=== PATIENT | female | born 1935 | race Caucasian/White ===

== ENCOUNTER 2023-11-21 13:17 | Outpatient (CLI) | payer MEDICARE, OTHER, SELFPAY ==
--- NOTE | ~2023-11-21 | DEXA_ITS ---
Bone Density Report Name: JANAY ARANA Age: 88 Sex: Female Ethnicity: White Date of : 1935 Indication: postmenopausal; screening for osteoporosis; height loss; hysterectomy; Referring Provider: REX, ARCHANA Study: Bone densitometry was performed. Exam Date: November 21, 2023 Accession number: [id number] Bone Density: Region BMD T-score Z-score Classification AP Spine(L1, L2, L3) 1.135 1.1 3.9 Normal Femoral Neck (Left) 0.637 -1.9 0.6 Osteopenia Total Hip (Left) 0.844 -0.8 1.5 Normal Femoral Neck (Right) 0.770 -0.7 1.8 Normal Total Hip (Right) 0.834 -0.9 1.5 Normal Total Hip Mean 0.839 -0.9 1.5 Normal World Health Organization criteria for BMD impression classify patients as: Normal (T-score at or above -1.0), Osteopenia (T-score between -1.0 and -2.5), or Osteoporosis (T-score at or below -2.5). 10-year Fracture Risk(1): Major Osteoporotic Fracture 13% Hip Fracture 3.8% Reported Risk Factors: [place] (), Neck BMD=0.637, BMI=34.1 (1) FRAX(R) Version 3.08. Fracture probability calculated for an untreated patient. Fracture probability may be lower if the patient has received treatment. Clinical Information Provided by Patient: Has used the following medications: MIHIR Has the following medical conditions: Hysterectomy Patient maximum height was 65 Menopause Age: 43 No regular weight bearing exercise Drinks caffeinated beverages Onset of menses at age 14 Number of children 2 Impression: The patient has low bone mass, based on the Left Femoral Neck T-score. The patient has an estimated ten-year risk of hip fracture of 3.8% and an estimated ten-year risk of major fracture of 13%, based on the WHO FRAX algorithm. Discussion: BONE DENSITY IS LOW AT ONE OR MORE SKELETAL SITES. THE PATIENT'S BMD AND CLINICAL RISK FACTORS CONTRIBUTE TO THIS PATIENT'S INCREASED RISK OF FRACTURE. This patient's lowest T-score is low at one or more skeletal sites. It meets the World Health Organization's (WHO) criteria for ?low bone mass? (T-score between -1.0 and -2.5). The patient's 10-year risk of hip fracture as calculated by FRAX exceeds the threshold where pharmacological therapy is recommended by the National Osteoporosis Foundation (NOF). However, all treatment decisions require clinical judgment and consideration of individual patient factors, including patient preferences, comorbidities, previous drug use, risk factors not captured in the FRAX model (e.g., frailty, falls, vitamin D deficiency, increased bone turnover, interval significant decline in bone density) and possible under or overestimation of fracture risk by FRAX. The patient should follow a healthful lifestyle (good nutrition with adequate calcium and vitamin D, and appropriate weight-bearing exercise).
== END 2023-11-21 13:18 | disposition home or self-care (01) ==
LOC: ANHIMG 13:20
PROVIDERS: PCP Internal Medicine; Visit Provider Internal Medicine
DX: Z13.820 Encounter for screening for osteoporosis (principal); Z78.0 Asymptomatic menopausal state; M85.852 Other specified disorders of bone density and structure, left thigh
CPT/HCPCS: 77080

== ENCOUNTER 2024-09-29 09:26 | Inpatient (IN) | payer MEDICARE, OTHER, SELFPAY ==
[2024-09-29] VITALS (23 sets, daily range): BP systolic 171–229; BP diastolic 80–120; PULSE 56–80; RESP 12–25; TEMP 36.4–36.9; O2SAT 97–100; BMI 25.5; BMI 28.2
--- NOTE | ~2024-09-29 | XR_ITS ---
Portable chest x-ray Comparison: 10/03/2024 Clinical History: Line placement Findings: Left-sided central venous line are in satisfactory position. Possible minimal pleural effu sherita. Probable mild central congestive change. Cardiomediastinal silhouette is stable. Bones and sof t tissues are unremarkable. Impression: Support line, as above. No pneumothorax. Possible minimal central congestive change and minimal left pleural effusion. Reviewed, dictated and finalized at location . ING AID TECHNICIAN Impression: Support line, as above. No pneumothorax. Possible minimal central congestive change and minimal left pleural effusion.
--- NOTE | ~2024-09-29 | XR_ITS ---
EXAMINATION: XR chest 1V portable Exam Date/Time: 09/30/2024 18:43 FARE ENFORCEMENT OFFICER HISTORY: STEVE Comparison: None. RESULT: Lines, tubes, and devices: None. Lungs and pleura: Clear. Cardiomediastinal silhouette: Stable. Other: No acute osseous or upper abdominal finding. IMPRESSION: No acute cardiopulmonary process. Reviewed, dictated and finalized at location K. ENFORCEMENT OFFICER
--- NOTE | ~2024-09-29 | CT_ITS ---
History: Respiratory failure, anemia PROCEDURE: CT head without contrast. COMPARISON: 04/08/2014 TECHNIQUE: Axial imaging of the head performed from the skull base to the vertex without IV contrast. Sagittal a nd coronal reformations obtained. DLP: mGy-cm FINDINGS: The ventricles are enlarged. The dilatation of the ventricles is proportional to the degree of sulcal prominence, not uncommon in the senescent brain. Decreased attenuation is identified within the periventricular white matter, likely secondary to micr ovascular ischemic disease, in a patient of this age. There is no mass, mass effect or midline shift. There is no abnormal extra-axial fluid collection or intracranial hemorrhage. Mucoperiosteal thickening within the right frontal sinus. Remaining paranasal sinuses are unremarkable. The mastoid air cells are well aerated. No acute displaced fractures within the overlying cranium. Impression: No acute intracranial hemorrhage or suspicious mass effect. Reviewed, dictated and finalized at location A. ONNEL SUPERVISOR Impression: No acute intracranial hemorrhage or suspicious mass effect.
--- NOTE | ~2024-09-29 | US_ITS ---
EXAMINATION: US renal BI, US retroperitoneal duplex ltd DATE: 09/29/2024 14:57 INDICATION: Acute kidney injury TECHNIQUE: 1. Multiple grayscale and color Doppler images of the kidneys were obtained. 2. Multiple grayscale and pulsed Doppler images of the aorta and renal arteries were obtained. COMPARISON: None. FINDINGS: Kidneys: The right kidney measures 10.9 x 5.9 x 5.6 cm. The left kidney measures 11.5 x 5.0 x 5.3 cm. The kidn eys demonstrate bilateral diffuse renal cortical echogenicity consistent with medical renal disease. There are large bilateral anechoic renal cysts measuring up to 5.0 cm on the right hand 9.0 cm on the left. There is no hydronephrosis in either kidney. No stones identified. The arterial resistive ind ices in the right kidney range from 0.74-0.77 and in the left kidney range from 0.65-0.76. The bladde r is normal. Mild splenomegaly measuring 13.4 cm craniocaudal length. Renal arteries/vascular: The aorta peak systolic velocity is 86 cm/s. Infrarenal abdominal aortic aneurysm measuring up to 3.6 cm in maximal AP diameter. The right renal artery peak systolic velocity is 45 cm/s in the proximal segment, 40 cm/s in the mid segment, and 33 cm/s in the distal segment. The left renal artery peak sy stolic velocity is 77 cm/s in the proximal segment, 49 cm/s in the mid segment, and 19 cm/s in the di stal segment. IMPRESSION: 1. Bilateral increased renal cortical atelectasis be consistent with medical renal disease. No hydron ephrosis. 2. No Doppler evidence of renal artery stenosis. 3. Fusiform abdominal aortic aneurysm measuring up to 3.6 cm maximal diameter. Reviewed, dictated and finalized at location B. ENT COMPANION IMPRESSION: 1. Bilateral increased renal cortical atelectasis be consistent with medical re nal disease. No hydronephrosis. 2. No Doppler evidence of renal artery stenosis. 3. Fusiform abdominal aortic aneurysm measuring up to 3.6 cm maximal diameter.
--- NOTE | ~2024-09-29 | XR_ITS ---
XR chest ET placement Ordering provider: Rocio Champion MD History: 89 years Female with . After intubation to confirm ET placement . Comparison: October 05, 2024 FINDINGS: MEDIASTINUM: The cardiac silhouette is slightly enlarged. Left permacath with the tip overlying the r ight atrium. Endotracheal tube above the abraham by about 2 cm. LUNGS: No effusions or pneumothorax. Opacification in the left lung base laterally. OTHER: No free air under the diaphragm. IMPRESSION: Left basilar atelectasis versus pneumonia. Reviewed, dictated and finalized at location A. K PARTS INSPECTOR
--- NOTE | ~2024-09-29 | XR_ITS ---
Portable chest x-ray Comparison: 10/06/2024 Clinical History: Respiratory failure Findings: Endotracheal tube, NG tube, and bilateral central venous lines are in place. Small to mode rate left pleural effusion present with probable left lower lobe atelectasis. Right lung essentially clear. Cardiomediastinal silhouette is stable. Bones and soft tissues are unremarkable. Impression: [id number] left pleural effusion with probable left lower lobe atelectasis. Correlate clinical ly for pneumonia. Support tubes, as above. Reviewed, dictated and finalized at location . ION MARKETER Impression: [id number] left pleural effusion with probable left lower lobe atelectas is. Correlate clinically for pneumonia. Support tubes, as above.
--- NOTE | ~2024-09-29 | XR_ITS ---
EXAMINATION: XR fl guide central line place DATE: 10/05/2024 13:01 INDICATION: Central line placement. TECHNIQUE: 3 intraoperative spot fluoroscopic views of the chest were obtained. I wasn't present. Flu oroscopy exposure time was 1 minute 34 seconds. COMPARISON: Chest single view 10/05/2024 FINDINGS: There is a left internal jugular central venous catheter with tip overlying the proximal ri ght atrium. IMPRESSION: 1. Central line tip overlying the proximal right atrium. Reviewed, dictated and finalized at location [] ICE ADMINISTRATOR
--- NOTE | ~2024-09-29 | XR_ITS ---
XR abdomen gastric tube insert Ordering provider: Rocio Champion MD History: . og placement . Comparison: None. FINDINGS/impression: Nasogastric tube with the tip in the body of the stomach. Reviewed, dictated and finalized at location A. S AGENT FINANCIAL REPORT SERVICE
--- NOTE | ~2024-09-29 | XR_ITS ---
EXAMINATION: XR chest port-a-cath/central DATE: 10/03/2024 12:12 INDICATION: Dialysis catheter placement TECHNIQUE: frontal view of the chest was obtained. COMPARISON: Chest radiograph dated 09/30/2024 FINDINGS: Large-bore likely tunneled dual-lumen right internal jugular central venous catheter with distal tip at the superior cavoatrial junction. No airspace opacities, pulmonary edema, pleural effusion or pneu mothorax. Heart size is normal. Calcified mediastinal lymph nodes consistent with old granulomatous d isease. IMPRESSION: 1. No acute cardiopulmonary disease. 2. Right internal jugular central venous catheter tip at the superior cavoatrial junction. Reviewed, dictated and finalized at location B. PATIAL IMAGE ANALYST IMPRESSION: 1. No acute cardiopulmonary disease. 2. Right internal jugular central venous catheter tip at the superior cavoatria l junction.
--- NOTE | ~2024-09-29 | XR_ITS ---
EXAMINATION: XR chest port-a-cath/central DATE: 10/06/2024 12:33 INDICATION: Central line placement. TECHNIQUE: A single frontal view of the chest was obtained. COMPARISON: Chest single view at 11:33 AM FINDINGS: The patient is rotated to her left. There are airspace opacities in left lower lung zone. N o pleural effusion or pneumothorax. The heart size is normal. Calcified left hilar lymph nodes are co nsistent with old granulomatous disease. The endotracheal tube tip is 3.6 cm above the abraham. The na sogastric tube tip is beyond the inferior margin of the radiograph, but at least to the stomach. A le ft internal jugular central venous catheter is seen with tip in the proximal right atrium. A right in ternal jugular central venous catheter is seen with tip at the superior cavoatrial junction. IMPRESSION: 1. New central line tip at the superior cavoatrial junction. 2. Stable airspace opacities in left lower lung zone, consistent with atelectasis versus pneumonia. Reviewed, dictated and finalized at location A. CLERK IMPRESSION: 1. New central line tip at the superior cavoatrial junction. 2. Stable airspace opacities in left lower lung zone, consistent with atelectas is versus pneumonia.
--- NOTE | ~2024-09-29 | CT_ITS ---
CLINICAL INDICATION: Respiratory failure and anemia COMPARISON: None. TECHNIQUE: Multiple contiguous axial images of the chest, abdomen and pelvis were performed without t he administration of intravenous contrast The dose-length product (DLP) was 1252.89 mGy-cm. Automated exposure control and iterative reconstruction technique were employed. FINDINGS/OBSERVATIONS: LUNG:Large bilateral pleural effusions with adjacent compressive atelectasis MEDIASTINUM: Limited evaluation without intravenous contrast. Endotracheal tube and orogastric tube identified. Endotracheal tube ends at the level of the aortic knob. Orogastric tube extends into the stomach. Left internal jugular tunneled central venous catheter identified with its tip at the cavoatrial junc tion. Right internal jugular central venous catheter also noted, with its tip extending to the same level. HEART: The heart is enlarged, without pericardial effusion. SOFT TISSUES OF THE CHEST: Unremarkable. BONES OF THE CHEST: Acute fractures of the anterior left fourth fifth and sixth ribs. Prior fracture deformity with callus formation within the posterior left ninth rib. No right-sided rib fractures are present. Liver: The liver demonstrates homogeneous attenuation and is enlarged measuring 20 cm in longitudinal dimens ion. Gallbladder and biliary system: The gallbladder contains multiple calcified stones and trace surrounding inflammatory change. Pancreas: Limited evaluation of the pancreas secondary to the lack of intravenous contrast. Spleen: The spleen demonstrates homogeneous attenuation and is enlarged measuring 12 cm in longitudinal dimen sherita. Kidneys: The bilateral kidneys are atrophic with innumerable cysts of varying degrees of attenuation. No hydro nephrosis is identified. Adrenal glands: Unremarkable. Gastrointestinal tract: Colonic diverticulosis without surrounding inflammatory change. Vasculature: The abdominal aorta is tortuous and densely calcified. 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 The inferior vena cava is narrowed and is slit like, suggesting hypovolemia Lymph nodes: Limited evaluation without intravenous contrast. Pelvic structures: The bladder is decompressed with a Cazares catheter. The uterus is surgically absent. Body wall and musculoskeletal: Fat-containing right inguinal hernia. Significant degenerative disease lumbosacral spine, without acute compression fracture. IMPRESSION: Large bilateral pleural effusions with adjacent compressive atelectasis. The gallbladder is distended with multiple calcified stones with surrounding inflammatory change. Interval development of multiple left-sided rib fractures, as detailed above. Findings suggesting hypovolemia. Reviewed, dictated and finalized at location A. RGLASS MACHINE OPERATOR IMPRESSION: Large bilateral pleural effusions with adjacent compressive atelectasis. The gallbladder is distended with multiple calcified stones with surrounding in flammatory change. Interval development of multiple left-sided rib fractures, as detailed above. Findings suggesting hypovolemia.
--- NOTE | ~2024-09-29 | XR_ITS ---
Portable chest x-ray Comparison: 10/07/2024 Clinical History: Respiratory failure Findings: Endotracheal tube, NG tube, and bilateral central venous lines are in place. Small to mode rate left pleural effusion present. Probable mild central congestive change. Cardiomediastinal silho uette is stable. Bones and soft tissues are unremarkable. Impression: [id number] left pleural effusion with probable left basilar atelectasis. Mild central congestive changes. Support tubes, as above. Reviewed, dictated and finalized at location . TH CONTROL TESTER Impression: [id number] left pleural effusion with probable left basilar atelectasis. Mild central congestive changes. Support tubes, as above.
--- NOTE | ~2024-09-29 | XR_ITS ---
EXAMINATION: XR fl guide central line place DATE: 10/03/2024 11:48 INDICATION: Dialysis catheter placement. TECHNIQUE: A single intraoperative fluoroscopic view of the chest was obtained. I was not present. Fl uoroscopy exposure time was 74 seconds. COMPARISON: Chest single view 09/30/2024 FINDINGS: A right internal jugular central venous catheter is seen with tip at the superior cavoatria l junction. There is an endotracheal tube in expected position. IMPRESSION: 1. Central line tip at the superior cavoatrial junction. Reviewed, dictated and finalized at location A. SER TENDER
--- NOTE | 2024-09-29 09:37 | ED_ITS ---
HPI - Nausea/Vomiting/Diarrhea General Chief complaint: Nausea/Vomiting/Diarrhea <Jing Carlisle PA-C - Last Filed: 09/29/24 11:35> Stated complaint: nausea vomiting <Jing Carlisle PA-C - Last Filed: 09/29/24 11:35> Time Seen by Provider: 09/29/24 09:29 <Jing Carlisle PA-C - Last Filed: 09/29/24 11:35> History of Present Illness HPI Narrative: 89-year-old female with history of hypertension presents to emergency department for N/V/D for 1 day. Patient states symptoms started yesterday but became worse last night. She notes she was hospitalized last week at [facility] for the same symptoms. She was discharged with Zofran which she has been taking with some improvement. She is unsure what her diagnosis was. She denies fever, abdominal pain, dysuria or hematuria. She has found a be hypertensive upon arrival and states she has not taken her blood pressure medications today. Denies chest pain or shortness of breath, vision changes. <Jing Carlisle PA-C - Last Filed: 09/29/24 11:35> Related Data Home medications: Home Medications ?Medication ?Instructions ?Recorded ?Confirmed ?Last Taken ?Type amlodipine 5 mg tablet 5 mg PO DAILY Blood pressure 09/29/24 09/29/24 09/28/24 History calcitriol 0.25 mcg capsule 0.25 mcg PO DAILY 09/29/24 09/29/24 09/28/24 History cefuroxime axetil 250 mg tablet 250 mg PO Q12H 09/29/24 09/29/24 Unknown History metoprolol succinate 100 mg 100 mg PO DAILY 09/29/24 09/29/24 09/28/24 History tablet,extended release 24 hr mirtazapine 7.5 mg tablet 7.5 mg PO HS 09/29/24 09/29/24 Unknown History ondansetron HCl 4 mg tablet 4 mg PO PRN 09/29/24 09/29/24 Unknown History sertraline 100 mg tablet 100 mg PO DAILY 09/29/24 09/29/24 09/28/24 History <Jing Carlisle PA-C - Last Filed: 09/29/24 11:35> Allergies/Adverse reactions: Allergies Allergy/AdvReac Type Severity Reaction Status Date / Time Toxfnqz-JLQ-ZwV Reductase Allergy Unknown CRAMPING Verified 09/29/24 11:08 Inhibitor (Zirzqqy-Ygg-Qmi LEG Reductase Inhibitor) NSID AdvReac Mild unknown Uncoded 09/29/24 11:08 <Jing Carlisle PA-C - Last Filed: 09/29/24 11:35> Review of Systems 2 Review of Systems: All systems reviewed & are unremarkable except as noted in HPI and below <Jing Carlisel PA-C - Last Filed: 09/29/24 11:35> PMFSH Past Medical History Medical History: Medical History (Updated 09/29/24 @ 16:05 by Jessica Alonso PA-C) Depression Hypertension <Jing Carlisle PA-C - Last Filed: 09/29/24 11:35> Surgical History Surgical History: Surgical History (Updated 09/29/24 @ 16:04 by Jessica Alonso PA-C) History of tonsillectomy History of cataract extraction <Jing Carlisle PA-C - Last Filed: 09/29/24 11:35> Social History Social History: Social History (Updated 09/29/24 @ 16:04 by Jessica Alonso PA-C) Social History: Surrogate medical decision maker: Marisol Negrete, sibling. Code status: Full code. Smoking status: Never smoker Alcohol intake: never Substance use: never Do You Feel Safe in your Home?: Yes Lack of Transportation: No Lack of Food: Never True Current Housing: I Have Housing Concerned About Future Housing: No Difficulty Paying Gas/Electric Bills: No Difficulty Paying for Meds: No Currently Unemployed: No Education: Associate Degree Difficulty w/ Childcare or Family Care: No Spiritual care concerns: No <Jing Carlisle PA-C - Last Filed: 09/29/24 11:35> Exam 2 Narrative: GENERAL: Well-appearing, well-nourished, and in no acute distress. HEAD: Normocephalic, atraumatic. EYES: PERRLA and EOMI. ENT: Nares clear, no rhinorrhea or epistaxis. Mucous membranes dry NECK: Supple. CHEST: Clear to auscultation. No respiratory distress. HEART: Regular rate and rhythm. No murmur heard. Normal peripheral pulses. ABDOMEN: Soft, nontender, nondistended, normal active bowel sounds. No rebound, guarding or rigidity. No CVA tenderness EXTREMITIES: Normal range of motion. No edema. SKIN: Warm, dry, no rash. NEURO: No focal deficits. Alert and oriented x3 <Jing Carlisle PA-C - Last Filed: 09/29/24 11:35> Course ELECTRONIC DESIGN ENGINEER/PA Physician Supervision For this patient encounter, I reviewed the ELECTRONIC DESIGN ENGINEER or PA documentation, treatment plan, and medical decision making; and I had [id number] time with this patient. <Dale Matson MD - Last Filed: 09/29/24 18:19> Vital Signs Vital signs: Vital Signs Temperature 97.5 F L 09/29/24 09:26 Pulse Rate 80 09/29/24 09:26 Respiratory Rate 16 09/29/24 09:26 Blood Pressure 217/95 H 09/29/24 09:26 Pulse Oximetry 97 09/29/24 09:26 Temperature 98.5 F 09/29/24 15:34 Pulse Rate 59 L 09/29/24 16:00 Respiratory Rate 16 09/29/24 15:34 Blood Pressure 171/120 H 09/29/24 15:34 Pulse Oximetry 99 09/29/24 15:37 Oxygen Delivery Room Air 09/29/24 15:37 <Jing Carlisle PA-C - Last Filed: 09/29/24 11:35> Vital Signs Temperature 97.5 F L 09/29/24 09:26 Pulse Rate 80 09/29/24 09:26 Respiratory Rate 16 09/29/24 09:26 Blood Pressure 217/95 H 09/29/24 09:26 Pulse Oximetry 97 09/29/24 09:26 Temperature 98.5 F 09/29/24 15:34 Pulse Rate 59 L 09/29/24 16:00 Respiratory Rate 16 09/29/24 15:34 Blood Pressure 171/120 H 09/29/24 15:34 Pulse Oximetry 99 09/29/24 15:37 Oxygen Delivery Room Air 09/29/24 15:37 <Dale Matson MD - Last Filed: 09/29/24 18:19> MDM - Nausea/Vomiting/Diarrhea MDM Narrative Medical decision making narrative: 89-year-old female with history of hypertension presents to emergency department for N/V/D for the past day. Triage vitals with hypertension. Patient is afebrile nontoxic appearing. Admits to not taking her blood pressure medications today, will provided does. Denies signs or symptoms of hypertensive emergency. Abdomen is soft and nontender. Will obtain lab work and provide IV fluids and antiemetics and re-evaluate. CBC without leukocytosis. Hemoglobin is 10, no prior for comparison. Chemistries with potassium of 5.5, bicarb 18, gap of 21, BUN of 98 and creatinine of 11.33. UA with proteinuria, trace leuk esterase. EKG shows sinus rhythm with Q-waves in the anterior leads and inferior leads, no ST elevations or depressions, no peaked T waves. Lipase normal. Patient family updated on results. Patient received IV fluids and Zofran with reported improvement. At the time my re-evaluation, patient's sister is at bedside to assist with recent history. States at patient's recent admission to [facility] she was told she had kidney disease and was given follow-up for corduroy brusher operator. The next step is for the patient to obtain renal ultrasound. She has no history of dialysis. CKD is a new diagnosis. Family patient are unable to show recent lab work to evaluate for patient's most recent renal function. Will request records. Plan to admit for presumed STEVE on CKD. Discussed with corduroy brusher operator, Dr. Burris,who advises one time dose of lokelma, will consult on admission. Discussed with hospitalist, Dr. Pennington who agrees with plan. Prior to patient going upstairs, patient's sister at bedside was able to find lab results from a PCP visit in June 2024 which showed a creatinine of 1.47. <Jing Carlisle PA-C - Last Filed: 09/29/24 11:35> Lab Data Result diagrams: 09/29/24 09:49 09/29/24 13:58 <Jing Carlisle PA-C - Last Filed: 09/29/24 11:35> Labs: Lab Results 09/29/24 09/29/24 09/29/24 Range/Units 09:48 09:49 09:50 WBC 4.6 (4.5-10.0) K/mm3 RBC 3.19 L (4.2-5.4) M/mm3 Hgb 10.0 L (12.0-15.0) g/dL Hct 29.9 L (37.0-47.0) % MCV 93.7 (80-100) fl MCH 31.3 (26-34) pg MCHC 33.4 (32-36) g/dl RDW 12.4 (11.5-14.5) % Plt Count 127 L (150-375) k/mm3 MPV 10.5 H (7.4-10.4) fl Immature Gran % (Auto) 0.4 (0-0.5) % Neut % (Auto) 75.0 H (45.5-73.1) % Lymph % (Auto) 16.6 L (18.3-44.2) % [place] % (Auto) 5.0 (2.6-8.5) % Eos % (Auto) 2.8 (0-4.4) % Baso % (Auto) 0.2 (0.2-1.2) % Lymph # (Auto) 0.76 L (0.9-3.2) K/mm3 [place] # (Auto) 0.2 (0.1-0.6) K/mm3 Eos # (Auto) 0.1 (0-0.3) K/mm3 Baso # (Auto) 0.0 (0.0-0.1) K/mm3 Abs Immat Gran (auto) 0.02 (0.00-0.031) K/mm3 Absolute Neuts (auto) 3.4 (1.3-6.7) K/mm3 Absolute Nucleated RBC 0.000 (0.0-0.012) K/mm3 Nucleated RBC % 0.0 (0.0-0.2) % ESR 125 H (0-20) mm/hr Sodium 139 (137-145) mmol/L Potassium 5.5 H (3.4-5.0) mmol/L Chloride 100 (98-107) mmol/L Carbon Dioxide 18 L (22-30) mmol/L Anion Gap 21 H (4-12) mmol/L BUN 98 H (7-17) mg/dL Creatinine 11.33 H (0.7-1.0) mg/dL Estim Creat Clear Calc 3 ml/min Estimated GFR 3 L (59 - ) Glucose 94 (65-110) mg/dL Calcium 9.6 (8.4-10.2) mg/dL Phosphorus 11.1 H (2.5-4.5) mg/dL Magnesium 2.5 H (1.6-2.3) mg/dL Iron 121 (37-170) ug/dL TIBC 255 L (261-462) ug/dL % Saturation 47 (20-50) % Ferritin 224.00 (11.1-264) ng/mL Total Bilirubin 0.6 (0.2-1.3) mg/dL AST 16 (14-36) U/L ALT 9 (6-35) U/L Alkaline Phosphatase 66 (38-126) U/L C-Reactive Protein (<1.0) mg/dL Total Protein 7.0 (6.3-8.2) g/dL Albumin 4.2 (3.5-5.1) g/dL Lipase 128 (23-300) U/L Vitamin B12 348.0 (239-931) pg/mL Folate 6.5 (2.76->20) ng/mL TSH (Reflex) 6.960 H (0.465-4.68) uIU/mL Free T4 Pending Urine Color (Yellow) Urine Appearance (Clear) Urine pH (5.0-9.0) Ur Specific [place] (1.001-1.035) Urine Protein (Negative) mg/dL Urine Glucose (UA) (Negative) mg/dL Urine Ketones (Negative) mg/dL Ur Blood (Man) (Negative) Urine Nitrate (Negative) Urine Bilirubin (Negative) Urine Urobilinogen (<2.0) mg/dL Add Ur Microanalysis Leukocyte Esterase Rfl (Negative) NANDO/UL Urine RBC (0-2) /hpf Urine WBC (0-3) /hpf Ur Squamous Epith Cells (Few) /hpf Urine Bacteria /hpf Urine Casts Complement C3 140 (88-165) mg/dL Complement C4 54.6 H (14.0-44.0) mg/dL Hep Bs Antigen Negative (Negative) Hep Bs Antibody Negative Hep B Core IgM Ab Negative (Negative) Hepatitis C Ab Screen Negative (Negative) HIV 1&2 Ab/P24 Ag 4thGn Negative (Negative) Influenza A (RT-PCR) Negative (Negative) Influenza B (RT-PCR) Negative (Negative) RSV (RT-PCR) Negative (Negative) SARS-CoV-2 RNA (RT-PCR) Negative (Negative) 09/29/24 09/29/24 Range/Units 10:18 10:39 WBC (4.5-10.0) K/mm3 RBC (4.2-5.4) M/mm3 Hgb (12.0-15.0) g/dL Hct (37.0-47.0) % MCV (80-100) fl MCH (26-34) pg MCHC (32-36) g/dl RDW (11.5-14.5) % Plt Count (150-375) k/mm3 MPV (7.4-10.4) fl Immature Gran % (Auto) (0-0.5) % Neut % (Auto) (45.5-73.1) % Lymph % (Auto) (18.3-44.2) % [place] % (Auto) (2.6-8.5) % Eos % (Auto) (0-4.4) % Baso % (Auto) (0.2-1.2) % Lymph # (Auto) (0.9-3.2) K/mm3 [place] # (Auto) (0.1-0.6) K/mm3 Eos # (Auto) (0-0.3) K/mm3 Baso # (Auto) (0.0-0.1) K/mm3 Abs Immat Gran (auto) (0.00-0.031) K/mm3 Absolute Neuts (auto) (1.3-6.7) K/mm3 Absolute Nucleated RBC (0.0-0.012) K/mm3 Nucleated RBC % (0.0-0.2) % ESR (0-20) mm/hr Sodium (137-145) mmol/L Potassium (3.4-5.0) mmol/L Chloride (98-107) mmol/L Carbon Dioxide (22-30) mmol/L Anion Gap (4-12) mmol/L BUN (7-17) mg/dL Creatinine (0.7-1.0) mg/dL Estim Creat Clear Calc ml/min Estimated GFR (59 - ) Glucose (65-110) mg/dL Calcium (8.4-10.2) mg/dL Phosphorus (2.5-4.5) mg/dL Magnesium (1.6-2.3) mg/dL Iron (37-170) ug/dL TIBC (261-462) ug/dL % Saturation (20-50) % Ferritin (11.1-264) ng/mL Total Bilirubin (0.2-1.3) mg/dL AST (14-36) U/L ALT (6-35) U/L Alkaline Phosphatase (38-126) U/L C-Reactive Protein 1.7 H (<1.0) mg/dL Total Protein (6.3-8.2) g/dL Albumin (3.5-5.1) g/dL Lipase (23-300) U/L Vitamin B12 (239-931) pg/mL Folate (2.76->20) ng/mL TSH (Reflex) (0.465-4.68) uIU/mL Free T4 Urine Color Yellow (Yellow) Urine Appearance Clear (Clear) Urine pH 6.0 (5.0-9.0) Ur Specific [place] 1.013 (1.001-1.035) Urine Protein 2+ H (Negative) mg/dL Urine Glucose (UA) Negative (Negative) mg/dL Urine Ketones Trace H (Negative) mg/dL Ur Blood (Man) Trace (Negative) Urine Nitrate Negative (Negative) Urine Bilirubin Negative (Negative) Urine Urobilinogen 0.2 (<2.0) mg/dL Add Ur Microanalysis Reviewed Leukocyte Esterase Rfl Trace H (Negative) NANDO/UL Urine RBC 0-2 (0-2) /hpf Urine WBC 0-5 (0-3) /hpf Ur Squamous Epith Cells None seen (Few) /hpf Urine Bacteria None seen /hpf Urine Casts 3-5 Complement C3 (88-165) mg/dL Complement C4 (14.0-44.0) mg/dL Hep Bs Antigen (Negative) Hep Bs Antibody Hep B Core IgM Ab (Negative) Hepatitis C Ab Screen (Negative) HIV 1&2 Ab/P24 Ag 4thGn (Negative) Influenza A (RT-PCR) (Negative) Influenza B (RT-PCR) (Negative) RSV (RT-PCR) (Negative) SARS-CoV-2 RNA (RT-PCR) (Negative) <Jing Carlisle PA-C - Last Filed: 09/29/24 11:35> Lab Results 09/29/24 09/29/24 09/29/24 Range/Units 09:48 09:49 09:50 WBC 4.6 (4.5-10.0) K/mm3 RBC 3.19 L (4.2-5.4) M/mm3 Hgb 10.0 L (12.0-15.0) g/dL Hct 29.9 L (37.0-47.0) % MCV 93.7 (80-100) fl MCH 31.3 (26-34) pg MCHC 33.4 (32-36) g/dl RDW 12.4 (11.5-14.5) % Plt Count 127 L (150-375) k/mm3 MPV 10.5 H (7.4-10.4) fl Immature Gran % (Auto) 0.4 (0-0.5) % Neut % (Auto) 75.0 H (45.5-73.1) % Lymph % (Auto) 16.6 L (18.3-44.2) % [place] % (Auto) 5.0 (2.6-8.5) % Eos % (Auto) 2.8 (0-4.4) % Baso % (Auto) 0.2 (0.2-1.2) % Lymph # (Auto) 0.76 L (0.9-3.2) K/mm3 [place] # (Auto) 0.2 (0.1-0.6) K/mm3 Eos # (Auto) 0.1 (0-0.3) K/mm3 Baso # (Auto) 0.0 (0.0-0.1) K/mm3 Abs Immat Gran (auto) 0.02 (0.00-0.031) K/mm3 Absolute Neuts (auto) 3.4 (1.3-6.7) K/mm3 Absolute Nucleated RBC 0.000 (0.0-0.012) K/mm3 Nucleated RBC % 0.0 (0.0-0.2) % ESR 125 H (0-20) mm/hr Sodium 139 (137-145) mmol/L Potassium 5.5 H (3.4-5.0) mmol/L Chloride 100 (98-107) mmol/L Carbon Dioxide 18 L (22-30) mmol/L Anion Gap 21 H (4-12) mmol/L BUN 98 H (7-17) mg/dL Creatinine 11.33 H (0.7-1.0) mg/dL Estim Creat Clear Calc 3 ml/min Estimated GFR 3 L (59 - ) Glucose 94 (65-110) mg/dL Calcium 9.6 (8.4-10.2) mg/dL Phosphorus 11.1 H (2.5-4.5) mg/dL Magnesium 2.5 H (1.6-2.3) mg/dL Iron 121 (37-170) ug/dL TIBC 255 L (261-462) ug/dL % Saturation 47 (20-50) % Ferritin 224.00 (11.1-264) ng/mL Total Bilirubin 0.6 (0.2-1.3) mg/dL AST 16 (14-36) U/L ALT 9 (6-35) U/L Alkaline Phosphatase 66 (38-126) U/L C-Reactive Protein (<1.0) mg/dL Total Protein 7.0 (6.3-8.2) g/dL Albumin 4.2 (3.5-5.1) g/dL Lipase 128 (23-300) U/L Vitamin B12 348.0 (239-931) pg/mL Folate 6.5 (2.76->20) ng/mL TSH (Reflex) 6.960 H (0.465-4.68) uIU/mL Free T4 Pending Urine Color (Yellow) Urine Appearance (Clear) Urine pH (5.0-9.0) Ur Specific [place] (1.001-1.035) Urine Protein (Negative) mg/dL Urine Glucose (UA) (Negative) mg/dL Urine Ketones (Negative) mg/dL Ur Blood (Man) (Negative) Urine Nitrate (Negative) Urine Bilirubin (Negative) Urine Urobilinogen (<2.0) mg/dL Add Ur Microanalysis Leukocyte Esterase Rfl (Negative) NANDO/UL Urine RBC (0-2) /hpf Urine WBC (0-3) /hpf Ur Squamous Epith Cells (Few) /hpf Urine Bacteria /hpf Urine Casts Complement C3 140 (88-165) mg/dL Complement C4 54.6 H (14.0-44.0) mg/dL Hep Bs Antigen Negative (Negative) Hep Bs Antibody Negative Hep B Core IgM Ab Negative (Negative) Hepatitis C Ab Screen Negative (Negative) HIV 1&2 Ab/P24 Ag 4thGn Negative (Negative) Influenza A (RT-PCR) Negative (Negative) Influenza B (RT-PCR) Negative (Negative) RSV (RT-PCR) Negative (Negative) SARS-CoV-2 RNA (RT-PCR) Negative (Negative) 09/29/24 09/29/24 Range/Units 10:18 10:39 WBC (4.5-10.0) K/mm3 RBC (4.2-5.4) M/mm3 Hgb (12.0-15.0) g/dL Hct (37.0-47.0) % MCV (80-100) fl MCH (26-34) pg MCHC (32-36) g/dl RDW (11.5-14.5) % Plt Count (150-375) k/mm3 MPV (7.4-10.4) fl Immature Gran % (Auto) (0-0.5) % Neut % (Auto) (45.5-73.1) % Lymph % (Auto) (18.3-44.2) % [place] % (Auto) (2.6-8.5) % Eos % (Auto) (0-4.4) % Baso % (Auto) (0.2-1.2) % Lymph # (Auto) (0.9-3.2) K/mm3 [place] # (Auto) (0.1-0.6) K/mm3 Eos # (Auto) (0-0.3) K/mm3 Baso # (Auto) (0.0-0.1) K/mm3 Abs Immat Gran (auto) (0.00-0.031) K/mm3 Absolute Neuts (auto) (1.3-6.7) K/mm3 Absolute Nucleated RBC (0.0-0.012) K/mm3 Nucleated RBC % (0.0-0.2) % ESR (0-20) mm/hr Sodium (137-145) mmol/L Potassium (3.4-5.0) mmol/L Chloride (98-107) mmol/L Carbon Dioxide (22-30) mmol/L Anion Gap (4-12) mmol/L BUN (7-17) mg/dL Creatinine (0.7-1.0) mg/dL Estim Creat Clear Calc ml/min Estimated GFR (59 - ) Glucose (65-110) mg/dL Calcium (8.4-10.2) mg/dL Phosphorus (2.5-4.5) mg/dL Magnesium (1.6-2.3) mg/dL Iron (37-170) ug/dL TIBC (261-462) ug/dL % Saturation (20-50) % Ferritin (11.1-264) ng/mL Total Bilirubin (0.2-1.3) mg/dL AST (14-36) U/L ALT (6-35) U/L Alkaline Phosphatase (38-126) U/L C-Reactive Protein 1.7 H (<1.0) mg/dL Total Protein (6.3-8.2) g/dL Albumin (3.5-5.1) g/dL Lipase (23-300) U/L Vitamin B12 (239-931) pg/mL Folate (2.76->20) ng/mL TSH (Reflex) (0.465-4.68) uIU/mL Free T4 Urine Color Yellow (Yellow) Urine Appearance Clear (Clear) Urine pH 6.0 (5.0-9.0) Ur Specific [place] 1.013 (1.001-1.035) Urine Protein 2+ H (Negative) mg/dL Urine Glucose (UA) Negative (Negative) mg/dL Urine Ketones Trace H (Negative) mg/dL Ur Blood (Man) Trace (Negative) Urine Nitrate Negative (Negative) Urine Bilirubin Negative (Negative) Urine Urobilinogen 0.2 (<2.0) mg/dL Add Ur Microanalysis Reviewed Leukocyte Esterase Rfl Trace H (Negative) NANDO/UL Urine RBC 0-2 (0-2) /hpf Urine WBC 0-5 (0-3) /hpf Ur Squamous Epith Cells None seen (Few) /hpf Urine Bacteria None seen /hpf Urine Casts 3-5 Complement C3 (88-165) mg/dL Complement C4 (14.0-44.0) mg/dL Hep Bs Antigen (Negative) Hep Bs Antibody Hep B Core IgM Ab (Negative) Hepatitis C Ab Screen (Negative) HIV 1&2 Ab/P24 Ag 4thGn (Negative) Influenza A (RT-PCR) (Negative) Influenza B (RT-PCR) (Negative) RSV (RT-PCR) (Negative) SARS-CoV-2 RNA (RT-PCR) (Negative) <Dale Matson MD - Last Filed: 09/29/24 18:19> Discharge Plan Discharge Clinical Impression: Acute kidney injury superimposed on chronic kidney disease, Azotemia <Jing Carlisle PA-C - Last Filed: 09/29/24 11:35> Patient Disposition: Still a Patient <Jing Carlisle PA-C - Last Filed: 09/29/24 11:35> Condition: Stable <Jing Carlisle PA-C - Last Filed: 09/29/24 11:35>
[2024-09-29 09:55] LABS: Basophils Percent Auto 0.2 % (0.2-1.2); Eosinophils Absolute Auto 0.1 K/mm3 (0-0.3); Eosinophils Percent Auto 2.8 % (0-4.4); Hematocrit 29.9 % (37.0-47.0); Immature Granulocyte Absolute 0.02 K/mm3 (0.00-0.031); Immature Granulocyte Percent A 0.4 % (0-0.5); Lymphocytes Absolute Auto 0.76 K/mm3 (0.9-3.2); Lymphocytes Percent Auto 16.6 % (18.3-44.2); Mean Corpuscular HGB Conc 33.4 g/dl (32-36); Mean Corpuscular Hemoglobin 31.3 pg (26-34); Mean Corpuscular Volume 93.7 fl (80-100); Mean Platelet Volume 10.5 fl (7.4-10.4); Monocytes Absolute Auto 0.2 K/mm3 (0.1-0.6); Neutrophils Absolute Auto 3.4 K/mm3 (1.3-6.7); Platelet Count Result 127 k/mm3 (150-375); Red Blood Count 3.19 M/mm3 (4.2-5.4); Red Cell Distribution Width 12.4 % (11.5-14.5); White Blood Count 4.6 K/mm3 (4.5-10.0)
[2024-09-29 10:06] LABS: Alanine Aminotransferase 9 U/L (6-35); Albumin Level 4.2 g/dL (3.5-5.1); Alkaline Phosphatase 66 U/L (38-126); Anion Gap 21 mmol/L (4-12); Aspartate Amino Transferase 16 U/L (14-36); Bilirubin,Total 0.6 mg/dL (0.2-1.3); Blood Urea Nitrogen 98 mg/dL (7-17); Calcium 9.6 mg/dL (8.4-10.2); Carbon Dioxide 18 mmol/L (22-30); Chloride 100 mmol/L (98-107); Estimated CRCL calculation 3 ml/min; Estimated Glomerular Filt Rate 3; Glucose 94 mg/dL (65-110); Lipase 128 U/L (23-300); Magnesium 2.5 mg/dL (1.6-2.3); Potassium 5.5 mmol/L (3.4-5.0); Sodium 139 mmol/L (137-145)
--- NOTE | 2024-09-29 10:18 | ECG_ITS ---
Test Date: 2024-09-29 11:06:27 Measurements Intervals [place] Rate: 63 P: 38 MD: 185 QRS: -4 QRSD: 92 T: 3 QT: 446 QTc: 458 Interpretive Statements SINUS RHYTHM ANTEROSEPTAL INFARCT, AGE INDETERMINATE INFERIOR INFARCT, AGE INDETERMINATE BASELINE ARTIFACT- I, II, AVR ABNORMAL ECG No previous ECG available for comparison Electronically Signed On 09-29-2024 11:31:37 TWIST TESTER by Will Garcia D.O.
[2024-09-29 10:31] LABS: Influenza A QL RT-PCR Negative (Negative); Influenza B QL RT-PCR Negative (Negative); RSV RNA, RT-PCR Negative (Negative); SARS-CoV-2 RNA PCR Negative (Negative)
[2024-09-29] MEDS: ONDANSETRON INJ 4 MG/2 ML VIAL IV PUSH (10:39)
[2024-09-29] MEDS: SODIUM CHLORIDE 0.9% IV 1,000 ML 999 ML IV CONT (10:39)
[2024-09-29 10:54] LABS: Add Urine Microscopic? YES; Appearance Urine Clear (Clear); Bacteria Urine None Seen /hpf; Bilirubin Urine Negative (Negative); Blood Urine Trace (Negative); Color Urine Yellow (Yellow); Glucose Urine UA Negative (Negative); Ketones Urine Trace mg/dL (Negative); Leukocyte Esterase Ur Trace LEU/UL (Negative); Need Manual Microscopic Reviewed; Nitrate Urine Negative (Negative); Protein Urine 2+ mg/dL (Negative); RBC Urine 0-2 /hpf (0-2); Specific Grav Ur 1.013 (1.001-1.035); Squamous Epithelial Cell Urine None Seen /hpf (Few); Urobilinogen Urine 0.2 mg/dL (<2.0); WBC Urine 0-5 /hpf (0-3)
--- OUTSIDE RECORDS SUMMARY | 2024-09-29 11:00 | XMS_ITS | CONTINUITY OF CARE DOCUMENT ---
Author Name cooper gamboa Address Unknown Organization [facility] Address [address] [place] [address] Phone [phone] Care Team Providers Care Lofter Name Role Phone Gamal Terrell MD Unavailable ARCHANA GOODMAN MD Unavailable [phone] ARCHANA GOODMAN MD Unavailable PROBLEMS Condition Status Date Provider Notes Cardiology examination active Gamal Terrell MD Atrial Fibrillation active Gamal Terrell MD Hyperlipidemia active Gamal Terrell MD Hypertension active Gamal Terrell MD ENCOUNTERS Date Type Provider Location Encounter Diag nosis - In-person encounter Office Visit Gamal Terrell MD [facility] Cardiology examinationAtrial FibrillationHyperlipidemiaHypertension VITAL SIGNS Date Observation Value Provider Body Mass Index (Ratio) 32.12 kg/m2 Lexy Terrell MD blood pressure, cuff size regular Ke sylvester Bowen blood pressure, diastolic 86 mm[Hg] Ke rochellei Andrés blood pressure, systolic 142 mm[Hg] Malachi Bowen oxygen saturation, oximetry 97 % Nataliia Bowen respiratory rate E&M 12 /min Nataliia cruz pulse rate 71 /min Nataliia Velasquez chaparro weight E&M 199 [lb_av] Nataliia Ron lder height E&M 66 [in_i] Nataliia Velasquez lder HISTORY OF MEDICATION USE Medication Status Instructions Dates Provider Indications Com ments metoprolol succinate 100 mg tablet extended release 24 hr active Nataliia Milindchaparro sertraline 50 mg tablet active Nataliia Milindchaparro mirtazapine 15 mg tablet active Nataliia Milindchaparro amlodipine 5 mg tablet active Nataliia Milindchaparro sertraline 100 mg tablet active Nataliia Milindchaparro SOCIAL HISTORY Date Observation Value Provider drug use no Gamal Terrell MD alcohol use no Gamal Terrell MD social history reviewed E&M reviewed - no changes required Gamal Terrell MD social history E&M S moking History: P atient has never smoked. Gamal Terrell MD smoking status Never smoker Gamal Terrell MD INSURANCE PROVIDERS Payer name Policy type / Coverage type [place] red green party ID [place] [employer] Medicare [id number] [facility] [id number] ADVANCE DIRECTIVES Name Date DISCUSSED - NO DECISION MADE TREATMENT PLAN Date Name Performer [id number],C, B P today: 142/86 Her updated medication list for this problem includes: Metoprolol Succinate 100 Mg Tablet Extended Release 24 Hr (Metoprolol succinate) Amlodipine 5 Mg Tablet (Amlodipine) Gamal Terrell MD [id number],C,none in 30 ye ars Gamal Terrell MD Cardiology: B P today: 142/86 Her updated medication list for this problem includes: Metoprolol Succinate 100 Mg Tablet Extended Release 24 Hr (Metoprolol succinate) Amlodipine 5 Mg Tablet (Amlodipine) Gamal Terrell MD Cardiology:none in 30 years Lexy Terrell MD HISTORY OF PROCEDURES Procedure Date Procedure Name Provider Procedure Notes S tatus EKG Gamal Terrell MD completed
--- OUTSIDE RECORDS SUMMARY | 2024-09-29 11:00 | XMS_ITS | Continuity of Care Document ---
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, [address] [place] [address] [address], [place], [place], [id number], [place] tel:[phone] [facility] No Information [id number] Edward. [address] [facility] , [address], [place], [address], [place]. tel:[phone] Family History Family Member Type Diagnosis Age At Onset No Information Payers Payer name Insurance type Covered libertarian ID Authoriza tion(s) Medicare [facility] [id number] For Life Mdcr Supp CI [id number] Social History Type Description Quantity Date Captured Comments Sex Female Smoking Status No Information Chief Complaint And Reason For Visit No Information Reason For Referral Reason For Referral No Information History Of Present Illness Encounter Date Complaint History Of Prese nt Illness No Information Functional Status Date Functional Assessmen t No Information Instructions Date Instruction Additional Infor mation No Information Assessments Type Assessment Date No Information Patient Care Teams Name Effective Dates (start - stop) Status Members No Information
--- OUTSIDE RECORDS SUMMARY | 2024-09-29 11:01 | XMS_ITS | Data Portability ---
Author Organization [place] - [facility] [employer], Main Office Address [address] [place] [address] Care Team Providers Care Advanced Manager Name Role Phone ELIZABETH SALAZAR Primary Care Provider [phone] Assessment Encounter Date Assessment Date Assessment LastModified by Organization Details LastModified Time 03/13/2024 03/13/2024 03/05/2024: UPEP: +ve M spike SPEP: gamma globulin PLT 140 TSH 5.830H, FT4 0.90 Gluc 104 Chol 269, TG 300, LDL 141 [email or web address] 03/13/2024 14:38:23 06/25/2024 06/25/2024 03/05/2024: UPEP: +ve M spike SPEP: gamma globulin PLT 140 TSH 5.830H, FT4 0.90 Gluc 104 Chol 269, TG 300, LDL 141 06/19/2204: BUN/Cr/GFR 25/1.47/34 Chol 267, TG 201, LDL 152 [email or web address] Not [facility] 06/25/2024 15:38:01 09/17/2024 09/17/2024 03/05/2024: UPEP: +ve M spike SPEP: gamma globulin PLT 140 TSH 5.830H, FT4 0.90 Gluc 104 Chol 269, TG 300, LDL 141 06/19/2204: BUN/Cr/GFR 25/1.47/34 Chol 267, TG 201, LDL 152 09/13/2024: [facility] BUN 54, Cr 4.37, GFR 10 WBC 4.0L, H/H 10.3/29.9, PLT 122 45 minutes spent with her and her son and DIL, labs reviewed and chart updated, her case discussed in detail with her family sam Not available 09/17/2024 13:14:23 Plan of Treatment Reminders Order Date Submit Date Provider Last Modified By Organization Details Last Modified Time Details Appointments Any 15 2024 01:15P Derick steele MD Not available Not available Not available Lab lipid panel, serum [address] [facility] (Lab), [address] [place], [address], 09/17/2024 14:15:33 CBC w/ auto diff [address] [facility] (Lab), [address] [place], [address], 09/17/2024 14:15:33 CMP, serum or plasma [address] [facility] (Lab), [address] [place], [address], 09/17/2024 14:15:33 TSH, serum or plasma [address] [facility] (Lab), [address] [place], [address], 09/17/2024 14:15:33 vitamin D, 25-hydrox y, total, serum [address] [facility] (Lab), [address] [place], [address], 09/17/2024 14:15:33 vitamin B12 + folate, serum or blood [address] [facility] (Lab), [address] [place], [address], 09/17/2024 14:15:33 vitamin D, 25-hydrox y, total, serum [email or web address] (Lab), [address] [place], [address], 06/26/2024 16:36:25 lipid panel, serum [address] (Lab), [address] [place], [address], 06/26/2024 16:36:24 CBC w/ auto diff [address] (Lab), [address] [place], [address], 06/26/2024 16:36:25 CMP, serum or plasma [address] (Lab), [address] [place], [address], 06/26/2024 16:36:25 TSH, serum or plasma [address] (Lab), [address] [place], [address], 06/26/2024 16:36:25 vitamin B12 + folate, serum or blood [address] (Lab), [address] [place], [address], 06/26/2024 16:36:25 lipid panel, serum 2023 024 [facility] (Lab), [address] [place], [address], 06/19/2024 11:33:06 CBC w/ auto diff 2023 024 [facility] (Lab), [address] [place], [address], 06/19/2024 10:43:35 CMP, serum or plasma 2023 024 [facility] (Lab), [address] [place], [address], 06/19/2024 11:33:10 TSH, serum or plasma 2023 024 [facility] (Lab), [address] [place], [address], 06/19/2024 11:57:27 vitamin D, 25-hydrox y, total, serum [address] (Lab), [address] [place], [address], 09/16/2024 08:18:14 vitamin B12 + folate, serum or blood [address] (Lab), [address] [place], [address], 09/16/2024 08:18:15 vitamin D, 25-hydrox y, total, serum [address] (Lab), [address] [place], [address], 03/19/2024 09:39:13 lipid panel, serum 2023 024 [facility] (Lab), [address] [place], [address], 02/25/2024 11:55:40 CBC w/ auto diff 2023 024 [facility] (Lab), [address] [place], [address], 02/25/2024 11:44:28 CMP, serum or plasma 2023 024 [facility] (Lab), [address] [place], [address], 02/25/2024 11:55:46 TSH, serum or plasma 2023 024 [facility] (Lab), [address] [place], [address], 02/25/2024 12:50:40 vitamin B12 + folate, serum or blood [address] (Lab), [address] [place], [address], 03/19/2024 09:39:14 vitamin D, 25-hydrox y, total, serum [address] (Lab), [address] [place], [address], 08/08/2023 09:07:18 lipid panel, serum 2022 023 [facility] (Lab), [address] [place], [address], 06/20/2023 13:09:48 CBC w/ auto diff 2022 023 [facility] (Lab), [address] [place], [address], 06/20/2023 12:18:55 CMP, serum or plasma 2022 023 [facility] (Lab), [address] [place], [address], 06/20/2023 13:09:50 TSH, serum or plasma 2022 023 [facility] (Lab), [address] [place], [address], 06/20/2023 13:55:42 vitamin B12 + folate, serum or blood [address] (Lab), [address] [place], [address], 08/08/2023 09:07:34 Referral nephrolog ist referral 2024 025 [email or web address] Haroon Mcclure MD, [address] [place], [address], 09/17/2024 17:45:30 cardiolog ist referral - Please call patient to schedule an appointme nt. Thank you. 2024 025 FELI Pool MD, [address], [address], 09/17/2024 18:25:21 home health referral - Please call patient to schedule an appointme nt. Thank you. 2024 025 [facility], [address] [place], [address], 09/17/2024 18:40:28 physical therapist referral - Please call patient to schedule an appointme nt. Thank you. Wants in home PT 2024 025 [facility], [address] [place], [address], 09/24/2024 13:10:30 nephrolog ist referral 2023 024 FELI Mcclure MD, [address] [place], [address], 06/30/2024 09:51:36 cardiolog ist referral - Please call patient to schedule. 2023 024 JESSICA Pool MD, 0 [facility], [address], [address], 09/28/2024 04:04:42 hematolog ist referral 2023 024 [email or web address] Vega, [address], [place], [address], 04/10/2024 15:13:40 cardiolog ist referral 2023 024 eagle Pool MD, [address], [address] [address], [place], [address], 09/16/2024 08:18:23 cardiolog ist referral 2023 024 eagle Pool MD, [address], [address], [place], [address], 04/09/2024 08:58:41 cardiolog ist referral 2022 023 [facility] [address] [address], [place], [address], 06/22/2023 12:20:57 Procedures None recorded. Surgeries None recorded. Imaging DEXA, axial skeleton [address] ([facility]), [address] [place], [address], 09/17/2024 17:06:56 DEXA, axial skeleton [address] ([facility]), [address] [place], [address], 06/26/2024 18:42:14 DEXA, axial skeleton [address] ([facility]), [address] [place], [address], 06/26/2024 18:42:10 DEXA, axial skeleton [address] ([facility]), [address] [place], [address], 03/13/2024 09:16:19 DEXA, axial skeleton 2022 023 [facility] ([facility]), [address] [place], [address], 02/04/2024 08:34:12 Medication Orders mirtazapi ne 7.5 mg tablet 2023 024 JESSICA [id number], [address] [facility], [place], [place], [id number], 09/13/2023 14:43:30 Patient TargetsNo targets recorded. Patient Instructions Encounter Date Encounter Id Patient Instructions Last Modified By Organization Details Last Modified Time 03/13/2024 [id number] dementia rating scale-2* [email or web address] Not available 03/13/2024 15:22:16 alcohol misuse* [email or web address] Not available 03/13/2024 15:22:25 depression screening* Not available 03/13/2024 15:22:32 Timed Up and Go test (TUG)* [email or web address] Not available 03/13/2024 15:22:49 multi-dimensiona l health assessment questionnaire* Not available 03/13/2024 15:22:06 Personalized [facility] Plan and Screening Recommendations Advance Directives - Do you have one? Yes Advance Directives - Do we have your advance directive on file in your health record? Yes Primary Prevention/Interven tion (prevents or decreases the chance of common diseases from occurring) Smoking Risk: Non Smoker Alcohol Misuse Screening: Negative Weight: Appropriate Overwei ght continue your current weight loss efforts try to lose 5% of your body weight try to lose 10% of your body weight Physical activity: Need more exercise/physical activity decrease sitting time to no more than 5hr/day Nutrition: Good Average Refer to attached handout Heart-Healthy Diet: After Your Visit Fall Risk (screened today): High Refer to attached handout Preventing Falls: After your Visit Vaccines Pneumococcal: Ordered Recommended today Recommended today, but you have declined No further needed Influenza: Your next one in the fall of this year Chronic Disease Risks Stroke: Low Risk Intermediate Risk Heart Attack: Low risk Intermediate Risk Clogging of the Arteries: Low risk Intermediate Risk Diabetes: Low Risk I have no recommendations Secondary Prevention/Interven tion (detects treatable diseases before they may cause symptoms, disability, or ) Breast Cancer Screening with mammogram: Your next mammogram: Ordered Recommended today Recommended today, but you have declined Cervical/Uterine/Ov mahendra Cancer Screening: Your next PAP/pelvic in: Referral to switchboard inspector Recomm ended today Recommended today, but you have declined Osteoporosis Screening: Your next DEXA in: Ordered Recomme nded today Recommended today, but you have declined Date Screening Last Performed: Colon Cancer Screening: Eye Disease Screening: Ordered Recommended today Dementia Risk: Low Intermediate I have no recommendations Depression Screening: Negative Active diagnosis, Continue current treatment plan [email or web address] Not available 03/13/2024 15:26:06 Reason for Referral Flight Radio Operator Referral for At rial fibrillation Referring Physician: Mark Munoz Medicine, Encounter Date: 06/14/2023 Flight Radio Operator Referral for At rial fibrillation Referring Physician: Mark Munoz Medicine, Encounter Date: 09/13/2023 Flight Radio Operator Referral for At rial fibrillation Referring Physician: Mark Munoz, Encounter Date: 03/13/2024 Referring Physician: Mark Munoz Medicine, Encounter Date: 03/13/2024 Flight Radio Operator Referral for At rial fibrillation Please call patient to schedule. Referring Physician: Mark Munoz, Encounter Date: 06/25/2024 Senior Accounts Payable Clerk Referral for Ch ronic kidney disease Referring Physician: Mark Munoz Medicine, Encounter Date: 06/25/2024 Flight Radio Operator Referral for At rial fibrillation Please call patient to schedule an appointment. Thank you. 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 Thank you. Referring Physician: Elizabeth Salazar, Internal Medicine, Encounter Date: 09/17/2024 Physical Therapist Referral for Unsteady when walking Please call patient to schedule an appointment. Thank you. Wants in home PT Referring Physician: Elizabeth Salazar Internal Medicine, Encounter Date: 09/17/2024 Results Created Date Observation Date Name Description Value Unit Range Abnormal Flag Note LastModifiedBy Organization Detail LastModifiedTime 06/20/2006/20/2023 CBC/C OMPLE TE BLD COUNT W/DIF F white blood cells 6.0 x10'3 /uL 4.2-10 .8 Not Available [facility] (Lab) [address] [place], [address], 06/20/2023 12:18:55 06/20/2006/20/2023 CBC/C OMPLE TE BLD COUNT W/DIF F red blood cells 4.25 x10'6 /uL 3.80-5 .20 Not Available [facility] (Lab) [address] [place], [address], 06/20/2023 12:18:55 06/20/20 23 06/20/2023 CBC/C OMPLE TE BLD COUNT W/DIF F hemoglobin 13.2 g/dL 12.0-1 5.6 Not Available [facility] (Lab) [address] [place], [address], 06/20/2023 12:18:55 06/20/20 23 06/20/2023 CBC/C OMPLE TE BLD COUNT W/DIF F hematocrit 39.8 % 35.7-4 5.7 Not Available [facility] (Lab) [address] [place], [address], 06/20/2023 12:18:55 06/20/20 23 06/20/2023 CBC/C OMPLE TE BLD COUNT W/DIF F mean red cell volume 93.6 fL 82.0-9 9.0 Not Available [facility] (Lab) [address] [place], [address], 06/20/2023 12:18:55 06/20/20 23 06/20/2023 CBC/C OMPLE TE BLD COUNT W/DIF F mean red cell hemoglobin 31.1 pg 27.0-3 3.0 Not Available [facility] (Lab) [address] [place], [address], 06/20/2023 12:18:55 06/20/2006/20/2023 CBC/C OMPLE TE BLD COUNT W/DIF F mean RBC HGB concentratio n 33.2 g/dL 31.0-3 6.0 Not Available [facility] (Lab) [address] [place], [address], 06/20/2023 12:18:55 06/20/2006/20/2023 CBC/C OMPLE TE BLD COUNT W/DIF F red cell distribution width 13.2 % 11.8-1 5.5 Not Available [facility] (Lab) [address] [place], [address], 06/20/2023 12:18:55 06/20/2006/20/2023 CBC/C OMPLE TE BLD COUNT W/DIF F platelets 174 x10'3 /uL 150-40 0 Not Available [facility] (Lab) [address] [place], [address], 06/20/2023 12:18:55 06/20/2006/20/2023 CBC/C OMPLE TE BLD COUNT W/DIF F mean platelet volume 9.9 fL 9.0-12 .4 Not Available [facility] (Lab) [address] [place], [address], 06/20/2023 12:18:55 06/20/20 23 06/20/2023 CBC/C OMPLE TE BLD COUNT W/DIF F neutrophils 65.7 % 39.0-7 2.0 Not Available [facility] (Lab) [address] [place], [address], 06/20/2023 12:18:55 06/20/20 23 06/20/2023 CBC/C OMPLE TE BLD COUNT W/DIF F lymphocytes 21.5 % 16.0-4 7.0 Not Available [facility] (Lab) [address] [place], [address], 06/20/2023 12:18:55 06/20/2006/20/2023 CBC/C OMPLE TE BLD COUNT W/DIF F monocytes 7.5 % 5.0-12 .0 Not Available [facility] (Lab) [address] [place], [address], 06/20/2023 12:18:55 06/20/2006/20/2023 CBC/C OMPLE TE BLD COUNT W/DIF F eosinophils 4.5 % 1.0-7. 0 Not Available [facility] (Lab) [address] [place], [address], 06/20/2023 12:18:55 06/20/2006/20/2023 CBC/C OMPLE TE BLD COUNT W/DIF F basophils 0.3 % 0.0-2. 0 Not Available [facility] (Lab) [address] [place], [address], 06/20/2023 12:18:55 06/20/2006/20/2023 CBC/C OMPLE TE BLD COUNT W/DIF F immature granulocytes 0.5 % 0.00-0 .50 Not Available [facility] (Lab) [address] [place], [address], 06/20/2023 12:18:55 06/20/2006/20/2023 CBC/C OMPLE TE BLD COUNT W/DIF F neutrophils, absolute count 3.94 x10'3 /uL 1.5-8. 0 Not Available [facility] (Lab) [address] [place], [address], 06/20/2023 12:18:55 06/20/20 23 06/20/2023 CBC/C OMPLE TE BLD COUNT W/DIF F lymphocytes, absolute count 1.29 x10'3 /uL 1.07-3 .43 Not Available [facility] (Lab) [address] [place], [address], 06/20/2023 12:18:55 06/20/2006/20/2023 CBC/C OMPLE TE BLD COUNT W/DIF F monocytes, absolute count 0.45 x10'3 /uL 0.29-0 .99 Not Available [facility] (Lab) [address] [place], [address], 06/20/2023 12:18:55 06/20/20 23 06/20/2023 CBC/C OMPLE TE BLD COUNT W/DIF F eosinophils, absolute count 0.27 x10'3 /uL 0.02-0 .53 Not Available [facility] (Lab) [address] [place], [address], 06/20/2023 12:18:55 06/20/2006/20/2023 CBC/C OMPLE TE BLD COUNT W/DIF F basophils, absolute count 0.02 x10'3 /uL 0.01-0 .08 Not Available [facility] (Lab) [address] [place], [address], 06/20/2023 12:18:55 06/20/20 23 06/20/2023 CBC/C OMPLE TE BLD COUNT W/DIF F immature granulocytes ,absolute 0.03 x10'3 /uL 0.00-0 .05 Not Available [facility] (Lab) [address] [place], [address], 06/20/2023 12:18:55 06/20/20 23 06/20/2023 CBC/C OMPLE TE BLD COUNT W/DIF F nucleated red blood cells 0.0 % -0 Not Available [facility] (Lab) [address] [place], [address], 06/20/2023 12:18:55 06/20/20 23 06/20/2023 CBC/C OMPLE TE BLD COUNT W/DIF F NRBC# 0.00 x10'3 /uL Not Available [facility] (Lab) [address] [place], [address], 06/20/2023 12:18:55 06/20/20 23 06/20/2023 LIPID PANEL cholesterol 249 mg/dL 140-19 9 high NIH BIJAN NSUS RECOM MENDA TION FOR NUZHAT STERO L: ADULT CHILD LOW RISK: <200 <170 BORDE RLINE : <200- 239 ----- HIGH RISK: >240 >200 Not Available [facility] (Lab) [address] [place], [address], 06/20/2023 13:09:48 06/20/20 23 06/20/2023 LIPID PANEL triglyceride s 180 mg/dL 0-150 high NIH BIJAN NSUS REPOR T RECOM MENDA TION FOR TRIGL YCERI BARBER: ADULT CHILD LOW RISK: <150 ----- BODER LINE: 150-1 99 ----- HIGH RISK: >200 ----- Not Available [facility] (Lab) [address] [place], [address], 06/20/2023 13:09:48 06/20/20 23 06/20/2023 LIPID PANEL HDL cholesterol 56 mg/dL 40- Not Available [facility] (Lab) [address] [place], [address], 06/20/2023 13:09:48 06/20/20 23 06/20/2023 LIPID PANEL LDL cholesterol, calculated 157 mg/dL 0-130 high NIH BIJAN NSUS REPOR T RECOM MENDA TIONS FOR LDL: ADULT CHILD LOW RISK <130 <110 (OPTI MAL LDL) <100 ----- BORDE RLINE : 130-1 59 ----- HIGH RISK: >160 >130 A TRIGL YCERI DE RESUL T >400 INVAL IDATE S THE CALCU LATIO N FOR LDL FRACT IONAT ION - THE LDL RESUL T WILL NOT BE REPOR ELIECER. Not Available [facility] (Lab) [address] [place], [address], 06/20/2023 13:09:48 06/20/2006/20/2023 COMPR EHENS ESHA METAB OLIC PANEL sodium 136 mmol/ L 137-14 5 low Not Available [facility] (Lab) [address] [place], [address], 06/20/2023 13:09:50 06/20/20 23 06/20/2023 COMPR EHENS ESHA METAB OLIC PANEL potassium 4.7 mmol/ L 3.5-5. 1 Not Available [facility] (Lab) [address] [place], [address], 06/20/2023 13:09:50 06/20/20 23 06/20/2023 COMPR EHENS ESHA METAB OLIC PANEL chloride 103 mmol/ L 98-107 Not Available [facility] (Lab) [address] [place], [address], 06/20/2023 13:09:50 06/20/20 23 06/20/2023 COMPR EHENS ESHA METAB OLIC PANEL carbon dioxide 27 mmol/ L 22-30 Not Available [facility] (Lab) [address] [place], [address], 06/20/2023 13:09:50 06/20/20 23 06/20/2023 COMPR EHENS ESHA METAB OLIC PANEL anion gap 10.7 mmol/ L 14-22 low Not Available [facility] (Lab) [address] [place], [address], 06/20/2023 13:09:50 06/20/20 23 06/20/2023 COMPR EHENS ESHA METAB OLIC PANEL glucose 104 mg/dL 70-99 high Not Available [facility] (Lab) [address] [place], [address], 06/20/2023 13:09:50 06/20/20 23 06/20/2023 COMPR EHENS ESHA METAB OLIC PANEL BUN 20 mg/dL 8-19 high Not Available [facility] (Lab) [address] [place], [address], 06/20/2023 13:09:50 06/20/20 23 06/20/2023 COMPR EHENS ESHA METAB OLIC PANEL creatinine 1.17 mg/dL 0.66-1 .25 Not Available [facility] (Lab) [address] [place], [address], 06/20/2023 13:09:50 06/20/20 23 06/20/2023 COMPR EHENS ESHA METAB OLIC PANEL GFR 44 Refer ence Range : [place] ge GFR Healt hy Adult : >60 mL/mi n/1.7 3 m2 Chron ic Kidne y Disea se: 15-60 mL/mi n/1.7 3 m2 Kidne y Failu re: <15/m L/min /1.73 m2 www.n iddk. nih.g ov The MDRD study equat ion has not been valid ated in child concepcion <18 years of age; pregn ant women ; the elder ly >85 years of age; or in some racia l or ethni c subgr oups, such as Hispa nics. Outsi de the valid ated jason eters , estim ated GFR is less accur ate, requi ring clini chuy judgm ent on a case- by-ca se basis . Clini chuy inter preta tion for other races and ages must be made by the clini andrew. The MDRD study equat ion has not been valid ated for the evalu ation of serum creat inine relat ed to nutri fransisca l statu s or medic ation usage . For perso ns <18 years of age, a pedia tric GFR calcu lator is avail able on the [facility] websi te: https ://scotty bear.o rg/pr ofess ional s/kdo qi/gf r_cal culat or Not Available [facility] (Lab) [address] [place], [address], 06/20/2023 13:09:50 06/20/20 23 06/20/2023 COMPR EHENS ESHA METAB OLIC PANEL alkaline phosphatase 93 U/L 38-126 Not Available [facility] (Lab) [address] [place], [address], 06/20/2023 13:09:50 06/20/20 23 06/20/2023 COMPR EHENS ESHA METAB OLIC PANEL alanine aminotransfe rase 21 U/L 0-35 Not Available [facility] (Lab) [address] [place], [address], 06/20/2023 13:09:50 06/20/20 23 06/20/2023 COMPR EHENS ESHA METAB OLIC PANEL aspartate aminotransfe rase 34 U/L 15-37 Not Available [facility] (Lab) [address] [place], [address], 06/20/2023 13:09:50 06/20/20 23 06/20/2023 COMPR EHENS ESHA METAB OLIC PANEL bilirubin, total 0.50 mg/dL 0.20-1 .30 Not Available [facility] (Lab) [address] [place], [address], 06/20/2023 13:09:50 06/20/20 23 06/20/2023 COMPR EHENS ESHA METAB OLIC PANEL calcium 9.7 mg/dL 8.4-10 .2 Not Available [facility] (Lab) [address] [place], [address], 06/20/2023 13:09:50 06/20/20 23 06/20/2023 COMPR EHENS ESHA METAB OLIC PANEL total protein 6.6 g/dL 6.3-8. 2 Not Available [facility] (Lab) [address] [place], [address], 06/20/2023 13:09:50 06/20/20 23 06/20/2023 COMPR EHENS ESHA METAB OLIC PANEL albumin 4.1 g/dL 3.0-4. 4 Not Available [facility] (Lab) [address] [place], [address], 06/20/2023 13:09:50 06/20/20 23 06/20/2023 COMPR EHENS ESHA METAB OLIC PANEL globulin 2.5 g/dL 2.6-4. 2 low Not Available [facility] (Lab) [address] [place], [address], 06/20/2023 13:09:50 06/20/2006/20/2023 COMPR EHENS ESHA METAB OLIC PANEL A/G ratio 1.6 ratio 1.0-2. 0 Not Available [facility] (Lab) [address] [place], [address], 06/20/2023 13:09:50 06/20/20 23 06/20/2023 VITAM IN D 25-HY DROXY vd25oh 40.1 NG/mL 30-100 Vitam in D Statu s: Defic ient: <20 ng/mL Insuf ficie nt: 20-29 ng/mL Suffi cient : 30-10 0 ng/mL Not Available [facility] (Lab) [address] [place], [address], 06/20/2023 13:29:37 06/20/2006/20/2023 TSH W/REF JULISSA FT4 TSH with reflex free T4 5.200 uIU/m L 0.465- 4.680 high Not Available [facility] (Lab) [address] [place], [address], 06/20/2023 13:55:42 06/20/20 23 06/20/2023 VITAM IN B12 (MAYRA KRISTINE ) vb12 497 pg/mL 239-93 1 Not Available [facility] (Lab) [address] [place], [address], 06/20/2023 14:22:13 06/20/20 23 06/20/2023 FOLAT E, SERUM /PLAS MA folate 18.3 NG/mL 2.76-2 0.0 Not Available [facility] (Lab) [address] [place], [address], 06/20/2023 14:22:15 06/20/20 23 06/20/2023 T4 FREE free T4 0.97 NG/dL 0.78-2 .19 Not Available [facility] (Lab) [address] [place], [address], 06/20/2023 14:58:52 02/25/20 24 02/25/2024 CBC/C OMPLE TE BLD COUNT W/DIF F white blood cells 5.3 x10'3 /uL 4.2-10 .8 Not Available [facility] (Lab) [address] [place], [address], 02/25/2024 11:44:28 02/25/20 24 02/25/2024 CBC/C OMPLE TE BLD COUNT W/DIF F red blood cells 4.01 x10'6 /uL 3.80-5 .20 Not Available [facility] (Lab) [address] [place], [address], 02/25/2024 11:44:28 02/25/20 24 02/25/2024 CBC/C OMPLE TE BLD COUNT W/DIF F hemoglobin 12.9 g/dL 12.0-1 5.6 Not Available [facility] (Lab) [address] [place], [address], 02/25/2024 11:44:28 02/25/20 24 02/25/2024 CBC/C OMPLE TE BLD COUNT W/DIF F hematocrit 38.5 % 35.7-4 5.7 Not Available [facility] (Lab) [address] [place], [address], 02/25/2024 11:44:28 02/25/20 24 02/25/2024 CBC/C OMPLE TE BLD COUNT W/DIF F mean red cell volume 96.0 fL 82.0-9 9.0 Not Available [facility] (Lab) [address] [place], [address], 02/25/2024 11:44:28 02/25/20 24 02/25/2024 CBC/C OMPLE TE BLD COUNT W/DIF F mean red cell hemoglobin 32.2 pg 27.0-3 3.0 Not Available [facility] (Lab) [address] [place], [address], 02/25/2024 11:44:28 02/25/20 24 02/25/2024 CBC/C OMPLE TE BLD COUNT W/DIF F mean RBC HGB concentratio n 33.5 g/dL 31.0-3 6.0 Not Available [facility] (Lab) [address] [place], [address], 02/25/2024 11:44:28 02/25/20 24 02/25/2024 CBC/C OMPLE TE BLD COUNT W/DIF F red cell distribution width 13.5 % 11.8-1 5.5 Not Available [facility] (Lab) [address] [place], [address], 02/25/2024 11:44:28 02/25/20 24 02/25/2024 CBC/C OMPLE TE BLD COUNT W/DIF F platelets 146 x10'3 /uL 150-40 0 low Not Available [facility] (Lab) [address] [place], [address], 02/25/2024 11:44:28 02/25/20 24 02/25/2024 CBC/C OMPLE TE BLD COUNT W/DIF F mean platelet volume 10.7 fL 9.0-12 .4 Not Available [facility] (Lab) [address] [place], [address], 02/25/2024 11:44:28 02/25/20 24 02/25/2024 CBC/C OMPLE TE BLD COUNT W/DIF F neutrophils 70.1 % 39.0-7 2.0 Not Available [facility] (Lab) [address] [place], [address], 02/25/2024 11:44:28 02/25/20 24 02/25/2024 CBC/C OMPLE TE BLD COUNT W/DIF F lymphocytes 20.4 % 16.0-4 7.0 Not Available [facility] (Lab) [address] [place], [address], 02/25/2024 11:44:28 02/25/20 24 02/25/2024 CBC/C OMPLE TE BLD COUNT W/DIF F monocytes 5.3 % 5.0-12 .0 Not Available [facility] (Lab) [address] [place], [address], 02/25/2024 11:44:28 02/25/20 24 02/25/2024 CBC/C OMPLE TE BLD COUNT W/DIF F eosinophils 3.2 % 1.0-7. 0 Not Available [facility] (Lab) [address] [place], [address], 02/25/2024 11:44:28 02/25/20 24 02/25/2024 CBC/C OMPLE TE BLD COUNT W/DIF F basophils 0.4 % 0.0-2. 0 Not Available [facility] (Lab) [address] [place], [address], 02/25/2024 11:44:28 02/25/20 24 02/25/2024 CBC/C OMPLE TE BLD COUNT W/DIF F immature granulocytes 0.6 % 0.00-0 .50 high Not Available [facility] (Lab) [address] [place], [address], 02/25/2024 11:44:28 02/25/20 24 02/25/2024 CBC/C OMPLE TE BLD COUNT W/DIF F neutrophils, absolute count 3.71 x10'3 /uL 1.5-8. 0 Not Available [facility] (Lab) [address] [place], [address], 02/25/2024 11:44:28 02/25/20 24 02/25/2024 CBC/C OMPLE TE BLD COUNT W/DIF F lymphocytes, absolute count 1.08 x10'3 /uL 1.07-3 .43 Not Available [facility] (Lab) [address] [place], [address], 02/25/2024 11:44:28 02/25/20 24 02/25/2024 CBC/C OMPLE TE BLD COUNT W/DIF F monocytes, absolute count 0.28 x10'3 /uL 0.29-0 .99 low Not Available [facility] (Lab) [address] [place], [address], 02/25/2024 11:44:28 02/25/20 24 02/25/2024 CBC/C OMPLE TE BLD COUNT W/DIF F eosinophils, absolute count 0.17 x10'3 /uL 0.02-0 .53 Not Available [facility] (Lab) [address] [place], [address], 02/25/2024 11:44:28 02/25/20 24 02/25/2024 CBC/C OMPLE TE BLD COUNT W/DIF F basophils, absolute count 0.02 x10'3 /uL 0.01-0 .08 Not Available [facility] (Lab) [address] [place], [address], 02/25/2024 11:44:28 02/25/20 24 02/25/2024 CBC/C OMPLE TE BLD COUNT W/DIF F immature granulocytes ,absolute 0.03 x10'3 /uL 0.00-0 .05 Not Available [facility] (Lab) [address] [place], [address], 02/25/2024 11:44:28 02/25/20 24 02/25/2024 CBC/C OMPLE TE BLD COUNT W/DIF F nucleated red blood cells 0.0 % -0 Not Available [facility] (Lab) [address] [place], [address], 02/25/2024 11:44:28 02/25/20 24 02/25/2024 CBC/C OMPLE TE BLD COUNT W/DIF F NRBC# 0.00 x10'3 /uL Not Available [facility] (Lab) [address] [place], [address], 02/25/2024 11:44:28 02/25/20 24 02/25/2024 LIPID PANEL cholesterol 269 mg/dL 140-19 9 high NIH BIJAN NSUS RECOM MENDA TION FOR NUZHAT STERO L: ADULT CHILD LOW RISK: <200 <170 BORDE RLINE : <200- 239 ----- HIGH RISK: >240 >200 Not Available [facility] (Lab) [address] [place], [address], 02/25/2024 11:55:40 02/25/20 24 02/25/2024 LIPID PANEL triglyceride s 300 mg/dL 0-150 high NIH BIJAN NSUS REPOR T RECOM MENDA TION FOR TRIGL YCERI BARBER: ADULT CHILD LOW RISK: <150 ----- BODER LINE: 150-1 99 ----- HIGH RISK: >200 ----- Not Available [facility] (Lab) [address] [place], [address], 02/25/2024 11:55:40 02/25/20 24 02/25/2024 LIPID PANEL HDL cholesterol 68 mg/dL 40- Not Available [facility] (Lab) [address] [place], [address], 02/25/2024 11:55:40 02/25/20 24 02/25/2024 LIPID PANEL LDL cholesterol, calculated 141 mg/dL 0-130 high NIH BIJAN NSUS REPOR T RECOM MENDA TIONS FOR LDL: ADULT CHILD LOW RISK <130 <110 (OPTI MAL LDL) <100 ----- KENNEDY RLINE : 130-1 59 ----- HIGH RISK: >160 >130 A TRIGL YCERI DE RESUL T >400 INVAL IDATE S THE CALCU LATIO N FOR LDL FRACT IONAT ION - THE LDL RESUL T WILL NOT BE REPOR ELIECER. Not Available [facility] (Lab) [address] [place], [address], 02/25/2024 11:55:40 02/25/20 24 02/25/2024 COMP MET PANEL /LIVE R sodium 139 mmol/ L 137-14 5 Not Available [facility] (Lab) [address] [place], [address], 02/25/2024 11:55:46 02/25/20 24 02/25/2024 COMP MET PANEL /LIVE R potassium 4.2 mmol/ L 3.5-5. 1 Not Available [facility] (Lab) [address] [place], [address], 02/25/2024 11:55:46 02/25/20 24 02/25/2024 COMP MET PANEL /LIVE R chloride 107 mmol/ L 98-107 Not Available [facility] (Lab) [address] [place], [address], 02/25/2024 11:55:46 02/25/20 24 02/25/2024 COMP MET PANEL /LIVE R carbon dioxide 27 mmol/ L 22-30 Not Available [facility] (Lab) [address] [place], [address], 02/25/2024 11:55:46 02/25/20 24 02/25/2024 COMP MET PANEL /LIVE R anion gap 9.2 mmol/ L 14-22 low Not Available [facility] (Lab) [address] [place], [address], 02/25/2024 11:55:46 02/25/20 24 02/25/2024 COMP MET PANEL /LIVE R glucose 104 mg/dL 70-99 high Not Available [facility] (Lab) [address] [place], [address], 02/25/2024 11:55:46 02/25/20 24 02/25/2024 COMP MET PANEL /LIVE R BUN 18 mg/dL 8-19 Not Available [facility] (Lab) [address] [place], [address], 02/25/2024 11:55:46 02/25/20 24 02/25/2024 COMP MET PANEL /LIVE R creatinine 1.18 mg/dL 0.66-1 .25 Not Available [facility] (Lab) [address] [place], [address], 02/25/2024 11:55:46 02/25/20 24 02/25/2024 COMP MET PANEL /LIVE R GFR 43 Refer ence Range : [place] ge GFR Healt hy Adult : >60 mL/mi n/1.7 3 m2 Chron ic Kidne y Disea se: 15-60 mL/mi n/1.7 3 m2 Kidne y Failu re: <15/m L/min /1.73 m2 www.n iddk. nih.g ov The MDRD study equat ion has not been valid ated in child concepcion <18 years of age; pregn ant women ; the elder ly >85 years of age; or in some racia l or ethni c subgr oups, such as Hiscamacho nics. Outsi de the valid ated jason eters , estim ated GFR is less accur ate, requi ring clini chuy judgm ent on a case- by-ca se basis . Clini chuy inter preta tion for other races and ages must be made by the clini andrew. The MDRD study equat ion has not been valid ated for the evalu ation of serum creat inine relat ed to nutri fransisca l statu s or medic ation usage . For perso ns <18 years of age, a pedia tric GFR calcu lator is avail able on the [facility] websi te: https ://scotty ahmadi.kunal bear.o rg/pr ofess ional s/kdo qi/gf r_cal culat or Not Available [facility] (Lab) [address] [place], [address], 02/25/2024 11:55:46 02/25/20 24 02/25/2024 COMP MET PANEL /LIVE R alkaline phosphatase 89 U/L 38-126 Not Available [facility] (Lab) [address] [place], [address], 02/25/2024 11:55:46 02/25/20 24 02/25/2024 COMP MET PANEL /LIVE R alanine aminotransfe rase 14 U/L 0-35 Not Available [facility] (Lab) [address] [place], [address], 02/25/2024 11:55:46 02/25/20 24 02/25/2024 COMP MET PANEL /LIVE R aspartate aminotransfe rase 30 U/L 15-37 Not Available [facility] (Lab) [address] [place], [address], 02/25/2024 11:55:46 02/25/20 24 02/25/2024 COMP MET PANEL /LIVE R bilirubin, total 0.50 mg/dL 0.20-1 .30 Not Available [facility] (Lab) [address] [place], [address], 02/25/2024 11:55:46 02/25/20 24 02/25/2024 COMP MET PANEL /LIVE R bilirubin, conjugated (direct) 0.00 mg/dL 0.00-0 .30 Not Available [facility] (Lab) [address] [place], [address], 02/25/2024 11:55:46 02/25/20 24 02/25/2024 COMP MET PANEL /LIVE R biliurubin,u ncong. (indirect) 0.40 mg/dL 0.00-1 .1 Not Available [facility] (Lab) [address] [place], [address], 02/25/2024 11:55:46 02/25/20 24 02/25/2024 COMP MET PANEL /LIVE R calcium 9.7 mg/dL 8.4-10 .2 Not Available [facility] (Lab) [address] [place], [address], 02/25/2024 11:55:46 02/25/20 24 02/25/2024 COMP MET PANEL /LIVE R total protein 6.8 g/dL 6.3-8. 2 Not Available [facility] (Lab) [address] [place], [address], 02/25/2024 11:55:46 02/25/20 24 02/25/2024 COMP MET PANEL /LIVE R albumin 4.6 g/dL 3.0-4. 4 high Not Available [facility] (Lab) [address] [place], [address], 02/25/2024 11:55:46 02/25/20 24 02/25/2024 COMP MET PANEL /LIVE R globulin 2.2 g/dL 2.6-4. 2 low Not Available [facility] (Lab) [address] [place], [address], 02/25/2024 11:55:46 02/25/20 24 02/25/2024 COMP MET PANEL /LIVE R A/G ratio 2.1 ratio 1.0-2. 0 high Not Available [facility] (Lab) [address] [place], [address], 02/25/2024 11:55:46 02/25/20 24 02/25/2024 VITAM IN D 25-HY DROXY vd25oh 30.8 NG/mL 30-100 Vitam in D Statu s: Defic ient: <20 ng/mL Insuf ficie nt: 20-29 ng/mL Suffi cient : 30-10 0 ng/mL Not Available [facility] (Lab) [address] [place], [address], 02/25/2024 12:21:25 02/25/20 24 02/25/2024 TSH W/REF JULISSA FT4 TSH with reflex free T4 5.830 uIU/m L 0.465- 4.680 high Not Available [facility] (Lab) [address] [place], [address], 02/25/2024 12:50:40 02/25/20 24 02/25/2024 VITAM IN B12 (MAYRA KRISTINE ) vb12 307 pg/mL 239-93 1 Not Available [facility] (Lab) [address] [place], [address], 02/25/2024 13:18:29 02/25/20 24 02/25/2024 FOLAT E, SERUM /PLAS MA folate 14.9 NG/mL 2.76-2 0.0 Not Available [facility] (Lab) [address] [place], [address], 02/25/2024 13:18:36 02/25/20 24 02/25/2024 T4 FREE free T4 0.90 NG/dL 0.78-2 .19 Not Available [facility] (Lab) [address] [place], [address], 02/25/2024 16:19:19 03/05/20 24 03/05/2024 CBC/C OMPLE TE BLD COUNT W/DIF F white blood cells 4.9 x10'3 /uL 4.2-10 .8 Not Available [facility] (Lab) [address] [place], [address], 03/05/2024 11:45:07 03/05/20 24 03/05/2024 CBC/C OMPLE TE BLD COUNT W/DIF F red blood cells 3.87 x10'6 /uL 3.80-5 .20 Not Available [facility] (Lab) [address] [place], [address], 03/05/2024 11:45:07 03/05/20 24 03/05/2024 CBC/C OMPLE TE BLD COUNT W/DIF F hemoglobin 12.4 g/dL 12.0-1 5.6 Not Available [facility] (Lab) [address] [place], [address], 03/05/2024 11:45:07 03/05/20 24 03/05/2024 CBC/C OMPLE TE BLD COUNT W/DIF F hematocrit 36.8 % 35.7-4 5.7 Not Available [facility] (Lab) [address] [place], [address], 03/05/2024 11:45:07 03/05/20 24 03/05/2024 CBC/C OMPLE TE BLD COUNT W/DIF F mean red cell volume 95.1 fL 82.0-9 9.0 Not Available [facility] (Lab) [address] [place], [address], 03/05/2024 11:45:07 03/05/20 24 03/05/2024 CBC/C OMPLE TE BLD COUNT W/DIF F mean red cell hemoglobin 32.0 pg 27.0-3 3.0 Not Available [facility] (Lab) [address] [place], [address], 03/05/2024 11:45:07 03/05/20 24 03/05/2024 CBC/C OMPLE TE BLD COUNT W/DIF F mean RBC HGB concentratio n 33.7 g/dL 31.0-3 6.0 Not Available [facility] (Lab) [address] [place], [address], 03/05/2024 11:45:07 03/05/20 24 03/05/2024 CBC/C OMPLE TE BLD COUNT W/DIF F red cell distribution width 13.4 % 11.8-1 5.5 Not Available [facility] (Lab) [address] [place], [address], 03/05/2024 11:45:07 03/05/20 24 03/05/2024 CBC/C OMPLE TE BLD COUNT W/DIF F platelets 140 x10'3 /uL 150-40 0 low Not Available [facility] (Lab) [address] [place], [address], 03/05/2024 11:45:07 03/05/20 24 03/05/2024 CBC/C OMPLE TE BLD COUNT W/DIF F mean platelet volume 10.3 fL 9.0-12 .4 Not Available [facility] (Lab) [address] [place], [address], 03/05/2024 11:45:07 03/05/20 24 03/05/2024 CBC/C OMPLE TE BLD COUNT W/DIF F neutrophils 64.5 % 39.0-7 2.0 Not Available [facility] (Lab) [address] [place], [address], 03/05/2024 11:45:07 03/05/20 24 03/05/2024 CBC/C OMPLE TE BLD COUNT W/DIF F lymphocytes 25.7 % 16.0-4 7.0 Not Available [facility] (Lab) [address] [place], [address], 03/05/2024 11:45:07 03/05/20 24 03/05/2024 CBC/C OMPLE TE BLD COUNT W/DIF F monocytes 5.7 % 5.0-12 .0 Not Available [facility] (Lab) [address] [place], [address], 03/05/2024 11:45:07 03/05/20 24 03/05/2024 CBC/C OMPLE TE BLD COUNT W/DIF F eosinophils 3.3 % 1.0-7. 0 Not Available [facility] (Lab) [address] [place], [address], 03/05/2024 11:45:07 03/05/20 24 03/05/2024 CBC/C OMPLE TE BLD COUNT W/DIF F basophils 0.4 % 0.0-2. 0 Not Available [facility] (Lab) [address] [place], [address], 03/05/2024 11:45:07 03/05/20 24 03/05/2024 CBC/C OMPLE TE BLD COUNT W/DIF F immature granulocytes 0.4 % 0.00-0 .50 Not Available [facility] (Lab) [address] [place], [address], 03/05/2024 11:45:07 03/05/20 24 03/05/2024 CBC/C OMPLE TE BLD COUNT W/DIF F neutrophils, absolute count 3.17 x10'3 /uL 1.5-8. 0 Not Available [facility] (Lab) [address] [place], [address], 03/05/2024 11:45:07 03/05/20 24 03/05/2024 CBC/C OMPLE TE BLD COUNT W/DIF F lymphocytes, absolute count 1.26 x10'3 /uL 1.07-3 .43 Not Available [facility] (Lab) [address] [place], [address], 03/05/2024 11:45:07 03/05/20 24 03/05/2024 CBC/C OMPLE TE BLD COUNT W/DIF F monocytes, absolute count 0.28 x10'3 /uL 0.29-0 .99 low Not Available [facility] (Lab) [address] [place], [address], 03/05/2024 11:45:07 03/05/20 24 03/05/2024 CBC/C OMPLE TE BLD COUNT W/DIF F eosinophils, absolute count 0.16 x10'3 /uL 0.02-0 .53 Not Available [facility] (Lab) [address] [place], [address], 03/05/2024 11:45:07 03/05/20 24 03/05/2024 CBC/C OMPLE TE BLD COUNT W/DIF F basophils, absolute count 0.02 x10'3 /uL 0.01-0 .08 Not Available [facility] (Lab) [address] [place], [address], 03/05/2024 11:45:07 03/05/20 24 03/05/2024 CBC/C OMPLE TE BLD COUNT W/DIF F immature granulocytes ,absolute 0.02 x10'3 /uL 0.00-0 .05 Not Available [facility] (Lab) [address] [place], [address], 03/05/2024 11:45:07 03/05/20 24 03/05/2024 CBC/C OMPLE TE BLD COUNT W/DIF F nucleated red blood cells 0.0 % -0 Not Available [facility] (Lab) [address] [place], [address], 03/05/2024 11:45:07 03/05/20 24 03/05/2024 CBC/C OMPLE TE BLD COUNT W/DIF F NRBC# 0.00 x10'3 /uL Not Available [facility] (Lab) [address] [place], [address], 03/05/2024 11:45:07 03/05/20 24 03/06/2024 PROTE IN ELECT RO.,S protein, total 6.1 g/dL 6.0-8. 5 Not Available [facility] (Lab) [address] [place], [address], 03/06/2024 12:12:53 03/05/20 24 03/06/2024 PROTE IN ELECT RO.,S albumin 3.7 g/dL 2.9-4. 4 Not Available [facility] (Lab) [address] [place], [address], 03/06/2024 12:12:53 03/05/20 24 03/06/2024 PROTE IN ELECT RO.,S bhnmj-6-zssr ulin 0.3 g/dL 0.0-0. 4 Not Available [facility] (Lab) [address] [place], [address], 03/06/2024 12:12:53 03/05/20 24 03/06/2024 PROTE IN ELECT RO.,S ufcpm-2-wree ulin 0.9 g/dL 0.4-1. 0 Not Available [facility] (Lab) [address] [place], [address], 03/06/2024 12:12:53 03/05/20 24 03/06/2024 PROTE IN ELECT RO.,S beta globulin 0.9 g/dL 0.7-1. 3 Not Available [facility] (Lab) [address] [place], [address], 03/06/2024 12:12:53 03/05/20 24 03/06/2024 PROTE IN ELECT RO.,S gamma globulin 0.3 g/dL 0.4-1. 8 low Not Available [facility] (Lab) [address] [place], [address], 03/06/2024 12:12:53 03/05/20 24 03/06/2024 PROTE IN ELECT RO.,S M-spike COMMEN T: g/dL not observ ed SPE shows an asymm etric al gamma . Not Available [facility] (Lab) [address] [place], [address], 03/06/2024 12:12:53 03/05/20 24 03/06/2024 PROTE IN ELECT RO.,S globulin, total 2.4 g/dL 2.2-3. 9 Not Available [facility] (Lab) [address] [place], [address], 03/06/2024 12:12:53 03/05/20 24 03/06/2024 PROTE IN ELECT RO.,S A/G ratio 1.5 0.7-1. 7 Not Available [facility] (Lab) [address] [place], [address], 03/06/2024 12:12:53 03/05/20 24 03/06/2024 PROTE IN ELECT RO.,S please note: COMMEN T . Prote in elect ropho resis scan will follo w via compu ter, mail, or couri er kristy rogel. Not Available [facility] (Lab) [address] [place], [address], 03/06/2024 12:12:53 03/05/20 24 03/06/2024 PROTE IN ELECT RO.,S pdf . Perfo rmed at: [facility] n [address] [facility], [place] [id number] [facility] Lab Direc tor: Corey lomax PhD, Phone : [phone] Not Available [facility] (Lab) [address] [place], [address], 03/06/2024 12:12:53 03/05/20 24 03/07/2024 PROT. ELSIE KRUGERRAND OM UR protein,tota l,urine 60.1 mg/dL not estab. Not Available [facility] (Lab) [address] [place], [address], 03/07/2024 11:13:22 03/05/20 24 03/07/2024 PROT. SOFÍA MOMIN OM UR albumin, U 17.9 % Not Available [facility] (Lab) [address] [place], [address], 03/07/2024 11:13:22 03/05/20 24 03/07/2024 PROT. ELSIE KRUGERRAND OM UR iilrj-6-iasa ulin, U 3.0 % Not Available [facility] (Lab) [address] [place], [address], 03/07/2024 11:13:22 03/05/20 24 03/07/2024 PROT. ELSIE KRUGERRAND OM UR yfwpp-5-llbf ulin, U 6.9 % Not Available [facility] (Lab) [address] [place], [address], 03/07/2024 11:13:22 03/05/20 24 03/07/2024 PROT. ELSIE KRUGERRAND OM UR beta globulin, U 12.3 % Not Available [facility] (Lab) [address] [place], [address], 03/07/2024 11:13:22 03/05/20 24 03/07/2024 PROT. [facility] ,[facility] UR gamma globulin, U 59.9 % Not Available [facility] (Lab) [address] [place], [address], 03/07/2024 11:13:22 03/05/20 24 03/07/2024 PROT. [facility] ,[facility] UR M-spike, % 54.3 % not observ ed high Not Available [facility] (Lab) [address] [place], [address], 03/07/2024 11:13:22 03/05/20 24 03/07/2024 PROT. [facility] ,[facility] UR please note: Maryjane Moya in [facility] scan will follo w via compu ter, mail, or couri er kristy rogel. Not Available [facility] (Lab) [address] [place], [address], 03/07/2024 11:13:22 03/05/20 24 03/07/2024 PROT. [facility] ,[facility] UR pdf . Perfo rmed at: [facility] [place] [address] Lab Direc tor: Corey lomax PhD, Phone : [phone] Not Available [facility] (Lab) [address] [place], [address], 03/07/2024 11:13:22 11/22/19 24 11/21/2023 imagi ng/di jeovany tic resul t No observ ation record ed. [place] [id number] [facility] [address], [place], [address], 11/22/2023 18:02:48 03/10/20 24 03/10/2024 US, head + neck, soft tissu e [facility] [address] [place] [address] Patien t Name: DO ARANA Access ion #: [id number] Sex: F : 1934 7 Dictat ed By: Toan Cummings Attend ing Physic edgardo: JOSE PECK Orderjoshua ng Physic edgardo: JOSE PECK Exam Date: 2023 12:00 PM Exam Name: US NECK HEAD SOFT TISSUE Admitt ing Diagno sis(es ): ULTRAS OUND SOFT TISSUE HEAD AND NECK CLINIC AL INDICA TION: pain TECHNI QUE: Multip le real time sonogr aphic images of the thyroi d were obtain ed. FINDIN GS: The right thyroi d gland measur es 4 x 2 x 2 cm. The left thyroi d gland measur es approx imatel y 4 x 1 x 1 cm. The isthmu s measur es 9,4 cm. ACR TIRADS 9 x 5 x 9 mm hypoec hoic nodule in the lobe. This repres ents a TI-RAD S 3 nodule . Follow -up in 1 year. IMPRES WENDI: 9 x 5 x 9 mm hypoec hoic nodule in the right mid lobe. This repres ents a TI-RAD S 3 nodule . Follow -up in 1 year. [place] an [employer] of Radiol ogy TI-RAD S [place]atego collins and Recomm endati ons (2017) : TR1: 0 points , Benign , No FNA TR2: 2 points , Not suspic ious, No FNA TR3: 3 points , Mildly suspic ious, FNA if > or = 2.5 cm, Follow if > or = 1.5 Page 1 [facility] [address] [address] Patien t Name: DO ARANA Access ion #: [id number] Sex: F : 1934 7 Dictat ed By: Toan Cummings Attend ing Physic edgardo: AINSLEY BUENROSTRO Orderjoshua ng Physic edgardo: JOES PECK Exam Date: 2023 12:00 PM Exam Name: US NECK HEAD SOFT TISSUE Admitt ing Diagno sis(es ): cm TR4: 4-6 points , Modera tely Suspic ious, FNA if > or = 1.5 cm, Follow if > or = 1.0 cm TR5: 7+ points , Highly Suspic ious, FNA if > or = 1.0 cm, Follow if > or = 0.5 cm Follow -up ultras ound guidel ny: TR5: yearly for 5 years, if no growth or change in TI-RAD S level TR4: at 1, 2, 3 and 5 years, if no growth or change in TI-RAD S level TR3: at 1, 3 and 5 years, if no growth or change in TI-RAD S level If increa sed but below thresh old for FNA, repeat in one year. Source : ACR Thyroi d Genovevain g, Report ing and Data System (TI-RA DS): White Paper of the ACR TI-RAD S Commit carlitos. Ruma et al., J Am Lakia Radiol 2017;1 4:587- 595. Electr onical ly Signed by: Toan Cummings at 2023 14:22: 54 PM Page 2 INTERFACE [facility] (Imaging) [address] [place], [address], 03/10/2024 15:25:05 03/10/20 24 03/10/2024 US, thyro id No observ ation record ed. [facility] [address] [place], [address], 03/10/2024 15:27:31 09/10/19 25 09/10/2024 imagi ng/di agnos tic resul t No observ ation record ed. [facility] [address] [place], [address], 09/10/2024 23:08:21 09/11/19 25 09/11/2024 imagi ng/di agnos tic resul t No observ ation record ed. [facility] [address] [place], [address], 09/11/2024 08:34:49 Result Notes None recorded. Problems Name Problem SNOMED Code Status Onset Date Resolution Date Notes Provider Name and Address Organization Details Recorded Time Essential hypertension 69564868 Active 2022 Elizabeth steele MD [address], [place], [address], [facility] [place] [facility] 3 13:59:34 Hyperlipidemia 75785429 Active 2022 Elizabeth steele MD [address], [place], [address], 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 [place] [employer] [facility] [employer] 3 14:00:01 Serum vitamin B12 below reference range 901036820 Active 2022 Elizabeth steele MD [address], [address], [place], [address], [employer] [place] [facility] [employer] [facility] [employer] 3 14:00:16 Vitamin D deficiency 29777631 Active 2022 Elizabeth steele MD [address], [address], [place], [address], [facility] [place] [employer] [facility] [employer] 3 14:00:25 Atrial fibrillation 28779692 Active 2022 Elizabeth steele MD [address], [place], [address], [facility] [place] [facility] [employer] 3 15:46:38 Hypothyroidism 44442872 Active 2022 Yany panda [facility] 3 15:22:40 Chronic kidney disease 605863017 Active 2022 Yany panda [facility] [place] [facility] 3 15:23:17 Hypercholester olemia 07276140 Active 2022 Yany Rocha null, [facility] [place] [facility] 3 09:13:09 Chronic kidney disease stage 3 514573132 Active 2023 Nicole Moreno [place] null, [place] [facility] [place] [facility] 4 17:12:04 Serum thyroid stimulating hormone level outside reference range 447990338 Active 2023 Nicole Moreno MA null, [facility] 4 17:12:37 Acquired thrombocytopen ia 75541469 Active 2023 Nicole Moreno MA null, [place] - [facility] 4 17:13:48 Hyperproteinem ia 04132879 Active 2023 Elizabeth steele MD [address], [place], [address], [facility] 4 19:02:39 Thyroid nodule 090554484 Active 2023 Elizabeth steele MD [address], [address], [place], [address], [facility] 4 15:15:49 Acute urinary tract infection 565138789 Active 2024 Elizabeth steele MD [address], [address], [place], [address], [facility] 5 12:11:45 Unsteady when walking 25272943 Active 2024 Elizabeth steele MD [address], [address], [place], [address], [facility] 5 12:51:54 Problem Notes None recorded. Procedures Surgical History Date Name Laterality Status Provider Name and Address Organization Details Recorded Time 03/13/20 Medicare Wellness CPT Code, subsequent completed Vince Godinez LPN [facility] 03/13/2024 08:54:32 Shoulder completed LEILANI Lizarraga [facility] 06/14/2023 15:05:43 Hysterectomy completed Penelope Goodman Phoebe [facility] [place] [facility] 06/14/2023 15:05:49 tonsilectomy/blanca noids completed Penelope Goodman Phoebe [facility] 06/14/2023 15:06:01 Back completed Penleope Rex Phoebe [facility] [employer] [facility] 06/14/2023 15:06:45 Imaging Results Imaging Date Name Status LastModified by Organiz ation Details LastModified Time 11/21/2023 imaging/diagn ostic result active [facility] [address], [place], [address], 11/22/2023 18:02:48 03/10/2024 US, head + neck, soft tissue active [facility] (Imaging) [address] [place], [address], 03/10/2024 15:25:05 03/10/2024 US, thyroid active [facility] [address] [place], [address], 03/10/2024 15:27:31 09/10/2024 imaging/diagn ostic result active [facility] [address] [place], [address], 09/10/2024 23:08:21 09/11/2024 imaging/diagn ostic result active [facility] [address] [place], [address], 09/11/2024 08:34:49 Procedure Notes None recorded. Medical Equipment None Reported. Allergies Allergen ID Allergen Name Allergen Category Reaction Reaction Severity Criticality Documentation Date Start Date Code Code System Note Provider Name and Address Organization Details Recorded Time 75579 Product containin g 3-hydroxy -3-methyl glutaryl- coenzyme A reductase inhibitor (product) medicatio n dizziness Not available low 03/13/2024 17014 009 SNOMED Vince Godinez LPN null, [facility] 08/08/202 4 14:25:55 Medications Name Sig Start Date Stop Date Status Note LastModified by Organization Details LastModified Time cefuroxim e axetil 250 mg tablet TAKE 2 TABLETS BY MOUTH TWICE DAILY 09/17 completed Not Available Not Available Not Available ondansetr on HCl 4 mg tablet TAKE 1 TABLET BY MOUTH EVERY 8 HOURS NEEDED FOR NAUSEA OR VOMITING 09/17 completed Not Available Not Available Not Available metoprolo l succinate ER 100 mg tablet,ex tended release 24 hr TAKE 1 TABLET BY MOUTH DAILY active Not Available Not Available No t Available sertralin e 100 mg tablet TAKE 1 TABLET BY MOUTH EVERY DAY active Not Available Not Available No t Available amlodipin e 5 mg tablet TAKE 1 TABLET BY MOUTH EVERY DAY active Not Available Not Available No t Available mirtazapi ne 15 mg tablet TAKE 1/2 TABLET BY MOUTH EVERY DAY 03/13 completed Not Available Not Available Not Available sertralin e 50 mg tablet TAKE 1 TABLET BY MOUTH EVERY DAY active Not Available Not Available No t Available calcitrio l 0.25 mcg capsule Take 1 capsule every day by oral route for 30 days. active Not Available Not Available No t Available amoxicill in 875 mg-potass ium clavulana te 125 mg tablet TAKE TABLET BY MOUTH EVERY 12 HOURS UNTIL ALL TAKEN. 06/14 completed Not Available Not Available Not Available ezetimibe 10 mg tablet Take 1 tablet(s ) every day by oral route. 02/26 completed dizzines s Not Available Not Available Not Available rosuvasta tin 5 mg tablet 06/14 completed Not Available Not Available Not Available mirtazapi ne 7.5 mg tablet TAKE 1 TABLET BY MOUTH EVERY DAY active Not Available Not Available No t Available Vitals Date Recorded Body weight Body mass index (BMI) Body height Body temperature Heart rate Systolic blood pressure Diastolic blood pressure Provider Name and Address Organization Details Last Updated DateTime 3 64786.0 7 g 35.6 kg/m2 160.02 cm 97.3 [degF] 78 /min 126 mm[Hg] 84 mm[Hg] LEILANI Lizarraga [place] [facility] [place] [facility] 3 15:11:30 Date Recorded Body height Body mass index (BMI) Body weight Body temperature Heart rate Systolic blood pressure Diastolic blood pressure Provider Name and Address Organization Details Last Updated DateTime 4 160.02 cm 35.8 kg/m2 28245.6 6 g 97.4 [degF] 78 /min 126 mm[Hg] 78 mm[Hg] LEILANI Lizarraga [facility] [employer] [facility] 4 14:24:56 Date Recorded Body height Body mass index (BMI) Body weight Body temperature Heart rate Respiratory rate Oxygen saturation Oxygen saturation in Arterial blood by Pulse oximetry Pain severity - 0-10 verbal numeric rating [Score] - Reported Systolic blood pressure Diastolic blood pressure Provider Name and Address Organization Details Last Updated DateTime 4 167.64 cm 31.6 kg/m2 55925.1 g 98 [degF] 68 /min 18 /min 95 % 95 % 0 128 mm[Hg] 72 mm[Hg] Vince Godinez LPN [facility] [employer] [facility] 4 14:24:37 Date Recorded Body height Body mass index (BMI) Body weight Body temperature Heart rate Systolic blood pressure Diastolic blood pressure Provider Name and Address Organization Details Last Updated DateTime 4 167.64 cm 30.7 kg/m2 20345.5 5 g 97.5 [degF] 72 /min 128 mm[Hg] 82 mm[Hg] LEILANI Lizarraga [employer] [facility] [employer] 4 15:10:25 Date Recorded Body height Body mass index (BMI) Body weight Body temperature Heart rate Systolic blood pressure Diastolic blood pressure Provider Name and Address Organization Details Last Updated DateTime 5 167.64 cm 29.2 kg/m2 10271.2 2 g 97.6 [degF] 78 /min 124 mm[Hg] 78 mm[Hg] LEILANI Lizarraga [facility] [employer] [facility] 5 11:57:10 Social History Question Answer Notes LastModified by Organization Details LastModified Time Tobacco Smoking Status Never Smoker LEILANI Lizarraga [facility] [employer] [facility] 06/14/2023 14:56:19 Do You Have An Advance Directive? Yes Information not available 06/14/2023 What Is Your Level Of Alcohol Consumption? Occasional Rare Information not available 06/14/2023 How Many Years Have You Consumed Alcohol? 40 [email or web address] Information not available 03/13/2024 Are You Blind Or Do You Have Difficulty Seeing? No Information not available 06/14/2023 Is Blood Transfusion Acceptable In An Emergency? Yes [email or web address] Information not available 03/13/2024 What Is Your Level Of Caffeine Consumption? None Information not available 06/14/2023 In The 14 Days Before Symptom Onset, Have You Had Close Contact With A Laboratory-confi rmed COVID-19 While That Case Was Ill? No Information not available 06/14/2023 In The 14 Days Before Symptom Onset, Have You Had Close Contact With A Person Who Is Under Investigation For COVID-19 While That Person Was Ill? No Information not available 06/14/2023 Are You Currently Employed? No Information not available 06/14/2023 Are You Deaf Or Do You Have Serious Difficulty Hearing? No Information not available 06/14/2023 What Type Of Diet Are You Following? REGULAR Information not available 06/14/2023 What Is The Highest Grade Or Level Of School You Have Completed Or The Highest Degree You Have Received? [id number] Information not available 06/14/2023 How Many Days Of Moderate To Strenuous Exercise, Like A Brisk Walk, Did You Do In The Last 7 Days? 0 [email or web address] Information not available 03/13/2024 Have There Been Any Changes To Your Family Or Social Situation? No [email or web address] Information not available 03/13/2024 What Is The Fluoride Status Of Your Home? Unknown Information not available 06/14/2023 Are There Any Guns Present In Your Home? Yes Information not available 06/14/2023 Do You Use Insect Repellent Routinely? No [email or web address] Information not available 03/13/2024 Where Do You Live? SingleLevelHouse Information not available 06/14/2023 Advance Directive- Providers Has Reviewed Directive And Consents To Follow Them (insert Provider Name With Any Objectives In Notes Field) Yes [email or web address] Information not available 03/13/2024 Presence Of Domestic Violence No [email or web address] Information not available 03/13/2024 Guns Present In The Home? Yes Information not available 03/13/2024 Are You Able To Care For Yourself? Yes [email or web address] Information not available 03/13/2024 Are You Blind Or Do Yo Have Difficulty Seeing? No [email or web address] Information not available 03/13/2024 Are You Deaf Or Do You Have Serious Difficulty Hearing? No [email or web address] Information not available 03/13/2024 General Stress Level? Moderate [email or web address] Information not available 03/13/2024 Live Alone Of With Others? Alone [email or web address] Information not available 03/13/2024 Do You Have A Medical Power Of Product Strategy Director? Yes Information not available 06/14/2023 What Was The Date Of Your Most Recent Tobacco Screening? 09/17/2024 Information not available 09/17/2024 How Many Children Do You Have? 2 One [email or web address] Information not available 03/13/2024 Have You Ever Been Counseled For Unhealthy Alcohol Use? No [email or web address] Information not available 03/13/2024 Do You Have Any Pets? No Information not available 06/14/2023 What Is Your Relationship Status? Information not available 06/14/2023 Do You Use Your Seat Belt Or Car Seat Routinely? Yes Information not available 06/14/2023 Are You Sexually Active? No [email or web address] Information not available 03/13/2024 Do You Have Smoke And Carbon Monoxide Detectors In Your Home? No [email or web address] Information not available 03/13/2024 Are You Passively Exposed To Smoke? No Information not available 06/14/2023 Are There Any Smokers In Your House? No Needs Replaced [email or web address] Information not available 03/13/2024 What Types Of Sporting Activities Do You Participate In? None [email or web address] Information not available 03/13/2024 Do You Feel Stressed (tense, Restless, Nervous, Or Anxious, Or Unable To Sleep At Night)? [id number] Information not available 06/14/2023 Do You Use Any Illicit Or Recreational Drugs? No Information not available 06/14/2023 Do You Use Sunscreen Routinely? No [email or web address] Information not available 03/13/2024 Has Tobacco Cessation Counseling Been Provided? No N/a Information not available 06/14/2023 Have You Recently Traveled Abroad? No Information not available 06/14/2023 Do You Have Any Dietary Restrictions? No [email or web address] Information not available 03/13/2024 Do You Or Have You Ever Used Any Other Forms Of Tobacco Or Nicotine? No Information not available 06/14/2023 How Many Days In The Past Year Have You Consumed 4 Or More Drinks? -1 [email or web address] Information not available 03/13/2024 Sex: Female Functional Status Question Answer Note LastModified by Organizat ion Details LastModified Time Do you have difficulty walking or climbing stairs? Yes Uses cane [email or web address] Information not available 03/13/2024 Do you have transportation difficulties? No Information not available 06/14/2023 Are you able to walk? YESASSIST uses cane Information not available 06/14/2023 Do you have difficulty doing errands alone? No Information not available 06/14/2023 Are you able to care for yourself? Yes Information n ot available 06/14/2023 Do you have difficulty dressing or bathing? No Information not available 06/14/2023 What is your exercise level? None Information not available 06/14/2023 Mental Status Question Answer Note LastModified by Organization D etails LastModified Time Do you have difficulty concentrating, remembering or making decisions? No Information no t available 06/14/2023 Family History Relationship Description Onset Age of this Age Resolved Age Notes LastModified by Organization Details LastModified Time Father Myocardial infarction Not available 06/14 14:52:54 Mother Myocardial infarction Not available 06/14 14:52:54 Son Myocardial infarction Not available 06/14 14:52:54 Sister Cholecystect wendy [email or web address] Not available 07/2025 11:35:48 Medical History Condition Response BLINDNESS N NERVE DISEASE N RHEUMATIC FEVER N BLADDER PROBLEMS N KIDNEY STONES N MRSA N OTHER # 1 N POLIO N LUNG DISEASE/DISORDER N HISTORY OF DRUG ABUSE N RADIATION / CHEMOTHERAPY N COPD N Other # 2 N BLOOD DISEASES N EAR OR HEARING PROBLEMS N MUMPS N SHINGLES N DEPRESSION (INCLUDING POST ) Y BOWEL PROBLEMS N FAILED BACK SYNDROME N STROKE/TIA N ULCERS N BENIGN PROSTATIC HYPERPLASIA N MEASLES N HYPOTENSION N MYOCARDIAL INFARCTION N OBESITY N GERD/NAUSEA N ANEURYSM N URINARY/BLADDER/KIDNEY PROBLEMS N CORONARY ARTERY DISEASE (CAD) N Do you have Advance directive? N ADDICTION CONCERNS N ENDOMETRIOSIS N Impotence N USE OF BLOOD THINNERS N SKIN PROBLEMS N GASTROINTESTINAL DISORDER N PERIPHERAL VASCULAR DISEASE N MUSCLE,JOINT OR BONE PROBLEMS N GASTROINTESTINAL BLEEDING N BLOOD CLOTS N ASTHMA N Abdominal Pain N CATARACTS N ARTERIAL INSUFFICIENCY N ERECTILE DYSFUNCTION N VARICOSITIES N GI PROBLEMS N Low Testosterone N INFERTILITY N AIDS/HIV N CHEMOTHERAPY / RADIATION N LIVER DISEASE N MALE HYPOGONADISM N HYPERTENSION Y Deficiency N TOURETTE'S N ANXIETY DISORDER Y BLOOD TRANSFUSION N ANEMIA/BLOOD DISORDER N CHRONIC EAR INFECTIONS N TUBERCULOSIS N GLAUCOMA N FOOT PROBLEM N DIVERTICULITIS N CHICKENPOX N SLEEP APNEA N BACK INJECTIONS N ALLERGIES/HAYFEVER N INFECTIOUS DISEASE N HEART ARRHYTHMIA N PROSTATE N ESRD N INSOMNIA Y HIGH CHOLESTEROL / HYPERLIPIDEMIA N HYPERTHYROIDISM N EYE PROBLEMS N PVD N EDEMA N CHRONIC PAIN SYNDROME N HYPOTHYROIDISM N CONSTIPATION N CAROTID BLOCKAGE N BACK / NECK PROBLEMS N ATHEROSCLEROSIS N BREAST PROBLEMS N DIALYSIS N POLYCYSTIC OVARIES N ECZEMA N OSTEOPOROSIS N ARTHRITIS N APPENDICITIS N DIABETES, TYPE N BAD TEETH N VON WILLIBRAND'S DISEASE N ENT N HEARTBURN / REFLUX N GI N AUTISM SPECTRUM DISORDER (ASD) N POST LAMINECTOMY SYNDROME N HEPATITIS / LIVER DISEASE N GOUT N SLEEP DISORDER N ALZHEIMER'S DISEASE N Brain Problems N HERPES N DEMENTIA N HEADACHES/MIGRAINES N SEIZURES/EPILEPSY N VASCULAR DISEASE N PACEMAKER N DIZZINESS N HEART DISEASE/HEART PROBLEMS N KIDNEY DISEASE N MULTIPLE SCLEROSIS N NEUROPSYCHOLOGICAL N CARDIAC ARRHYTHMIA N CANCER: SPECIFY N ATRIAL FIBRILLATION Y Gall Stones N PULMONARY EMBOLISM N AUTOIMMUNE DISEASE N Gynecological HistoryNo gynecological history recorded. Obstetrics History GPAL:G 0 P 0 0 0 0 Immunizations Vaccine Type Date Status Note Provider Nam e and Address Organization Details Recorded Time Pneumococcal conjugate PCV 13 7 completed LEILANI Lizarraga, [facility] [employer] [facility] 06/25/2024 15:07:24 pneumococcal polysaccharide PPV23 9 completed LEILANI Lizarraga, [employer] [facility] [employer] [facility] 06/25/2024 15:07:24 Influenza, high-dose, trivalent, PF 7 completed LEILANI Lizarraga, [facility] 06/25/2024 15:07:24 Influenza, high-dose, quadrivalent, PF 0 completed Penelope Goodman, RMA null, [facility] 06/25/2024 15:07:23 Influenza, high-dose, quadrivalent, PF 1 [facility] 15:07:24 Influenza, high-dose, quadrivalent, PF 2 completed Penelope Goodman RMA null, [facility] 06/25/2024 15:07:24 Influenza, high-dose, trivalent, PF 9 completed Penelope Goodman RMA null, [facility] 06/25/2024 15:07:24 COVID-19, mRNA, LNP-S, PF, 100 mcg/0.5mL dose or 50 mcg/0.25mL dose 1 completed Penelope Goodman RMA null, [facility] 06/25/2024 15:07:24 COVID-19, mRNA, LNP-S, PF, 30 mcg/0.3 mL dose 2 completed Penelope Goodman, RMA null, [facility] 06/25/2024 15:07:24 COVID-19, mRNA, LNP-S, PF, 100 mcg/0.5mL dose or 50 mcg/0.25mL dose 4 completed Penelope Goodman, RMA null, [facility] 06/25/2024 15:07:24 Influenza, adjuvanted, quadrivalent, PF 2 completed Penelope Goodman, RMA null, [facility] 06/25/2024 15:07:24 Influenza, adjuvanted, quadrivalent, PF 1 completed Penelope Goodman RMA null, [facility] 06/25/2024 15:07:24 COVID-19, mRNA, LNP-S, bivalent, PF, 30 mcg/0.3 mL dose 2 completed Penelope Goodman, RMA null, [place] [facility] 06/25/2024 15:07:24 COVID-19, mRNA, LNP-S, PF, 50 mcg/0.5 mL 4 completed Penelope Goodman, RMA null, [facility] 06/25/2024 15:07:24 Influenza, high-dose, trivalent, PF 4 completed Elizabeth Salazar MD [address] [facility], [address], [place], [address], [place] [facility] 06/25/2024 19:33:53 Past Encounters Encounter ID Performer Location Encounter Start Date Encounter Closed Date Diagnosis/Indication Diagnosis SNOMED-CT Code Diagnosis ICD10 Code Diagnosis Note [id number] Elizabeth hogan MD [facility] Internal Med [address] [facility], [address] [place] [address] 06/14/2023 13:52:33 06/14/2023 16:02:15 Screening - NAD 161421149 Z13.9 C-scope/Ma mmogram/PA P: Not doing at this time, do SBE, no other complaints DEXA: Get this Get yearly flu shotGet TdapGet shingrixGe t PCV #20Get COVID 19 vaccineCan do RSV vaccine RTC in 3 months, do labs, ER if worse, she did verbalize his understand ing of the above Essential hypertension 70578034 I10 On amlodipine 5mg dailyOn metoprolol ER 100mg dailyGet labs Hyperlipidemia 78066973 E78.5 Not on any medsGet labs 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 On sertraline 50mg and 100mg to total 150mg dailyOn mirtazapin e 15mg dailyNot suicidal or homicidalD oes wellNot seeing psychiatry at this time Serum michael min B12 below reference range 107903065 R79.89 Vitamin D deficiency 347 18987 E55.9 Screening for osteoporosis 035623175 Z13.820 Atrial fibrillation 4943 6004 I48.91 Get a referral to cardiology [id number] Elizabeth hogan MD [facility] Internal Med [facility] [address] [facility], [place] [address] 09/13/2023 14:14:22 09/13/2023 14:48:35 Screening - NAD 356700379 Z13.9 C-scope/Ma mmogram/PA P: Not doing at this time, do SBE, no other complaints DEXA: Get this Get yearly flu shotGet TdapGet shingrixGe t PCV #20Get COVID 19 vaccineCan do RSV vaccine RTC in 6 months, do labs, ER if worse, she did verbalize his understand ing of the above Essential hypertension 78230315 I10 On amlodipine 5mg dailyOn metoprolol ER 100mg dailyGet labs Hyperlipidemia 06732148 E78.5 On zetia 10mg dailyGet labs Moderate r ecurrent major depression 43482265 F33.1 On sertraline 50mg and 100mg to total 150mg dailyOn mirtazapin e 7.5mg dailyNot suicidal or homicidalD oes wellNot seeing psychiatry at this time Serum michael min B12 below reference range 792818927 R79.89 Vitamin D deficiency 347 68666 E55.9 Screening for osteoporosis 990862886 Z13.820 Atrial fibrillation 4943 6004 I48.91 Get a referral to cardiology [id number] Elizabeth hogan MD [facility] Internal Med [facility] [address] 1 03/13/2024 13:53:53 03/13/2024 14:59:53 Screening - NAD 840425350 Z13.9 C-scope/Ma mmogram/PA P: Not doing at this time, do SBE, no other complaints DEXA: Get this Get yearly flu shotGet TdapGet shingrixGe t PCV #20Get COVID 19 vaccineCan do RSV vaccine RTC in 6 months, do labs, ER if worse, she did verbalize his understand ing of the above Essential hypertension 52120689 I10 On amlodipine 5mg dailyOn metoprolol ER 100mg dailyGet labs Hyperlipidemia 20071479 E78.5 On zetia 10mg daily, self stoppedGet on statin declined 03/13/2024 Understand s the risks and so does her sister LauraGet labs Moderate r ecurrent major depression 02317941 F33.1 On sertraline 50mg and 100mg to total 150mg dailyOn mirtazapin e 7.5mg dailyNot suicidal or homicidalD oes wellNot seeing psychiatry at this time Serum michael min B12 below reference range 025989533 R79.89 Vitamin D deficiency 347 03622 E55.9 Screening for osteoporosis 870197321 Z13.820 Atrial fibrillation 4943 6004 I48.91 Get a referral to cardiology Hypothyroidism 09838734 E03.9 thyroid: 03/10/2024 : R mid nodule, next in one yearGet on unithyroid , but she has declined this 03/13/2024 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 Get a referral to hematology Adult [facility] th examination 360205288 Z00.00 Screening for disorder 897809439 Z13.9 [id number] Elizabeth hogan MD [facility] [address] [place] [address] 06/25/2024 14:56:02 06/25/2024 16:12:28 Screening - NAD 891547162 Z13.9 C-scope/Ma mmogram/PA P: Not doing at this time, do SBE, no other complaints DEXA: Get this Get yearly flu shotGet TdapGet shingrixGe t PCV #20Get COVID 19 vaccineCan do RSV vaccine RTC in 6 months, do labs, ER if worse, she did verbalize his understand ing of the above Essential hypertension 26035224 I10 On amlodipine 5mg dailyOn metoprolol ER 100mg dailyGet labs Hyperlipidemia 77327778 E78.5 On zetia 10mg daily, self stoppedGet on statin declined 03/13/2024 , 06/25/2024 Understand s the risks and so does her sister Marisol!Get labs Moderate r ecurrent major depression 88024526 F33.1 On sertraline 50mg and 100mg to total 150mg dailyOn mirtazapin e 7.5mg dailyNot suicidal or homicidalD oes wellNot seeing psychiatry at this time Serum michael min B12 below reference range 493030945 R79.89 Vitamin D deficiency 347 61771 E55.9 Screening for osteoporosis 031833118 Z13.820 Atrial fibrillation 4943 6004 I48.91 Get a referral to cardiology Hypothyroidism 37461852 E03.9 US thyroid: 03/10/2024 : R mid nodule, next in one yearGet on unithyroid , but she has declined this 03/13/2024 Hyperproteinemia 9550455 9 E88.09 Does not want any more referals as she has refused 06/25/2024 Thyroid nodule 190195179 E04.1 US thyroid 03/10/2024 : Next in one year Chronic ki dney disease 705145478 N18.9 Get a referral to Dr Mcclure Administra tion of influenza vaccine 05055752 Z23 [id number] Elizabeth hogan MD [facility] [address] [facility] [address] [place] [address] 09/17/2024 11:35:38 09/17/2024 12:50:56 Screening - NAD 802079267 Z13.9 C-scope/Ma mmogram/PA P: Not doing at this time, do SBE, no other complaints DEXA: Get this Get yearly flu shotGet TdapGet shingrixGe t PCV #20Get COVID 19 vaccineCan do RSV vaccine RTC in 3 months, do labs, ER if worse, she and her sister did verbalize his understand ing of the above Essential hypertension 90393920 I10 On amlodipine 5mg dailyOn metoprolol ER 100mg dailyGet labs Hyperlipidemia 23396224 E78.5 On zetia 10mg daily, self stoppedGet on statin declined 03/13/2024 , 06/25/2024 Understand s the risks and so does her sister Marisol!Get labs Moderate r ecurrent major depression 54804696 F33.1 On sertraline 50mg and 100mg to total 150mg daily, she has decided to wean to 100mg daily, did offer her to see psychiatry 09/17/2024 but she has declined this todayOn mirtazapin e 7.5mg dailyNot suicidal or homicidalD oes wellNot seeing psychiatry at this time Serum michael min B12 below reference range 132849694 R79.89 Vitamin D deficiency 347 80068 E55.9 Screening for osteoporosis 206440528 Z13.820 Atrial fibrillation 4943 6004 I48.91 Get a referral to cardiology Hypothyroidism [id number] E03.9 US thyroid: 03/10/2024 : R mid nodule, next in one yearGet on unithyroid , but she has declined this 03/13/2024 Hyperproteinemia 2440393 9 E88.09 Does not want any more referals as she has refused 06/25/2024 Thyroid nodule 373719836 E04.1 US thyroid 03/10/2024 : Next in one year Chronic ki dney disease 391067331 N18.9 Get a referral to Dr Mcclure Acute urin megan tract infection 738563974 N39.0 STEVE, [facility]/p [facility]TI [facility] , done with the antibiotic sFeels well now, needs to f/u with nephrology Unsteady when walking 22 972378 R26.89 Uses a cane, is home bound, will get HH and PT Health Concerns Section Related Observation LastModified by Organization Detai ls LastModified Time None Recorded Concern Status LastModified by Organization Details LastModified Time None Recorded Advance Directives Directive Y: Payers Encounter Date Sequence Insurance Name Policy Number Policy Mahoney Covered Member ID Mahoney Member ID Guarantor Name 06/14/2023 1 [place] Patria Arana [id number] Patria Arana 06/14/2023 2 WPS - FOR LIFE (MEDICARE SUPPLEMENT) Patria Arana [id number] Patria Arana 09/13/2023 1 [place] Pat[place] Arana [id number] Patria Nunezks 09/13/2023 2 WPS - FOR LIFE (MEDICARE SUPPLEMENT) Patria Nunezks [id number] Patria Arana 03/13/2024 1 [place] Patria Christie Nunezks [id number] Patria Arana 03/13/2024 2 WPS - FOR LIFE (MEDICARE SUPPLEMENT) Patria Arana [id number] Patria Arana 06/25/2024 1 [place] Patria Nunezks [id number] Patria Arana 06/25/2024 2 WPS - FOR LIFE (MEDICARE SUPPLEMENT) Patria Arana [id number] Patria Arana 09/17/2024 1 [place] Patria Arana [id number] Patria Mario 09/17/2024 2 WPS - FOR LIFE (MEDICARE SUPPLEMENT) Patria Arana [id number] Patria Arana Notes Date Note Type Note Provider Name and Address Organization Details Recorded Time 06/14/2023 text/html OV 06/14/2023:He re to establish care Past Hx:Chary farfan Reviewed social family and surgical history Here to discuss above and get labs, she is here with her sister Marisol Negrete, is doing well, used to see a MD in [place] Elizabeth Salazar MD [address] [facility], [place], [address], [employer] [place] [facility] [employer] [facility] 06/14/2023 16:09:21 09/13/2023 text/html OV 06/14/2023:He re to establish care Past Hx:Chary farfan Reviewed social family and surgical history Here to discuss above and get labs, she is here with her sister Marisol Negrete, is doing well, used to see a MD in [place] OV 09/13/2022: Here for her routine apt, she is doing well today, no new labs noted, she is here with her sister, would like to get her refill of mirtrazepine Elizabeth Salazar MD [address] [facility], [place], [address], [employer] [place] [employer] 09/13/2023 14:48:19 03/13/2024 text/html OV 06/14/2023:He re to establish care Past Hx:Chary farfan Reviewed social family and surgical history Here to discuss above and get labs, she is here with her sister Marisol Negrete, is doing well, used to see a MD in [place] OV 09/13/2022: Here for her routine apt, she is doing well today, no new labs noted, she is here with her sister, would like to get her refill of mirtrazepine OV 03/13/2024: Here for her f/u apt, she is here with Marisol her sister, does well now, has stopped her zetia as she wants to try 'natural pills' Elizabeth Salazar MD [address] [facility], [place], [address], [facility] [employer] [facility] [employer] 05/01/2024 19:05:22 06/25/2024 text/html OV 06/14/2023:He re to establish care Past Hx:Chary farfan Reviewed social family and surgical history Here to discuss above and get labs, she is here with her sister Marisol Negrete, is doing well, used to see a MD in [place] OV 09/13/2022: Here for her routine apt, she is doing well today, no new labs noted, she is here with her sister, would like to get her refill of mirtrazepine OV 03/13/2024: Here for her f/u apt, she is here with Marisol her sister, does well now, has stopped her zetia as she wants to try 'natural pills' OV 06/25/2024: Here for her f/u apt, she is doing well, she is here with her sister Elizabeth Salazar MD [address], [place], [address], [employer] [place] [facility] [employer] [facility] 06/25/2024 19:35:12 09/17/2024 text/html OV 06/14/2023:He re to establish care Past Hx:Chary farfan Reviewed social family and surgical history Here to discuss above and get labs, she is here with her sister Marisol Negrete, is doing well, used to see a MD in [place] OV 09/13/2022: Here for her routine apt, she is doing well today, no new labs noted, she is here with her sister, would like to get her refill of mirtrazepine OV 03/13/2024: Here for her f/u apt, she is here with Marisol her sister, does well now, has stopped her zetia as she wants to try 'natural pills' OV 06/25/2024: Here for her f/u apt, she is doing well, she is here with her sister OV 09/17/2024: Here for her post hospital d/cShe was [facility], for UTI and STEVE, states that she is doing much better, here with her son and her DIL Elizabeth Salazar MD [address] [facility] [facility] [address], [place], [address], [facility] 09/17/2024 13:14:35 OBGyn Episode No OBEpisode recorded.
--- OUTSIDE RECORDS SUMMARY | 2024-09-29 11:01 | XMS_ITS | Clinical Summary ---
Author Organization [facility] Address [address], [place] [address] Phone Care Team Providers Care Community Health Advisor Name Role Phone Elizabeth Salazar MD Primary Care Provider [phone] Allergies Active Allergy Reactions Criticality Noted Date Comments 5-Alpha Reductase Inhibitors Dizziness Low 025 Statins Dizziness Low 09/11/2024 Medications Medication Sig Dispensed Refills Start Date End Date Status amLODIPine (NORVASC) 5 MG tablet Take 5 mg by mouth 1 (one) time each day Active metoprolol succinate XL (TOPROL-XL) 100 MG 24 hr tablet Take 100 mg by mouth 1 (one) time each day Active sertraline (ZOLOFT) 100 MG tablet Take 150 mg by mouth 1 (one) time each day Active calcitriol (ROCALTROL) 0.25 MCG capsule Take 0.25 mcg by mouth 1 (one) time each day Active cefuroxime (CEFTIN) 250 MG tablet Take 250 mg by mouth in the morning and 250 mg in the evening. Active ondansetron (ZOFRAN) 4 MG tablet Take 4 mg by mouth every 8 (eight) hours if needed for nausea or vomiting Active mirtazapine (REMERON) 7.5 MG tablet Take 7.5 mg by mouth every night 09/16/2024 Discontinued Active Problems Problem Noted Date Diagnosed Date Pancytopenia 09/16/2024 Stage 3 chronic kidney disease 09/11/2024 Hypothyroidism 09/11/2024 Vitamin D deficiency 09/11/2024 Hyperlipidemia 09/11/2024 Essential hypertension 09/11/2024 Family History Medical History Relation Comments Myocardial infarction Father Myocardial infarction Mother Cholecystectomy Sister Myocardial infarction Son Relation Status Comments Father Mother Sister Son Social History Tobacco Use Types Packs/Day Years Used Date Smoking Tobacco: Never Smokeless Tobacco: Never Tobacco Cessation:Counseling Given: Not Answered Alcohol Use Standard Drinks/Week Comments Yes 0 (1 standard drink = 0.6 oz pur e alcohol) Rarely Sex and Gender Information Value Date Recorded Sex Assigned at Not on file Gender Identity Not on file Sexual Orientation Not on file Last Filed Vital Signs Vital Sign Reading Time Taken Comments Blood Pressure 166/103 09/16/2024 2:39 PM POWER GENERATION EQUIPMENT REPAIRER Pulse 75 09/16/2024 2:39 PM POWER GENERATION EQUIPMENT REPAIRER Temperature - - Respiratory Rate - - Oxygen Saturation - - Inhaled Oxygen Concentration - - Weight 83.5 kg (184 lb) 09/16/2024 2:39 PM POWER GENERATION EQUIPMENT REPAIRER Height 167.6 cm (5' 6 ) 09/16/2024 2:39 PM POWER GENERATION EQUIPMENT REPAIRER Body Mass Index 29.7 09/16/2024 2:39 PM POWER GENERATION EQUIPMENT REPAIRER Plan of Treatment Upcoming Encounters Date Type Department Care Team (Late st Contact Info) Description 10/14/2024 2:40 PM CDT Office Visit [facility] [address] [facility] [address] [place] [address] Haroon Mcclure MD [address] [facility] [address] [place] [address] Health Maintenance Due Date Last Done Comments Pneumococcal PPSV23/PCV13 65 + Years / High and Highest Risk (1 of 4 - PCV) 1941 Influenza Vaccine (#1) 2024 Care Teams Community Health Advisor Relationship Specialty Start Date End Date Elizabeth Salazar MD [address] [facility] [address] [place] [address] PCP - General Family Medicine 09/11/24
[2024-09-29] MEDS: SODIUM ZIRCONIUM CYCLOSILICATE 10 GM POWD.PACK PO (11:29)
[2024-09-29] MEDS: METOPROLOL SUCCINATE EXT REL 100 MG TABCR PO (11:29)
[2024-09-29] MEDS: amLODIPine BESYLATE 5 MG TABLET PO ×2 (11:30→19:49)
[2024-09-29 11:58] LABS: Phosphorus 11.1 mg/dL (2.5-4.5)
--- NOTE | 2024-09-29 13:05 | P.HP_ITS ---
H&P: HPI History of Present Illness Date/Time: 09/29/24 13:05 Chief Complaint: Nausea, vomiting, and dizziness. Narrative: This is an 89-year-old female with hypertension, chronic kidney disease (patient states she was never told of this however she does see a kidney specialist), and depression who presented to the emergency department via EMS from home with complaints of nausea, vomiting, dizziness. The patient provides the following history. She was hospitalized at [facility] earlier this month with dehydration due to nausea, vomiting, and diarrhea. Creatinine at the time of admission was 5.53 and did improve right around her baseline with a discharge creatinine of 4.37. She was instructed to follow-up with her kidney specialist, Dr. Vidales, but I do not think she has followed up as of yet. In any event, she continues to feel weak and fatigued with frequent nausea, decreased appetite, occasional emesis and dry heaves, and several loose stools a day. Over the last couple of days she has been getting lightheaded and dizzy and is overall feeling bad again. She lives alone has been having difficulties getting about the home and doing her activities of daily living. She denies syncope, confusion, fall, fever, cold and flu symptoms, chest pain, pleuritic pain, shortness of breath, edema, hematemesis, melena, hematochezia, change in urine output, and dysuria. In the ED: Vital signs on arrival include a temperature of 97.9?, blood pressure 229/94, pulse 63, respiratory rate 18, SpO2 100% on room air. Labs were significant for a WBC count of 4.6, hemoglobin 10.0, platelet 127, sodium 139, potassium 5.5, carbon dioxide 18, chloride 100, anion gap 21, BUN 98, creatinine 11.33. Urinalysis was positive for 2+ protein, trace ketones, and trace leukocyte esterase. She received a liter of normal saline and Lokelma 10 mg. She was also given her morning blood pressure medications which she did not take to include amlodipine 5 mg and metoprolol succinate 100 mg. She is being admitted in this setting for further treatment and evaluation. Review of Systems Review of Systems: 12 systems were reviewed and are negativ e except for as per HPI. [facility] Past Medical History Medical History (Updated 09/29/24 @ 23:24 by Jessica Alonso PA-C) Chronic kidney disease, stage 5 According to records from outside facility, patient states she knows nothing about this. Depression Hypertension Surgical History Surgical History (Updated 09/29/24 @ 16:04 by Jessica Alonso PA-C) History of tonsillectomy History of cataract extraction Social History Social History (Updated 09/29/24 @ 16:04 by Jessica Alonso PA-C) Social History: Surrogate medical decision maker: Marisol Negrete, sibling. Code status: Full code. Smoking status: Never smoker Alcohol intake: never Substance use: never Do You Feel Safe in your Home?: Yes Lack of Transportation: No Lack of Food: Never True Current Housing: I Have Housing Concerned About Future Housing: No Difficulty Paying Gas/Electric Bills: No Difficulty Paying for Meds: No Currently Unemployed: No Education: Associate Degree Difficulty w/ Childcare or Family Care: No Spiritual care concerns: No Meds Home Medications and Allergies Home Medications ?Medication ?Instructions ?Recorded ?Confirmed ?Type amlodipine 5 mg tablet 5 mg PO DAILY Blood pressure 09/29/24 09/29/24 History calcitriol 0.25 mcg capsule 0.25 mcg PO DAILY 09/29/24 09/29/24 History cefuroxime axetil 250 mg tablet 250 mg PO Q12H 09/29/24 09/29/24 History metoprolol succinate 100 mg 100 mg PO DAILY 09/29/24 09/29/24 History tablet,extended release 24 hr mirtazapine 7.5 mg tablet 7.5 mg PO HS 09/29/24 09/29/24 History ondansetron HCl 4 mg tablet 4 mg PO PRN 09/29/24 09/29/24 History sertraline 100 mg tablet 100 mg PO DAILY 09/29/24 09/29/24 History Allergies Allergy/AdvReac Type Severity Reaction Status Date / Time Sydjrgq-AZQ-FlI Reductase Allergy Unknown CRAMPING Verified 09/29/24 11:08 Inhibitor (Mizbmmg-Qrg-Yyh LEG Reductase Inhibitor) NSID AdvReac Mild unknown Uncoded 09/29/24 11:08 Vital Signs Vital Signs - 24 hr 09/29/24 09:26 09/29/24 10:23 09/29/24 10:47 Temperature 97.5 F L 97.9 F Pulse Rate 80 63 59 L Respiratory Rate 16 19 14 Blood Pressure 217/95 H 229/94 H 211/80 H Pulse Oximetry 97 100 09/29/24 11:02 09/29/24 11:29 09/29/24 12:00 Temperature 97.9 F Pulse Rate 62 61 59 L Respiratory Rate 15 14 Blood Pressure 196/82 H Pulse Oximetry 100 09/29/24 12:02 Temperature Pulse Rate 58 L Respiratory Rate 13 Blood Pressure 211/91 H Pulse Oximetry Exam Narrative: General: Nontoxic appearing elderly female in the semi-Chavez position in bed in no acute distress. Weight: 74 kg. BMI: 25.6. HEENT: Normocephalic, atraumatic. PERRL, EOMI. Sclera anicteric. Tacky mucous membranes. Neck: Supple. Respiratory: Lungs are clear to auscultation bilaterally. Cardiovascular: Regular rate and rhythm with S1-S2. Gastrointestinal: Abdomen is soft, nontender, and nondistended with positive bowel sounds. Skin: Warm and dry. No rash or lesions on limited exam. Extremities: No cyanosis, clubbing, or significant edema. Radial and pedal pulses intact. Neurological: Alert. Cranial nerves 2-12 are grossly intact. No gross focal deficits to casual conversation. Psychiatric: Pleasant and cooperative with appropriate mood and affect. Seems a bit forgetful may be. H&P: Results Labs Labs: Short CBC 09/29/24 Range/Units 09:49 WBC 4.6 (4.5-10.0) K/mm3 Hgb 10.0 L (12.0-15.0) g/dL Hct 29.9 L (37.0-47.0) % Plt Count 127 L (150-375) k/mm3 BMP 09/29/24 09:49 Sodium 139 Potassium 5.5 H Chloride 100 Carbon Dioxide 18 L BUN 98 H Creatinine 11.33 H Glucose 94 Calcium 9.6 Liver Function 09/29/24 Range/Units 09:49 Total Bilirubin 0.6 (0.2-1.3) mg/dL AST 16 (14-36) U/L ALT 9 (6-35) U/L Alkaline Phosphatase 66 (38-126) U/L Albumin 4.2 (3.5-5.1) g/dL Urine 09/29/24 Range/Units 10:39 Urine Color Yellow (Yellow) Urine Appearance Clear (Clear) Urine pH 6.0 (5.0-9.0) Ur Specific [place] 1.013 (1.001-1.035) Urine Protein 2+ H (Negative) mg/dL Urine Glucose (UA) Negative (Negative) mg/dL Impressions Arterial/Peripheral Duplex 09/29/24 14:58 IMPRESSION: 1. Bilateral increased renal cortical atelectasis be consistent with medical renal disease. No hydronephrosis. 2. No Doppler evidence of renal artery stenosis. 3. Fusiform abdominal aortic aneurysm measuring up to 3.6 cm maximal diameter. Renal Ultrasound 09/29/24 14:58 IMPRESSION: 1. Bilateral increased renal cortical atelectasis be consistent with medical renal disease. No hydronephrosis. 2. No Doppler evidence of renal artery stenosis. 3. Fusiform abdominal aortic aneurysm measuring up to 3.6 cm maximal diameter. Assessment and Plan Assessment and plan (1) Acute kidney injury superimposed on chronic kidney disease: Code(s): N17.9 - Acute kidney failure, unspecified; N18.9 - Chronic kidney disease, unspecified Status: Acute (2) Hyperkalemia: Code(s): E87.5 - Hyperkalemia Status: Acute (3) Uncontrolled hypertension: Code(s): I10 - Essential (primary) hypertension Status: Acute (4) Depression: Code(s): F32.A - Depression, unspecified Status: Acute Plan The patient presented to the emergency department with complaints of dizziness, nausea, and vomiting as detailed in HPI. Labs, imaging, EKG, and all reports were personally reviewed. She has acute on chronic kidney failure with a creatinine of 11.33 today compared to a reported discharge creatinine of 4.37 on day of discharge from [facility] a few weeks ago. She pre sumably has stage 5 kidney disease and may be nearing dialysis. Present been requested from that recent stay at [facility] as well as the most recent office notes from Dr. Mcclure or Dr. Vidales. She has had poor oral intake due to lack of appetite and ongoing nausea, likely related to azotemia, and she has been started on judicious IV fluid rehydration with close monitoring of volume status and renal function. Potassium should improve with IV fluids and Lokelma which was given in the ED. Bood pressures are poorly controlled and she reports that they had a difficult time controlling her blood pressures at [facility] as well. Continue metoprolol succinate 100 mg daily and increase amlodipine dose to 10 mg daily. Avoid a precipitous drop in blood pressure due to the fact that they most likely run in the 180s to 190 systolic if not higher. Renal ultrasound and duplex ordered as well as several blood tests and urine studies. Avoid nephrotoxic agents and renally dose all medications. Nephrology consulted for further recommendations. Her home medications will be reviewed and resumed as appropriate. Findings and treatment plan were discussed with the patient. Questions were solicited and answered to satisfaction. The patient's medical management will be taken over by the hospitalist team in a.m. Quality VTE Prophylaxis VTE prophylaxis: mechanical ordered and pharmacologic ordered Hospitalist [facility] Advance Care Plan I have confirmed that the patient's Advanced Care Plan is present, code status is documented, or surrogate decision maker is listed in patient medical record.: Yes Medication Reconciliation I have utilized all available resources to obtain, update and review the patients current medications (includes all prescriptions, OTC, herbals, cannabis, and nutritional supplements).: Yes
[2024-09-29 13:32] LABS: Iron 121 ug/dL (37-170)
[2024-09-29 13:46] LABS: Percent Iron Saturation 47 % (20-50)
[2024-09-29 13:47] LABS: Complement C3 140 mg/dL (88-165)
[2024-09-29 13:58] LABS: CRP 1.7 mg/dL (<1.0)
--- NOTE | 2024-09-29 14:00 | PC.NURSE ---
spoke with Verona in Ultrasound patient NPO until after the ultrasound. patient has a tray at bedside but has verbalized understanding that she can eat after she returns from ultrasound.
[2024-09-29 14:04] LABS: Hepatitis B Surface Antigen Negative (Negative)
[2024-09-29 14:11] LABS: Hepatitis B Core IgM Result Negative (Negative)
[2024-09-29 14:16] LABS: HIV 1/2 Ab P24 Ag Result Negative (Negative)
[2024-09-29 14:22] LABS: Hepatitis B Surface Anti Res Negative; Hepatitis C Virus Antibody Negative (Negative)
[2024-09-29 14:28] LABS: Anion Gap 19 mmol/L (4-12); Blood Urea Nitrogen 98 mg/dL (7-17); Calcium 8.9 mg/dL (8.4-10.2); Carbon Dioxide 16 mmol/L (22-30); Chloride 103 mmol/L (98-107); Creatine Kinase 24 U/L (30-135); Estimated CRCL calculation 3 ml/min; Estimated Glomerular Filt Rate 3; Glucose 80 mg/dL (65-110); Potassium 5.5 mmol/L (3.4-5.0); Sodium 138 mmol/L (137-145)
[2024-09-29 14:31] LABS: Erythrocyte Sedimentation Rate 125 mm/hr (0-20)
--- NOTE | 2024-09-29 15:03 | PC.NURSE ---
Spoke with Jessica JOLLEY about patients blood pressure, medications given while in the ER and that patient didn't take her blood pressure medications this morning. TABLET TECHNICIAN did not want to give any more blood pressure medications at this time. passed this information along to Yovanny LEWIS as well as Guerda LEWIS ER charge nurse.
[2024-09-29 15:04] LABS: Folic Acid 6.5 ng/mL (2.76->20)
--- NOTE | 2024-09-29 15:15 | ADMGEN ---
This patient, Patria Martin, was admitted to Medical Room 253-01. Patient/family oriented to hospital policies and general routines including ID bracelet, bed and alarms, visiting hours, pain management, procedures, bathroom and other care routines, personal items, smoking policy, room service/diet, and visiting hours. Information on how to activate the Rapid Response Team has been discussed. Patient/Family are encouraged to report perceived risks to care and to ask questions if they do not understand what they are told or what they should do.
[2024-09-29 17:43] LABS: Eosinophil Urine None Seen % (None Seen); Urine Eos QC 2nd Tech Confirmed
[2024-09-29] MEDS: LACTATED RINGERS 1,000 ML 100 ML IV CONT (19:47)
[2024-09-29] MEDS: MIRTAZAPINE 7.5 MG TABLET PO (19:49)
[2024-09-30] VITALS (12 sets, daily range): BP systolic 147–194; BP diastolic 73–85; PULSE 56–67; RESP 16–20; TEMP 36.4–36.7; O2SAT 98–100
[2024-09-30 00:23] LABS: Free T4 Free Thyroxine Reflex 1.11 ng/dL (0.78-2.19)
[2024-09-30 00:34] LABS: Anion Gap 24 mmol/L (4-12); Blood Urea Nitrogen 102 mg/dL (7-17); Calcium 9.1 mg/dL (8.4-10.2); Carbon Dioxide 12 mmol/L (22-30); Chloride 104 mmol/L (98-107); Estimated CRCL calculation 3 ml/min; Estimated Glomerular Filt Rate 3; Glucose 77 mg/dL (65-110); Potassium 5.2 mmol/L (3.4-5.0); Sodium 140 mmol/L (137-145)
[2024-09-30] MEDS: SODIUM BICARBONATE 8.4% 150 MEQ in DEXTROSE 5% 1,000 ML 950 ML 75 MEQ IV CONT ×3 (01:35→18:29)
[2024-09-30 02:22] LABS: Total Triiodothyronine (T3) 0.63 NG/ML (0.97-1.69)
[2024-09-30] MEDS: ONDANSETRON INJ 4 MG/2 ML VIAL IV PUSH ×2 (04:31→16:18)
[2024-09-30 06:47] LABS: Basophils Percent Auto 0.2 % (0.2-1.2); Eosinophils Absolute Auto 0.2 K/mm3 (0-0.3); Eosinophils Percent Auto 4.6 % (0-4.4); Hemoglobin 9.2 g/dL (12.0-15.0); Immature Granulocyte Absolute 0.03 K/mm3 (0.00-0.031); Immature Granulocyte Percent A 0.6 % (0-0.5); Lymphocytes Absolute Auto 0.81 K/mm3 (0.9-3.2); Lymphocytes Percent Auto 16.9 % (18.3-44.2); Mean Corpuscular HGB Conc 34.1 g/dl (32-36); Mean Corpuscular Hemoglobin 32.3 pg (26-34); Mean Corpuscular Volume 94.7 fl (80-100); Monocytes Absolute Auto 0.2 K/mm3 (0.1-0.6); Monocytes Percent Auto 4.6 % (2.6-8.5); Neutrophils Absolute Auto 3.5 K/mm3 (1.3-6.7); Neutrophils Percent Auto 73.1 % (45.5-73.1); Platelet Count Result 116 k/mm3 (150-375); Red Blood Count 2.85 M/mm3 (4.2-5.4); Red Cell Distribution Width 12.5 % (11.5-14.5); White Blood Count 4.8 K/mm3 (4.5-10.0)
[2024-09-30 06:55] LABS: Alanine Aminotransferase 10 U/L (6-35); Albumin Level 3.8 g/dL (3.5-5.1); Alkaline Phosphatase 59 U/L (38-126); Anion Gap 18 mmol/L (4-12); Aspartate Amino Transferase 15 U/L (14-36); Bilirubin,Total 0.5 mg/dL (0.2-1.3); Blood Urea Nitrogen 98 mg/dL (7-17); Carbon Dioxide 18 mmol/L (22-30); Chloride 104 mmol/L (98-107); Estimated CRCL calculation 3 ml/min; Estimated Glomerular Filt Rate 3; Glucose 95 mg/dL (65-110); Potassium 4.8 mmol/L (3.4-5.0); Sodium 140 mmol/L (137-145)
--- NOTE | 2024-09-30 08:03 | P.PNIM_ITS ---
Progress Note: A&P Assessment and Plan (1) Uncontrolled hypertension: Code(s): I10 - Essential (primary) hypertension Status: Acute Assessment and Plan: Blood pressure 229/94 on admission, given her morning antihypertensives of amlodipine 5 mg and metoprolol succinate 100 mg as she had not taken it - Continue metoprolol 100 mg daily and amlodipine increased to 10 mg daily - Avoid a precipitous drop in blood pressure due to the fact that they most likely run in the 180s to 190 systolic if not higher. - Nephrology consulted, hypertension likely secondary to poorly controlled CKD (2) Acute kidney injury superimposed on chronic kidney disease: Code(s): N17.9 - Acute kidney failure, unspecified; N18.9 - Chronic kidney disease, unspecified Status: Acute Assessment and Plan: Per chart review, patient was recently hospitalized at [facility] earlier this month with dehydration due to nausea, vomiting, and diarrhea. Creatinine at the time of admission was 5.53 and did improve right around her baseline with a discharge creatinine of 4.37. She was instructed to follow-up with her kidney specialist, Dr. Vidales. - Etiology unknown - BUN/Cr 102/11.13 on admission, now BUN/Cr 98/11.17 on am labs - Renal US and duplex: Bilateral increased renal cortical atelectasis be consistent with medical renal disease. No hydronephrosis. No renal artery stenosis.Fusiform abdominal aortic aneurysm measuring up to 3.6 cm maximal diameter. - Avoid nephrotoxic agents and renally dose all medications - Monitor I/O - Notes requested from recent stay at [facility] as well as the most recent office notes from Dr. Mcclure or Dr. Vidales - Nephrology consulted for further recommendations. (3) Hyperkalemia: Code(s): E87.5 - Hyperkalemia Status: Acute Assessment and Plan: K 5.5 on admission, likely due to patients STEVE and dehydration. Given lokelma 10 mg x1 and started on IV fluids - K 4.8 on admission - Tele - Monitor (4) Depression: Code(s): F32.A - Depression, unspecified Status: Acute Assessment and Plan: chronic, continue home medications - sertraline 100 mg daily Time Spent With Patient Time with patient: 25 - 35 minutes Subjective Date/time seen: 09/30/24 08:03 Interval history: 89-year-old female with hypertension, chronic kidney disease (patient states she was never told of this however she does see a kidney specialist), and depression who presented to the emergency department via EMS from home with complaints of nausea, vomiting, dizziness. Patient pleasant lying comfortably in bed. She has no complaints this time denying chest pain, shortness a breath, palpitations, nausea/ vomiting, abdominal pain, dizziness / lightheadedness, and vision changes. Review of Systems Review of Systems: All systems reviewed & are unremarkable except as noted in HPI and below Exam Narrative: AF HR 60 RR 16 SPO2 100 BP 147/83 General: female in no acute respiratory distress who is nontoxic appearing, lying semi recumbent in bed. HEENT: Normocephalic. Atraumatic. Extraocular movement intact. Sclera clear and anicteric. No facial asymmetry. Chest: Lungs are clear to auscultation bilaterally. No wheezes or crackles. CV: Heart was regular rate and rhythm. S1-S2. No murmurs, gallops, or rubs. Abd: Abdomen was soft. Nontender. Nondistended. Positive bowel sounds. Ext: No clubbing, cyanosis, or edema. 2+ DP pulses bilaterally. Neuro: Patient is alert and oriented x3. Speech is clear. Objective Data Vital Signs Vital Signs: Vital Signs - 24 hr 09/29/24 09:26 09/29/24 10:23 09/29/24 10:47 Temperature 97.5 F L 97.9 F Pulse Rate 80 63 59 L Respiratory Rate 16 19 14 Blood Pressure 217/95 H 229/94 H 211/80 H Pulse Oximetry 97 100 Oxygen Delivery 09/29/24 11:02 09/29/24 11:29 09/29/24 12:00 Temperature 97.9 F Pulse Rate 62 61 59 L Respiratory Rate 15 14 Blood Pressure 196/82 H Pulse Oximetry 100 Oxygen Delivery 09/29/24 12:02 09/29/24 12:03 09/29/24 12:15 Temperature Pulse Rate 58 L 57 L 57 L Respiratory Rate 13 12 12 Blood Pressure 211/91 H Pulse Oximetry Oxygen Delivery 09/29/24 12:31 09/29/24 12:32 09/29/24 12:45 Temperature Pulse Rate 56 L 58 L 58 L Respiratory Rate 13 14 15 Blood Pressure 218/80 H Pulse Oximetry Oxygen Delivery 09/29/24 13:00 09/29/24 13:01 09/29/24 13:27 Temperature Pulse Rate 57 L 61 64 Respiratory Rate 16 22 H 12 Blood Pressure 216/83 H Pulse Oximetry Oxygen Delivery 09/29/24 13:48 09/29/24 14:00 09/29/24 14:23 Temperature Pulse Rate 65 76 62 Respiratory Rate 16 25 H 20 Blood Pressure 210/81 H Pulse Oximetry 99 Oxygen Delivery 09/29/24 15:34 09/29/24 15:37 09/29/24 16:00 Temperature 98.5 F Pulse Rate 65 59 L Respiratory Rate 16 Blood Pressure 171/120 H Pulse Oximetry 99 99 Oxygen Delivery Room Air 09/29/24 19:51 09/29/24 20:00 09/29/24 20:00 Temperature 97.8 F Pulse Rate 58 L 62 Respiratory Rate 20 Blood Pressure 181/93 H Pulse Oximetry 100 Oxygen Delivery Room Air 09/30/24 00:00 09/30/24 04:00 09/30/24 04:22 Temperature 97.9 F Pulse Rate 64 65 63 Respiratory Rate 20 Blood Pressure 189/73 H Pulse Oximetry 100 Oxygen Delivery Intake/Output Intake/Output: Intake & Output 09/27/24 09/28/24 09/29/24 09/30/24 23:59 23:59 23:59 23:59 Intake Total 1000 190 Output Total 50 Balance 950 190 Meds/Results Medications: Active Medications Generic Name Dose Route Start Last Admin Trade Name Freq PRN Reason Stop Dose Admin Amlodipine Besylate 5 mg 09/30/24 09:00 Amlodipine Besylate 5 Mg Tablet PO DAILY [facility] Calcitriol 0.25 mcg 09/30/24 09:00 Calcitriol 0.25 Mcg Capsule PO DAILY [facility] Sodium Bicarbonate 150 meq/ 1,100 mls @ 75 mls/hr 09/30/24 01:30 09/30/24 01:35 Dextrose IV CONT 75 mls/hr .[id number] HUAN Administration Metoprolol Succinate 100 mg 09/30/24 09:00 Metoprolol Succinate Ext Rel 100 Mg Tabcr PO DAILY [facility]AN Mirtazapine 7.5 mg 09/29/24 21:00 09/29/24 19:49 Mirtazapine 7.5 Mg Tablet PO 7.5 mg HS HUAN Administration Ondansetron HCl 4 mg 09/29/24 11:32 09/30/24 04:31 Ondansetron Inj 4 Mg/2 Ml Vial IV PUSH 4 mg Q4H PRN Administration Nausea Sertraline HCl 100 mg 09/30/24 09:00 Sertraline Hcl 50 Mg Tablet PO DAILY [facility]AN Radiology Results: ITS Impressions Arterial/Peripheral Duplex 09/29/24 14:58 IMPRESSION: 1. Bilateral increased renal cortical atelectasis be consistent with medical renal disease. No hydronephrosis. 2. No Doppler evidence of renal artery stenosis. 3. Fusiform abdominal aortic aneurysm measuring up to 3.6 cm maximal diameter. Renal Ultrasound 09/29/24 14:58 IMPRESSION: 1. Bilateral increased renal cortical atelectasis be consistent with medical renal disease. No hydronephrosis. 2. No Doppler evidence of renal artery stenosis. 3. Fusiform abdominal aortic aneurysm measuring up to 3.6 cm maximal diameter. Labs Labs: Laboratory Results - last 24 hr 09/29/24 09/29/24 09/29/24 09:48 09:49 09:50 WBC 4.6 RBC 3.19 L Hgb 10.0 L Hct 29.9 L MCV 93.7 MCH 31.3 MCHC 33.4 RDW 12.4 Plt Count 127 L MPV 10.5 H Immature Gran % (Auto) 0.4 Neut % (Auto) 75.0 H Lymph % (Auto) 16.6 L [place] % (Auto) 5.0 Eos % (Auto) 2.8 Baso % (Auto) 0.2 Lymph # (Auto) 0.76 L [place] # (Auto) 0.2 Eos # (Auto) 0.1 Baso # (Auto) 0.0 Abs Immat Gran (auto) 0.02 Absolute Neuts (auto) 3.4 Absolute Nucleated RBC 0.000 Nucleated RBC % 0.0 ESR 125 H Sodium 139 Potassium 5.5 H Chloride 100 Carbon Dioxide 18 L Anion Gap 21 H BUN 98 H Creatinine 11.33 H Estim Creat Clear Calc 3 Estimated GFR 3 L Glucose 94 Calcium 9.6 Phosphorus 11.1 H Magnesium 2.5 H Iron 121 TIBC 255 L % Saturation 47 Ferritin 224.00 Total Bilirubin 0.6 AST 16 ALT 9 Alkaline Phosphatase 66 Total Creatine Kinase C-Reactive Protein Total Protein 7.0 Albumin 4.2 Lipase 128 Vitamin B12 348.0 Folate 6.5 TSH (Reflex) 6.960 H Free T4 1.11 Total T3 0.63 L Urine Color Urine Appearance Urine pH Ur Specific [place] Urine Protein Urine Glucose (UA) Urine Ketones Ur Blood (Man) Urine Nitrate Urine Bilirubin Urine Urobilinogen Add Ur Microanalysis Leukocyte Esterase Rfl Urine RBC Urine WBC Ur Squamous Epith Cells Urine Bacteria Urine Casts Urine Eosinophils Complement C3 140 Complement C4 54.6 H Hep Bs Antigen Negative Hep Bs Antibody Negative Hep B Core IgM Ab Negative Hepatitis C Ab Screen Negative HIV 1&2 Ab/P24 Ag 4thGn Negative Influenza A (RT-PCR) Negative Influenza B (RT-PCR) Negative RSV (RT-PCR) Negative SARS-CoV-2 RNA (RT-PCR) Negative 09/29/24 09/29/24 09/29/24 10:18 10:39 13:58 WBC RBC Hgb Hct MCV MCH MCHC RDW Plt Count MPV Immature Gran % (Auto) Neut % (Auto) Lymph % (Auto) [place] % (Auto) Eos % (Auto) Baso % (Auto) Lymph # (Auto) [place] # (Auto) Eos # (Auto) Baso # (Auto) Abs Immat Gran (auto) Absolute Neuts (auto) Absolute Nucleated RBC Nucleated RBC % ESR Sodium 138 Potassium 5.5 H Chloride 103 Carbon Dioxide 16 L Anion Gap 19 H BUN 98 H Creatinine 10.84 H Estim Creat Clear Calc 3 Estimated GFR 3 L Glucose 80 Calcium 8.9 Phosphorus Magnesium Iron TIBC % Saturation Ferritin Total Bilirubin AST ALT Alkaline Phosphatase Total Creatine Kinase 24 L C-Reactive Protein 1.7 H Total Protein Albumin Lipase Vitamin B12 Folate TSH (Reflex) Free T4 Total T3 Urine Color Yellow Urine Appearance Clear Urine pH 6.0 Ur Specific [place] 1.013 Urine Protein 2+ H Urine Glucose (UA) Negative Urine Ketones Trace H Ur Blood (Man) Trace Urine Nitrate Negative Urine Bilirubin Negative Urine Urobilinogen 0.2 Add Ur Microanalysis Reviewed Leukocyte Esterase Rfl Trace H Urine RBC 0-2 Urine WBC 0-5 Ur Squamous Epith Cells None seen Urine Bacteria None seen Urine Casts 3-5 Urine Eosinophils Complement C3 Complement C4 Hep Bs Antigen Hep Bs Antibody Hep B Core IgM Ab Hepatitis C Ab Screen HIV 1&2 Ab/P24 Ag 4thGn Influenza A (RT-PCR) Influenza B (RT-PCR) RSV (RT-PCR) SARS-CoV-2 RNA (RT-PCR) 09/29/24 09/29/24 09/30/24 16:31 23:54 06:38 WBC 4.8 RBC 2.85 L Hgb 9.2 L Hct 27.0 L MCV 94.7 MCH 32.3 MCHC 34.1 RDW 12.5 Plt Count 116 L MPV 10.0 Immature Gran % (Auto) 0.6 H Neut % (Auto) 73.1 Lymph % (Auto) 16.9 L [place] % (Auto) 4.6 Eos % (Auto) 4.6 H Baso % (Auto) 0.2 Lymph # (Auto) 0.81 L [place] # (Auto) 0.2 Eos # (Auto) 0.2 Baso # (Auto) 0.0 Abs Immat Gran (auto) 0.03 Absolute Neuts (auto) 3.5 Absolute Nucleated RBC 0.000 Nucleated RBC % 0.0 ESR Sodium 140 140 Potassium 5.2 H 4.8 Chloride 104 104 Carbon Dioxide 12 L 18 L Anion Gap 24 H 18 H BUN 102 H 98 H Creatinine 11.13 H 11.17 H Estim Creat Clear Calc 3 3 Estimated GFR 3 L 3 L Glucose 77 95 Calcium 9.1 9.0 Phosphorus Magnesium Iron TIBC % Saturation Ferritin Total Bilirubin 0.5 AST 15 ALT 10 Alkaline Phosphatase 59 Total Creatine Kinase C-Reactive Protein Total Protein 6.0 L Albumin 3.8 Lipase Vitamin B12 Folate TSH (Reflex) Free T4 Total T3 Urine Color Urine Appearance Urine pH Ur Specific [place] Urine Protein Urine Glucose (UA) Urine Ketones Ur Blood (Man) Urine Nitrate Urine Bilirubin Urine Urobilinogen Add Ur Microanalysis Leukocyte Esterase Rfl Urine RBC Urine WBC Ur Squamous Epith Cells Urine Bacteria Urine Casts Urine Eosinophils None seen Complement C3 Complement C4 Hep Bs Antigen Hep Bs Antibody Hep B Core IgM Ab Hepatitis C Ab Screen HIV 1&2 Ab/P24 Ag 4thGn Influenza A (RT-PCR) Influenza B (RT-PCR) RSV (RT-PCR) SARS-CoV-2 RNA (RT-PCR)
[2024-09-30] MEDS: METOPROLOL SUCCINATE EXT REL 100 MG TABCR PO (08:07)
[2024-09-30] MEDS: calcitrioL 0.25 MCG CAPSULE PO (08:07)
[2024-09-30] MEDS: amLODIPine BESYLATE 5 MG TABLET PO (08:07)
[2024-09-30] MEDS: SERTRALINE HCL 50 MG TABLET 100 MG PO (08:08)
[2024-09-30 09:08] LABS: SM Antibody <1.0 NEG AI (<1.0 NEG); SM/RNP Antibody <1.0 NEG AI (<1.0 NEG)
--- NOTE | 2024-09-30 10:10 | P.CONNP_ITS ---
Assessment and Plan Assessment and plan (1) STEVE (acute kidney injury): Code(s): N17.9 - Acute kidney failure, unspecified Status: Acute Assessment and Plan: * acute insult noted * labs reviewed: * on admission to [facility] earlier this month, creatinine 5.53mg/dl * with IVF hydration and treatment of UTI, creatinine 4.37mg/dl on discharge * HOWEVER, on 06/19/24, creatinine was 1.47mg/dl (see #2) * etiology not clear... * follow-up on renal ultrasound, urine studies, and CPK * agree with trial of IVFs * follow repeat labs and UOP (2) Stage 3b chronic kidney disease: Code(s): N18.32 - Chronic kidney disease, stage 3b Status: Chronic Assessment and Plan: * creatinine in 06/19/24 was 1.47mg/dl (presumed baseline) * underlying CKD likely due to hypertension, possible vascular disease, and age- related change (3) Nausea & vomiting: Code(s): R11.2 - Nausea with vomiting, unspecified Status: Acute Assessment and Plan: * similar issues/symptoms on presentation to [facility] earlier Sep 2024 * did these symptoms cause STEVE or are they a consequence of renal dysfunction (i.e. early uremic symptoms)?? * IV anti-emetics PRN (4) Hypertension: Code(s): I10 - Essential (primary) hypertension Status: Chronic Assessment and Plan: * poor control at baseline * better at this time * would avoid over control for fear it may worsen renal function * follow trend of hemodynamics (5) Anemia: Code(s): D64.9 - Anemia, unspecified Status: Acute Assessment and Plan: * presumably related to STEVE and CKD * may need to consider LARY * follow trend of H/H I will continue to follow the patient with you while she remains hospitalized and make further recommendations as deemed necessary. Thank you for allowing me to participate in the care of this patient. L History of Present Illness Reason for Consult Consult date: 09/30/24 Reason for consult: acute renal failure (on chronic kidney disease) Chief Complaint Chief complaint: steve on ckd History of Present Illness Narrative: The patient is an 89-year-old female with a past medical history as outlined below presented to [facility] Emergency Room with complaints of nausea, vomiting and generalized malaise. The patient was just recently hospitalized at [facility] for similar symptoms in association with diarrhea. At that time, she was admitted with a creatinine around 5.53 and with IV fluid resuscitation, her creatinine improved down to 4.37 mg/dL By the time of discharge. When she was discharged, her symptoms of nausea and vomiting had resolved and she felt reasonably well in the assumption was that renal function would continue to improve after discharge. However, several days later, she were reported feeling increasing weakness and fatigue with recurrence of her nausea vomiting and several loose stools in association with poor oral intake. Once again the symptoms continued to worsen to the point where she has had difficulty doing activities of her daily living which she is usually able to do without issues or problems. She gave no other complaints with regard to fever, chills chest pain, shortness of breath, worsening swelling, med emesis, melena hematochezia, dysuria, palpitations or confusion. EMS was subsequently called due to her ongoing symptoms and she presented to the emergency room for further assessment Workup and evaluation emergency room demonstrated the patient to be quite hypertensive in the greater than 200 systolic range but otherwise afebrile. Routine blood tests were done which demonstrated white blood cell count of 0.6, hemoglobin 10.0, platelet count 127, potassium 5.5, CO2 18, BUN 98, and creatinine 11.33 mg/dL. Her urinalysis was significant for 2+ protein, trace ketones, trace leukocyte esterase. She was given her morning blood pressure medications which helped her blood pressure in general and was given a L of normal saline given her worsening renal dysfunction as noted. Given her ongoing issues of nausea and vomiting in conjunction with her worsening renal dysfunction, she was admitted to the hospital for further evaluation and therapy. Since her admission, nausea and vomiting are somewhat better with the use of IV anti emetics but her renal function has not really significantly improved despite IV fluid resuscitation. Renal consultation was requested due to her acute kidney injury/acute renal failure on top of her baseline chronic kidney disease. As mentioned, she had a recent hospitalization at [facility] for acute kidney injury with some mild improvement with IV fluid hydration and symptom control. On further review her records however, in June of 2024, her creatinine was 1.47 mg/dL prior to her admission creatinine of 5.53 mg/dL earlier this month at [facility]. The assumption on discharge from [facility] was that her kidney function would continue to improve but clearly this did not occur and in fact has actually worsened comparison to that hospital stay. More concerning is that she is not making very much urine output and that her nausea and vomiting persist arguing that perhaps the symptoms may be partly related to uremia given her significantly elevated BUN. Currently, at the time my visit, other than the nausea and vomiting, she appears to be in no acute distress. Review of Systems 2 Review of Systems: As per HPI. [facility] Past Medical History Medical History (Updated 10/04/24 @ 07:45 by Murali Burris MD) Confusion Acute on chronic anemia Chronic kidney disease, stage 5 According to records from outside facility, patient states she knows nothing about this. Depression Hypertension Surgical History Surgical History History of tonsillectomy History of cataract extraction Social History Social History Social History: Surrogate medical decision maker: Marisol Negrete, sibling. Code status: Full code. Smoking status: Never smoker Alcohol intake: never Substance use: never Do You Feel Safe in your Home?: Yes Lack of Transportation: No Lack of Food: Never True Current Housing: I Have Housing Concerned About Future Housing: No Difficulty Paying Gas/Electric Bills: No Difficulty Paying for Meds: No Currently Unemployed: No Education: Associate Degree Difficulty w/ Childcare or Family Care: No Spiritual care concerns: No Meds Home Medications and Allergies Home Medications ?Medication ?Instructions ?Recorded ?Confirmed ?Type amlodipine 5 mg tablet 5 mg PO DAILY Blood pressure 09/29/24 10/03/24 History calcitriol 0.25 mcg capsule 0.25 mcg PO DAILY 09/29/24 10/03/24 History cefuroxime axetil 250 mg tablet 250 mg PO Q12H 09/29/24 09/29/24 History metoprolol succinate 100 mg 100 mg PO DAILY 09/29/24 10/03/24 History tablet,extended release 24 hr mirtazapine 7.5 mg tablet 7.5 mg PO HS 09/29/24 10/03/24 History ondansetron HCl 4 mg tablet 4 mg PO PRN 09/29/24 09/29/24 History sertraline 100 mg tablet 100 mg PO DAILY 09/29/24 10/03/24 History Allergies Allergy/AdvReac Type Severity Reaction Status Date / Time Itpwetf-JYD-FiI Reductase Allergy Unknown CRAMPING Verified 10/03/24 09:59 Inhibitor (Jbtecet-Xrs-Oem LEG Reductase Inhibitor) NSID AdvReac Mild unknown Uncoded 10/03/24 09:59 Vital Signs Vital Signs Temp Pulse Resp BP Pulse Ox O2 Del Method 09/30/24 08:08 56 L 09/30/24 08:08 59 L 16 100 Room Air 09/30/24 08:07 59 L 09/30/24 08:06 97.7 F 58 L 16 147/83 H 100 09/30/24 04:22 97.9 F 63 20 189/73 H 100 09/30/24 04:00 65 09/30/24 00:00 64 09/29/24 20:00 62 09/29/24 20:00 Room Air 09/29/24 19:51 97.8 F 58 L 20 181/93 H 100 09/29/24 16:00 59 L 09/29/24 15:37 99 Room Air 09/29/24 15:34 98.5 F 65 16 171/120 H 99 09/29/24 14:23 62 20 210/81 H 99 09/29/24 14:00 76 25 H 09/29/24 13:48 65 16 09/29/24 13:27 64 12 09/29/24 13:01 61 22 H 216/83 H 09/29/24 13:00 57 L 16 09/29/24 12:45 58 L 15 09/29/24 12:32 58 L 14 218/80 H 09/29/24 12:31 56 L 13 09/29/24 12:15 57 L 12 Exam 2 Narrative: GENERAL APPEARANCE: elderly but well developed well nourished female in no acute distress HEENT: normocephalic, atraumatic, normal conjunctiva and sclera, nares patient NECK: no lymphadenopathy, thyromegaly, or JVD MOUTH: normal lips, teeth, and gums CARDIOVASCULAR: RRR, normal S1 and S2, no rub detected RESPIRATORY: clear to auscultation ABDOMEN: soft, nontender, nondistended, positive bowel sounds present EXTREMITIES: no evidence of cyanosis, clubbing, or edema NEUROLOGICAL: alert and oriented x 3; CN II - XII intact bilaterally; no focal deficits noted Results Lab Results 10/04/24 05:21 10/04/24 05:21 Lab results: Most recent lab results Calcium 9.0 mg/dL (8.4-10.2) 09/30/24 06:38 Phosphorus 11.1 mg/dL (2.5-4.5) H 09/29/24 09:48 Magnesium 2.5 mg/dL (1.6-2.3) H 09/29/24 09:49
[2024-09-30 14:43] LABS: Anti Streptolysin O Screen <20 IU/mL (<200)
[2024-09-30 16:13] LABS: Complement Total CH50 >60 U/mL (31-60)
[2024-09-30 16:29] LABS: Glucose Point of Care 99 mg/dl (65-105)
[2024-09-30] MEDS: hydrALAZINE HCL 25 MG TABLET PO (17:08)
[2024-09-30 20:03] LABS: Albumin Level 3.6 g/dL (3.5-5.1); Anion Gap 17 mmol/L (4-12); Blood Urea Nitrogen 101 mg/dL (7-17); Calcium 8.8 mg/dL (8.4-10.2); Carbon Dioxide 23 mmol/L (22-30); Chloride 98 mmol/L (98-107); Estimated CRCL calculation 3 ml/min; Estimated Glomerular Filt Rate 3; Glucose 110 mg/dL (65-110); Phosphorus 9.3 mg/dL (2.5-4.5); Potassium 4.4 mmol/L (3.4-5.0); Sodium 138 mmol/L (137-145)
[2024-09-30] MEDS: MIRTAZAPINE 7.5 MG TABLET PO (20:20)
[2024-09-30] MEDS: SODIUM CHLORIDE 0.9% IV 1,000 ML 75 ML IV CONT (23:34)
[2024-10-01] VITALS (11 sets, daily range): BP systolic 152–187; BP diastolic 64–90; PULSE 60–69; RESP 16–20; TEMP 36.2–36.9; O2SAT 95–100
[2024-10-01 06:24] LABS: Hematocrit 23.4 % (37.0-47.0); Mean Corpuscular HGB Conc 34.2 g/dl (32-36); Mean Corpuscular Hemoglobin 31.6 pg (26-34); Mean Corpuscular Volume 92.5 fl (80-100); Mean Platelet Volume 10.3 fl (7.4-10.4); Platelet Count Result 100 k/mm3 (150-375); Red Blood Count 2.53 M/mm3 (4.2-5.4); Red Cell Distribution Width 12.6 % (11.5-14.5)
[2024-10-01 06:40] LABS: Albumin Level 3.5 g/dL (3.5-5.1); Anion Gap 17 mmol/L (4-12); Blood Urea Nitrogen 95 mg/dL (7-17); Calcium 8.6 mg/dL (8.4-10.2); Carbon Dioxide 24 mmol/L (22-30); Chloride 99 mmol/L (98-107); Estimated CRCL calculation 3 ml/min; Estimated Glomerular Filt Rate 3; Glucose 95 mg/dL (65-110); Phosphorus 8.8 mg/dL (2.5-4.5); Potassium 4.3 mmol/L (3.4-5.0); Sodium 140 mmol/L (137-145)
[2024-10-01 07:15] LABS: Hepatitis B Surface Antigen Negative (Negative)
[2024-10-01 07:32] LABS: Hepatitis B Surface Anti Res Negative
[2024-10-01] MEDS: amLODIPine BESYLATE 5 MG TABLET PO (08:22)
[2024-10-01] MEDS: hydrALAZINE HCL 25 MG TABLET PO ×2 (08:23→17:41)
[2024-10-01] MEDS: METOPROLOL SUCCINATE EXT REL 100 MG TABCR PO (08:23)
[2024-10-01] MEDS: SERTRALINE HCL 50 MG TABLET 100 MG PO (08:23)
[2024-10-01] MEDS: calcitrioL 0.25 MCG CAPSULE PO (08:25)
--- NOTE | 2024-10-01 08:58 | P.PNIM_ITS ---
Progress Note: A&P Assessment and Plan (1) Uncontrolled hypertension: Code(s): I10 - Essential (primary) hypertension Status: Acute Assessment and Plan: Blood pressure 229/94 on admission, given her morning antihypertensives of amlodipine 5 mg and metoprolol succinate 100 mg as she had not taken it - Continue metoprolol 100 mg daily and amlodipine increased to 10 mg daily - Avoid a precipitous drop in blood pressure due to the fact that they most likely run in the 180s to 190 systolic if not higher. - Nephrology consulted, hypertension likely secondary to poorly controlled CKD (2) Acute kidney injury superimposed on chronic kidney disease: Code(s): N17.9 - Acute kidney failure, unspecified; N18.9 - Chronic kidney disease, unspecified Status: Acute Assessment and Plan: Per chart review, patient was recently hospitalized at [facility] earlier this month with dehydration due to nausea, vomiting, and diarrhea. Creatinine at the time of admission was 5.53 and did improve right around her baseline with a discharge creatinine of 4.37. She was instructed to follow-up with her kidney specialist, Dr. Vidales. - Etiology unknown - BUN/Cr 102/11.13 on admission, now BUN/Cr 98/11.17 on am labs - Renal US and duplex: Bilateral increased renal cortical atelectasis be consistent with medical renal disease. No hydronephrosis. No renal artery stenosis.Fusiform abdominal aortic aneurysm measuring up to 3.6 cm maximal diameter. - Avoid nephrotoxic agents and renally dose all medications - Monitor I/O - Notes requested from recent stay at [place] as well as the most recent office notes from Dr. Mcclure or Dr. Vidales - Nephrology consulted for further recommendations. (3) Hyperkalemia: Code(s): E87.5 - Hyperkalemia Status: Acute Assessment and Plan: K 5.5 on admission, likely due to patients STEVE and dehydration. Given lokelma 10 mg x1 and started on IV fluids - Tele - Monitor 4.3 today-10/01 (4) Depression: Code(s): F32.A - Depression, unspecified Status: Acute Assessment and Plan: chronic, continue home medications - sertraline 100 mg daily Time Spent With Patient Time with patient: 25 - 35 minutes Subjective Date/time seen: 10/01/24 08:58 Interval history: 89-year-old female with hypertension, chronic kidney disease (patient states she was never told of this however she does see a kidney specialist), and depression who presented to the emergency department via EMS from home with complaints of nausea, vomiting, dizziness. Assuming care. Pt is seen and examined. Patient pleasant lying comfortably in bed. She is very nauseated -was not able to eat much. Taking zofran for nausea Review of Systems Review of Systems: 12 systems were reviewed and are negativ e except for as per HPI. All systems reviewed & are unremarkable except as noted in HPI and below Exam Narrative: General: female in no acute respiratory distress who is nontoxic appearing HEENT: Normocephalic. Atraumatic. Extraocular movement intact. Sclera clear and anicteric. No facial asymmetry. Chest: Lungs are clear to auscultation bilaterally. No wheezes or crackles. CV: Heart was regular rate and rhythm. S1-S2. No murmurs, gallops, or rubs. Abd: Abdomen was soft. Nontender. Nondistended. Positive bowel sounds. Ext: No clubbing, cyanosis, or edema. 2+ DP pulses bilaterally. Neuro: Patient is alert and oriented x3. Speech is clear. Const: General: comfortable Objective Data Vital Signs Vital Signs: Vital Signs - 24 hr 09/30/24 12:00 09/30/24 14:00 09/30/24 16:00 Temperature 97.8 F Pulse Rate 60 65 61 Respiratory Rate 18 Blood Pressure 194/83 H Pulse Oximetry 99 Oxygen Delivery 09/30/24 16:29 09/30/24 20:00 09/30/24 20:00 Temperature 98.1 F Pulse Rate 60 67 Respiratory Rate 16 Blood Pressure 189/84 H Pulse Oximetry 99 Oxygen Delivery Room Air 09/30/24 20:17 10/01/24 00:00 10/01/24 04:00 Temperature 97.5 F L Pulse Rate 67 66 61 Respiratory Rate 20 Blood Pressure 172/85 H Pulse Oximetry 98 Oxygen Delivery 10/01/24 04:18 10/01/24 08:18 10/01/24 08:23 Temperature 98.0 F 97.7 F Pulse Rate 60 63 64 Respiratory Rate 20 16 Blood Pressure 187/76 H 183/83 H Pulse Oximetry 98 100 Oxygen Delivery Intake/Output Intake/Output: Intake & Output 09/28/24 09/29/24 09/30/2426/25 23:59 23:59 23:59 23:59 Intake Total 1000 1386.2 120 Output Total 50 200 Balance 950 1186.2 120 Meds/Results Medications: Active Medications Generic Name Dose Route Start Last Admin Trade Name Freq PRN Reason Stop Dose Admin Amlodipine Besylate 5 mg 09/30/24 09:00 10/01/24 08:22 Amlodipine Besylate 5 Mg Tablet PO 5 mg DAILY HUAN Administration Calcitriol 0.25 mcg 09/30/24 09:00 10/01/24 08:25 Calcitriol 0.25 Mcg Capsule PO 0.25 mcg DAILY HUAN Administration Hydralazine HCl 25 mg 09/30/24 17:00 10/01/24 08:23 Hydralazine Hcl 25 Mg Tablet PO 25 mg BID HUAN Administration Sodium Chloride 1,000 mls @ 75 mls/hr 09/30/24 21:50 09/30/24 23:34 Normal Saline Iv IV CONT 75 mls/hr .[id number] HUAN Administration Metoprolol Succinate 100 mg 09/30/24 09:00 10/01/24 08:23 Metoprolol Succinate Ext Rel 100 Mg Tabcr PO 100 mg DAILY HUAN Administration Mirtazapine 7.5 mg 09/29/24 21:00 09/30/24 20:20 Mirtazapine 7.5 Mg Tablet PO 7.5 mg HS HUAN Administration Ondansetron HCl 4 mg 09/29/24 11:32 09/30/24 16:18 Ondansetron Inj 4 Mg/2 Ml Vial IV PUSH 4 mg Q4H PRN Administration Nausea Sertraline HCl 100 mg 09/30/24 09:00 10/01/24 08:23 Sertraline Hcl 50 Mg Tablet PO 100 mg DAILY HUAN Administration Radiology Results: ITS Impressions Arterial/Peripheral Duplex 09/29/24 14:58 IMPRESSION: 1. Bilateral increased renal cortical atelectasis be consistent with medical renal disease. No hydronephrosis. 2. No Doppler evidence of renal artery stenosis. 3. Fusiform abdominal aortic aneurysm measuring up to 3.6 cm maximal diameter. Renal Ultrasound 09/29/24 14:58 IMPRESSION: 1. Bilateral increased renal cortical atelectasis be consistent with medical renal disease. No hydronephrosis. 2. No Doppler evidence of renal artery stenosis. 3. Fusiform abdominal aortic aneurysm measuring up to 3.6 cm maximal diameter. Chest X-Ray 09/30/24 19:01 IMPRESSION: No acute cardiopulmonary process. Labs Labs: Laboratory Results - last 24 hr 09/29/24 09/30/24 09/30/24 13:57 16:25 19:40 WBC RBC Hgb Hct MCV MCH MCHC RDW Plt Count MPV Sodium 138 Potassium 4.4 Chloride 98 Carbon Dioxide 23 Anion Gap 17 H BUN 101 H Creatinine 10.89 H Estim Creat Clear Calc 3 Estimated GFR 3 L Glucose 110 POC Capillary Glucose 99 Calcium 8.8 Phosphorus 9.3 H Albumin 3.6 U Random Total Protein Urine Total Volume Urine Creatinine Protein/Creat Ratio 2 BARBIE Screen Negative Sm ([place]) Antibody <1.0 neg SM/COMPLIANCE ASSOCIATE IgG Antibody <1.0 neg Anti-DNA Antibody <1 Tot Complement (CH50) >60 H Hep Bs Antigen Hep Bs Antibody Anti-Streptolysin Scrn <20 10/01/24 10/01/24 10/01/24 05:47 07:48 07:48 WBC 4.0 L RBC 2.53 L Hgb 8.0 L Hct 23.4 L MCV 92.5 MCH 31.6 MCHC 34.2 RDW 12.6 Plt Count 100 L MPV 10.3 Sodium 140 Potassium 4.3 Chloride 99 Carbon Dioxide 24 Anion Gap 17 H BUN 95 H Creatinine 10.83 H Estim Creat Clear Calc 3 Estimated GFR 3 L Glucose 95 POC Capillary Glucose Calcium 8.6 Phosphorus 8.8 H Albumin 3.5 U Random Total Protein Cancelled Cancelled Urine Total Volume Urine Creatinine Protein/Creat Ratio 2 BARBIE Screen Sm ([place]) Antibody SM/COMPLIANCE ASSOCIATE IgG Antibody Anti-DNA Antibody Tot Complement (CH50) Hep Bs Antigen Negative Hep Bs Antibody Negative Anti-Streptolysin Scrn 10/01/24 10/01/24 10/01/24 07:48 07:48 07:48 WBC RBC Hgb Hct MCV MCH MCHC RDW Plt Count MPV Sodium Potassium Chloride Carbon Dioxide Anion Gap BUN Creatinine Estim Creat Clear Calc Estimated GFR Glucose POC Capillary Glucose Calcium Phosphorus Albumin U Random Total Protein Cancelled Urine Total Volume Cancelled Cancelled Urine Creatinine Cancelled Cancelled Protein/Creat Ratio 2 Cancelled BARBIE Screen Sm ([place]) Antibody SM/COMPLIANCE ASSOCIATE IgG Antibody Anti-DNA Antibody Tot Complement (CH50) Hep Bs Antigen Hep Bs Antibody Anti-Streptolysin Scrn Quality VTE Prophylaxis VTE prophylaxis: mechanical ordered and pharmacologic ordered
[2024-10-01 09:52] LABS: Creatinine Urine 37.5 mg/dL; Total Protein Urine Random 177 mg/dL; Ur Ttl Prot Creatinine Ratio 4.72 mg/mg (0-0.20)
[2024-10-01 10:04] LABS: Sodium Urine Random 88 meq/L; Urea Random Urine 305 MG/DL
--- NOTE | 2024-10-01 12:37 | P.PNNP_ITS ---
Progress Note: A&P Assessment and Plan (1) STEVE (acute kidney injury): Code(s): N17.9 - Acute kidney failure, unspecified Status: Acute Assessment and Plan: * no real improvement since admission * labs reviewed: * on admission to [facility] [place] earlier this month, creatinine 5.53mg/dl * with IVF hydration and treatment of UTI, creatinine 4.37mg/dl on discharge * HOWEVER, on 06/19/24, creatinine was 1.47mg/dl (see #2) * etiology not clear... * evaluation to date noted: * renal ultrasound c/w CKD * urine electrolytes non-prerenal * urine eosinophil negative * nephrotic range proteinuria * CPK low * serological testing pending * continue with trial of IVFs (but monitor volume status closely * follow repeat labs and UOP (2) Stage 3b chronic kidney disease: Code(s): N18.32 - Chronic kidney disease, stage 3b Status: Chronic Assessment and Plan: * creatinine in 06/19/24 was 1.47mg/dl (presumed baseline) * underlying CKD likely due to hypertension, possible vascular disease, and age- related change (3) Nausea & vomiting: Code(s): R11.2 - Nausea with vomiting, unspecified Status: Acute Assessment and Plan: * similar issues/symptoms on presentation to [facility] [place] earlier Sep 2024 * did these symptoms cause STEVE or are they a consequence of renal dysfunction (i.e. early uremic symptoms)?? * IV anti-emetics PRN (4) Hypertension: Code(s): I10 - Essential (primary) hypertension Status: Chronic Assessment and Plan: * poor control at baseline * better at this time * would avoid over control for fear it may worsen renal function * no evidence of renal artery stenosis on renal duplex * follow trend of hemodynamics (5) Anemia: Code(s): D64.9 - Anemia, unspecified Status: Acute Assessment and Plan: * presumably related to STEVE and CKD * may need to consider LARY * follow trend of H/H Will continue to follow. L Subjective Date/time seen: 10/01/24 12:37 Interval history: Follow-up for acute kidney injury/acute renal failure on chronic kidney disease. No real significant improvement in renal function/creatinine since admission and with IVF resuscitation; not feeling well with ongoing nausea with attempted oral intake (food and liquids) as well as a sensation that something is stuck in my throat: -- sister at bedside and we discussed the situation. Exam 2 Narrative: General: elderly but WD/WN female in NAD Heart: normal S1 and S2; no rub Lungs: clear to auscultation Abdomen: soft, nontender, nondistended, positive bowel sounds Extremities: no cyanosis or clubbing; no edema Skin: warm and dry Objective Data Vital Signs Vital Signs: Vital Signs Temp Pulse Resp BP Pulse Ox O2 Del Method 10/01/24 12:00 67 10/01/24 10:36 61 16 166/64 H 98 10/01/24 08:23 62 10/01/24 08:23 100 Room Air 10/01/24 08:23 64 10/01/24 08:18 97.7 F 63 16 183/83 H 100 10/01/24 04:18 98.0 F 60 20 187/76 H 98 10/01/24 04:00 61 10/01/24 00:00 66 09/30/24 20:17 97.5 F L 67 20 172/85 H 98 09/30/24 20:00 67 09/30/24 20:00 Room Air Intake/Output Intake/Output: Intake & Output 09/28/24 09/29/24 09/30/24 10/01/24 23:59 23:59 23:59 23:59 Intake Total 1000 1386.2 1706.3 Output Total 50 200 350 Balance 950 1186.2 1356.3 Meds/Results Medications: Active Medications Generic Name Dose Route Start Last Admin Trade Name Freq PRN Reason Stop Dose Admin Amlodipine Besylate 5 mg 09/30/24 09:00 10/01/24 08:22 Amlodipine Besylate 5 Mg Tablet PO 5 mg DAILY HUAN Administration Calcitriol 0.25 mcg 09/30/24 09:00 10/01/24 08:25 Calcitriol 0.25 Mcg Capsule PO 0.25 mcg DAILY HUAN Administration Hydralazine HCl 25 mg 09/30/24 17:00 10/01/24 17:41 Hydralazine Hcl 25 Mg Tablet PO 25 mg BID HUAN Administration Sodium Chloride 1,000 mls @ 75 mls/hr 09/30/24 21:50 10/01/24 12:43 Normal Saline Iv IV CONT 75 mls/hr .[id number] HUAN Administration Metoprolol Succinate 100 mg 09/30/24 09:00 10/01/24 08:23 Metoprolol Succinate Ext Rel 100 Mg Tabcr PO 100 mg DAILY HUAN Administration Mirtazapine 7.5 mg 09/29/24 21:00 09/30/24 20:20 Mirtazapine 7.5 Mg Tablet PO 7.5 mg HS HUAN Administration Ondansetron HCl 4 mg 09/29/24 11:32 10/01/24 12:43 Ondansetron Inj 4 Mg/2 Ml Vial IV PUSH 4 mg Q4H PRN Administration Nausea Prochlorperazine Edisylate 10 mg 10/01/24 15:11 10/01/24 15:51 Prochlorperazine Edisylate 10 Mg/2 Ml Vial IV PUSH 10 mg Q6H PRN Administration Nausea And Vomiting Sertraline HCl 100 mg 09/30/24 09:00 10/01/24 08:23 Sertraline Hcl 50 Mg Tablet PO 100 mg DAILY HAUN Administration Radiology Results: ITS Impressions Arterial/Peripheral Duplex 09/29/24 14:58 IMPRESSION: 1. Bilateral increased renal cortical atelectasis be consistent with medical renal disease. No hydronephrosis. 2. No Doppler evidence of renal artery stenosis. 3. Fusiform abdominal aortic aneurysm measuring up to 3.6 cm maximal diameter. Renal Ultrasound 09/29/24 14:58 IMPRESSION: 1. Bilateral increased renal cortical atelectasis be consistent with medical renal disease. No hydronephrosis. 2. No Doppler evidence of renal artery stenosis. 3. Fusiform abdominal aortic aneurysm measuring up to 3.6 cm maximal diameter. Chest X-Ray 09/30/24 19:01 IMPRESSION: No acute cardiopulmonary process. Labs Labs: Laboratory Tests 10/01/24 05:47 10/01/24 05:47 Calcium 8.6 Phosphorus 8.8 H Albumin 3.5
[2024-10-01] MEDS: ONDANSETRON INJ 4 MG/2 ML VIAL IV PUSH (12:43)
[2024-10-01] MEDS: SODIUM CHLORIDE 0.9% IV 1,000 ML 75 ML IV CONT (12:43)
--- NOTE | 2024-10-01 13:06 | PCDIET ---
Diet office called reporting nursing would like diet supplements for patient 2/2 to poor po intake. MD orders for Ensure Enlive TID for additional 350 kcal and 20gm protein.
[2024-10-01] MEDS: PROCHLORPERAZINE EDISYLATE 10 MG/2 ML VIAL IV PUSH (15:51)
[2024-10-02 02:38] LABS: Hepatitis B Core Ab Total NON-REACTIVE (NON-REACTIVE); Protein, Total 5.2 g/dL (6.1-8.1)
[2024-10-02] MEDS: SODIUM CHLORIDE 0.9% IV 1,000 ML 75 ML IV CONT ×2 (03:08→16:30)
[2024-10-02 05:54] LABS: Hematocrit 24.7 % (37.0-47.0); Hemoglobin 8.4 g/dL (12.0-15.0); Mean Corpuscular Hemoglobin 31.9 pg (26-34); Mean Corpuscular Volume 93.9 fl (80-100); Mean Platelet Volume 9.6 fl (7.4-10.4); Platelet Count Result 105 k/mm3 (150-375); Red Blood Count 2.63 M/mm3 (4.2-5.4); Red Cell Distribution Width 12.7 % (11.5-14.5); White Blood Count 4.7 K/mm3 (4.5-10.0)
[2024-10-02 06:00] VITALS: BP 151/63; PULSE 66; RESP 18; TEMP 36.5; O2SAT 100
[2024-10-02 06:23] LABS: Albumin Level 3.4 g/dL (3.5-5.1); Anion Gap 19 mmol/L (4-12); Blood Urea Nitrogen 92 mg/dL (7-17); Calcium 8.4 mg/dL (8.4-10.2); Carbon Dioxide 19 mmol/L (22-30); Chloride 103 mmol/L (98-107); Estimated CRCL calculation 3 ml/min; Estimated Glomerular Filt Rate 3; Glucose 81 mg/dL (65-110); Phosphorus 9.4 mg/dL (2.5-4.5); Potassium 4.4 mmol/L (3.4-5.0); Sodium 141 mmol/L (137-145)
[2024-10-02 08:50] VITALS: PULSE 64
[2024-10-02] MEDS: amLODIPine BESYLATE 5 MG TABLET PO (08:50)
[2024-10-02] MEDS: calcitrioL 0.25 MCG CAPSULE PO (08:50)
[2024-10-02] MEDS: SERTRALINE HCL 50 MG TABLET 100 MG PO (08:50)
[2024-10-02] MEDS: METOPROLOL SUCCINATE EXT REL 100 MG TABCR PO (08:50)
[2024-10-02 08:51] VITALS: RESP 18; O2SAT 100
[2024-10-02] MEDS: hydrALAZINE HCL 25 MG TABLET PO ×2 (08:51→16:33)
--- NOTE | 2024-10-02 13:00 | P.PNNP_ITS ---
Progress Note: A&P Assessment and Plan (1) STEVE (acute kidney injury): Code(s): N17.9 - Acute kidney failure, unspecified Status: Acute Assessment and Plan: * no real improvement since admission * labs reviewed: * on admission to [facility] earlier this month, creatinine 5.53mg/dl * with IVF hydration and treatment of UTI, creatinine 4.37mg/dl on discharge * HOWEVER, on 06/19/24, creatinine was 1.47mg/dl (see #2) * etiology not clear... * evaluation to date noted: * renal ultrasound c/w CKD * urine electrolytes non-prerenal * urine eosinophil negative * nephrotic range proteinuria * CPK low * serological testing pending * continue low dose IVFs since she is not eating/drinking * consider renal biopsy? * follow repeat labs and UOP (2) Stage 3b chronic kidney disease: Code(s): N18.32 - Chronic kidney disease, stage 3b Status: Chronic Assessment and Plan: * creatinine in 06/19/24 was 1.47mg/dl (presumed baseline) * underlying CKD likely due to hypertension, possible vascular disease, and age- related change (3) Nausea & vomiting: Code(s): R11.2 - Nausea with vomiting, unspecified Status: Acute Assessment and Plan: * similar issues/symptoms on presentation to [facility] earlier Sep 2024 * did these symptoms cause STEVE or are they a consequence of renal dysfunction (i.e. early uremic symptoms)?? * I am worried that it is the latter.... * IV anti-emetics PRN (4) Hypertension: Code(s): I10 - Essential (primary) hypertension Status: Chronic Assessment and Plan: * poor control at baseline * better at this time * would avoid over control for fear it may worsen renal function * no evidence of renal artery stenosis on renal duplex * follow trend of hemodynamics (5) Anemia: Code(s): D64.9 - Anemia, unspecified Status: Acute Assessment and Plan: * presumably related to STEVE and CKD * may need to consider LARY * follow trend of H/H Long extensive discussion (greater than 25 minutes) with the patient, her sister at bedside, and her son and [id number] (by phone) regarding her current situation with regard to her ongoing renal dysfunction and persistent nausea/vomiting complicated by her fluctuating urine output; unfortunately, her renal function has not really improved with conservative therapy and I am worried that uremia is playing a role with regard to her symptoms of nausea and vomiting; the exact etiology of her renal failure still remains unclear although her serological testing to date remains negative; given the drastic decline in her kidney function in the last several months, I discussed with the patient and her family the possibility of doing a renal biopsy for more definitive diagnosis unless of course some of the pending testing results indicate some other possible etiology to her renal dysfunction; furthermore, I also discussed with the patient and her family the possibility of a trial of renal replacement therapy/dialysis in the hopes that this would improve her renal dysfunction as well as optimize clearance of the uremic toxins which may be playing a role with regard to her nausea and vomiting...they all appeared to voice understanding and are agreeable to a trial of hemodialysis. Will consult Surgery for dialysis catheter placement. Will continue to follow. L Subjective Date/time seen: 10/02/24 13:00 Interval history: Follow-up for acute kidney injury/acute renal failure on chronic kidney disease. Remains nauseated in general and worsened with any attempted oral/fluid intake; renal function/creatinine has not really improved either; making some urine (but not very much); sister at bedside and we discussed the situation in great detail. Exam 2 Narrative: General: elderly but WD/WN female in NAD Heart: normal S1 and S2; no rub Lungs: clear to auscultation Abdomen: soft, nontender, nondistended, positive bowel sounds Extremities: no cyanosis or clubbing; no edema Skin: warm and intact Objective Data Vital Signs Vital Signs: Vital Signs Temp Pulse Resp BP Pulse Ox O2 Del Method 10/02/24 08:51 18 100 Room Air 10/02/24 08:50 64 10/02/24 06:00 97.7 F 66 18 151/63 H 100 10/01/24 20:00 Room Air 10/01/24 19:52 97.6 F 69 20 152/71 H 98 10/01/24 17:38 97.2 F L 65 18 157/90 H 100 10/01/24 16:00 63 10/01/24 14:00 98.5 F 63 18 159/65 H 95 Intake/Output Intake/Output: Intake & Output 09/29/24 09/30/24 10/01/24 10/02/24 23:59 23:59 23:59 23:59 Intake Total 1000 1386.2 1706.3 1527 Output Total 50 200 350 Balance 950 1186.2 1356.3 1527 Meds/Results Medications: Active Medications Generic Name Dose Route Start Last Admin Trade Name Freq PRN Reason Stop Dose Admin Amlodipine Besylate 5 mg 09/30/24 09:00 10/02/24 08:50 Amlodipine Besylate 5 Mg Tablet PO 5 mg DAILY HUAN Administration Calcitriol 0.25 mcg 09/30/24 09:00 10/02/24 08:50 Calcitriol 0.25 Mcg Capsule PO 0.25 mcg DAILY HUAN Administration Hydralazine HCl 25 mg 09/30/24 17:00 10/02/24 08:51 Hydralazine Hcl 25 Mg Tablet PO 25 mg BID HUAN Administration Sodium Chloride 1,000 mls @ 75 mls/hr 09/30/24 21:50 10/02/24 03:08 Normal Saline Iv IV CONT 75 mls/hr .[id number] HUAN Administration Metoprolol Succinate 100 mg 09/30/24 09:00 10/02/24 08:50 Metoprolol Succinate Ext Rel 100 Mg Tabcr PO 100 mg DAILY HUAN Administration Mirtazapine 7.5 mg 09/29/24 21:00 10/01/24 19:56 Mirtazapine 7.5 Mg Tablet PO Not Given HS HUAN Ondansetron HCl 4 mg 09/29/24 11:32 10/01/24 12:43 Ondansetron Inj 4 Mg/2 Ml Vial IV PUSH 4 mg Q4H PRN Administration Nausea Prochlorperazine Edisylate 10 mg 10/01/24 15:11 10/01/24 15:51 Prochlorperazine Edisylate 10 Mg/2 Ml Vial IV PUSH 10 mg Q6H PRN Administration Nausea And Vomiting Sertraline HCl 100 mg 09/30/24 09:00 10/02/24 08:50 Sertraline Hcl 50 Mg Tablet PO 100 mg DAILY HUAN Administration Radiology Results: ITS Impressions Arterial/Peripheral Duplex 09/29/24 14:58 IMPRESSION: 1. Bilateral increased renal cortical atelectasis be consistent with medical renal disease. No hydronephrosis. 2. No Doppler evidence of renal artery stenosis. 3. Fusiform abdominal aortic aneurysm measuring up to 3.6 cm maximal diameter. Renal Ultrasound 09/29/24 14:58 IMPRESSION: 1. Bilateral increased renal cortical atelectasis be consistent with medical renal disease. No hydronephrosis. 2. No Doppler evidence of renal artery stenosis. 3. Fusiform abdominal aortic aneurysm measuring up to 3.6 cm maximal diameter. Chest X-Ray 09/30/24 19:01 IMPRESSION: No acute cardiopulmonary process. Labs Labs: Laboratory Tests 10/02/24 05:35 10/02/24 05:35 Calcium 8.4 Phosphorus 9.4 H Albumin 3.4 L
[2024-10-02 14:00] VITALS: BP 178/96; PULSE 67; RESP 16; TEMP 37.1; O2SAT 98
[2024-10-02] MEDS: ONDANSETRON INJ 4 MG/2 ML VIAL IV PUSH (14:59)
--- NOTE | 2024-10-02 15:20 | P.PNIM_ITS ---
Progress Note: A&P Assessment and Plan (1) Uncontrolled hypertension: Code(s): I10 - Essential (primary) hypertension Status: Acute Assessment and Plan: Blood pressure 229/94 on admission, given her morning antihypertensives of amlodipine 5 mg and metoprolol succinate 100 mg as she had not taken it - Continue metoprolol 100 mg daily and amlodipine increased to 10 mg daily - Avoid a precipitous drop in blood pressure due to the fact that they most likely run in the 180s to 190 systolic if not higher. - Nephrology consulted, hypertension likely secondary to poorly controlled CKD 10/02- will increase amlodipine to 10 mg and increase hydralazine frequency to tid instead of bid for better BP control (2) Acute kidney injury superimposed on chronic kidney disease: Code(s): N17.9 - Acute kidney failure, unspecified; N18.9 - Chronic kidney disease, unspecified Status: Acute Assessment and Plan: Per chart review, patient was recently hospitalized at [facility] earlier this month with dehydration due to nausea, vomiting, and diar rito. Creatinine at the time of admission was 5.53 and did improve right around her baseline with a discharge creatinine of 4.37. She was instructed to follow- up with her kidney specialist, Dr. Vidales. - Etiology unknown - BUN/Cr 102/11.13 on admission, now BUN/Cr 98/11.17 on am labs - Renal US and duplex: Bilateral increased renal cortical atelectasis be consistent with medical renal disease. No hydronephrosis. No renal artery stenosis.Fusiform abdominal aortic aneurysm measuring up to 3.6 cm maximal diameter. - Avoid nephrotoxic agents and renally dose all medications - Monitor I/O - Notes requested from recent stay at [facility] as well as the most recent office notes from Dr. Mcclure or Dr. Vidales - Nephrology consulted for further recommendations. daily labs (3) Hyperkalemia: Code(s): E87.5 - Hyperkalemia Status: Acute Assessment and Plan: K 5.5 on admission, likely due to patients STEVE and dehydration. Given lokelma 10 mg x1 and started on IV fluids - Tele - Monitor 4.3 today-10/01 (4) Depression: Code(s): F32.A - Depression, unspecified Status: Acute Assessment and Plan: chronic, continue home medications - sertraline 100 mg daily Time Spent With Patient Time with patient: 25 - 35 minutes Subjective Date/time seen: 10/02/24 15:20 Interval history: added Compazine to control nausea better. nephrology on board Review of Systems Review of Systems: 12 systems were reviewed and are negativ e except for as per HPI. All systems reviewed & are unremarkable except as noted in HPI and below Exam Narrative: General: female in no acute respiratory distress who is nontoxic appearing HEENT: Normocephalic. Atraumatic. Extraocular movement intact. Sclera clear and anicteric. No facial asymmetry. Chest: Lungs are clear to auscultation bilaterally. No wheezes or crackles. CV: Heart was regular rate and rhythm. S1-S2. No murmurs, gallops, or rubs. Abd: Abdomen was soft. Nontender. Nondistended. Positive bowel sounds. Ext: No clubbing, cyanosis, or edema. 2+ DP pulses bilaterally. Neuro: Patient is alert and oriented x3. Speech is clear. Const: General: comfortable Objective Data Vital Signs Vital Signs: Vital Signs - 24 hr 10/01/24 16:00 10/01/24 17:38 10/01/24 19:52 Temperature 97.2 F L 97.6 F Pulse Rate 63 65 69 Respiratory Rate 18 20 Blood Pressure 157/90 H 152/71 H Pulse Oximetry 100 98 Oxygen Delivery 10/01/24 20:00 10/02/24 06:00 10/02/24 08:50 Temperature 97.7 F Pulse Rate 66 64 Respiratory Rate 18 Blood Pressure 151/63 H Pulse Oximetry 100 Oxygen Delivery Room Air 10/02/24 08:51 10/02/24 14:00 Temperature 98.8 F Pulse Rate 67 Respiratory Rate 18 16 Blood Pressure 178/96 H Pulse Oximetry 100 98 Oxygen Delivery Room Air Intake/Output Intake/Output: Intake & Output 09/29/24 09/30/24 10/01/24 10/02/24 23:59 23:59 23:59 23:59 Intake Total 1000 1386.2 1706.3 1527 Output Total 50 200 350 Balance 950 1186.2 1356.3 1527 Meds/Results Medications: Active Medications Generic Name Dose Route Start Last Admin Trade Name Freq PRN Reason Stop Dose Admin Amlodipine Besylate 5 mg 09/30/24 09:00 10/02/24 08:50 Amlodipine Besylate 5 Mg Tablet PO 5 mg DAILY HUAN Administration Calcitriol 0.25 mcg 09/30/24 09:00 10/02/24 08:50 Calcitriol 0.25 Mcg Capsule PO 0.25 mcg DAILY HUAN Administration Hydralazine HCl 25 mg 09/30/24 17:00 10/02/24 08:51 Hydralazine Hcl 25 Mg Tablet PO 25 mg BID HUAN Administration Sodium Chloride 1,000 mls @ 75 mls/hr 09/30/24 21:50 10/02/24 03:08 Normal Saline Iv IV CONT 75 mls/hr .[id number] HUAN Administration Metoprolol Succinate 100 mg 09/30/24 09:00 10/02/24 08:50 Metoprolol Succinate Ext Rel 100 Mg Tabcr PO 100 mg DAILY HUAN Administration Mirtazapine 7.5 mg 09/29/24 21:00 10/01/24 19:56 Mirtazapine 7.5 Mg Tablet PO Not Given HS HUAN Ondansetron HCl 4 mg 09/29/24 11:32 10/02/24 14:59 Ondansetron Inj 4 Mg/2 Ml Vial IV PUSH 4 mg Q4H PRN Administration Nausea Prochlorperazine Edisylate 10 mg 10/01/24 15:11 10/01/24 15:51 Prochlorperazine Edisylate 10 Mg/2 Ml Vial IV PUSH 10 mg Q6H PRN Administration Nausea And Vomiting Sertraline HCl 100 mg 09/30/24 09:00 10/02/24 08:50 Sertraline Hcl 50 Mg Tablet PO 100 mg DAILY HUAN Administration Radiology Results: ITS Impressions Arterial/Peripheral Duplex 09/29/24 14:58 IMPRESSION: 1. Bilateral increased renal cortical atelectasis be consistent with medical renal disease. No hydronephrosis. 2. No Doppler evidence of renal artery stenosis. 3. Fusiform abdominal aortic aneurysm measuring up to 3.6 cm maximal diameter. Renal Ultrasound 09/29/24 14:58 IMPRESSION: 1. Bilateral increased renal cortical atelectasis be consistent with medical renal disease. No hydronephrosis. 2. No Doppler evidence of renal artery stenosis. 3. Fusiform abdominal aortic aneurysm measuring up to 3.6 cm maximal diameter. Chest X-Ray 09/30/24 19:01 IMPRESSION: No acute cardiopulmonary process. Labs Labs: Laboratory Results - last 24 hr 10/01/24 10/02/24 05:47 05:35 WBC 4.7 RBC 2.63 L Hgb 8.4 L Hct 24.7 L MCV 93.9 MCH 31.9 MCHC 34.0 RDW 12.7 Plt Count 105 L MPV 9.6 Sodium 141 Potassium 4.4 Chloride 103 Carbon Dioxide 19 L Anion Gap 19 H BUN 92 H Creatinine 10.98 H Estim Creat Clear Calc 3 Estimated GFR 3 L Glucose 81 Calcium 8.4 Phosphorus 9.4 H Total Protein 5.2 L Albumin 3.4 L Hep B Core Total Ab Non-reactive Quality VTE Prophylaxis VTE prophylaxis: mechanical ordered and pharmacologic ordered
--- NOTE | 2024-10-02 17:29 | P.CONGS_ITS ---
Assessment and Plan Assessment and plan (1) Acute kidney injury superimposed on chronic kidney disease: Code(s): N17.9 - Acute kidney failure, unspecified; N18.9 - Chronic kidney disease, unspecified Status: Acute (2) Encounter regarding vascular access for dialysis for end-stage renal disease: Code(s): N18.6 - End stage renal disease; Z99.2 - Dependence on renal dialysis Status: Acute Assessment and Plan: Plan to proceed with placement tunneled central venous catheter using ultrasound and under fluoroscopy in the operating room tomorrow afternoon. Preoperative orders written. History of Present Illness Consult details Consult date: 10/02/24 Reason for consult: central line Requesting physician: Murali Burris MD Narrative: Patient is an 89-year-old woman who came to the emergency room couple of days ago with nausea vomiting, dizziness. She was found to have hypertension out of control and BUN of around 100 creatinine of 11. She has been diagnosed with acute on chronic renal failure and I was asked to place a tunneled central venous catheter for dialysis by her field sales executive. Review of Systems 2 Review of Systems: All systems reviewed & are unremarkable except as noted in HPI and below (HPI) PMFSH Past Medical History Medical History Chronic kidney disease, stage 5 According to records from outside facility, patient states she knows nothing about this. Depression Hypertension Surgical History Surgical History History of tonsillectomy History of cataract extraction Social History Social History Social History: Surrogate medical decision maker: Marisol Negrete, sibling. Code status: Full code. Smoking status: Never smoker Alcohol intake: never Substance use: never Do You Feel Safe in your Home?: Yes Lack of Transportation: No Lack of Food: Never True Current Housing: I Have Housing Concerned About Future Housing: No Difficulty Paying Gas/Electric Bills: No Difficulty Paying for Meds: No Currently Unemployed: No Education: Associate Degree Difficulty w/ Childcare or Family Care: No Spiritual care concerns: No Meds Home Medications and Allergies Home Medications ?Medication ?Instructions ?Recorded ?Confirmed ?Type amlodipine 5 mg tablet 5 mg PO DAILY Blood pressure 09/29/24 09/29/24 History calcitriol 0.25 mcg capsule 0.25 mcg PO DAILY 09/29/24 09/29/24 History cefuroxime axetil 250 mg tablet 250 mg PO Q12H 09/29/24 09/29/24 History metoprolol succinate 100 mg 100 mg PO DAILY 09/29/24 09/29/24 History tablet,extended release 24 hr mirtazapine 7.5 mg tablet 7.5 mg PO HS 09/29/24 09/29/24 History ondansetron HCl 4 mg tablet 4 mg PO PRN 09/29/24 09/29/24 History sertraline 100 mg tablet 100 mg PO DAILY 09/29/24 09/29/24 History Allergies Allergy/AdvReac Type Severity Reaction Status Date / Time Vwvcyqz-MOJ-VjY Reductase Allergy Unknown CRAMPING Verified 09/29/24 11:08 Inhibitor (Ihcgjlg-Zqo-Vma LEG Reductase Inhibitor) NSID AdvReac Mild unknown Uncoded 09/29/24 11:08 Vital Signs Vital Signs - 24 hr 10/01/24 17:38 10/01/24 19:52 10/01/24 20:00 Temperature 36.2 C L 36.4 C Pulse Rate 65 69 Respiratory Rate 18 20 Blood Pressure 157/90 H 152/71 H Pulse Oximetry 100 98 Oxygen Delivery Room Air 10/02/24 06:00 10/02/24 08:50 10/02/24 08:51 Temperature 36.5 C Pulse Rate 66 64 Respiratory Rate 18 18 Blood Pressure 151/63 H Pulse Oximetry 100 100 Oxygen Delivery Room Air 10/02/24 14:00 10/02/24 14:53 Temperature 37.1 C Pulse Rate 67 Respiratory Rate 16 Blood Pressure 178/96 H Pulse Oximetry 98 Oxygen Delivery Room Air Exam 2 Const: General: comfortable and no acute distress Neck: Neck: normal visual inspection, no lymphadenopathy and nontender Resp: Effort & Inspection: normal respiratory effort Auscultation: clear to auscultation bilaterally GI: Inspection: non-distended GI Palp: Yes Soft to palpation and No Tenderness to palpation present (GI) Skin: Lesions: no lesions Rashes: no rashes Extrem: General: no clubbing, cyanosis or edema and edema Results Labs 10/02/24 05:35 10/02/24 05:35 Labs: Abnormal lab results 10/01/24 10/02/24 Range/Units 05:47 05:35 RBC 2.63 L (4.2-5.4) M/mm3 Hgb 8.4 L (12.0-15.0) g/dL Hct 24.7 L (37.0-47.0) % Plt Count 105 L (150-375) k/mm3 Carbon Dioxide 19 L (22-30) mmol/L Anion Gap 19 H (4-12) mmol/L BUN 92 H (7-17) mg/dL Creatinine 10.98 H (0.7-1.0) mg/dL Estimated GFR 3 L (59 - ) Phosphorus 9.4 H (2.5-4.5) mg/dL Total Protein 5.2 L (6.1-8.1) g/dL Albumin 3.4 L (3.5-5.1) g/dL Diabetes panel 10/01/24 10/02/24 Range/Units 05:47 05:35 Sodium 141 (137-145) mmol/L Potassium 4.4 (3.4-5.0) mmol/L Chloride 103 (98-107) mmol/L Carbon Dioxide 19 L (22-30) mmol/L BUN 92 H (7-17) mg/dL Creatinine 10.98 H (0.7-1.0) mg/dL Glucose 81 (65-110) mg/dL Calcium 8.4 (8.4-10.2) mg/dL Total Protein 5.2 L (6.1-8.1) g/dL Albumin 3.4 L (3.5-5.1) g/dL Calcium panel 10/02/24 Range/Units 05:35 Calcium 8.4 (8.4-10.2) mg/dL Phosphorus 9.4 H (2.5-4.5) mg/dL Albumin 3.4 L (3.5-5.1) g/dL Pituitary panel 10/02/24 Range/Units 05:35 Sodium 141 (137-145) mmol/L Potassium 4.4 (3.4-5.0) mmol/L Chloride 103 (98-107) mmol/L Carbon Dioxide 19 L (22-30) mmol/L BUN 92 H (7-17) mg/dL Creatinine 10.98 H (0.7-1.0) mg/dL Glucose 81 (65-110) mg/dL Calcium 8.4 (8.4-10.2) mg/dL Adrenal panel 10/01/24 10/02/24 Range/Units 05:47 05:35 Sodium 141 (137-145) mmol/L Potassium 4.4 (3.4-5.0) mmol/L Chloride 103 (98-107) mmol/L Carbon Dioxide 19 L (22-30) mmol/L BUN 92 H (7-17) mg/dL Creatinine 10.98 H (0.7-1.0) mg/dL Glucose 81 (65-110) mg/dL Calcium 8.4 (8.4-10.2) mg/dL Total Protein 5.2 L (6.1-8.1) g/dL Albumin 3.4 L (3.5-5.1) g/dL All other labs normal.
[2024-10-02 20:00] VITALS: PULSE 71; RESP 18; O2SAT 97
[2024-10-02 20:12] VITALS: BP 189/80; PULSE 71; RESP 18; TEMP 36.5; O2SAT 97
[2024-10-02] MEDS: MIRTAZAPINE 7.5 MG TABLET PO (20:15)
[2024-10-02 20:33] LABS: Abnormal Protein Band 1 0.1 g/dL (NONE DETECTED); Albumin 3.1 g/dL (3.8-4.8); Alpha 1 Globulin 0.4 g/dL (0.2-0.3); Alpha 2 Globulin 0.8 g/dL (0.5-0.9); Beta 1 Globulin 0.3 g/dL (0.4-0.6); Gamma Globulin 0.3 g/dL (0.8-1.7)
[2024-10-03] VITALS (24 sets, daily range): BP systolic 132–189; BP diastolic 58–109; PULSE 62–83; RESP 14–20; TEMP 36–37.2; O2SAT 94–99
[2024-10-03] MEDS: SODIUM CHLORIDE 0.9% IV 1,000 ML 75 ML IV CONT (04:51)
[2024-10-03 05:19] LABS: Hematocrit 26.4 % (37.0-47.0); Hemoglobin 8.6 g/dL (12.0-15.0); Mean Corpuscular HGB Conc 32.6 g/dl (32-36); Mean Corpuscular Hemoglobin 31.3 pg (26-34); Mean Platelet Volume 9.8 fl (7.4-10.4); Platelet Count Result 120 k/mm3 (150-375); Red Blood Count 2.75 M/mm3 (4.2-5.4); Red Cell Distribution Width 12.9 % (11.5-14.5); White Blood Count 5.1 K/mm3 (4.5-10.0)
[2024-10-03 05:45] LABS: Albumin Level 3.6 g/dL (3.5-5.1); Anion Gap 20 mmol/L (4-12); Blood Urea Nitrogen 91 mg/dL (7-17); Calcium 8.8 mg/dL (8.4-10.2); Carbon Dioxide 16 mmol/L (22-30); Chloride 107 mmol/L (98-107); Estimated CRCL calculation 3 ml/min; Estimated Glomerular Filt Rate 3; Glucose 84 mg/dL (65-110); Phosphorus 10.2 mg/dL (2.5-4.5); Potassium 4.1 mmol/L (3.4-5.0); Sodium 143 mmol/L (137-145)
[2024-10-03] MEDS: ONDANSETRON INJ 4 MG/2 ML VIAL IV PUSH (05:58)
[2024-10-03] MEDS: METOPROLOL SUCCINATE EXT REL 100 MG TABCR PO (08:36)
[2024-10-03] MEDS: SERTRALINE HCL 50 MG TABLET 100 MG PO (08:37)
[2024-10-03] MEDS: hydrALAZINE HCL 25 MG TABLET PO ×2 (08:38→16:52)
[2024-10-03] MEDS: amLODIPine BESYLATE 10 MG TABLET PO (08:38)
[2024-10-03 09:22] LABS: Creatinine, Random Urine 41 mg/dL (20-275); Total Prot/Creat ratio mg/mg 4.512 (0.024-0.184); Total Protein/Creatinine Ratio 4512 mg/g creat (24-184)
--- NOTE | 2024-10-03 09:30 | P.PNAN_ITS ---
Anes - Initial Pre Proc Eval Procedure: Operation Date: 10/03/24 10:30 Proposed Procedures p Placement Tunneled Dialysis Catheter Under Fluoroscopy - Sandeep Colon MD Date/Time: 10/03/24 09:30 Surgeon: Waldemar Pennington MD Pre Op Diagnosis: nikky on ckd Patient Data Age: 89 Gender: F Height: 1.7 m Weight: 74 kg Last Vital Signs Temp 36.8 C 10/03/24 03:52 Pulse 65 10/03/24 08:36 Resp 20 10/03/24 03:52 BP 189/83 H 10/03/24 03:52 Pulse Ox 99 10/03/24 03:52 O2 Del Method Room Air 10/02/24 20:00 Allergies Allergy/AdvReac Type Severity Reaction Status Date / Time Wwaibky-RIH-XeA Reductase Allergy Unknown CRAMPING Verified 09/29/24 11:08 Inhibitor (Bzcaigw-Led-Nzh LEG Reductase Inhibitor) NSID AdvReac Mild unknown Uncoded 09/29/24 11:08 Home Medications ?Medication ?Instructions ?Recorded ?Confirmed ?Type amlodipine 5 mg tablet 5 mg PO DAILY Blood pressure 09/29/24 09/29/24 History calcitriol 0.25 mcg capsule 0.25 mcg PO DAILY 09/29/24 09/29/24 History cefuroxime axetil 250 mg tablet 250 mg PO Q12H 09/29/24 09/29/24 History metoprolol succinate 100 mg 100 mg PO DAILY 09/29/24 09/29/24 History tablet,extended release 24 hr mirtazapine 7.5 mg tablet 7.5 mg PO HS 09/29/24 09/29/24 History ondansetron HCl 4 mg tablet 4 mg PO PRN 09/29/24 09/29/24 History sertraline 100 mg tablet 100 mg PO DAILY 09/29/24 09/29/24 History Laboratory Tests 10/01/24 10/01/24 10/02/24 05:47 07:48 17:39 WBC RBC Hgb Hct MCV MCH MCHC RDW Plt Count MPV Sodium Potassium Chloride Carbon Dioxide Anion Gap BUN Creatinine Estim Creat Clear Calc Estimated GFR Glucose Calcium Phosphorus Albumin 3.1 L g/dL (3.8-4.8) Fmqhw-7-Rydztosjq 0.4 H g/dL (0.2-0.3) Gkyqk-0-Iilohgzou 0.8 g/dL (0.5-0.9) Gzlh-7-Mmmwzfok 0.3 L g/dL (0.4-0.6) Pwwh-4-Inmbvggo 0.3 g/dL (0.2-0.5) Gamma Globulins 0.3 L g/dL (0.8-1.7) Abnorm Protein Band 1 0.1 H g/dL (NONE DETECTED) PEP Interpretation See note Ur Random Creatinine 41 mg/dL (20-275) U Random Total Protein 185 H mg/dL (5-24) Protein/Creatinin Ratio 4512 H mg/g creat (24-184) Blood Type O Positive Antibody Screen Negative 10/03/24 04:59 WBC 5.1 K/mm3 (4.5-10.0) RBC 2.75 L M/mm3 (4.2-5.4) Hgb 8.6 L g/dL (12.0-15.0) Hct 26.4 L % (37.0-47.0) MCV 96.0 fl (80-100) MCH 31.3 pg (26-34) MCHC 32.6 g/dl (32-36) RDW 12.9 % (11.5-14.5) Plt Count 120 L k/mm3 (150-375) MPV 9.8 fl (7.4-10.4) Sodium 143 mmol/L (137-145) Potassium 4.1 mmol/L (3.4-5.0) Chloride 107 mmol/L (98-107) Carbon Dioxide 16 L mmol/L (22-30) Anion Gap 20 H mmol/L (4-12) BUN 91 H mg/dL (7-17) Creatinine 11.25 H mg/dL (0.7-1.0) Estim Creat Clear Calc 3 ml/min Estimated GFR 3 L (59 - ) Glucose 84 mg/dL (65-110) Calcium 8.8 mg/dL (8.4-10.2) Phosphorus 10.2 H mg/dL (2.5-4.5) Albumin 3.6 g/dL (3.5-5.1) Tuqov-7-Sdqawxtjp Vsqhr-3-Nryceyrif Dzxv-5-Dapzcqbz Vrpm-8-Oqbpocks Gamma Globulins Abnorm Protein Band 1 PEP Interpretation Ur Random Creatinine U Random Total Protein Protein/Creatinin Ratio Blood Type Antibody Screen Patient hx anesthesia problems: none Family hx anesthesia problems: none Results Review: All pre-operative results and documents have been reviewed as part of the pre- operative evaluation. [facility] Past Medical History Medical History Chronic kidney disease, stage 5 According to records from outside facility, patient states she knows nothing about this. Depression Hypertension Surgical History Surgical History History of tonsillectomy History of cataract extraction Social History Social History Social History: Surrogate medical decision maker: Marisol Negrete, sibling. Code status: Full code. Smoking status: Never smoker Alcohol intake: never Substance use: never Do You Feel Safe in your Home?: Yes Lack of Transportation: No Lack of Food: Never True Current Housing: I Have Housing Concerned About Future Housing: No Difficulty Paying Gas/Electric Bills: No Difficulty Paying for Meds: No Currently Unemployed: No Education: Associate Degree Difficulty w/ Childcare or Family Care: No Spiritual care concerns: No Anes - Eval Final PreProcedure Day of Procedure 10/03/24 09:30 Patient weight: overweight Heart: regular rate and rhythm Lungs: clear to auscultation Airway: Mallampati scale class III Neurological: alert and oriented Last oral intake: >/= 8 hours ASA classification: IV Emergent: no Anesthetic plan: proceed Anesthesia type and monitoring: general GIVS and standard monitoring Results Review: All pre-operative results and documents have been reviewed as part of the pre- operative evaluation. Informed Consent: The patient's anesthetic plan and its attendant risks and benefits were discussed with the patient/family/POA. Questions were solicited and answers provided to the satisfaction of the patient/family/POA.
--- NOTE | 2024-10-03 09:58 | P.PNIM_ITS ---
Progress Note: A&P Assessment and Plan (1) Uncontrolled hypertension: Code(s): I10 - Essential (primary) hypertension Status: Acute Assessment and Plan: Blood pressure 229/94 on admission, given her morning antihypertensives of amlodipine 5 mg and metoprolol succinate 100 mg as she had not taken it - Continue metoprolol 100 mg daily and amlodipine increased to 10 mg daily - Avoid a precipitous drop in blood pressure due to the fact that they most likely run in the 180s to 190 systolic if not higher. - Nephrology consulted, hypertension likely secondary to poorly controlled CKD 10/02- will increase amlodipine to 10 mg and increase hydralazine frequency to tid instead of bid for better BP control (2) Acute kidney injury superimposed on chronic kidney disease: Code(s): N17.9 - Acute kidney failure, unspecified; N18.9 - Chronic kidney disease, unspecified Status: Acute Assessment and Plan: Per chart review, patient was recently hospitalized at [facility] earlier this month with dehydration due to nausea, vomiting, and diar rito. Creatinine at the time of admission was 5.53 and did improve right around her baseline with a discharge creatinine of 4.37. She was instructed to follow- up with her kidney specialist, Dr. Vidales. - Etiology unknown - BUN/Cr 102/11.13 on admission, now BUN/Cr 98/11.17 on am labs - Renal US and duplex: Bilateral increased renal cortical atelectasis be consistent with medical renal disease. No hydronephrosis. No renal artery stenosis.Fusiform abdominal aortic aneurysm measuring up to 3.6 cm maximal diameter. - Avoid nephrotoxic agents and renally dose all medications - Monitor I/O - Notes requested from recent stay at [place] as well as the most recent office notes from Dr. Mcclure or Dr. Vidales - Nephrology consulted for further recommendations. daily labs (3) Hyperkalemia: Code(s): E87.5 - Hyperkalemia Status: Acute Assessment and Plan: K 5.5 on admission, likely due to patients STEVE and dehydration. Given lokelma 10 mg x1 and started on IV fluids - Tele - Monitor 4.3 today-10/01 (4) Depression: Code(s): F32.A - Depression, unspecified Status: Acute Assessment and Plan: chronic, continue home medications - sertraline 100 mg daily Time Spent With Patient Time with patient: 25 - 35 minutes Subjective Date/time seen: 10/03/24 09:58 Interval history: dialysis access line scheduled today with surgery. Per Dr Colon report, pt had BM right before procedure with large blood clots. Review of Systems Review of Systems: 12 systems were reviewed and are negativ e except for as per HPI. All systems reviewed & are unremarkable except as noted in HPI and below Exam Narrative: General: female in no acute respiratory distress who is nontoxic appearing HEENT: Normocephalic. Atraumatic. Extraocular movement intact. Sclera clear and anicteric. No facial asymmetry. Chest: Lungs are clear to auscultation bilaterally. No wheezes or crackles. CV: Heart was regular rate and rhythm. S1-S2. No murmurs, gallops, or rubs. Abd: Abdomen was soft. Nontender. Nondistended. Positive bowel sounds. Ext: No clubbing, cyanosis, or edema. 2+ DP pulses bilaterally. Neuro: Patient is alert and oriented x3. Speech is clear. Const: General: comfortable Objective Data Vital Signs Vital Signs: Vital Signs - 24 hr 10/02/24 14:00 10/02/24 14:53 10/02/24 20:00 Temperature 98.8 F Pulse Rate 67 71 Respiratory Rate 16 18 Blood Pressure 178/96 H Pulse Oximetry 98 97 Oxygen Delivery Room Air Room Air 10/02/24 20:12 10/03/24 03:52 10/03/24 08:36 Temperature 97.7 F 98.2 F Pulse Rate 71 62 65 Respiratory Rate 18 20 Blood Pressure 189/80 H 189/83 H Pulse Oximetry 97 99 Oxygen Delivery Intake/Output Intake/Output: Intake & Output 09/30/24 10/01/24 10/02/24 10/03/24 23:59 23:59 23:59 23:59 Intake Total 1386.2 1706.3 2527 1216.3 Output Total 200 350 100 Balance 1186.2 1356.3 2427 1216.3 Meds/Results Medications: Active Medications Generic Name Dose Route Start Last Admin Trade Name Freq PRN Reason Stop Dose Admin Amlodipine Besylate 10 mg 10/03/24 09:00 10/03/24 08:38 Amlodipine Besylate 10 Mg Tablet PO 10 mg DAILY HUAN Administration Calcitriol 0.25 mcg 09/30/24 09:00 10/03/24 08:31 Calcitriol 0.25 Mcg Capsule PO Not Given DAILY HUAN Hydralazine HCl 25 mg 10/02/24 17:00 10/03/24 08:38 Hydralazine Hcl 25 Mg Tablet PO 25 mg TID HUAN Administration Sodium Chloride 1,000 mls @ 75 mls/hr 09/30/24 21:50 10/03/24 04:51 Normal Saline Iv IV CONT 75 mls/hr .[id number] HUAN Administration Metoprolol Succinate 100 mg 09/30/24 09:00 10/03/24 08:36 Metoprolol Succinate Ext Rel 100 Mg Tabcr PO 100 mg DAILY HUAN Administration Mirtazapine 7.5 mg 09/29/24 21:00 10/02/24 20:15 Mirtazapine 7.5 Mg Tablet PO 7.5 mg HS HUAN Administration Ondansetron HCl 4 mg 09/29/24 11:32 10/03/24 05:58 Ondansetron Inj 4 Mg/2 Ml Vial IV PUSH 4 mg Q4H PRN Administration Nausea Pantoprazole Sodium 40 mg 10/03/24 09:30 Pantoprazole Sodium Iv 40 Mg Vial IV PUSH QAM HUAN Prochlorperazine Edisylate 10 mg 10/01/24 15:11 10/01/24 15:51 Prochlorperazine Edisylate 10 Mg/2 Ml Vial IV PUSH 10 mg Q6H PRN Administration Nausea And Vomiting Sertraline HCl 100 mg 09/30/24 09:00 10/03/24 08:37 Sertraline Hcl 50 Mg Tablet PO 100 mg DAILY HUAN Administration Radiology Results: ITS Impressions Arterial/Peripheral Duplex 09/29/24 14:58 IMPRESSION: 1. Bilateral increased renal cortical atelectasis be consistent with medical renal disease. No hydronephrosis. 2. No Doppler evidence of renal artery stenosis. 3. Fusiform abdominal aortic aneurysm measuring up to 3.6 cm maximal diameter. Renal Ultrasound 09/29/24 14:58 IMPRESSION: 1. Bilateral increased renal cortical atelectasis be consistent with medical renal disease. No hydronephrosis. 2. No Doppler evidence of renal artery stenosis. 3. Fusiform abdominal aortic aneurysm measuring up to 3.6 cm maximal diameter. Chest X-Ray 09/30/24 19:01 IMPRESSION: No acute cardiopulmonary process. Labs Labs: Laboratory Results - last 24 hr 10/01/24 10/01/24 10/02/24 05:47 07:48 17:39 WBC RBC Hgb Hct MCV MCH MCHC RDW Plt Count MPV Sodium Potassium Chloride Carbon Dioxide Anion Gap BUN Creatinine Estim Creat Clear Calc Estimated GFR Glucose Calcium Phosphorus Albumin 3.1 L Sbotz-8-Runkxpoyk 0.4 H Ngdky-9-Oejukxsbk 0.8 Aoat-9-Kznndqjb 0.3 L Svgo-6-Kwxlzrms 0.3 Gamma Globulins 0.3 L Abnorm Protein Band 1 0.1 H PEP Interpretation See note Ur Random Creatinine 41 U Random Total Protein 185 H Protein/Creatinin Ratio 4512 H Blood Type O Positive Antibody Screen Negative 10/03/24 04:59 WBC 5.1 RBC 2.75 L Hgb 8.6 L Hct 26.4 L MCV 96.0 MCH 31.3 MCHC 32.6 RDW 12.9 Plt Count 120 L MPV 9.8 Sodium 143 Potassium 4.1 Chloride 107 Carbon Dioxide 16 L Anion Gap 20 H BUN 91 H Creatinine 11.25 H Estim Creat Clear Calc 3 Estimated GFR 3 L Glucose 84 Calcium 8.8 Phosphorus 10.2 H Albumin 3.6 Wdgkb-0-Harvgsgxe Ahfvw-3-Ecmafdssm Lhgw-6-Ozeybyji Oukb-9-Uhiojsde Gamma Globulins Abnorm Protein Band 1 PEP Interpretation Ur Random Creatinine U Random Total Protein Protein/Creatinin Ratio Blood Type Antibody Screen Quality VTE Prophylaxis VTE prophylaxis: mechanical ordered and pharmacologic ordered
--- NOTE | 2024-10-03 10:26 | WPDHPUPDATE1 ---
History and Physical Update Update Date/Time: 10/03/24 10:26 History and Physical has been reviewed, including an updated exam of the patient. There are NO changes in the patient's condition. Risks, benefits, and alternatives have been discussed and questions answered. Patient agrees to proceed with procedure.
--- NOTE | 2024-10-03 10:30 | SUR.PREOP ---
Large black tarry bowel movement in pre-op. Many very large blood clots were noted in stool. Dr. Colon notified. Okay to proceed with case per Dr Colon. Anesthesia and service center technician RN notified of findings.
[2024-10-03] MEDS: ceFAZolin 2 GM/D5W 50 ML 2 GM/50 ML BAG IVPB (10:44)
--- NOTE | 2024-10-03 10:45 | PM.PNGS ---
Progress Note: A&P Assessment and Plan (1) Hematochezia: Code(s): K92.1 - Melena Status: Acute Assessment and Plan: Patient hemodynamically stable and definitely needs dialysis access. I called her hospitalist, Mehnaz Connor APRN, and notified her of the patient's change in condition. I also described that there was no heme a dynamic instability. Her H&H this morning remains low but stable. Workup for lower GI bleed will likely be necessary following this procedure. Subjective Subjective Date/Time Seen: 10/03/24 10:45 Patient reports: blood in stool Interval history: Patient had BM in the preop area with blood and clots. Having nausea but was having this previously. Exam Narrative: Vital signs stable and normal Const: General: comfortable and awake GI: GI Palp: Yes Soft to palpation and No Tenderness to palpation present (GI) Objective Data Vital Signs Vital Signs: Vital Signs - 24 hr 10/02/24 14:00 10/02/24 14:53 10/02/24 20:00 Temperature 37.1 C Pulse Rate 67 71 Respiratory Rate 16 18 Blood Pressure 178/96 H Pulse Oximetry 98 97 Oxygen Delivery Room Air Room Air 10/02/24 20:12 10/03/24 03:52 10/03/24 08:36 Temperature 36.5 C 36.8 C Pulse Rate 71 62 65 Respiratory Rate 18 20 Blood Pressure 189/80 H 189/83 H Pulse Oximetry 97 99 Oxygen Delivery 10/03/24 09:20 Temperature 36.5 C Pulse Rate 72 Respiratory Rate 16 Blood Pressure 184/86 H Pulse Oximetry 98 Oxygen Delivery Room Air Intake/Output Intake/Output: Intake & Output 09/30/24 10/01/24 10/02/24 10/03/24 23:59 23:59 23:59 23:59 Intake Total 1386.2 1706.3 2527 1216.3 Output Total 200 350 100 Balance 1186.2 1356.3 2427 1216.3 Meds/Results Medications: Active Medications Generic Name Dose Route Start Last Admin Trade Name Freq PRN Reason Stop Dose Admin Amlodipine Besylate 10 mg 10/03/24 09:00 10/03/24 08:38 Amlodipine Besylate 10 Mg Tablet PO 10 mg DAILY HUAN Administration Calcitriol 0.25 mcg 09/30/24 09:00 10/03/24 08:31 Calcitriol 0.25 Mcg Capsule PO Not Given DAILY HUAN Epoetin Brice-epbx 10,000 units 10/03/24 20:28 Epoetin Brice-Epbx 10,000 Units/Ml Vial IV PUSH 10/03/24 20:29 ONCE ONE Hydralazine HCl 25 mg 10/02/24 17:00 10/03/24 08:38 Hydralazine Hcl 25 Mg Tablet PO 25 mg TID HUAN Administration Sodium Chloride 1,000 mls @ 75 mls/hr 09/30/24 21:50 10/03/24 04:51 Normal Saline Iv IV CONT 75 mls/hr .[id number] HUAN Administration Albumin Human 50 mls @ 999 mls/hr 10/03/24 10:27 Albutein IVPB 11/02/24 10:26 Q10M PRN HYPOTENSION Sodium Chloride 1,000 mls @ 999 mls/hr 10/03/24 10:27 Normal Saline Iv IV CONT 10/03/24 11:27 .Q1H1M ONE Metoprolol Succinate 100 mg 09/30/24 09:00 10/03/24 08:36 Metoprolol Succinate Ext Rel 100 Mg Tabcr PO 100 mg DAILY HUAN Administration Mirtazapine 7.5 mg 09/29/24 21:00 10/02/24 20:15 Mirtazapine 7.5 Mg Tablet PO 7.5 mg HS HUAN Administration Ondansetron HCl 4 mg 09/29/24 11:32 10/03/24 05:58 Ondansetron Inj 4 Mg/2 Ml Vial IV PUSH 4 mg Q4H PRN Administration Nausea Pantoprazole Sodium 40 mg 10/03/24 09:30 Pantoprazole Sodium Iv 40 Mg Vial IV PUSH QAM UHAN Prochlorperazine Edisylate 10 mg 10/01/24 15:11 10/01/24 15:51 Prochlorperazine Edisylate 10 Mg/2 Ml Vial IV PUSH 10 mg Q6H PRN Administration Nausea And Vomiting Sertraline HCl 100 mg 09/30/24 09:00 10/03/24 08:37 Sertraline Hcl 50 Mg Tablet PO 100 mg DAILY HUAN Administration Radiology Results: ITS Impressions Arterial/Peripheral Duplex 09/29/24 14:58 IMPRESSION: 1. Bilateral increased renal cortical atelectasis be consistent with medical renal disease. No hydronephrosis. 2. No Doppler evidence of renal artery stenosis. 3. Fusiform abdominal aortic aneurysm measuring up to 3.6 cm maximal diameter. Renal Ultrasound 09/29/24 14:58 IMPRESSION: 1. Bilateral increased renal cortical atelectasis be consistent with medical renal disease. No hydronephrosis. 2. No Doppler evidence of renal artery stenosis. 3. Fusiform abdominal aortic aneurysm measuring up to 3.6 cm maximal diameter. Chest X-Ray 09/30/24 19:01 IMPRESSION: No acute cardiopulmonary process. Labs Labs: Laboratory Results - last 24 hr 10/01/24 10/01/24 10/02/24 05:47 07:48 17:39 WBC RBC Hgb Hct MCV MCH MCHC RDW Plt Count MPV Sodium Potassium Chloride Carbon Dioxide Anion Gap BUN Creatinine Estim Creat Clear Calc Estimated GFR Glucose Calcium Phosphorus Albumin 3.1 L Ndamt-6-Gehpbmdvj 0.4 H Otgbe-0-Hnybzwxkl 0.8 Abqn-6-Fazmnzcn 0.3 L Mhoy-0-Awxmpduy 0.3 Gamma Globulins 0.3 L Abnorm Protein Band 1 0.1 H PEP Interpretation See note Ur Random Creatinine 41 U Random Total Protein 185 H Protein/Creatinin Ratio 4512 H Blood Type O Positive Antibody Screen Negative 10/03/24 04:59 WBC 5.1 RBC 2.75 L Hgb 8.6 L Hct 26.4 L MCV 96.0 MCH 31.3 MCHC 32.6 RDW 12.9 Plt Count 120 L MPV 9.8 Sodium 143 Potassium 4.1 Chloride 107 Carbon Dioxide 16 L Anion Gap 20 H BUN 91 H Creatinine 11.25 H Estim Creat Clear Calc 3 Estimated GFR 3 L Glucose 84 Calcium 8.8 Phosphorus 10.2 H Albumin 3.6 Wnxrd-6-Pwiuxsnny Bitrq-8-Xpbfxntui Hlwm-3-Xignopcv Evsu-7-Pzggptli Gamma Globulins Abnorm Protein Band 1 PEP Interpretation Ur Random Creatinine U Random Total Protein Protein/Creatinin Ratio Blood Type Antibody Screen
--- NOTE | 2024-10-03 10:48 | PCPTNOTE ---
Attempted to see patient for PT, however patient was out of the room for procedure.
--- NOTE | 2024-10-03 11:10 | PCOTNOTE ---
The patient treatment was not able to be completed. Patient out of the room. Will plan to continue treatment per plan of care.
[2024-10-03] MEDS: LIDO 1%/EPINEPHRINE 1:100,000 50 ML VIAL 10 ML INFILTRATE (11:39)
[2024-10-03] MEDS: HEPARIN SODIUM, PORCINE 10,000 UNITS/10 ML VIAL 6000 UNITS IV PUSH (11:41)
[2024-10-03] MEDS: HEPARIN SODIUM 5,000 UNITS/ML VIAL 5000 UNITS IRRIGATION (11:43)
--- NOTE | 2024-10-03 11:47 | W.PM.PROC2 ---
Procedure Note - Detailed Date of Procedure 10/03/24 Pre-op Diagnosis nikky on ckd, inadequate venous access Post-op Diagnosis Same Procedure Performed Placement 32 cm tunneled dura flow central venous catheter using ultrasound and under fluoroscopy Surgeon Sandeep Colon MD Client Relations Representative Zahra Mattson [employer] Anesthesia General and Local Indications Patient presented with nausea vomiting and dizziness. She is found to have severe uremia and creatinine of 11 are higher. I was asked to place a tunneled central venous catheter for dialysis by her sponge press operator. Findings Catheter tip in the distal SVC, right atrial junction Description of Procedure The patient was taken to the operating room and induced into general endotracheal anesthesia as she was very nauseated and had some emesis in the preop area. The right subclavian and right neck areas were prepped and draped. Ultrasound was used and the right internal jugular vein was identified. Local was infiltrated over the vein. Using a single puncture, the needle was introduced into the right internal jugular vein under visualization with ultrasound. Venous return was noted. A guidewire was passed into the internal jugular vein without difficulty. C-arm fluoroscopy was then used and the guidewire was in the inferior vena cava beyond the heart. I then measured the length of the dura flow catheter and its general position on the right upper chest and neck. Counter incisions were marked on the skin. Local anesthetic was then introduced at each counter incision as well as the exit site of the guidewire. Incisions were made at each site including the exit site of the guidewire. A 32 cm dura flow catheter was then tunneled retrograde such that it exited out the same opening as the guidewire. Using fluoroscopic guidance, serial dilators were passed over the guidewire and eventually the large dilator with the sheath was passed into the superior vena cava under fluoroscopic visualization. The guidewire and dilator were removed. The end of the dura flow catheter was passed through the sheath and into the superior vena cava. The sheath was then removed. Using fluoroscopy, I adjusted the position of the dura flow catheter so that the tip was in the distal SVC right atrial junction. I checked both ports on the dura flow catheter. Both ports aspirated blood and flushed easily with heparin. A final flush was then performed on each of the lumens. Each lumen was capped. I checked again the fluoroscopic position of the catheter and it looked quite good. The counter incisions were closed with subcuticular 4-0 Vicryl skin suture. The exit site of the catheter was closed with subcuticular 4-0 Vicryl suture. The hub of the dura flow catheter was sutured to the skin with 3-0 nylon. Sterile dressing was placed. The counter incisions were dressed with Exofin surgical adhesive. Patient was awakened and extubated. She was transferred to recovery in good condition. Sponge needle counts were correct x2. Estimated Blood Loss -5 Urine Output 200 Drains No Packing No Pathology None sent Complications None Condition Stable Disposition PACU [facility] Billing Surgery - Charge Forward: Surgery Billing (Placement right internal jugular tunneled central venous catheter using ultrasound and under fluoroscopy)
[2024-10-03] MEDS: SODIUM CHLORIDE 0.9% IV 500 ML 30 ML IV CONT (11:57)
[2024-10-03 12:19] LABS: ANCA Screen NEGATIVE (NEGATIVE)
--- NOTE | 2024-10-03 13:15 | P.PNNP_ITS ---
Progress Note: A&P Assessment and Plan (1) STEVE (acute kidney injury): Code(s): N17.9 - Acute kidney failure, unspecified Status: Acute Assessment and Plan: * no real improvement since admission * labs reviewed: * on admission to [facility] earlier this month, creatinine 5.53mg/dl * with IVF hydration and treatment of UTI, creatinine 4.37mg/dl on discharge * HOWEVER, on 06/19/24, creatinine was 1.47mg/dl (see #2) * etiology not clear... * evaluation to date noted: * renal ultrasound c/w CKD * urine electrolytes non-prerenal * urine eosinophil negative * nephrotic range proteinuria * CPK low * serological testing pending * continue low dose IVFs since she is not eating/drinking * plan initiation of PROGRAM ARCHITECT/dialysis today * HD today * plan HD tomorrow * consider renal biopsy?? * patient and family agreeable if needed * follow repeat labs and UOP (2) Stage 3b chronic kidney disease: Code(s): N18.32 - Chronic kidney disease, stage 3b Status: Chronic Assessment and Plan: * creatinine in 06/19/24 was 1.47mg/dl (presumed baseline) * underlying CKD likely due to hypertension, possible vascular disease, and age- related change (3) Nausea & vomiting: Code(s): R11.2 - Nausea with vomiting, unspecified Status: Acute Assessment and Plan: * similar issues/symptoms on presentation to [facility] earlier Sep 2024 * did these symptoms cause STEVE or are they a consequence of renal dysfunction (i.e. early uremic symptoms)?? * I am worried that it is the latter.... * IV anti-emetics PRN (4) Hypertension: Code(s): I10 - Essential (primary) hypertension Status: Chronic Assessment and Plan: * poor control at baseline * better at this time * would avoid over control for fear it may worsen renal function * no evidence of renal artery stenosis on renal duplex * follow trend of hemodynamics (5) Anemia: Code(s): D64.9 - Anemia, unspecified Status: Acute Assessment and Plan: * presumably related to STEVE and CKD * Epogen with HD * possible GI loss - Gastroenterology consulted * follow trend of H/H Will continue to follow. L Subjective Date/time seen: 10/03/24 13:15 Interval history: Follow-up for acute kidney injury/acute renal failure on chronic kidney disease. S/P tunneled HD catheter placement earlier this morning and tolerated that procedure as well as her first dialysis treatment at the time of my visit (see on HD at 1:05PM); no acute distress voiced when seen, reportedly had a large BM before HD catheter placement with large blood clots; remains hemodynamically stable; still having issues with persistent nausea. Exam 2 Narrative: General: elderly but WD/WN female in NAD Heart: normal S1 and S2; no rub Lungs: clear to auscultation Abdomen: soft, nontender, nondistended, positive bowel sounds Extremities: no cyanosis or clubbing; no edema Skin: no rash Objective Data Vital Signs Vital Signs: Vital Signs Temp Pulse Resp BP Pulse Ox O2 Del Method O2 Flow Rate 10/03/24 13:15 75 153/92 H 10/03/24 13:00 75 173/95 H 10/03/24 12:48 77 181/93 H 10/03/24 12:41 98.9 F 79 18 151/97 H 96 10/03/24 12:36 83 18 180/102 H 96 Room Air 10/03/24 12:25 76 16 176/109 H 94 Room Air 10/03/24 12:10 81 20 186/105 H 97 Room Air 10/03/24 12:05 Room Air 10/03/24 11:57 97.0 F L 81 14 181/94 H 99 Simple Face Mask 6 10/03/24 09:20 97.7 F 72 16 184/86 H 98 Room Air 10/03/24 08:36 65 10/03/24 03:52 98.2 F 62 20 189/83 H 99 10/02/24 20:12 97.7 F 71 18 189/80 H 97 10/02/24 20:00 71 18 97 Room Air Intake/Output Intake/Output: Intake & Output 09/30/24 10/01/24 10/02/24 10/03/24 23:59 23:59 23:59 23:59 Intake Total 1386.2 1706.3 2527 1216.3 Output Total 200 350 100 200 Balance 1186.2 1356.3 2427 1016.3 Meds/Results Medications: Active Medications Generic Name Dose Route Start Last Admin Trade Name Freq PRN Reason Stop Dose Admin Acetaminophen 650 mg 10/03/24 12:37 Acetaminophen 325 Mg Tablet PO Q4H PRN Mild Pain (1-3) or Fever Amlodipine Besylate 10 mg 10/03/24 09:00 10/03/24 08:38 Amlodipine Besylate 10 Mg Tablet PO 10 mg DAILY HUAN Administration Calcitriol 0.25 mcg 09/30/24 09:00 10/03/24 08:31 Calcitriol 0.25 Mcg Capsule PO Not Given DAILY HUAN Epoetin Brice-epbx 10,000 units 10/03/24 20:28 10/03/24 13:36 Epoetin Brice-Epbx 10,000 Units/Ml Vial IV PUSH 10/03/24 20:29 10,000 units ONCE ONE Administration Hydralazine HCl 25 mg 10/02/24 17:00 10/03/24 16:52 Hydralazine Hcl 25 Mg Tablet PO 25 mg TID HUAN Administration Sodium Chloride 1,000 mls @ 75 mls/hr 09/30/24 21:50 10/03/24 04:51 Normal Saline Iv IV CONT 75 mls/hr .[id number] HUAN Administration Albumin Human 50 mls @ 999 mls/hr 10/03/24 10:27 Albutein IVPB 11/02/24 10:26 Q10M PRN HYPOTENSION Metoprolol Succinate 100 mg 09/30/24 09:00 10/03/24 08:36 Metoprolol Succinate Ext Rel 100 Mg Tabcr PO 100 mg DAILY HUAN Administration Mirtazapine 7.5 mg 09/29/24 21:00 10/02/24 20:15 Mirtazapine 7.5 Mg Tablet PO 7.5 mg HS HUAN Administration Ondansetron HCl 4 mg 09/29/24 11:32 10/03/24 05:58 Ondansetron Inj 4 Mg/2 Ml Vial IV PUSH 4 mg Q4H PRN Administration Nausea Pantoprazole Sodium 40 mg 10/03/24 09:30 10/03/24 11:17 Pantoprazole Sodium Iv 40 Mg Vial IV PUSH Not Given QAM HUAN Prochlorperazine Edisylate 10 mg 10/01/24 15:11 10/01/24 15:51 Prochlorperazine Edisylate 10 Mg/2 Ml Vial IV PUSH 10 mg Q6H PRN Administration Nausea And Vomiting Sertraline HCl 100 mg 09/30/24 09:00 10/03/24 08:37 Sertraline Hcl 50 Mg Tablet PO 100 mg DAILY HUAN Administration Radiology Results: ITS Impressions Arterial/Peripheral Duplex 09/29/24 14:58 IMPRESSION: 1. Bilateral increased renal cortical atelectasis be consistent with medical renal disease. No hydronephrosis. 2. No Doppler evidence of renal artery stenosis. 3. Fusiform abdominal aortic aneurysm measuring up to 3.6 cm maximal diameter. Renal Ultrasound 09/29/24 14:58 IMPRESSION: 1. Bilateral increased renal cortical atelectasis be consistent with medical renal disease. No hydronephrosis. 2. No Doppler evidence of renal artery stenosis. 3. Fusiform abdominal aortic aneurysm measuring up to 3.6 cm maximal diameter. Central Venous Line 10/03/24 11:54 IMPRESSION: 1. Central line tip at the superior cavoatrial junction. Chest X-Ray 10/03/24 12:20 IMPRESSION: 1. No acute cardiopulmonary disease. 2. Right internal jugular central venous catheter tip at the superior cavoatrial junction. Labs Labs: Laboratory Tests 10/03/24 04:59 10/03/24 04:59 Calcium 8.8 Phosphorus 10.2 H Albumin 3.6
[2024-10-03] MEDS: EPOETIN ALFA-EPBX 10,000 UNITS/ML VIAL 10000 UNITS IV PUSH (13:36)
[2024-10-03] MEDS: SODIUM CHLORIDE 0.9% IV 1,000 ML 999 ML IV CONT (13:37)
--- NOTE | 2024-10-03 13:45 | PCPTNOTE ---
Attempted to see patient for PT, however patient was out of the room.
--- NOTE | 2024-10-03 16:51 | PC.NURSE ---
pt returned back to the floor from dialysis at 1400.
--- NOTE | 2024-10-03 17:10 | WPDGICN ---
Assessment and Plan Assessment and plan (1) Hematochezia: Code(s): K92.1 - Melena Status: Acute Assessment and Plan: report of blood in stools hemodynamically stable anemia probably also from kidney failure given comorbidities, advanced age I recommend only monitoring and conservative treatment, of course of overt gib with acute drop h/h then will reconsider (2) Acute kidney injury superimposed on chronic kidney disease: Code(s): N17.9 - Acute kidney failure, unspecified; N18.9 - Chronic kidney disease, unspecified Status: Acute Assessment and Plan: will start dialysis (3) Azotemia: Code(s): R79.89 - Other specified abnormal findings of blood chemistry Status: Acute (4) Uncontrolled hypertension: Code(s): I10 - Essential (primary) hypertension Status: Acute (5) Acute on chronic anemia: Code(s): D64.9 - Anemia, unspecified Status: Acute (6) Confusion: Code(s): R41.0 - Disorientation, unspecified Status: Acute GI Consult Note Consult date/time: 10/03/24 17:10 Reason for consult: hematochezia HPI: Patria Martin is a 89 year old female with history of hypertension, chronic kidney disease, and depression who presented to the emergency department via EMS from home with complaints of nausea, vomiting, dizziness about 4 days ago. She is confused and thinks that right now is at her house and could not tell me why she is here, most of history obtained from records. She had recent hospitalization at [facility] earlier this month with dehydration due to nausea, vomiting, and diarrhea. Creatinine at the time of admission was 5.53. Here with worsening creatinine, uremia and finally surgery placed HD catheter, also noted blood in stools and that is recent for consult. I do not know if she ever had scopes. She is hemodynamically stable, hgb 8 from 10 on admission. She is comfortable now. Review of Systems Review of Systems: ROS unobtainable: Yes unobtainable due to mental status PMFSH Past Medical History Medical History (Updated 10/03/24 @ 17:14 by Esdras Lobo MD) Confusion Acute on chronic anemia Chronic kidney disease, stage 5 According to records from outside facility, patient states she knows nothing about this. Depression Hypertension Surgical History Surgical History History of tonsillectomy History of cataract extraction Social History Social History Social History: Surrogate medical decision maker: Marisol Negrete, sibling. Code status: Full code. Smoking status: Never smoker Alcohol intake: never Substance use: never Do You Feel Safe in your Home?: Yes Lack of Transportation: No Lack of Food: Never True Current Housing: I Have Housing Concerned About Future Housing: No Difficulty Paying Gas/Electric Bills: No Difficulty Paying for Meds: No Currently Unemployed: No Education: Associate Degree Difficulty w/ Childcare or Family Care: No Spiritual care concerns: No Meds Home Medications and Allergies Home Medications ?Medication ?Instructions ?Recorded ?Confirmed ?Type amlodipine 5 mg tablet 5 mg PO DAILY Blood pressure 09/29/24 10/03/24 History calcitriol 0.25 mcg capsule 0.25 mcg PO DAILY 09/29/24 10/03/24 History cefuroxime axetil 250 mg tablet 250 mg PO Q12H 09/29/24 09/29/24 History metoprolol succinate 100 mg 100 mg PO DAILY 09/29/24 10/03/24 History tablet,extended release 24 hr mirtazapine 7.5 mg tablet 7.5 mg PO HS 09/29/24 10/03/24 History ondansetron HCl 4 mg tablet 4 mg PO PRN 09/29/24 09/29/24 History sertraline 100 mg tablet 100 mg PO DAILY 09/29/24 10/03/24 History Allergies Allergy/AdvReac Type Severity Reaction Status Date / Time [id number] Reductase Allergy Unknown CRAMPING Verified 10/03/24 09:59 Inhibitor (Nxqfcty-Shq-Wan LEG Reductase Inhibitor) NSID AdvReac Mild unknown Uncoded 10/03/24 09:59 Vital Signs Vital Signs - 24 hr 10/02/24 20:00 10/02/24 20:12 10/03/24 03:52 Temperature 97.7 F 98.2 F Pulse Rate 71 71 62 Respiratory Rate 18 18 20 Blood Pressure 189/80 H 189/83 H Pulse Oximetry 97 97 99 Oxygen Delivery Room Air Oxygen Flow Rate 10/03/24 08:36 10/03/24 09:20 10/03/24 11:57 Temperature 97.7 F 97.0 F L Pulse Rate 65 72 81 Respiratory Rate 16 14 Blood Pressure 184/86 H 181/94 H Pulse Oximetry 98 99 Oxygen Delivery Room Air Simple Face Mask Oxygen Flow Rate 6 10/03/24 12:05 10/03/24 12:10 10/03/24 12:25 Temperature Pulse Rate 81 76 Respiratory Rate 20 16 Blood Pressure 186/105 H 176/109 H Pulse Oximetry 97 94 Oxygen Delivery Room Air Room Air Room Air Oxygen Flow Rate 10/03/24 12:36 10/03/24 12:41 10/03/24 12:48 Temperature 98.9 F Pulse Rate 83 79 77 Respiratory Rate 18 18 Blood Pressure 180/102 H 151/97 H 181/93 H Pulse Oximetry 96 96 Oxygen Delivery Room Air Oxygen Flow Rate 10/03/24 13:00 10/03/24 13:15 10/03/24 13:30 Temperature Pulse Rate 75 75 77 Respiratory Rate Blood Pressure 173/95 H 153/92 H 143/92 H Pulse Oximetry Oxygen Delivery Oxygen Flow Rate 10/03/24 13:45 10/03/24 14:00 10/03/24 14:15 Temperature Pulse Rate 75 72 75 Respiratory Rate Blood Pressure 152/88 H 156/88 H 156/98 H Pulse Oximetry Oxygen Delivery Oxygen Flow Rate 10/03/24 14:30 10/03/24 14:45 10/03/24 15:00 Temperature Pulse Rate 77 76 72 Respiratory Rate Blood Pressure 149/82 H 147/86 H 151/89 H Pulse Oximetry Oxygen Delivery Oxygen Flow Rate 10/03/24 15:19 10/03/24 15:30 10/03/24 16:52 Temperature 97.4 F L Pulse Rate 73 71 Respiratory Rate 16 Blood Pressure 149/90 H 132/81 153/58 H Pulse Oximetry 96 Oxygen Delivery Oxygen Flow Rate Exam Const: General: comfortable Other: plesantly confused HENMT: Face/Nose/Sinus: Normal nares present Eyes: Sclera: sclerae normal Neck: Neck: supple Resp: Effort & Inspection: normal respiratory effort Cardio: Rate: regular rate GI: GI Palp: Yes Soft to palpation and No Tenderness to palpation present (GI) Auscultation: normal bowel sounds Skin: General skin exam: no rashes or lesions noted Neuro: Speech: normal speech Other: awake and alert but confused Extrem: General: normal to inspection Psych: Affect: normal affect Results Labs 10/03/24 04:59 10/03/24 04:59 Labs: Short CBC 10/03/24 Range/Units 04:59 WBC 5.1 (4.5-10.0) K/mm3 Hgb 8.6 L (12.0-15.0) g/dL Hct 26.4 L (37.0-47.0) % Plt Count 120 L (150-375) k/mm3 BMP 10/03/24 04:59 Sodium 143 Potassium 4.1 Chloride 107 Carbon Dioxide 16 L BUN 91 H Creatinine 11.25 H Glucose 84 Calcium 8.8 Liver Function 10/01/24 10/03/24 Range/Units 05:47 04:59 Albumin 3.1 L 3.6 (3.8-4.8) g/dL
--- NOTE | 2024-10-03 19:12 | PC.NURSE ---
Pt set bed alarm off, went in room to find out that pt had pulled out dialysis catheter port. Sutures were still in skin and no bleeding. Called Dr. Colon to inform him that pt had pulled out catheter pulled catheter out and he said to take the sutures out of the skin and put a dressing over it. He said he will address it tomorrow.
[2024-10-04] MEDS: PROCHLORPERAZINE EDISYLATE 10 MG/2 ML VIAL IV PUSH (00:54)
[2024-10-04 05:06] VITALS: BP 186/76; PULSE 77; RESP 20; TEMP 36.5; O2SAT 97
[2024-10-04 05:35] LABS: Hematocrit 23.7 % (37.0-47.0); Hemoglobin 7.9 g/dL (12.0-15.0); Mean Corpuscular HGB Conc 33.3 g/dl (32-36); Mean Corpuscular Hemoglobin 31.7 pg (26-34); Mean Corpuscular Volume 95.2 fl (80-100); Mean Platelet Volume 9.6 fl (7.4-10.4); Platelet Count Result 142 k/mm3 (150-375); Red Blood Count 2.49 M/mm3 (4.2-5.4); Red Cell Distribution Width 13.2 % (11.5-14.5); White Blood Count 6.7 K/mm3 (4.5-10.0)
[2024-10-04 05:43] LABS: INR 1.1; Prothrombin Time 15.1 Seconds (11.1-14.7)
[2024-10-04 05:44] LABS: Partial Thromboplastin Time 28.9 Seconds (22.3-36.8)
[2024-10-04 06:01] LABS: Albumin Level 3.6 g/dL (3.5-5.1); Anion Gap 17 mmol/L (4-12); Blood Urea Nitrogen 50 mg/dL (7-17); CRP 2.6 mg/dL (<1.0); Calcium 8.8 mg/dL (8.4-10.2); Carbon Dioxide 21 mmol/L (22-30); Chloride 103 mmol/L (98-107); Estimated CRCL calculation 6 ml/min; Estimated Glomerular Filt Rate 6; Glucose 84 mg/dL (65-110); Phosphorus 6.3 mg/dL (2.5-4.5); Potassium 4.2 mmol/L (3.4-5.0); Sodium 141 mmol/L (137-145)
[2024-10-04 06:56] LABS: Erythrocyte Sedimentation Rate > 140 mm/hr (0-20)
[2024-10-04 07:57] VITALS: O2SAT 98
[2024-10-04 08:36] VITALS: PULSE 72
[2024-10-04] MEDS: amLODIPine BESYLATE 10 MG TABLET PO (08:36)
[2024-10-04] MEDS: hydrALAZINE HCL 25 MG TABLET PO ×3 (08:36→18:27)
[2024-10-04] MEDS: SERTRALINE HCL 50 MG TABLET 100 MG PO (08:36)
[2024-10-04] MEDS: METOPROLOL SUCCINATE EXT REL 100 MG TABCR PO (08:36)
[2024-10-04] MEDS: calcitrioL 0.25 MCG CAPSULE PO (08:36)
--- NOTE | 2024-10-04 09:12 | PM.IMPN ---
Progress Note: A&P Assessment and Plan (1) Uncontrolled hypertension: Code(s): I10 - Essential (primary) hypertension Status: Acute Assessment and Plan: Blood pressure 229/94 on admission, given her morning antihypertensives of amlodipine 5 mg and metoprolol succinate 100 mg as she had not taken it - Continue metoprolol 100 mg daily and amlodipine increased to 10 mg daily - Avoid a precipitous drop in blood pressure due to the fact that they most likely run in the 180s to 190 systolic if not higher. - Nephrology consulted, hypertension likely secondary to poorly controlled CKD 10/02- will increase amlodipine to 10 mg and increase hydralazine frequency to tid instead of bid for better BP control 10/03 somewhat better-monitor 10/04- reviewed -still elevated. Procardia was added per nephrology (2) Acute kidney injury superimposed on chronic kidney disease: Code(s): N17.9 - Acute kidney failure, unspecified; N18.9 - Chronic kidney disease, unspecified Status: Acute Assessment and Plan: Per chart review, patient was recently hospitalized at [facility] earlier this month with dehydration due to nausea, vomiting, and diarrhea. Creatinine at the time of admission was 5.53 and did improve right around her baseline with a discharge creatinine of 4.37. She was instructed to follow-up with her kidney specialist, Dr. iVdales. - Etiology unknown - BUN/Cr 102/11.13 on admission, now BUN/Cr 98/11.17 on am labs - Renal US and duplex: Bilateral increased renal cortical atelectasis be consistent with medical renal disease. No hydronephrosis. No renal artery stenosis.Fusiform abdominal aortic aneurysm measuring up to 3.6 cm maximal diameter. - Avoid nephrotoxic agents and renally dose all medications - Monitor I/O - Notes requested from recent stay at [facility] as well as the most recent office notes from Dr. Mcclure or Dr. Vidales - Nephrology consulted for further recommendations. daily labs 10/04- had dialysis last night nephrology on board- continue (3) Hyperkalemia: Code(s): E87.5 - Hyperkalemia Status: Acute Assessment and Plan: K 5.5 on admission, likely due to patients STEVE and dehydration. Given lokelma 10 mg x1 and started on IV fluids - Tele - Monitor 4.3 today-10/01 10/04- reviewed and stable (4) Depression: Code(s): F32.A - Depression, unspecified Status: Acute Assessment and Plan: chronic, continue home medications - sertraline 100 mg daily Time Spent With Patient Time with patient: 25 - 35 minutes Subjective Date/time seen: 10/04/24 09:12 Interval history: Gi was consulted last night for reports on large blood clots in her BM. NO acute intervention are planned. Started Protonix yesterday to help improve nausea and improve oral intake. Continue prn meds as well. Dialysis access placed yesterday and pt had dialysis. She tolerated it well. Was somewhat confused last night. Adherently last night was confused after anesthesia enough that she pulled her dialysis cath out. Dr Colon was notified. Possibly will replace it today. If so, will need mittens or very close monitoring to avoid any issues again. Pt is alert and pleasant today. Denies any pain. Area to rt neck is red and swollen- ice is recommended. Review of Systems Review of Systems: 12 systems were reviewed and are negative except for as per HPI. All systems reviewed & are unremarkable except as noted in HPI and below Exam Narrative: General: female in no acute respiratory distress who is nontoxic appearing. where RT IJ dialysis access was- area is red and swollen HEENT: Normocephalic. Atraumatic. Extraocular movement intact. Sclera clear and anicteric. No facial asymmetry. Chest: Lungs are clear to auscultation bilaterally. No wheezes or crackles. CV: Heart was regular rate and rhythm. S1-S2. No murmurs, gallops, or rubs. Abd: Abdomen was soft. Nontender. Nondistended. Positive bowel sounds. Ext: No clubbing, cyanosis, or edema. 2+ DP pulses bilaterally. Neuro: Patient is alert and oriented x3. Speech is clear. Const: General: comfortable Objective Data Vital Signs Vital Signs: Vital Signs - 24 hr 10/03/24 09:20 10/03/24 11:57 10/03/24 12:05 Temperature 97.7 F 97.0 F L Pulse Rate 72 81 Respiratory Rate 16 14 Blood Pressure 184/86 H 181/94 H Pulse Oximetry 98 99 Oxygen Delivery Room Air Simple Face Mask Room Air Oxygen Flow Rate 6 10/03/24 12:10 10/03/24 12:25 10/03/24 12:36 Temperature Pulse Rate 81 76 83 Respiratory Rate 20 16 18 Blood Pressure 186/105 H 176/109 H 180/102 H Pulse Oximetry 97 94 96 Oxygen Delivery Room Air Room Air Room Air Oxygen Flow Rate 10/03/24 12:41 10/03/24 12:48 10/03/24 13:00 Temperature 98.9 F Pulse Rate 79 77 75 Respiratory Rate 18 Blood Pressure 151/97 H 181/93 H 173/95 H Pulse Oximetry 96 Oxygen Delivery Oxygen Flow Rate 10/03/24 13:15 10/03/24 13:30 10/03/24 13:45 Temperature Pulse Rate 75 77 75 Respiratory Rate Blood Pressure 153/92 H 143/92 H 152/88 H Pulse Oximetry Oxygen Delivery Oxygen Flow Rate 10/03/24 14:00 10/03/24 14:15 10/03/24 14:30 Temperature Pulse Rate 72 75 77 Respiratory Rate Blood Pressure 156/88 H 156/98 H 149/82 H Pulse Oximetry Oxygen Delivery Oxygen Flow Rate 10/03/24 14:45 10/03/24 15:00 10/03/24 15:19 Temperature Pulse Rate 76 72 73 Respiratory Rate Blood Pressure 147/86 H 151/89 H 149/90 H Pulse Oximetry Oxygen Delivery Oxygen Flow Rate 10/03/24 15:30 10/03/24 16:52 10/03/24 20:00 Temperature 97.4 F L Pulse Rate 71 71 Respiratory Rate 16 16 Blood Pressure 132/81 153/58 H Pulse Oximetry 96 96 Oxygen Delivery Room Air Oxygen Flow Rate 10/03/24 20:02 10/04/24 05:06 10/04/24 07:57 Temperature 96.8 F L 97.7 F Pulse Rate 72 77 Respiratory Rate 20 20 Blood Pressure 186/79 H 186/76 H Pulse Oximetry 98 97 98 Oxygen Delivery Room Air Oxygen Flow Rate 10/04/24 08:36 Temperature Pulse Rate 72 Respiratory Rate Blood Pressure Pulse Oximetry Oxygen Delivery Oxygen Flow Rate Intake/Output Intake/Output: Intake & Output 10/01/24 10/02/24 10/03/24 10/04/24 23:59 23:59 23:59 23:59 Intake Total 1706.3 2527 1216.3 120 Output Total 350 100 500 Balance 1356.3 2427 716.3 120 Meds/Results Medications: Active Medications Generic Name Dose Route Start Last Admin Trade Name Jewel PRN Reason Stop Dose Admin Acetaminophen 650 mg 10/03/24 12:37 Acetaminophen 325 Mg Tablet PO Q4H PRN Mild Pain (1-3) or Fever Amlodipine Besylate 10 mg 10/03/24 09:00 10/04/24 08:36 Amlodipine Besylate 10 Mg Tablet PO 10 mg DAILY HUAN Administration Calcitriol 0.25 mcg 09/30/24 09:00 10/04/24 08:36 Calcitriol 0.25 Mcg Capsule PO 0.25 mcg DAILY HUAN Administration Hydralazine HCl 25 mg 10/02/24 17:00 10/04/24 08:36 Hydralazine Hcl 25 Mg Tablet PO 25 mg TID HUAN Administration Sodium Chloride 1,000 mls @ 75 mls/hr 09/30/24 21:50 10/03/24 04:51 Normal Saline Iv IV CONT 75 mls/hr .[id number] HUAN Administration Albumin Human 50 mls @ 999 mls/hr 10/03/24 10:27 Albutein IVPB 11/02/24 10:26 Q10M PRN HYPOTENSION Metoprolol Succinate 100 mg 09/30/24 09:00 10/04/24 08:36 Metoprolol Succinate Ext Rel 100 Mg Tabcr PO 100 mg DAILY HUAN Administration Mirtazapine 7.5 mg 09/29/24 21:00 10/03/24 21:15 Mirtazapine 7.5 Mg Tablet PO Not Given HS HUAN Ondansetron HCl 4 mg 09/29/24 11:32 10/03/24 05:58 Ondansetron Inj 4 Mg/2 Ml Vial IV PUSH 4 mg Q4H PRN Administration Nausea Pantoprazole Sodium 40 mg 10/03/24 09:30 10/03/24 11:17 Pantoprazole Sodium Iv 40 Mg Vial IV PUSH Not Given QAM HUAN Prochlorperazine Edisylate 10 mg 10/01/24 15:11 10/04/24 00:54 Prochlorperazine Edisylate 10 Mg/2 Ml Vial IV PUSH 10 mg Q6H PRN Administration Nausea And Vomiting Sertraline HCl 100 mg 09/30/24 09:00 10/04/24 08:36 Sertraline Hcl 50 Mg Tablet PO 100 mg DAILY HUAN Administration Radiology Results: ITS Impressions Arterial/Peripheral Duplex 09/29/24 14:58 IMPRESSION: 1. Bilateral increased renal cortical atelectasis be consistent with medical renal disease. No hydronephrosis. 2. No Doppler evidence of renal artery stenosis. 3. Fusiform abdominal aortic aneurysm measuring up to 3.6 cm maximal diameter. Renal Ultrasound 09/29/24 14:58 IMPRESSION: 1. Bilateral increased renal cortical atelectasis be consistent with medical renal disease. No hydronephrosis. 2. No Doppler evidence of renal artery stenosis. 3. Fusiform abdominal aortic aneurysm measuring up to 3.6 cm maximal diameter. Central Venous Line 10/03/24 11:54 IMPRESSION: 1. Central line tip at the superior cavoatrial junction. Chest X-Ray 10/03/24 12:20 IMPRESSION: 1. No acute cardiopulmonary disease. 2. Right internal jugular central venous catheter tip at the superior cavoatrial junction. Labs Labs: Laboratory Results - last 24 hr 09/29/24 10/01/24 10/04/24 13:58 07:48 05:21 WBC 6.7 RBC 2.49 L Hgb 7.9 L Hct 23.7 L MCV 95.2 MCH 31.7 MCHC 33.3 RDW 13.2 Plt Count 142 L MPV 9.6 ESR > 140 H PT 15.1 H INR 1.1 APTT 28.9 Sodium 141 Potassium 4.2 Chloride 103 Carbon Dioxide 21 L Anion Gap 17 H BUN 50 H D Creatinine 7.03 H Estim Creat Clear Calc 6 Estimated GFR 6 L Glucose 84 Calcium 8.8 Phosphorus 6.3 H C-Reactive Protein 2.6 H Albumin 3.6 Ur Random Creatinine 41 U Random Total Protein 185 H Protein/Creatinin Ratio 4512 H ANCA Screen Negative Quality VTE Prophylaxis VTE prophylaxis: mechanical ordered and pharmacologic ordered
--- NOTE | 2024-10-04 09:42 | WPDGIPROGNO ---
Progress Note: A&P Assessment and Plan (1) Blood in stool: Code(s): K92.1 - Melena Status: Acute Assessment and Plan: no report of more GIB per RN she has anemia but relatively stable, could be multifactorial, also from advanced renal failure no need of urgent endoscopic evaluation, she also is high risk will follow as needed (2) Nausea & vomiting: Code(s): R11.2 - Nausea with vomiting, unspecified Status: Acute Assessment and Plan: could be from uremia monitor (3) Acute kidney injury superimposed on chronic kidney disease: Code(s): N17.9 - Acute kidney failure, unspecified; N18.9 - Chronic kidney disease, unspecified Status: Acute Assessment and Plan: by nephrology she pulled out HD catheter (4) Azotemia: Code(s): R79.89 - Other specified abnormal findings of blood chemistry Status: Acute (5) Uncontrolled hypertension: Code(s): I10 - Essential (primary) hypertension Status: Acute (6) Acute on chronic anemia: Code(s): D64.9 - Anemia, unspecified Status: Acute Subjective Date/time seen: 10/04/24 09:42 Interval history: patient pulled out dialysis catheter, she was confused last night no report of more GIB Review of Systems Review of Systems: All systems reviewed & are unremarkable except as noted in HPI and below Exam Const: General: comfortable Other: plesantly confused HENMT: Face/Nose/Sinus: Normal nares present Eyes: Sclera: sclerae normal Neck: Neck: supple Resp: Effort & Inspection: normal respiratory effort Cardio: Rate: regular rate GI: GI Palp: Yes Soft to palpation and No Tenderness to palpation present (GI) Auscultation: normal bowel sounds Skin: General skin exam: no rashes or lesions noted Neuro: Speech: normal speech Other: awake and alert but confused Extrem: General: normal to inspection Psych: Affect: normal affect Objective Data Vital Signs Vital Signs: Vital Signs - 24 hr 10/03/24 11:57 10/03/24 12:05 10/03/24 12:10 Temperature 97.0 F L Pulse Rate 81 81 Respiratory Rate 14 20 Blood Pressure 181/94 H 186/105 H Pulse Oximetry 99 97 Oxygen Delivery Simple Face Mask Room Air Room Air Oxygen Flow Rate 6 10/03/24 12:25 10/03/24 12:36 10/03/24 12:41 Temperature 98.9 F Pulse Rate 76 83 79 Respiratory Rate 16 18 18 Blood Pressure 176/109 H 180/102 H 151/97 H Pulse Oximetry 94 96 96 Oxygen Delivery Room Air Room Air Oxygen Flow Rate 10/03/24 12:48 10/03/24 13:00 10/03/24 13:15 Temperature Pulse Rate 77 75 75 Respiratory Rate Blood Pressure 181/93 H 173/95 H 153/92 H Pulse Oximetry Oxygen Delivery Oxygen Flow Rate 10/03/24 13:30 10/03/24 13:45 10/03/24 14:00 Temperature Pulse Rate 77 75 72 Respiratory Rate Blood Pressure 143/92 H 152/88 H 156/88 H Pulse Oximetry Oxygen Delivery Oxygen Flow Rate 10/03/24 14:15 10/03/24 14:30 10/03/24 14:45 Temperature Pulse Rate 75 77 76 Respiratory Rate Blood Pressure 156/98 H 149/82 H 147/86 H Pulse Oximetry Oxygen Delivery Oxygen Flow Rate 10/03/24 15:00 10/03/24 15:19 10/03/24 15:30 Temperature 97.4 F L Pulse Rate 72 73 71 Respiratory Rate 16 Blood Pressure 151/89 H 149/90 H 132/81 Pulse Oximetry 96 Oxygen Delivery Oxygen Flow Rate 10/03/24 16:52 10/03/24 20:00 10/03/24 20:02 Temperature 96.8 F L Pulse Rate 71 72 Respiratory Rate 16 20 Blood Pressure 153/58 H 186/79 H Pulse Oximetry 96 98 Oxygen Delivery Room Air Oxygen Flow Rate 10/04/24 05:06 10/04/24 07:57 10/04/24 08:36 Temperature 97.7 F Pulse Rate 77 72 Respiratory Rate 20 Blood Pressure 186/76 H Pulse Oximetry 97 98 Oxygen Delivery Room Air Oxygen Flow Rate Intake/Output Intake/Output: Intake & Output 10/01/24 10/02/24 10/03/24 10/04/24 23:59 23:59 23:59 23:59 Intake Total 1706.3 2527 1216.3 120 Output Total 350 100 500 Balance 1356.3 2427 716.3 120 Meds/Results Medications: Active Medications Generic Name Dose Route Start Last Admin Trade Name Freq PRN Reason Stop Dose Admin Acetaminophen 650 mg 10/03/24 12:37 Acetaminophen 325 Mg Tablet PO Q4H PRN Mild Pain (1-3) or Fever Amlodipine Besylate 10 mg 10/03/24 09:00 10/04/24 08:36 Amlodipine Besylate 10 Mg Tablet PO 10 mg DAILY HUAN Administration Calcitriol 0.25 mcg 09/30/24 09:00 10/04/24 08:36 Calcitriol 0.25 Mcg Capsule PO 0.25 mcg DAILY HUAN Administration Hydralazine HCl 25 mg 10/02/24 17:00 10/04/24 08:36 Hydralazine Hcl 25 Mg Tablet PO 25 mg TID HUAN Administration Sodium Chloride 1,000 mls @ 75 mls/hr 09/30/24 21:50 10/03/24 04:51 Normal Saline Iv IV CONT 75 mls/hr .[id number] HUAN Administration Albumin Human 50 mls @ 999 mls/hr 10/03/24 10:27 Albutein IVPB 11/02/24 10:26 Q10M PRN HYPOTENSION Metoprolol Succinate 100 mg 09/30/24 09:00 10/04/24 08:36 Metoprolol Succinate Ext Rel 100 Mg Tabcr PO 100 mg DAILY HUAN Administration Mirtazapine 7.5 mg 09/29/24 21:00 10/03/24 21:15 Mirtazapine 7.5 Mg Tablet PO Not Given HS HUAN Ondansetron HCl 4 mg 09/29/24 11:32 10/03/24 05:58 Ondansetron Inj 4 Mg/2 Ml Vial IV PUSH 4 mg Q4H PRN Administration Nausea Pantoprazole Sodium 40 mg 10/03/24 09:30 10/03/24 11:17 Pantoprazole Sodium Iv 40 Mg Vial IV PUSH Not Given QAM HUAN Prochlorperazine Edisylate 10 mg 10/01/24 15:11 10/04/24 00:54 Prochlorperazine Edisylate 10 Mg/2 Ml Vial IV PUSH 10 mg Q6H PRN Administration Nausea And Vomiting Sertraline HCl 100 mg 09/30/24 09:00 10/04/24 08:36 Sertraline Hcl 50 Mg Tablet PO 100 mg DAILY HUAN Administration Radiology Results: ITS Impressions Arterial/Peripheral Duplex 09/29/24 14:58 IMPRESSION: 1. Bilateral increased renal cortical atelectasis be consistent with medical renal disease. No hydronephrosis. 2. No Doppler evidence of renal artery stenosis. 3. Fusiform abdominal aortic aneurysm measuring up to 3.6 cm maximal diameter. Renal Ultrasound 09/29/24 14:58 IMPRESSION: 1. Bilateral increased renal cortical atelectasis be consistent with medical renal disease. No hydronephrosis. 2. No Doppler evidence of renal artery stenosis. 3. Fusiform abdominal aortic aneurysm measuring up to 3.6 cm maximal diameter. Central Venous Line 10/03/24 11:54 IMPRESSION: 1. Central line tip at the superior cavoatrial junction. Chest X-Ray 10/03/24 12:20 IMPRESSION: 1. No acute cardiopulmonary disease. 2. Right internal jugular central venous catheter tip at the superior cavoatrial junction. Labs Labs: Laboratory Results - last 24 hr 09/29/24 10/04/24 13:58 05:21 WBC 6.7 RBC 2.49 L Hgb 7.9 L Hct 23.7 L MCV 95.2 MCH 31.7 MCHC 33.3 RDW 13.2 Plt Count 142 L MPV 9.6 ESR > 140 H PT 15.1 H INR 1.1 APTT 28.9 Sodium 141 Potassium 4.2 Chloride 103 Carbon Dioxide 21 L Anion Gap 17 H BUN 50 H D Creatinine 7.03 H Estim Creat Clear Calc 6 Estimated GFR 6 L Glucose 84 Calcium 8.8 Phosphorus 6.3 H C-Reactive Protein 2.6 H Albumin 3.6 ANCA Screen Negative
[2024-10-04] MEDS: PANTOPRAZOLE SODIUM IV 40 MG VIAL IV PUSH (10:33)
--- NOTE | 2024-10-04 10:46 | P.PNNP_ITS ---
Progress Note: A&P Assessment and Plan (1) STEVE (acute kidney injury): Code(s): N17.9 - Acute kidney failure, unspecified Status: Acute Assessment and Plan: * no real improvement since admission * labs reviewed: * on admission to [facility] earlier this month, creatinine 5.53mg/dl * with IVF hydration and treatment of UTI, creatinine 4.37mg/dl on discharge * HOWEVER, on 06/19/24, creatinine was 1.47mg/dl (see #2) * etiology unclear * evaluation to date noted: * renal ultrasound c/w CKD * urine electrolytes non-prerenal * urine eosinophil negative * nephrotic range proteinuria * CPK low * serological testing pending * received hemodialysis yesterday but catheter is out now. * Surgery has been informed. Dialysis nurse knows to do it today if the catheter is replaced in time. If not we can do her on Sunday. Potassium is okay and volume status looks okay. * Dr Burris considering renal biopsy * patient and family agreeable if needed * Check some labs tomorrow (2) Stage 3b chronic kidney disease: Code(s): N18.32 - Chronic kidney disease, stage 3b Status: Chronic Assessment and Plan: * creatinine in 06/19/24 was 1.47mg/dl (presumed baseline) * underlying CKD likely due to hypertension, possible vascular disease, and age- related change (3) Nausea & vomiting: Code(s): R11.2 - Nausea with vomiting, unspecified Status: Acute Assessment and Plan: * similar issues/symptoms on presentation to [facility] earlier Sep 2024 * did these symptoms cause STEVE or are they a consequence of renal dysfunction (i.e. early uremic symptoms)?? * I am worried that it is the latter.... * still nauseated today (4) Hypertension: Code(s): I10 - Essential (primary) hypertension Status: Chronic Assessment and Plan: * blood pressure widely variable ranging from 130-190. * Blood pressure was better yesterday but is back up today. * No swelling chest XR looks okay * currently the patient is on amlodipine, hydralazine, and metoprolol. * Heart rate running in the 70s. * Will change amlodipine to nifedipine. (5) Anemia: Code(s): D64.9 - Anemia, unspecified Status: Acute Assessment and Plan: * presumably related to STEVE and CKD * Epogen with HD * possible GI loss - Gastroenterology Consultation noted. * Hemoglobin down a little bit to 7.9. will give EPO subQ once blood pressure comes down. Subjective Date/time seen: 10/04/24 10:46 Interval history: Patria feels about the same today. Unfortunately overnight she pulled out her dialysis catheter in her sleep inadvertently. surgery has been informed. Exam Narrative: General: elderly but WD/WN female in NAD Heart: normal S1 and S2; no rub or gallop Lungs: clear to auscultation Abdomen: soft, nontender, nondistended, positive bowel sounds Extremities: no cyanosis or clubbing; no edema Skin: no rash or subcu nodule Objective Data Vital Signs Vital Signs: Vital Signs - 24 hr 10/03/24 11:57 10/03/24 12:05 10/03/24 12:10 Temperature 97.0 F L Pulse Rate 81 81 Respiratory Rate 14 20 Blood Pressure 181/94 H 186/105 H Pulse Oximetry 99 97 Oxygen Delivery Simple Face Mask Room Air Room Air Oxygen Flow Rate 6 10/03/24 12:25 10/03/24 12:36 10/03/24 12:41 Temperature 98.9 F Pulse Rate 76 83 79 Respiratory Rate 16 18 18 Blood Pressure 176/109 H 180/102 H 151/97 H Pulse Oximetry 94 96 96 Oxygen Delivery Room Air Room Air Oxygen Flow Rate 10/03/24 12:48 10/03/24 13:00 10/03/24 13:15 Temperature Pulse Rate 77 75 75 Respiratory Rate Blood Pressure 181/93 H 173/95 H 153/92 H Pulse Oximetry Oxygen Delivery Oxygen Flow Rate 10/03/24 13:30 10/03/24 13:45 10/03/24 14:00 Temperature Pulse Rate 77 75 72 Respiratory Rate Blood Pressure 143/92 H 152/88 H 156/88 H Pulse Oximetry Oxygen Delivery Oxygen Flow Rate 10/03/24 14:15 10/03/24 14:30 10/03/24 14:45 Temperature Pulse Rate 75 77 76 Respiratory Rate Blood Pressure 156/98 H 149/82 H 147/86 H Pulse Oximetry Oxygen Delivery Oxygen Flow Rate 10/03/24 15:00 10/03/24 15:19 10/03/24 15:30 Temperature 97.4 F L Pulse Rate 72 73 71 Respiratory Rate 16 Blood Pressure 151/89 H 149/90 H 132/81 Pulse Oximetry 96 Oxygen Delivery Oxygen Flow Rate 10/03/24 16:52 10/03/24 20:00 10/03/24 20:02 Temperature 96.8 F L Pulse Rate 71 72 Respiratory Rate 16 20 Blood Pressure 153/58 H 186/79 H Pulse Oximetry 96 98 Oxygen Delivery Room Air Oxygen Flow Rate 10/04/24 05:06 10/04/24 07:57 10/04/24 08:36 Temperature 97.7 F Pulse Rate 77 72 Respiratory Rate 20 Blood Pressure 186/76 H Pulse Oximetry 97 98 Oxygen Delivery Room Air Oxygen Flow Rate Intake/Output Intake/Output: Intake & Output 10/01/24 10/02/24 10/03/24 10/04/24 23:59 23:59 23:59 23:59 Intake Total 1706.3 2527 1216.3 120 Output Total 350 100 500 Balance 1356.3 2427 716.3 120 Meds/Results Medications: Active Medications Generic Name Dose Route Start Last Admin Trade Name Freq PRN Reason Stop Dose Admin Acetaminophen 650 mg 10/03/24 12:37 Acetaminophen 325 Mg Tablet PO Q4H PRN Mild Pain (1-3) or Fever Amlodipine Besylate 10 mg 10/03/24 09:00 10/04/24 08:36 Amlodipine Besylate 10 Mg Tablet PO 10 mg DAILY HUAN Administration Calcitriol 0.25 mcg 09/30/24 09:00 10/04/24 08:36 Calcitriol 0.25 Mcg Capsule PO 0.25 mcg DAILY HUAN Administration Hydralazine HCl 25 mg 10/02/24 17:00 10/04/24 08:36 Hydralazine Hcl 25 Mg Tablet PO 25 mg TID HUAN Administration Sodium Chloride 1,000 mls @ 75 mls/hr 09/30/24 21:50 10/03/24 04:51 Normal Saline Iv IV CONT 75 mls/hr .[id number] HUAN Administration Albumin Human 50 mls @ 999 mls/hr 10/03/24 10:27 Albutein IVPB 11/02/24 10:26 Q10M PRN HYPOTENSION Metoprolol Succinate 100 mg 09/30/24 09:00 10/04/24 08:36 Metoprolol Succinate Ext Rel 100 Mg Tabcr PO 100 mg DAILY HUAN Administration Mirtazapine 7.5 mg 09/29/24 21:00 10/03/24 21:15 Mirtazapine 7.5 Mg Tablet PO Not Given HS HUAN Ondansetron HCl 4 mg 09/29/24 11:32 10/03/24 05:58 Ondansetron Inj 4 Mg/2 Ml Vial IV PUSH 4 mg Q4H PRN Administration Nausea Pantoprazole Sodium 40 mg 10/03/24 09:30 10/04/24 10:33 Pantoprazole Sodium Iv 40 Mg Vial IV PUSH 40 mg QAM HUAN Administration Prochlorperazine Edisylate 10 mg 10/01/24 15:11 10/04/24 00:54 Prochlorperazine Edisylate 10 Mg/2 Ml Vial IV PUSH 10 mg Q6H PRN Administration Nausea And Vomiting Sertraline HCl 100 mg 09/30/24 09:00 10/04/24 08:36 Sertraline Hcl 50 Mg Tablet PO 100 mg DAILY HUAN Administration Radiology Results: ITS Impressions Arterial/Peripheral Duplex 09/29/24 14:58 IMPRESSION: 1. Bilateral increased renal cortical atelectasis be consistent with medical renal disease. No hydronephrosis. 2. No Doppler evidence of renal artery stenosis. 3. Fusiform abdominal aortic aneurysm measuring up to 3.6 cm maximal diameter. Renal Ultrasound 09/29/24 14:58 IMPRESSION: 1. Bilateral increased renal cortical atelectasis be consistent with medical renal disease. No hydronephrosis. 2. No Doppler evidence of renal artery stenosis. 3. Fusiform abdominal aortic aneurysm measuring up to 3.6 cm maximal diameter. Central Venous Line 10/03/24 11:54 IMPRESSION: 1. Central line tip at the superior cavoatrial junction. Chest X-Ray 10/03/24 12:20 IMPRESSION: 1. No acute cardiopulmonary disease. 2. Right internal jugular central venous catheter tip at the superior cavoatrial junction. Labs Labs: Laboratory Results - last 24 hr 09/29/24 10/04/24 13:58 05:21 WBC 6.7 RBC 2.49 L Hgb 7.9 L Hct 23.7 L MCV 95.2 MCH 31.7 MCHC 33.3 RDW 13.2 Plt Count 142 L MPV 9.6 ESR > 140 H PT 15.1 H INR 1.1 APTT 28.9 Sodium 141 Potassium 4.2 Chloride 103 Carbon Dioxide 21 L Anion Gap 17 H BUN 50 H D Creatinine 7.03 H Estim Creat Clear Calc 6 Estimated GFR 6 L Glucose 84 Calcium 8.8 Phosphorus 6.3 H C-Reactive Protein 2.6 H Albumin 3.6 ANCA Screen Negative
[2024-10-04 14:00] VITALS: BP 177/78; PULSE 74; RESP 20; TEMP 36.6; O2SAT 97
[2024-10-04] MEDS: NIFEdipine 10 MG CAPSULE 30 MG (14:32)
[2024-10-04 16:30] VITALS: BP 185/70
--- NOTE | 2024-10-04 21:16 | PC.NURSE ---
On 10/04/24, the LINING FINISHER, Nicole Cardoso, provided care and completed [facility] documentation on this patient. I have reviewed the LINING FINISHER's documentation and agree with the findings.
[2024-10-04 22:00] VITALS: BP 156/72; PULSE 79; RESP 18; TEMP 36.8; O2SAT 99
[2024-10-04] MEDS: ONDANSETRON INJ 4 MG/2 ML VIAL IV PUSH (22:14)
[2024-10-05] VITALS (22 sets, daily range): BP systolic 107–170; BP diastolic 54–99; PULSE 71–130; RESP 10–20; TEMP 36.3–36.8; O2SAT 93–98
--- NOTE | 2024-10-05 00:15 | ECG_ITS ---
Test Date: 2024-10-05 00:23:39 Measurements Intervals [place] Rate: 144 P: 0 IL: 0 QRS: -37 QRSD: 126 T: 130 QT: 327 QTc: 507 Interpretive Statements ATRIAL FIBRILLATION WITH RAPID VENTRICULAR RESPONSE LEFT AXIS DEVIATION [QRS AXIS < -30] POSSIBLE ANTERIOR MYOCARDIAL INFARCTION , OF INDETERMINATE AGE [30 ms Q WAVE IN V3/V4, OR R < 0.2 mV IN V4] ST DEPRESSION, CONSIDER SUBENDOCARDIAL INJURY [0.1+ mV ST DEPRESSION] ABNORMAL ECG Electronically Signed On 10-05-2024 07:55:44 TUBE [employer]URNER by Armani Alexander M.D.
[2024-10-05] MEDS: HYDROmorphone HCL INJ (*CRX) 1 MG/ML SYR 0.5 MG IV PUSH (00:30)
[2024-10-05] MEDS: METOPROLOL TARTRATE 50 MG TAB PO (00:53)
[2024-10-05] MEDS: SODIUM CHLORIDE 0.9% IV 1,000 ML 999 ML IV CONT (00:54)
--- NOTE | 2024-10-05 01:17 | PC.NURSE ---
10/04/24 2350: PT CALLED FOR NURSING STAFF WITH C/O CHEST PAIN AND NAUSEA . NAUSEA IS NOT NEW THIS SHIFT; PT TREATED FOR NAUSEA PRIOR TO NEW C/O CP. STAT EKG ORDERED BY NURSING AND DR. MCCLOUD CALLED TO NOTIFY. ADDITIONAL ORDERS RCV'D FOR DILAUDID, NITRO SL, TROP X1. 0010: PRELIM REPORT STATES AFIB RVR HR 144. VITALS SHOW HR 140BPM. SBP LOW 107. DR. MCCLOUD MADE AWARE OF VITALS AND RN QUESTIONED GIVING NITRO. ORDER NOW TO HOLD NITRO FOR NOW AND GIVE 500ML NS FLUID BOLUS AND METOPROLOL TARTARATE PO AND TO CALL WITH UPDATES.
[2024-10-05 01:27] LABS: Troponin I 0.041 ng/mL (0.000-0.034)
--- NOTE | 2024-10-05 01:35 | PC.NURSE ---
0130: TROPS CALLED TO DR. MCCLOUD. BP AFTER BOLUS COMPLETE 119/43. TACHY IN 130s. PT STATES CHEST PAIN RESOLVED. STATES SLEEPY LIKELY SECONDARY TO DILAUDID IVP. PER DR. MCCLOUD, CONT TO MONITOR HR. PT HAS BEEN ON CONT. PULSE OX FOR HR EVAL AND Q 5MIN BP CHECKS.
--- NOTE | 2024-10-05 03:28 | PC.NURSE ---
SPOKE W/ DR. MCCLOUD RE: HR IN 120s-130s. PT RESTUL. DENIES CHEST PAIN. MADE AWARE PT TO HAVE INSERTION DIALYSIS CATHETER PLACEMENT TODAY W/ [facility]. NNO.
--- NOTE | 2024-10-05 05:59 | PC.NURSE ---
0550: PT HR IN 70s IRREG. NO OTHER CHANGES. DR. AME BURGER.
[2024-10-05 06:28] LABS: Hemoglobin 7.7 g/dL (12.0-15.0); Mean Corpuscular HGB Conc 32.1 g/dl (32-36); Mean Corpuscular Hemoglobin 31.6 pg (26-34); Mean Corpuscular Volume 98.4 fl (80-100); Mean Platelet Volume 10.1 fl (7.4-10.4); Platelet Count Result 144 k/mm3 (150-375); Red Blood Count 2.44 M/mm3 (4.2-5.4); Red Cell Distribution Width 13.3 % (11.5-14.5); White Blood Count 6.3 K/mm3 (4.5-10.0)
[2024-10-05 06:47] LABS: Albumin Level 3.5 g/dL (3.5-5.1); Anion Gap 24 mmol/L (4-12); Blood Urea Nitrogen 67 mg/dL (7-17); Calcium 8.9 mg/dL (8.4-10.2); Carbon Dioxide 15 mmol/L (22-30); Chloride 102 mmol/L (98-107); Estimated CRCL calculation 5 ml/min; Estimated Glomerular Filt Rate 5; Glucose 95 mg/dL (65-110); Potassium 4.1 mmol/L (3.4-5.0); Sodium 141 mmol/L (137-145)
--- NOTE | 2024-10-05 07:29 | PM.IMPN ---
Progress Note: A&P Assessment and Plan (1) Uncontrolled hypertension: Code(s): I10 - Essential (primary) hypertension Status: Acute Assessment and Plan: Blood pressure 229/94 on admission, given her morning antihypertensives of amlodipine 5 mg and metoprolol succinate 100 mg as she had not taken it - Continue metoprolol 100 mg daily and amlodipine increased to 10 mg daily - Avoid a precipitous drop in blood pressure due to the fact that they most likely run in the 180s to 190 systolic if not higher. - Nephrology consulted, hypertension likely secondary to poorly controlled CKD 10/02- will increase amlodipine to 10 mg and increase hydralazine frequency to tid instead of bid for better BP control 10/03 somewhat better-monitor 10/04- reviewed -still elevated. Procardia was added per nephrology 10/05 (2) Acute kidney injury superimposed on chronic kidney disease: Code(s): N17.9 - Acute kidney failure, unspecified; N18.9 - Chronic kidney disease, unspecified Status: Acute Assessment and Plan: Per chart review, patient was recently hospitalized at [facility] earlier this month with dehydration due to nausea, vomiting, and diarrhea. Creatinine at the time of admission was 5.53 and did improve right around her baseline with a discharge creatinine of 4.37. She was instructed to follow-up with her kidney specialist, Dr. Vidales. - Etiology unknown - BUN/Cr 102/11.13 on admission, now BUN/Cr 98/11.17 on am labs - Renal US and duplex: Bilateral increased renal cortical atelectasis be consistent with medical renal disease. No hydronephrosis. No renal artery stenosis.Fusiform abdominal aortic aneurysm measuring up to 3.6 cm maximal diameter. - Avoid nephrotoxic agents and renally dose all medications - Monitor I/O - Notes requested from recent stay at [place] as well as the most recent office notes from Dr. Mcclure or Dr. Vidales - Nephrology consulted for further recommendations. daily labs 10/04- had dialysis last night nephrology on board- continue 10/05 no dialisys access- cr 7.03/50 10/06- plan to or with dr rogers for dialysis access cr 8.23/bun 67 (3) Hyperkalemia: Code(s): E87.5 - Hyperkalemia Status: Acute Assessment and Plan: K 5.5 on admission, likely due to patients STEVE and dehydration. Given lokelma 10 mg x1 and started on IV fluids - Tele - Monitor 4.3 today-10/01 reviewed and stable (4) Depression: Code(s): F32.A - Depression, unspecified Status: Acute Assessment and Plan: chronic, continue home medications - sertraline 100 mg daily Time Spent With Patient Time with patient: Greater than 35 minutes Subjective Date/time seen: 10/05/24 07:29 Interval history: pt is seen and examined. An episode of afib with rvr last night but stable this am. Plan for dialysis cath insertion today. Pt is alert, oriented , pleasant, denies any pain. Review of Systems Review of Systems: 12 systems were reviewed and are negative except for as per HPI. All systems reviewed & are unremarkable except as noted in HPI and below Exam Narrative: General: female in no acute respiratory distress who is nontoxic appearing. where RT IJ dialysis access was- area is red and swollen HEENT: Normocephalic. Atraumatic. Extraocular movement intact. Sclera clear and anicteric. No facial asymmetry. Chest: Lungs are clear to auscultation bilaterally. No wheezes or crackles. CV: Heart was regular rate and rhythm. S1-S2. No murmurs, gallops, or rubs. Abd: Abdomen was soft. Nontender. Nondistended. Positive bowel sounds. Ext: No clubbing, cyanosis, or edema. 2+ DP pulses bilaterally. Neuro: Patient is alert and oriented x3. Speech is clear. Const: General: comfortable Objective Data Vital Signs Vital Signs: Vital Signs - 24 hr 10/04/24 07:57 10/04/24 08:35 10/04/24 08:36 Temperature Pulse Rate 72 Respiratory Rate Blood Pressure Pulse Oximetry 98 Oxygen Delivery Room Air Room Air 10/04/24 14:00 10/04/24 16:30 10/04/24 22:00 Temperature 97.8 F 98.3 F Pulse Rate 74 79 Respiratory Rate 20 18 Blood Pressure 177/78 H 185/70 H 156/72 H Pulse Oximetry 97 99 Oxygen Delivery 10/05/24 00:53 10/05/24 01:30 10/05/24 01:40 Temperature Pulse Rate 130 H 130 H 120 H Respiratory Rate 16 Blood Pressure 114/93 H 125/84 Pulse Oximetry 96 Oxygen Delivery 10/05/24 01:42 10/05/24 02:00 10/05/24 02:15 Temperature Pulse Rate 128 H 116 H Respiratory Rate Blood Pressure 107/80 126/83 144/91 H Pulse Oximetry Oxygen Delivery 10/05/24 02:30 10/05/24 03:27 10/05/24 04:30 Temperature Pulse Rate 123 H 122 H 114 H Respiratory Rate Blood Pressure 130/97 H 133/99 H 142/89 H Pulse Oximetry Oxygen Delivery 10/05/24 05:50 10/05/24 06:00 Temperature 97.8 F Pulse Rate 78 71 Respiratory Rate 18 Blood Pressure 148/90 H 170/70 H Pulse Oximetry 98 Oxygen Delivery Intake/Output Intake/Output: Intake & Output 10/02/24 10/03/24 10/04/24 10/05/24 23:59 23:59 23:59 23:59 Intake Total 2527 1216.3 120 500 Output Total 403 171 9902 Balance 2427 716.3 120 -500 Meds/Results Medications: Active Medications Generic Name Dose Route Start Last Admin Trade Name Freq PRN Reason Stop Dose Admin Acetaminophen 650 mg 10/03/24 12:37 Acetaminophen 325 Mg Tablet PO Q4H PRN Mild Pain (1-3) or Fever Amlodipine Besylate 10 mg 10/03/24 09:00 10/04/24 08:36 Amlodipine Besylate 10 Mg Tablet PO 10 mg DAILY HUAN Administration Calcitriol 0.25 mcg 09/30/24 09:00 10/04/24 08:36 Calcitriol 0.25 Mcg Capsule PO 0.25 mcg DAILY HUAN Administration Hydralazine HCl 25 mg 10/02/24 17:00 10/04/24 18:27 Hydralazine Hcl 25 Mg Tablet PO 25 mg TID HUAN Administration Sodium Chloride 1,000 mls @ 75 mls/hr 09/30/24 21:50 10/03/24 04:51 Normal Saline Iv IV CONT 75 mls/hr .[id number] HUAN Administration Albumin Human 50 mls @ 999 mls/hr 10/03/24 10:27 Albutein IVPB 11/02/24 10:26 Q10M PRN HYPOTENSION Metoprolol Succinate 100 mg 09/30/24 09:00 10/04/24 08:36 Metoprolol Succinate Ext Rel 100 Mg Tabcr PO 100 mg DAILY HUAN Administration Mirtazapine 7.5 mg 09/29/24 21:00 10/04/24 22:00 Mirtazapine 7.5 Mg Tablet PO Not Given HS HUAN Nifedipine 60 mg 10/05/24 09:00 Nifedipine 30 Mg Tab.Er.24 PO QAM HUAN Nitroglycerin 0.4 mg 10/05/24 00:16 Nitroglycerin Sl 0.4 Mg Tablet SUBLINGUAL Q5MIN PRN Chest Pain Ondansetron HCl 4 mg 09/29/24 11:32 10/04/24 22:14 Ondansetron Inj 4 Mg/2 Ml Vial IV PUSH 4 mg Q4H PRN Administration Nausea Pantoprazole Sodium 40 mg 10/03/24 09:30 10/04/24 10:33 Pantoprazole Sodium Iv 40 Mg Vial IV PUSH 40 mg QAM HUAN Administration Prochlorperazine Edisylate 10 mg 10/01/24 15:11 10/04/24 00:54 Prochlorperazine Edisylate 10 Mg/2 Ml Vial IV PUSH 10 mg Q6H PRN Administration Nausea And Vomiting Sertraline HCl 100 mg 09/30/24 09:00 10/04/24 08:36 Sertraline Hcl 50 Mg Tablet PO 100 mg DAILY HUAN Administration Radiology Results: ITS Impressions Arterial/Peripheral Duplex 09/29/24 14:58 IMPRESSION: 1. Bilateral increased renal cortical atelectasis be consistent with medical renal disease. No hydronephrosis. 2. No Doppler evidence of renal artery stenosis. 3. Fusiform abdominal aortic aneurysm measuring up to 3.6 cm maximal diameter. Renal Ultrasound 09/29/24 14:58 IMPRESSION: 1. Bilateral increased renal cortical atelectasis be consistent with medical renal disease. No hydronephrosis. 2. No Doppler evidence of renal artery stenosis. 3. Fusiform abdominal aortic aneurysm measuring up to 3.6 cm maximal diameter. Central Venous Line 10/03/24 11:54 IMPRESSION: 1. Central line tip at the superior cavoatrial junction. Chest X-Ray 10/03/24 12:20 IMPRESSION: 1. No acute cardiopulmonary disease. 2. Right internal jugular central venous catheter tip at the superior cavoatrial junction. Labs Labs: Laboratory Results - last 24 hr 10/05/24 10/05/24 00:54 05:56 WBC 6.3 RBC 2.44 L Hgb 7.7 L Hct 24.0 L MCV 98.4 MCH 31.6 MCHC 32.1 RDW 13.3 Plt Count 144 L MPV 10.1 Sodium 141 Potassium 4.1 Chloride 102 Carbon Dioxide 15 L Anion Gap 24 H BUN 67 H D Creatinine 8.23 H Estim Creat Clear Calc 5 Estimated GFR 5 L Glucose 95 Calcium 8.9 Phosphorus 8.0 H Troponin I 0.041 H* Albumin 3.5 Quality VTE Prophylaxis VTE prophylaxis: mechanical ordered and pharmacologic ordered
[2024-10-05] MEDS: PANTOPRAZOLE SODIUM IV 40 MG VIAL IV PUSH (08:24)
[2024-10-05] MEDS: METOPROLOL SUCCINATE EXT REL 100 MG TABCR PO (08:24)
[2024-10-05] MEDS: amLODIPine BESYLATE 10 MG TABLET PO (08:25)
[2024-10-05] MEDS: hydrALAZINE HCL 25 MG TABLET PO (08:25)
[2024-10-05] MEDS: NIFEdipine 30 MG TAB.ER.24 60 MG PO (08:26)
--- NOTE | 2024-10-05 10:53 | P.PNNP_ITS ---
Progress Note: A&P Assessment and Plan (1) STEVE (acute kidney injury): Code(s): N17.9 - Acute kidney failure, unspecified Status: Acute Assessment and Plan: * no real improvement since admission * etiology unclear * evaluation to date noted: * renal ultrasound c/w CKD * urine electrolytes non-prerenal * urine eosinophil negative * nephrotic range proteinuria * CPK low * serological testing negative so far except for the ESR of >140. * received hemodialysis yesterday but catheter is out now. * Surgery has been informed. Nursing says cath to be placed today. * Dr Burris considering renal biopsy * patient and family agreeable if needed * Check some labs tomorrow (2) Stage 3b chronic kidney disease: Code(s): N18.32 - Chronic kidney disease, stage 3b Status: Chronic Assessment and Plan: * creatinine in 06/19/24 was 1.47mg/dl (presumed baseline) * underlying CKD likely due to hypertension, possible vascular disease, and age- related change (3) Nausea & vomiting: Code(s): R11.2 - Nausea with vomiting, unspecified Status: Acute Assessment and Plan: * similar issues/symptoms on presentation to [facility] earlier Sep 2024 * some (i.e. with meds) chronic but some new. after HD, less spontaneous nausea but still some with eating. (4) Hypertension: Code(s): I10 - Essential (primary) hypertension Status: Chronic Assessment and Plan: * blood pressure widely variable ranging from 130-190. * Blood pressure was better yesterday but is back up today. * No swelling chest XR looks okay * currently the patient is on amlodipine, hydralazine, and metoprolol. * Heart rate running in the 70s. * changed from amlodipine to nifedipine and bp better at 141. (5) Anemia: Code(s): D64.9 - Anemia, unspecified Status: Acute Assessment and Plan: * presumably related to STEVE and CKD * Epogen with HD * possible GI loss - Gastroenterology Consultation noted. * Hemoglobin down a little bit to 7.4. since BP better we can give some SQ today * cbc in am Subjective Date/time seen: 10/05/24 10:53 Interval history: alert, feels okay. no cp or sob pt has some nausea with swallowing more than one pill at a time but this is chronic. she has some nausea will food intake as well but no vomiting. no nausea otherwise. Exam Narrative: General: elderly but WD/WN female in NAD Heart: normal S1 and S2; no rub or gallop Lungs: clear bilaterally Abdomen: BS+ nontender Extremities: no cyanosis or clubbing; no edema Skin: no rash Objective Data Vital Signs Vital Signs: Vital Signs - 24 hr 10/04/24 14:00 10/04/24 16:30 10/04/24 22:00 Temperature 97.8 F 98.3 F Pulse Rate 74 79 Respiratory Rate 20 18 Blood Pressure 177/78 H 185/70 H 156/72 H Pulse Oximetry 97 99 10/05/24 00:53 10/05/24 01:30 10/05/24 01:40 Temperature Pulse Rate 130 H 130 H 120 H Respiratory Rate 16 Blood Pressure 114/93 H 125/84 Pulse Oximetry 96 10/05/24 01:42 10/05/24 02:00 10/05/24 02:15 Temperature Pulse Rate 128 H 116 H Respiratory Rate Blood Pressure 107/80 126/83 144/91 H Pulse Oximetry 10/05/24 02:30 10/05/24 03:27 10/05/24 04:30 Temperature Pulse Rate 123 H 122 H 114 H Respiratory Rate Blood Pressure 130/97 H 133/99 H 142/89 H Pulse Oximetry 10/05/24 05:50 10/05/24 06:00 10/05/24 08:24 Temperature 97.8 F Pulse Rate 78 71 72 Respiratory Rate 18 Blood Pressure 148/90 H 170/70 H Pulse Oximetry 98 Intake/Output Intake/Output: Intake & Output 10/02/24 10/03/24 10/04/24 10/05/24 23:59 23:59 23:59 23:59 Intake Total 2527 1216.3 120 500 Output Total 941 509 7032 Balance 2427 716.3 120 -500 Meds/Results Medications: Active Medications Generic Name Dose Route Start Last Admin Trade Name Freq PRN Reason Stop Dose Admin Acetaminophen 650 mg 10/03/24 12:37 Acetaminophen 325 Mg Tablet PO Q4H PRN Mild Pain (1-3) or Fever Amlodipine Besylate 10 mg 10/03/24 09:00 10/05/24 08:25 Amlodipine Besylate 10 Mg Tablet PO 10 mg DAILY HUAN Administration Calcitriol 0.25 mcg 09/30/24 09:00 10/04/24 08:36 Calcitriol 0.25 Mcg Capsule PO 0.25 mcg DAILY HUAN Administration Hydralazine HCl 25 mg 10/02/24 17:00 10/05/24 08:25 Hydralazine Hcl 25 Mg Tablet PO 25 mg TID HUAN Administration Sodium Chloride 1,000 mls @ 75 mls/hr 09/30/24 21:50 10/03/24 04:51 Normal Saline Iv IV CONT 75 mls/hr .[id number] HUAN Administration Albumin Human 50 mls @ 999 mls/hr 10/03/24 10:27 Albutein IVPB 11/02/24 10:26 Q10M PRN HYPOTENSION Metoprolol Succinate 100 mg 09/30/24 09:00 10/05/24 08:24 Metoprolol Succinate Ext Rel 100 Mg Tabcr PO 100 mg DAILY HUAN Administration Mirtazapine 7.5 mg 09/29/24 21:00 10/04/24 22:00 Mirtazapine 7.5 Mg Tablet PO Not Given HS HUAN Nifedipine 60 mg 10/05/24 09:00 10/05/24 08:26 Nifedipine 30 Mg Tab.Er.24 PO 60 mg QAM HUAN Administration Nitroglycerin 0.4 mg 10/05/24 00:16 Nitroglycerin Sl 0.4 Mg Tablet SUBLINGUAL Q5MIN PRN Chest Pain Ondansetron HCl 4 mg 09/29/24 11:32 10/04/24 22:14 Ondansetron Inj 4 Mg/2 Ml Vial IV PUSH 4 mg Q4H PRN Administration Nausea Pantoprazole Sodium 40 mg 10/03/24 09:30 10/05/24 08:24 Pantoprazole Sodium Iv 40 Mg Vial IV PUSH 40 mg QAM HUAN Administration Prochlorperazine Edisylate 10 mg 10/01/24 15:11 10/04/24 00:54 Prochlorperazine Edisylate 10 Mg/2 Ml Vial IV PUSH 10 mg Q6H PRN Administration Nausea And Vomiting Sertraline HCl 100 mg 09/30/24 09:00 10/04/24 08:36 Sertraline Hcl 50 Mg Tablet PO 100 mg DAILY HUAN Administration Radiology Results: ITS Impressions Arterial/Peripheral Duplex 09/29/24 14:58 IMPRESSION: 1. Bilateral increased renal cortical atelectasis be consistent with medical renal disease. No hydronephrosis. 2. No Doppler evidence of renal artery stenosis. 3. Fusiform abdominal aortic aneurysm measuring up to 3.6 cm maximal diameter. Renal Ultrasound 09/29/24 14:58 IMPRESSION: 1. Bilateral increased renal cortical atelectasis be consistent with medical renal disease. No hydronephrosis. 2. No Doppler evidence of renal artery stenosis. 3. Fusiform abdominal aortic aneurysm measuring up to 3.6 cm maximal diameter. Central Venous Line 10/03/24 11:54 IMPRESSION: 1. Central line tip at the superior cavoatrial junction. Chest X-Ray 10/03/24 12:20 IMPRESSION: 1. No acute cardiopulmonary disease. 2. Right internal jugular central venous catheter tip at the superior cavoatrial junction. Labs Labs: Laboratory Results - last 24 hr 10/05/24 10/05/24 00:54 05:56 WBC 6.3 RBC 2.44 L Hgb 7.7 L Hct 24.0 L MCV 98.4 MCH 31.6 MCHC 32.1 RDW 13.3 Plt Count 144 L MPV 10.1 Sodium 141 Potassium 4.1 Chloride 102 Carbon Dioxide 15 L Anion Gap 24 H BUN 67 H D Creatinine 8.23 H Estim Creat Clear Calc 5 Estimated GFR 5 L Glucose 95 Calcium 8.9 Phosphorus 8.0 H Troponin I 0.041 H* Albumin 3.5
--- NOTE | 2024-10-05 11:42 | PC.NURSE ---
Addendum entered by Dana Dennison RN 10/05/24 17:07: 1706 severe interaction warning to Reglan and two of patients medication. MD will have to review and order themselves. Addendum entered by Dana Dennison RN 10/05/24 17:02: 1700 physician called back, not at work right know and cannot see her medications, we will have GI take a look at her . One time dose of Reglan ordered in minda of making cardiac medication IV. Addendum entered by Daan Dennison RN 10/05/24 16:38: 1637 patient still nauseous and refusing to take any PO medications. MD contacted to change medications to IV as possible. Addendum entered by Dana Dennison RN 10/05/24 14:52: 1415 patient returns from surgery. Patient resting but nauseous. Medication given at 1440. Called sister, Marisol, at 1450 to update her on patient's status. Original Note: 0824 Patient resting in bed for morning assessment and medications. She states she has always had trouble swallowing pills but the nausea with food is new. She is very calm and cooperative but did struggle with her pills this morning. No complaints of pain and no needs at this time. 1140 spoke with sister, Marisol, on the phone and updated her and told her patient was going to surgery as we spoke. Marisol will call back this afternoon to check on the patient. All questions and concerns addressed. No further needs at this time.
--- NOTE | 2024-10-05 11:46 | P.HPUP_ITS ---
History and Physical Update Update Date/Time: 10/05/24 11:46 Patient pulled out her right internal jugular tunneled central venous catheter on Sunday, about 6 hours after placement. Apparently she was confused and has no recollection of doing this. Plan this time is to have her wear mitts, bulk year dressing, short-acting anesthetic agents to minimize risk of confusion. Nephrology plans to proceed with dialysis and wishes to have catheter placed again. History and Physical has been reviewed, including an updated exam of the patient. Patient did have some development of atrial fibrillation last night but the rate has been controlled with beta-blockers and plan is to proceed with the needed central venous catheter for dialysis. There are NO other changes in the patient's condition. Risks, benefits, and alternatives have been discussed and questions answered. Jose poon agrees to proceed with procedure.
--- NOTE | 2024-10-05 11:53 | P.PNAN_ITS ---
Anes - Initial Pre Proc Eval Procedure: Operation Date: 10/03/24 10:30 Proposed Procedures p Placement Tunneled Dialysis Catheter Under Fluoroscopy - Sandeep Colon MD Operation Date: 10/05/24 09:00 Proposed Procedures p Insertion Duraflow Permacath Dialysis Tunneled Dialysis Catheter - Sandeep Colon MD Date/Time: 10/05/24 11:53 Surgeon: Waldemar Pennington MD Pre Op Diagnosis: nikky on ckd Patient Data Age: 89 Gender: F Height: 1.7 m Weight: 84 kg Last Vital Signs Temp 97.8 F 10/05/24 06:00 Pulse 72 10/05/24 08:24 Resp 18 10/05/24 06:00 BP 170/70 H 10/05/24 06:00 Pulse Ox 98 10/05/24 06:00 O2 Del Method Room Air 10/04/24 08:35 O2 Flow Rate 6 10/03/24 11:57 Allergies Allergy/AdvReac Type Severity Reaction Status Date / Time Kqrprzr-MST-XlQ Reductase Allergy Unknown CRAMPING Verified 10/03/24 09:59 Inhibitor (Vpncaxf-Xox-Iol LEG Reductase Inhibitor) NSID AdvReac Mild unknown Uncoded 10/03/24 09:59 Home Medications ?Medication ?Instructions ?Recorded ?Confirmed ?Type amlodipine 5 mg tablet 5 mg PO DAILY Blood pressure 09/29/24 10/03/24 History calcitriol 0.25 mcg capsule 0.25 mcg PO DAILY 09/29/24 10/03/24 History cefuroxime axetil 250 mg tablet 250 mg PO Q12H 09/29/24 09/29/24 History metoprolol succinate 100 mg 100 mg PO DAILY 09/29/24 10/03/24 History tablet,extended release 24 hr mirtazapine 7.5 mg tablet 7.5 mg PO HS 09/29/24 10/03/24 History ondansetron HCl 4 mg tablet 4 mg PO PRN 09/29/24 09/29/24 History sertraline 100 mg tablet 100 mg PO DAILY 09/29/24 10/03/24 History Laboratory Tests 10/05/24 10/05/24 00:54 05:56 WBC 6.3 K/mm3 (4.5-10.0) RBC 2.44 L M/mm3 (4.2-5.4) Hgb 7.7 L g/dL (12.0-15.0) Hct 24.0 L % (37.0-47.0) MCV 98.4 fl (80-100) MCH 31.6 pg (26-34) MCHC 32.1 g/dl (32-36) RDW 13.3 % (11.5-14.5) Plt Count 144 L k/mm3 (150-375) MPV 10.1 fl (7.4-10.4) Sodium 141 mmol/L (137-145) Potassium 4.1 mmol/L (3.4-5.0) Chloride 102 mmol/L (98-107) Carbon Dioxide 15 L mmol/L (22-30) Anion Gap 24 H mmol/L (4-12) BUN 67 H D mg/dL (7-17) Creatinine 8.23 H mg/dL (0.7-1.0) Estim Creat Clear Calc 5 ml/min Estimated GFR 5 L (59 - ) Glucose 95 mg/dL (65-110) Calcium 8.9 mg/dL (8.4-10.2) Phosphorus 8.0 H mg/dL (2.5-4.5) Troponin I 0.041 H* ng/mL (0.000-0.034) Albumin 3.5 g/dL (3.5-5.1) Patient hx anesthesia problems: none Family hx anesthesia problems: none Results Review: All pre-operative results and documents have been reviewed as part of the pre- operative evaluation. [facility] Past Medical History Medical History Blood in stool Confusion Acute on chronic anemia Chronic kidney disease, stage 5 According to records from outside facility, patient states she knows nothing about this. Depression Hypertension Surgical History Surgical History History of tonsillectomy History of cataract extraction Social History Social History Social History: Surrogate medical decision maker: Marisol Negrete, sibling. Code status: Full code. Smoking status: Never smoker Alcohol intake: never Substance use: never Do You Feel Safe in your Home?: Yes Lack of Transportation: No Lack of Food: Never True Current Housing: I Have Housing Concerned About Future Housing: No Difficulty Paying Gas/Electric Bills: No Difficulty Paying for Meds: No Currently Unemployed: No Education: Associate Degree Difficulty w/ Childcare or Family Care: No Spiritual care concerns: No Anes - Eval Final PreProcedure Day of Procedure 10/05/24 11:53 Patient weight: overweight Heart: regular rate and rhythm Lungs: clear to auscultation Airway: Mallampati scale class II and special considerations (Teeth in poor condition. ) Neurological: alert and oriented Last oral intake: >/= 8 hours ASA classification: IV Emergent: no Anesthesia type and monitoring: general GIVS and standard monitoring Results Review: All pre-operative results and documents have been reviewed as part of the pre- operative evaluation. Complicated pt w ESRD, HD catheter placed on Sun and pt DCed it that evening. Now for replacement and initiation of HD soon. BMP noted and ok K this am. Pt has been not fluid overloaded and electrolytes nml at this point. Informed Consent: The patient's anesthetic plan and its attendant risks and benefits were discussed with the patient/family/POA. Questions were solicited and answers provided to the satisfaction of the patient/family/POA.
[2024-10-05] MEDS: ceFAZolin 2 GM/D5W 50 ML 2 GM/50 ML BAG IVPB (12:28)
[2024-10-05] MEDS: HEPARIN SODIUM 5,000 UNITS/ML VIAL 5000 UNITS IV PUSH (12:33)
[2024-10-05] MEDS: HEPARIN SODIUM, PORCINE 10,000 UNITS/10 ML VIAL 3000 UNITS IRRIGATION (12:37)
[2024-10-05] MEDS: LIDO 1%/EPINEPHRINE 1:100,000 20 ML VIAL 21 ML INFILTRATE (12:57)
--- NOTE | 2024-10-05 13:09 | W.PM.PROC2 ---
Procedure Note - Detailed Date of Procedure 10/05/24 Pre-op Diagnosis Acute on chronic kidney disease, inadequate venous access for hemodialysis Post-op Diagnosis Same Procedure Performed Placement left internal jugular tunneled dura flow central venous catheter using ultrasound and under fluoroscopy Surgeon Sandeep Colon MD Perfect Binder Operator Gopal SPANN Anesthesia General (GI IV S) and Local Indications Patient has chronic kidney disease with recent deterioration. She had a tunneled central venous catheter placed on 10/03/24 but later pulled it out. She is taken back to surgery for placement of a new catheter. Findings Catheter tip in the distal SVC right atrial junction Description of Procedure Patient was taken to surgery and anesthesia was introduced. The neck and left upper chest were prepped and draped. Vascular ultrasound was then used and the left internal jugular vein was identified. Local anesthetic was infiltrated. After about 3 punctures the vein was cannulated and a guidewire was able to be passed easily. C-arm fluoroscopy confirmed that the guidewire was in the distal SVC. I then used fluoroscopy to map out the path of a 32 cm dura flow catheter. Counter incisions on the chest and neck were marked on the skin. Local was infiltrated into each of these counter incisions as well as more local placed at the exit site of the guidewire. Incisions were made at each of these sites and some subcutaneous dissection was carried out to facilitate tunneling of the catheter. The catheter was tunneled retrograde from the chest to the neck and then out the exit site of the guidewire. I would need used serial dilators and placed the sleeve in the left neck wound. The catheter was then passed through the sleeve and into the distal SVC. I manipulated the course of the catheter slightly. C-arm fluoroscopy showed that the catheter was in good position with a gentle curve in the lower neck as desired. Both ports were checked and flushed with heparin. Both aspirated blood easily and flushed easily. I then used a final flush for each port and capped each port. I closed each of the incisions with subcuticular interrupted 4-0 Vicryl suture. The flange on the exit site of the dura flow catheter was sutured to the skin with 3-0 nylon. The counter incisions were dressed with Exofin surgical adhesive. The exit site was dressed with transparent dressing. Gauze and Medipore tape were used to cover the exit site of the catheter. Patient was then awakened and taken to recovery. Sponge and needle counts were correct x2. Estimated Blood Loss -5 Drains No Packing No Pathology None sent Complications None Condition Stable Disposition PACU [facility] Billing Surgery - Charge Forward: Surgery Billing (Placement left internal jugular tunneled dura flow central venous catheter using ultrasound and under fluoroscopy)
[2024-10-05] MEDS: SODIUM CHLORIDE 0.9% IV 500 ML 30 ML IV CONT (13:10)
[2024-10-05] MEDS: PROCHLORPERAZINE EDISYLATE 10 MG/2 ML VIAL IV PUSH (14:41)
--- NOTE | 2024-10-05 15:18 | PCOTNOTE ---
Pt is currently unavailable to participate in therapy services at this time due to just being brought up to floor from surgery for dialysis cath placement. Will attempt per poc duration/frequency when appropriate.
[2024-10-05] MEDS: EPOETIN ALFA-EPBX 20,000 UNITS/ML VIAL 20000 UNITS SUB-Q (16:34)
[2024-10-05] MEDS: MIRTAZAPINE 7.5 MG TABLET PO (21:30)
[2024-10-05] MEDS: traMADol HCL (*CRX) 50 MG TABLET PO (21:32)
[2024-10-05] MEDS: ONDANSETRON INJ 4 MG/2 ML VIAL IV PUSH (21:40)
[2024-10-06] VITALS (51 sets, daily range): BP systolic 61–206; BP diastolic 37–110; PULSE 45–165; RESP 12–20; TEMP 33.8–37.7; O2SAT 96–100; BMI 30.2
[2024-10-06 05:55] LABS: Basophils Percent Auto 0.3 % (0.2-1.2); Eosinophils Absolute Auto 0.2 K/mm3 (0-0.3); Eosinophils Percent Auto 3.5 % (0-4.4); Hematocrit 25.3 % (37.0-47.0); Hemoglobin 8.2 g/dL (12.0-15.0); Immature Granulocyte Absolute 0.13 K/mm3 (0.00-0.031); Lymphocytes Absolute Auto 0.96 K/mm3 (0.9-3.2); Lymphocytes Percent Auto 14.5 % (18.3-44.2); Mean Corpuscular HGB Conc 32.4 g/dl (32-36); Mean Corpuscular Hemoglobin 31.5 pg (26-34); Mean Corpuscular Volume 97.3 fl (80-100); Monocytes Absolute Auto 0.3 K/mm3 (0.1-0.6); Monocytes Percent Auto 3.9 % (2.6-8.5); Neutrophils Percent Auto 75.8 % (45.5-73.1); Platelet Count Result 160 k/mm3 (150-375); Red Cell Distribution Width 13.4 % (11.5-14.5); White Blood Count 6.6 K/mm3 (4.5-10.0)
[2024-10-06 06:02] LABS: Albumin Level 3.8 g/dL (3.5-5.1); Anion Gap 22 mmol/L (4-12); Blood Urea Nitrogen 71 mg/dL (7-17); Calcium 9.2 mg/dL (8.4-10.2); Carbon Dioxide 19 mmol/L (22-30); Chloride 103 mmol/L (98-107); Estimated CRCL calculation 4 ml/min; Estimated Glomerular Filt Rate 4; Glucose 88 mg/dL (65-110); Phosphorus 8.6 mg/dL (2.5-4.5); Potassium 4.1 mmol/L (3.4-5.0); Sodium 144 mmol/L (137-145)
--- NOTE | 2024-10-06 07:28 | P.PNIM_ITS ---
Progress Note: A&P Assessment and Plan (1) Cardiac arrest: Code(s): I46.9 - Cardiac arrest, cause unspecified Status: Acute Assessment and Plan: Patient intubated after cardiac arrest due to hypoxia not able to maintain airway Transferred to ICU ICU consulted (2) Uncontrolled hypertension: Code(s): I10 - Essential (primary) hypertension Status: Acute Assessment and Plan: Blood pressure 229/94 on admission, given her morning antihypertensives of amlodipine 5 mg and metoprolol succinate 100 mg as she had not taken it - Continue metoprolol 100 mg daily and amlodipine increased to 10 mg daily - Avoid a precipitous drop in blood pressure due to the fact that they most likely run in the 180s to 190 systolic if not higher. - Nephrology consulted, hypertension likely secondary to poorly controlled CKD 10/02- will increase amlodipine to 10 mg and increase hydralazine frequency to tid instead of bid for better BP control 10/03 somewhat better-monitor 10/04- reviewed -still elevated. Procardia was added per nephrology 10/06 blood pressure low this morning likely due to dialysis yesterday and change of blood pressure medications, AMLODIPINE DECREASED BACK TO 5 MG vitals and placed on hold Patient hypotensive after rest hold all blood pressure medications (3) Acute kidney injury superimposed on chronic kidney disease: Code(s): N17.9 - Acute kidney failure, unspecified; N18.9 - Chronic kidney disease, unspecified Status: Acute Assessment and Plan: Per chart review, patient was recently hospitalized at [facility] earlier this month with dehydration due to nausea, vomiting, and diarrhea. Creatinine at the time of admission was 5.53 and did improve right around her baseline with a discharge creatinine of 4.37. She was instructed to follow-up with her kidney specialist, Dr. Vidales. - Etiology unknown - BUN/Cr 102/11.13 on admission, now BUN/Cr 98/11.17 on am labs - Renal US and duplex: Bilateral increased renal cortical atelectasis be consistent with medical renal disease. No hydronephrosis. No renal artery stenosis.Fusiform abdominal aortic aneurysm measuring up to 3.6 cm maximal diameter. - Avoid nephrotoxic agents and renally dose all medications - Monitor I/O - Notes requested from recent stay at [place] as well as the most recent office notes from Dr. Mcclure or Dr. Vidales - Nephrology consulted for further recommendations. daily labs 10/04- had dialysis last night nephrology on board- continue 10/05 left tunnel catheter placed 10/06 patient code blue during dialysis, had 15 left on treatment (4) Hyperkalemia: Code(s): E87.5 - Hyperkalemia Status: Acute Assessment and Plan: Improved K 5.5 on admission, likely due to patients STEVE and dehydration. Given lokelma 10 mg x1 and started on IV fluids - Tele - Monitor Daily labs (5) Depression: Code(s): F32.A - Depression, unspecified Status: Acute Assessment and Plan: chronic, continue home medications - sertraline 100 mg daily Time Spent With Patient Time: Includes review of chart, time spent family, consulting teams and nursing. Findings and treatment plan were discussed with the son and sister.. Questions were solicited and answered to satisfaction. Care plan was discussed with nursing. Prognosis is poor, family aware Greater than 55 minutes Subjective Date/time seen: 10/06/24 07:28 Interval history: 89-year-old female with hypertension, chronic kidney disease, and depression who presented to the emergency department via EMS from home with complaints of nausea, vomiting, dizziness. Patient had a left tunnel catheter placed yesterday for dialysis During HD patient complained of severe back pain then went unresponsive, with loss of pulse, code aileen called. CPR started 1 amp of epi and 1 amp of bicarb given with ROCS at 2 minute pulse check, Patient responsive and talking however her breathing is shallow, see code documentation for details, code status confirmed with family, taking patient to ICU for intubation. ICU attending at bedside for code blue Patient intubated in ICU 1125 Patient shocked for VTach, amino drip and lido 1130 patient shocked again for VTach, now in V Fib with no pulse, cpr started, see code documentation for details prolonged discussion with son and sister 1150 Code status updated to no cpr, no shocking, ok for medications and to keep patient intubated Review of Systems Review of Systems: ROS unobtainable: Yes unobtainable due to endotracheal tube Exam Narrative: General: Intubated sedated HEENT: normocephalic, atraumatic. Mucous membranes moist. EOMI, PERRLA, bilateral sclera anicteric, no conjunctival injection. Neck supple without JVD, lymphadenopathy, or bruit. ETT Respiratory: I debated synchronize with ventilator, left HD cath, bruising from old catheter on right-sided neck Cardiovascular: Regular rate and rhythm, normal S1-S2 upon ascultation. No murmurs, rubs, or clicks. PMI is nondisplaced, capillary refill less than 3 second. Abdomen: Soft, round, no pulsatile masses, nondistended and nontender. No rebound, no guarding. No CVA tenderness, no hepatosplenomegaly. Bowel sounds present to all four quadrants. No high pitch or tinkling sounds, resonant to percussion. Extremities: No cyanosis, clubbing, or edema present. Pulses are palpable 2/2. Active ROM to all four extremities. Neuro: Alert and orientated x 4. PERRLA. Cranial nerves 2-12 intact without focal deficit. Skin: Warm, dry, and intact, without rash, erythema, or lesion. Psych: pleasant, cooperative, normal speech, normal affect, no hallucinations, no dysarthia Objective Data Vital Signs Vital Signs: Vital Signs - 24 hr 10/05/24 08:24 10/05/24 13:10 10/05/24 13:25 Temperature 97.6 F Pulse Rate 72 80 75 Respiratory Rate 10 L 15 Blood Pressure 151/82 H 166/78 H Pulse Oximetry 93 93 Oxygen Delivery Room Air Room Air 10/05/24 13:40 10/05/24 14:02 10/05/24 14:35 Temperature 97.4 F L Pulse Rate 75 75 76 Respiratory Rate 16 16 12 Blood Pressure 146/74 H 141/77 H 147/59 H Pulse Oximetry 95 95 95 Oxygen Delivery Room Air Room Air 10/05/24 15:00 10/05/24 15:30 10/05/24 17:30 Temperature 97.4 F L 97.4 F L 98.2 F Pulse Rate 74 72 80 Respiratory Rate 16 12 16 Blood Pressure 143/58 H 134/57 L 139/54 L Pulse Oximetry 96 96 96 Oxygen Delivery 10/05/24 20:00 10/05/24 22:00 10/05/24 23:49 Temperature 98.2 F 97.9 F Pulse Rate 79 80 Respiratory Rate 20 20 Blood Pressure 155/82 H 153/82 H Pulse Oximetry 96 96 Oxygen Delivery Room Air 10/06/24 03:49 Temperature 98.3 F Pulse Rate 65 Respiratory Rate 20 Blood Pressure 102/54 L Pulse Oximetry 96 Oxygen Delivery Intake/Output Intake/Output: Intake & Output 10/03/24 10/04/24 10/05/24 10/06/24 23:59 23:59 23:59 23:59 Intake Total 1216.3 120 550 50 Output Total 500 1000 Balance 716.3 120 -450 50 Meds/Results Medications: Active Medications Generic Name Dose Route Start Last Admin Trade Name Freq PRN Reason Stop Dose Admin Acetaminophen 650 mg 10/03/24 12:37 Acetaminophen 325 Mg Tablet PO Q4H PRN Mild Pain (1-3) or Fever Amlodipine Besylate 10 mg 10/03/24 09:00 10/05/24 08:25 Amlodipine Besylate 10 Mg Tablet PO 10 mg DAILY HUAN Administration Calcitriol 0.25 mcg 09/30/24 09:00 10/05/24 14:42 Calcitriol 0.25 Mcg Capsule PO Not Given DAILY HUAN Hydralazine HCl 25 mg 10/02/24 17:00 10/05/24 16:36 Hydralazine Hcl 25 Mg Tablet PO Not Given TID HUAN Sodium Chloride 1,000 mls @ 75 mls/hr 09/30/24 21:50 10/03/24 04:51 Normal Saline Iv IV CONT 75 mls/hr .[id number] HUAN Administration Albumin Human 50 mls @ 999 mls/hr 10/03/24 10:27 Albutein IVPB 11/02/24 10:26 Q10M PRN HYPOTENSION Sodium Chloride 500 mls @ 30 mls/hr 10/05/24 12:45 10/05/24 13:10 Normal Saline Iv IV CONT 30 mls/hr .[id number] HUAN Administration Metoprolol Succinate 100 mg 09/30/24 09:00 10/05/24 08:24 Metoprolol Succinate Ext Rel 100 Mg Tabcr PO 100 mg DAILY HUAN Administration Mirtazapine 7.5 mg 09/29/24 21:00 10/05/24 21:30 Mirtazapine 7.5 Mg Tablet PO 7.5 mg HS HUAN Administration Nifedipine 60 mg 10/05/24 09:00 10/05/24 08:26 Nifedipine 30 Mg Tab.Er.24 PO 60 mg QAM HUAN Administration Nitroglycerin 0.4 mg 10/05/24 00:16 Nitroglycerin Sl 0.4 Mg Tablet SUBLINGUAL Q5MIN PRN Chest Pain Ondansetron HCl 4 mg 09/29/24 11:32 10/05/24 21:40 Ondansetron Inj 4 Mg/2 Ml Vial IV PUSH 4 mg Q4H PRN Administration Nausea Oxycodone/Acetaminophen 1 tablet 10/05/24 14:04 Oxycodone/Acetaminophen (*Crx) 5-325 Mg Tablet PO Q8H PRN Pain Rated 7-10 Pantoprazole Sodium 40 mg 10/03/24 09:30 10/05/24 08:24 Pantoprazole Sodium Iv 40 Mg Vial IV PUSH 40 mg QAM HUAN Administration Prochlorperazine Edisylate 10 mg 10/01/24 15:11 10/05/24 14:41 Prochlorperazine Edisylate 10 Mg/2 Ml Vial IV PUSH 10 mg Q6H PRN Administration Nausea And Vomiting Sertraline HCl 100 mg 09/30/24 09:00 10/05/24 16:36 Sertraline Hcl 50 Mg Tablet PO Not Given DAILY HUAN Tramadol HCl 50 mg 10/05/24 14:04 10/05/24 21:32 Tramadol Hcl (*Crx) 50 Mg Tablet PO 50 mg Q4H PRN Administration Pain Rated 4-6 Radiology Results: ITS Impressions Arterial/Peripheral Duplex 09/29/24 14:58 IMPRESSION: 1. Bilateral increased renal cortical atelectasis be consistent with medical renal disease. No hydronephrosis. 2. No Doppler evidence of renal artery stenosis. 3. Fusiform abdominal aortic aneurysm measuring up to 3.6 cm maximal diameter. Renal Ultrasound 09/29/24 14:58 IMPRESSION: 1. Bilateral increased renal cortical atelectasis be consistent with medical renal disease. No hydronephrosis. 2. No Doppler evidence of renal artery stenosis. 3. Fusiform abdominal aortic aneurysm measuring up to 3.6 cm maximal diameter. Chest X-Ray 10/05/24 13:25 Impression: Support line, as above. No pneumothorax. Possible minimal central congestive change and minimal left pleural effusion. Labs Labs: Laboratory Results - last 24 hr 10/06/24 05:15 WBC 6.6 RBC 2.60 L Hgb 8.2 L Hct 25.3 L MCV 97.3 MCH 31.5 MCHC 32.4 RDW 13.4 Plt Count 160 MPV 10.0 Immature Gran % (Auto) 2.0 H Neut % (Auto) 75.8 H Lymph % (Auto) 14.5 L [place] % (Auto) 3.9 Eos % (Auto) 3.5 Baso % (Auto) 0.3 Lymph # (Auto) 0.96 [place] # (Auto) 0.3 Eos # (Auto) 0.2 Baso # (Auto) 0.0 Abs Immat Gran (auto) 0.13 H Absolute Neuts (auto) 5.0 Absolute Nucleated RBC 0.000 Nucleated RBC % 0.0 Sodium 144 Potassium 4.1 Chloride 103 Carbon Dioxide 19 L Anion Gap 22 H BUN 71 H Creatinine 9.87 H Estim Creat Clear Calc 4 Estimated GFR 4 L Glucose 88 Calcium 9.2 Phosphorus 8.6 H Albumin 3.8 Quality VTE Prophylaxis VTE prophylaxis: mechanical ordered and pharmacologic ordered
--- NOTE | 2024-10-06 10:35 | PM.PNNEP ---
Subjective Date/time seen: 10/06/24 10:35 Interval history: Follow-up for acute kidney injury/acute renal failure on chronic kidney disease. Chart reviewed since last seen -- new tunneled HD catheter placed yesterday by Surgery and tolerate this reasonably well; tolerating dialysis treatment at the time of my visit (seen on HD at 10:25AM); reports not feeling well with complaints of back pain when seen; Objective Data Vital Signs Vital Signs: Vital Signs Temp Pulse Resp BP Pulse Ox O2 Del Method FiO2 10/06/24 10:30 92 128/85 10/06/24 10:15 92 146/90 H 10/06/24 10:00 92 149/94 H 10/06/24 09:45 91 157/94 H 10/06/24 09:30 91 150/92 H 10/06/24 09:15 90 167/94 H 10/06/24 09:00 87 171/97 H 10/06/24 08:45 87 183/108 H 10/06/24 08:30 87 196/110 H 10/06/24 08:15 84 206/107 H 10/06/24 08:04 81 204/103 H 10/06/24 07:55 97.6 F 103 H 16 205/108 H 97 10/06/24 03:49 98.3 F 65 20 102/54 L 96 10/05/24 23:49 97.9 F 80 20 153/82 H 96 10/05/24 22:00 98.2 F 79 20 155/82 H 96 10/05/24 20:00 Room Air Intake/Output Intake/Output: Intake & Output 10/03/24 10/04/24 10/05/24 10/06/24 23:59 23:59 23:59 23:59 Intake Total 1216.3 120 550 175.3 Output Total 500 1000 91 Balance 716.3 120 -450 84.3 Meds/Results Medications: Active Medications Generic Name Dose Route Start Last Admin Trade Name Freq PRN Reason Stop Dose Admin Acetaminophen 650 mg 10/03/24 12:37 Acetaminophen 325 Mg Tablet PO Q4H PRN Mild Pain (1-3) or Fever Albuterol/Ipratropium 3 ml 10/06/24 20:00 Ipratropium 0.5 Mg/Albuterol Sulfate 2.5 Mg Ampul.Neb 3 Ml INHALATION Q6HRT HUAN Heparin Sodium (Porcine) 4,000 units 10/06/24 17:40 Heparin Sodium 5,000 Units/Ml Vial IV PUSH PRN PRN aPTT less than 55 seconds Heparin Sodium (Porcine) 3,000 units 10/06/24 17:40 Heparin Sodium 5,000 Units/Ml Vial IV PUSH PRN PRN aPTT 55 - 70 seconds Albumin Human 50 mls @ 999 mls/hr 10/03/24 10:27 Albutein IVPB 11/02/24 10:26 Q10M PRN HYPOTENSION Fentanyl Citrate 2,500 mcg in 250 mls @ 2.5 mls/hr 10/06/24 11:45 10/06/24 14:59 Fentanyl 2,500 Mcg/Ns 250 Ml IV CONT 25 mcg/hr .Q72H HUAN 2.5 mls/hr Administration Protocol 25 MCG/HR Midazolam HCl 100 mg in 100 mls @ 1 mls/hr 10/06/24 11:45 10/06/24 15:00 Versed 100 Mg/Ns 100 Ml IV CONT 1 mg/hr .Q72H HUAN 1 mls/hr Administration Protocol 1 MG/HR Albumin Human 100 mls @ 60 mls/hr 10/06/24 14:27 10/06/24 17:11 Albutein IVPB 10/07/24 07:39 Infused Q6HR HUAN Infusion Piperacillin Sod/Tazobactam Sod 2.25 gm in 50 mls @ 100 mls/hr 10/06/24 15:00 10/06/24 17:10 Zosyn 2.25 Gm/Ns 50 Ml IVPB 100 mls/hr Q6H HUAN Administration Norepinephrine Bitartrate 8 mg in 250 mls @ 31.875 mls/hr 10/06/24 15:38 10/06/24 12:45 Levophed 8 Mg/D5w 250 Ml IV CONT 17 mcg/min .Q7H51M HUAN 31.88 mls/hr Titration Protocol 17 MCG/MIN Heparin Sodium/Dextrose 25,000 units in 250 mls @ 9 mls/hr 10/06/24 17:40 Heparin Sodium/D5w 100 Units/Ml IV CONT .Q24H HUAN Protocol 900 UNITS/HR Multi-Ingred Cream/Lotion/Oil/Oint 1 applic 10/06/24 21:00 Mineral Oil/White Petrolatum Ointment EACH EYE Q12HR [facility] Nitroglycerin 0.4 mg 10/05/24 00:16 Nitroglycerin Sl 0.4 Mg Tablet SUBLINGUAL Q5MIN PRN Chest Pain Ondansetron HCl 4 mg 09/29/24 11:32 10/05/24 21:40 Ondansetron Inj 4 Mg/2 Ml Vial IV PUSH 4 mg Q4H PRN Administration Nausea Pantoprazole Sodium 40 mg 10/07/24 09:00 Pantoprazole Sodium Iv 40 Mg Vial IV PUSH QAM [facility] Perflutren Lipid Microsphere 0 ml 10/06/24 14:40 Perflutren Lipid Microspheres 1.5 Ml Vial Diluted To 10 Ml Total Volume IV PUSH 10/09/24 14:40 ONCE PRN adequate visualization Protocol Sodium Chloride 10 ml 10/06/24 22:00 Central Line Flush IV PUSH Q8HR [facility] Sodium Chloride 20 ml 10/06/24 14:56 Central Line Flush IV PUSH PRN PRN after blood draws Radiology Results: ITS Impressions Arterial/Peripheral Duplex 09/29/24 14:58 IMPRESSION: 1. Bilateral increased renal cortical atelectasis be consistent with medical renal disease. No hydronephrosis. 2. No Doppler evidence of renal artery stenosis. 3. Fusiform abdominal aortic aneurysm measuring up to 3.6 cm maximal diameter. Renal Ultrasound 09/29/24 14:58 IMPRESSION: 1. Bilateral increased renal cortical atelectasis be consistent with medical renal disease. No hydronephrosis. 2. No Doppler evidence of renal artery stenosis. 3. Fusiform abdominal aortic aneurysm measuring up to 3.6 cm maximal diameter. Central Venous Line 10/06/24 08:02 IMPRESSION: 1. Central line tip overlying the proximal right atrium. Labs Labs: Laboratory Tests 10/06/24 05:15 WBC 6.6 Hgb 8.2 L Hct 25.3 L Plt Count 160 Sodium 144 Potassium 4.1 Chloride 103 Carbon Dioxide 19 L Anion Gap 22 H BUN 71 H Creatinine 9.87 H Estim Creat Clear Calc 4 Estimated GFR 4 L Glucose 88 Calcium 9.2 Phosphorus 8.6 H Albumin 3.8
--- NOTE | 2024-10-06 11:09 | ECG_ITS ---
Test Date: 2024-10-06 11:14:54 Measurements Intervals [place] Rate: 159 P: 0 WV: 0 QRS: -46 QRSD: 126 T: 142 QT: 315 QTc: 513 Interpretive Statements ATRIAL FIBRILLATION WITH RAPID VENTRICULAR RESPONSE MARKED LEFT AXIS DEVIATION [QRS AXIS < -30] LEFT BUNDLE BRANCH BLOCK [120+ ms QRS DURATION, 80+ ms Q/S IN V1/V2, 85+ ms R IN I/aVL/V5/V6] ST DEPRESSION, CONSIDER SUBENDOCARDIAL INJURY [0.1+ mV ST DEPRESSION] Compared to ECG 10/05/2024 00:23:39 NO SIGNIFICANT CHANGES Electronically Signed On 10-07-2024 15:57:21 ELECTRICAL SYSTEMS DESIGN ENGINEER by Josiane Doan M.D.
[2024-10-06] MEDS: NOREPINEPHRINE 8 MG/D5W 250 ML 8 MG/250 ML BAG 9.38 MG IV CONT (11:30)
--- NOTE | 2024-10-06 11:41 | ECG_ITS ---
Test Date: 2024-10-06 11:43:52 Measurements Intervals [place] Rate: 56 P: 0 MA: 0 QRS: -65 QRSD: 129 T: 81 QT: 418 QTc: 406 Interpretive Statements ATRIAL FIBRILLATION WITH SLOW VENTRICULAR RESPONSE WITH ABERRANT CONDUCTION OR VENTRICULAR PREMATURE COMPLEXES RIGHT BUNDLE BRANCH BLOCK VOLTAGE CRITERIA FOR LVH [MEETS CRITERIA IN ONE OF: R(aVL), S(V1), R(V5), R(V5/V6)+S(V1)] Compared to ECG 10/06/2024 11:14:54 RVR NO LONGER PRESENT RIGHT BUNDLE BRANCH BLOCK NOW PRESENT Electronically Signed On 10-07-2024 16:03:18 TELEVISION PARTS TESTER by Josiane Doan M.D.
[2024-10-06 12:45] LABS: Base Excess ABG -2.1 mEq/l (+/-2.0); Carboxyhemoglobin 0.3 % THb (0-2.0); Fractional Inspired Oxygen 100 %; HCO3 ABG 20.4 mEq/l (22.0-26.0); Methemoglobin ABG 0.3 %THb (0-1.5); Oxygen Content ABG 11.8 %vol (16.0-22.0); Oxygen Saturation ABG 99.3 % (95.0-100.0); Oxyhemoglobin 98.4 % THb (90.0-100.0); PCO2 ABG 26.8 mmHg (35.0-45.0); PO2 ABG 173.2 mmHg (80.0-100.0); PO2 FiO2 Ratio Arterial Blood 1.73 %; Total Hemoglobin 8.2 g/dL (12.0-18.0)
[2024-10-06 12:46] LABS: Arterial Blood Gas Ventilator rate 20 /MIN; Device VENTILATOR; Modified Allen's Test Pass; Site Drawn RIGHT RADIAL
[2024-10-06 12:47] LABS: Arterial Blood Gas Vent Mode CMV
[2024-10-06 12:49] LABS: Arterial Blood Gas PEEP 5 cmH2O; Arterial Blood Gas Tidal Volume 400 ml
[2024-10-06] MEDS: ETOMIDATE 20 MG/10 ML AMPUL IV PUSH (12:50)
[2024-10-06] MEDS: ROCURONIUM BROMIDE 50 MG/5 ML VIAL IV PUSH (12:50)
[2024-10-06] MEDS: MIDAZOLAM HCL (*CRX) 2 MG/2 ML VIAL IV PUSH (12:56)
--- NOTE | 2024-10-06 13:00 | WPDPROCEDUR ---
Procedures Intubation Intubation Date: 10/06/24 Intubation Time: 11:24 Consent: Discussed with son and [id number], explained to them that she had a cardiac arrest in the dialysis suite, she has shallow breaths and is tachypneic, cyanotic will require intubation to which they were agreeable. Sedative: etomidate Paralytic: rocuronium Laryngoscope: fiber optic video scope Assist device used: fiber optic device ET tube size: 7.5 Tube secured depth (cm): 23 Tube secured location: lips Tube placement confirmation: visualized tube passing through cords, equal breath sounds bilaterally, no breath sounds over epigastrium and confirmation by capnometry Patient tolerated procedure: well and no complications Intubation complications: none
--- NOTE | 2024-10-06 13:02 | WPDPROCEDUR ---
Procedures Central Line Placement Right IJ: Central Line Date: 10/06/24 Central Line Time: 11:50 Discussed w/ the patient/family/POA,the placement of a central venous catheter, including its clinical necessity/indication & associated potential risks, benifits and alternatives.: Yes The patient/family/POA understand(s) and acknowledge(s) the need to proceed with central venous catheter insertion as an important element of the patient's clinical management.: Yes Consent: I have discussed with the patient and/or surrogate, the non-emergent placement of a central venous catheter, including its clinical necessity/indication and associated potential risks and complications. The patient and/or surrogate understand(s) and acknowledge(s) the need to proceed with central venous catheter insertion as an important element of the patient's clinical management. Time Out Performed: Yes Patient Position: supine Patient placed on monitor/pulse ox: Yes Provider Prep: mask, sterile gown, sterile gloves, Max. sterile barrier precautions, cap and hand hygiene with conventional soap/water or alcohol based hand rub Central line prep: 2% Chlorhexidine scrub Local anesthesia used: lidocaine 1% Amount of anesthesia used (ml): 2 Sterile US Technique with sterile gel/sterile probe covers: Yes Central line lumen inserted: triple [place]ian: 7 Length (cm): 16 Depth of Insertion (cm): 16 Post Procedure: sutured in place, good blood return, all ports aspirated, flushed, capped, transparent dressing, hemostatic product, antimicrobial product, securement product and aseptic technique maintained throughout procedure Post procedure x-ray: tip of catheter in good position and no pneumothorax seen Patient tolerated procedure: well and no complications Complications: none
[2024-10-06 13:16] LABS: Basophils Percent Auto 0.3 % (0.2-1.2); Eosinophils Absolute Auto 0.2 K/mm3 (0-0.3); Eosinophils Percent Auto 1.7 % (0-4.4); Hematocrit 23.9 % (37.0-47.0); Hemoglobin 7.8 g/dL (12.0-15.0); Immature Granulocyte Percent A 1.8 % (0-0.5); Lymphocytes Absolute Auto 1.53 K/mm3 (0.9-3.2); Lymphocytes Percent Auto 13.9 % (18.3-44.2); Mean Corpuscular HGB Conc 32.6 g/dl (32-36); Mean Corpuscular Hemoglobin 31.6 pg (26-34); Mean Corpuscular Volume 96.8 fl (80-100); Mean Platelet Volume 9.9 fl (7.4-10.4); Monocytes Absolute Auto 0.4 K/mm3 (0.1-0.6); Monocytes Percent Auto 3.4 % (2.6-8.5); Neutrophils Absolute Auto 8.7 K/mm3 (1.3-6.7); Neutrophils Percent Auto 78.9 % (45.5-73.1); Nucleated Red Blood Cells Perc 0.5 % (0.0-0.2); Platelet Count Result 220 k/mm3 (150-375); Red Blood Count 2.47 M/mm3 (4.2-5.4); Red Cell Distribution Width 13.4 % (11.5-14.5)
[2024-10-06 13:27] LABS: Alanine Aminotransferase 11 U/L (6-35); Albumin Level 3.5 g/dL (3.5-5.1); Alkaline Phosphatase 72 U/L (38-126); Anion Gap 22 mmol/L (4-12); Aspartate Amino Transferase 37 U/L (14-36); Bilirubin,Total 0.6 mg/dL (0.2-1.3); Blood Urea Nitrogen 28 mg/dL (7-17); Calcium 10.2 mg/dL (8.4-10.2); Carbon Dioxide 21 mmol/L (22-30); Chloride 99 mmol/L (98-107); Estimated CRCL calculation 10 ml/min; Estimated Glomerular Filt Rate 10; Glucose 167 mg/dL (65-110); Magnesium 4.3 mg/dL (1.6-2.3); Phosphorus 4.9 mg/dL (2.5-4.5); Potassium 3.2 mmol/L (3.4-5.0); Sodium 142 mmol/L (137-145)
[2024-10-06 13:29] LABS: Lactic Acid Reflex 4.7 mmol/L (0.7-2.0)
[2024-10-06 13:36] LABS: INR 1.7; Partial Thromboplastin Time 30.1 Seconds (22.3-36.8); Prothrombin Time 20.2 Seconds (11.1-14.7)
--- NOTE | 2024-10-06 14:17 | WPDCNINT ---
Assessment and Plan Assessment and plan (1) Cardiac arrest: Code(s): I46.9 - Cardiac arrest, cause unspecified Status: Acute Assessment and Plan: 10/06: Cardiac arrest during dialysis in the dialysis suite -ACLS protocol was instituted patient did get ROSC Patient was brought to the ICU, was in wide complex ventricular tachycardia, was intubated, defibrillated. CPR was continued, Patient went to VFib, was again defibrillated. Patient did mention torsades and was again defibrillated. She was started on amiodarone bolus and given lidocaine. She was also given epinephrine, bicarb and calcium during the code. Please refer to code sheet for further details -chest x-ray showed atrial fibrillation, possible ST changes, Cardiology did not think it is ST-elevation -repeat EKG showed atrial fibrillation, rate controlled -will obtain echocardiogram (2) Acute respiratory failure: Code(s): J96.00 - Acute respiratory failure, unspecified whether with hypoxia or hypercapnia Status: Acute Assessment and Plan: Acute respiratory failure likely secondary to cardiac arrest -currently on CMV mode of ventilation, peep of 5 and 60% FiO2 -chest x-ray: Stable airspace opacities in left lower lung zone, consistent with atelectasis versus pneumonia. -Will start Zosyn for possible aspiration -will start bronchodilators -sedated with fentanyl, maintain RASS of 0 to -1, daily SBT and SAT (3) Acute kidney injury superimposed on chronic kidney disease: Code(s): N17.9 - Acute kidney failure, unspecified; N18.9 - Chronic kidney disease, unspecified Status: Acute Assessment and Plan: Acute on chronic kidney disease, On 10/05/2024: Patient pulled out her right IJ tunneled hemodialysis catheter. A new tunneled dialysis catheter was placed in the left internal jugular vein on 10/05/2024. -nephrology following, -dialysis per Nephrology Hypokalemia, will replete potassium per tube (4) Shock: Code(s): R57.9 - Shock, unspecified Status: Acute Assessment and Plan: Shock state likely related to cardiac arrest, possible infection, possible fluid shifts due to dialysis -blood cultures have been ordered -continue Levophed, maintain mean arterial pressures > 65 mmHg for adequate end organ perfusion -started Zosyn as above (10/06) -will add albumin for intravascular volume repletion since she has a dialysis bed -lactic acids were elevated to 4.7, will trend (5) Hypertension: Code(s): I10 - Essential (primary) hypertension Status: Chronic Assessment and Plan: Hold all antihypertensives since patient is on pressors Plan DVT prophylaxis: Heparin subQ Stress ulcer prophylaxis: Protonix Nutrition: NPO for now, will start tube feeds in a.m. Code Status: Modified code, no CPR, no defibrillation but okay with meds Critical Care Time Spent: 81 minutes Due to a high probability of clinically significant, life threatening deterioration, the patient required my highest level of preparedness to intervene emergently and I personally spent this critical care time directly and personally managing the patient. This critical care time included obtaining a history; examining the patient; pulse oximetry; ordering and review of studies; arranging urgent treatment with development of a management plan; evaluation of patient's response to treatment; frequent reassessment; and discussions with other providers. It was exclusive of separately billable procedures and treating other patients and teaching time. Please see Assessment and Plan section and the rest of the note for further information on patient assessment and treatment This dictation may have been done utilizing a voice recognition system. Attempts have been made to correct errors. However, there may be uncorrected grammatical, spelling, and recognitions errors present. Sap Bw Consultant Consult Note Consult date: 10/06/24 Reason for consult: Patient initially admitted on 09/29/2024 with complains of nausea, vomiting, dizziness 10/06/2024: Patient had a code blue in the dialysis suite, given 1 round of epinephrine with ROSC. Patient was brought to the ICU where she was in torsades, VFib, V-tach, was defibrillated multiple times, received ACLS protocol with ROSC in 4-5 minutes. 10/06/2024 intubated, right IJ central line was inserted HPI: Patria Martin is a 89 year old female with past medical history of chronic kidney disease stage 5, depression, essential hypertension presented the ED on 09/29/2024 with complains of nausea, vomiting, dizziness. Patient was hospitalized in early September at [facility] with complains of nausea vomiting, diarrhea. Creatinine at the time of admission was 5.53. Upon discharge from the [facility] her creatinine was 4.37. She was instructed to follow-up with the kidney specialist. Patient did not follow and in the event continue feel V, fatigue with frequent nausea, vomiting, decreased appetite rim and diarrhea. She also felt lightheaded and dizzy that prompted to come to the ED. labs upon admission WBC count of 4.6, hemoglobin 10.0, platelet 127, sodium 139, potassium 5.5, carbon dioxide 18, chloride 100, anion gap 21, BUN 98, creatinine 11.33. Urinalysis was positive for 2+ protein, trace ketones, and trace leukocyte esterase. During the course of hospital stay, tunneled hemodialysis catheter was inserted 10/03/2024 and her dialysis started on the same day. GI was consulted for melena a and recommended conservative management and follow H&H. On 10/05/2024: Patient pulled out her right IJ tunneled hemodialysis catheter. A new tunneled dialysis catheter was placed in the left internal jugular vein on 10/05/2024. On 10/06/2024 patient was getting dialysis done in the dialysis suite, a code blue was called. ACLS protocol was started and patient obtained ROSC. Was brought to the ICU where she was in torsades, VFib, V-tach, was defibrillated multiple times, received ACLS protocol with ROSC in 4-5 minutes. 10/06/2024 intubated, right IJ central line was inserted Patient seen and examined the ICU, remains intubated on CMV mode of ventilation, peep of 5, 60% FiO2. Sedated with fentanyl, patient opens her eyes, follows commands in all extremities. Is on Levophed. Lactic acid is 4.7, troponin 3.55 Review of Systems Review of Systems: ROS unobtainable: Yes unobtainable due to endotracheal tube, unobtainable due to medical condition and unobtainable due to mental status PMFSH Past Medical History Medical History Blood in stool Confusion Acute on chronic anemia Chronic kidney disease, stage 5 According to records from outside facility, patient states she knows nothing about this. Depression Hypertension Surgical History Surgical History History of tonsillectomy History of cataract extraction Social History Social History Social History: Surrogate medical decision maker: Marisol Negrete, sibling. Code status: Full code. Smoking status: Never smoker Alcohol intake: never Substance use: never Do You Feel Safe in your Home?: Yes Lack of Transportation: No Lack of Food: Never True Current Housing: I Have Housing Concerned About Future Housing: No Difficulty Paying Gas/Electric Bills: No Difficulty Paying for Meds: No Currently Unemployed: No Education: Associate Degree Difficulty w/ Childcare or Family Care: No Spiritual care concerns: No Meds Home Medications and Allergies Home Medications ?Medication ?Instructions ?Recorded ?Confirmed ?Type amlodipine 5 mg tablet 5 mg PO DAILY Blood pressure 09/29/24 10/03/24 History calcitriol 0.25 mcg capsule 0.25 mcg PO DAILY 09/29/24 10/03/24 History cefuroxime axetil 250 mg tablet 250 mg PO Q12H 09/29/24 09/29/24 History metoprolol succinate 100 mg 100 mg PO DAILY 09/29/24 10/03/24 History tablet,extended release 24 hr mirtazapine 7.5 mg tablet 7.5 mg PO HS 09/29/24 10/03/24 History ondansetron HCl 4 mg tablet 4 mg PO PRN 09/29/24 09/29/24 History sertraline 100 mg tablet 100 mg PO DAILY 09/29/24 10/03/24 History Allergies Allergy/AdvReac Type Severity Reaction Status Date / Time Vkurszi-XIS-TeP Reductase Allergy Unknown CRAMPING Verified 10/03/24 09:59 Inhibitor (Uerjzeb-Swv-Xhs LEG Reductase Inhibitor) NSID AdvReac Mild unknown Uncoded 10/03/24 09:59 Vital Signs Vital Signs - 24 hr 10/05/24 14:35 10/05/24 15:00 10/05/24 15:30 Temperature 97.4 F L 97.4 F L 97.4 F L Pulse Rate 76 74 72 Respiratory Rate 12 16 12 Blood Pressure 147/59 H 143/58 H 134/57 L Pulse Oximetry 95 96 96 Oxygen Delivery 10/05/24 17:30 10/05/24 20:00 10/05/24 22:00 Temperature 98.2 F 98.2 F Pulse Rate 80 79 Respiratory Rate 16 20 Blood Pressure 139/54 L 155/82 H Pulse Oximetry 96 96 Oxygen Delivery Room Air 10/05/24 23:49 10/06/24 03:49 10/06/24 07:55 Temperature 97.9 F 98.3 F 97.6 F Pulse Rate 80 65 103 H Respiratory Rate 20 20 16 Blood Pressure 153/82 H 102/54 L 205/108 H Pulse Oximetry 96 96 97 Oxygen Delivery 10/06/24 08:04 10/06/24 08:15 10/06/24 08:30 Temperature Pulse Rate 81 84 87 Respiratory Rate Blood Pressure 204/103 H 206/107 H 196/110 H Pulse Oximetry Oxygen Delivery 10/06/24 08:45 10/06/24 09:00 10/06/24 09:15 Temperature Pulse Rate 87 87 90 Respiratory Rate Blood Pressure 183/108 H 171/97 H 167/94 H Pulse Oximetry Oxygen Delivery 10/06/24 09:30 10/06/24 09:45 10/06/24 10:00 Temperature Pulse Rate 91 91 92 Respiratory Rate Blood Pressure 150/92 H 157/94 H 149/94 H Pulse Oximetry Oxygen Delivery 10/06/24 10:15 10/06/24 10:30 10/06/24 10:45 Temperature Pulse Rate 92 92 89 Respiratory Rate Blood Pressure 146/90 H 128/85 150/63 H Pulse Oximetry Oxygen Delivery 10/06/24 12:00 10/06/24 13:09 Temperature Pulse Rate 49 L 49 L Respiratory Rate 20 20 Blood Pressure 81/43 L 81/43 L Pulse Oximetry 100 100 Oxygen Delivery Exam Narrative: General: Elderly female intubated and sedated in no acute distress HEENT:? Pupils equal reactive, sclerae is clear Neck:? Right IJ in place, left IJ tunneled dialysis catheter Respiratory:? Coarse breath sounds bilateral bases, adequate air entry, no wheezing Cardiac:? Irregularly irregular, rate control Abdomen:? Soft, nontender, nondistended, hyperactive bowel sounds Extremities:? Bilateral lower extremity edema, palpable pedal pulses, cool to touch Neuro:? Patient is intubated, sedated, opens her eyes to verbal response, follows simple commands in all extremities Skin:? Mottling noted on bilateral lower extremities Psych:? Unable to assess at this time Results Labs 10/06/24 13:08 10/06/24 13:08 Labs: Short CBC 10/06/24 10/06/24 Range/Units 05:15 13:08 WBC 6.6 11.0 H (4.5-10.0) K/mm3 Hgb 8.2 L 7.8 L (12.0-15.0) g/dL Hct 25.3 L 23.9 L (37.0-47.0) % Plt Count 160 220 (150-375) k/mm3 BMP 10/06/24 10/06/24 05:15 13:08 Sodium 144 142 Potassium 4.1 3.2 L Chloride 103 99 Carbon Dioxide 19 L 21 L BUN 71 H 28 H D Creatinine 9.87 H 4.23 H Glucose 88 167 H Calcium 9.2 10.2 Liver Function 10/06/24 10/06/24 Range/Units 05:15 13:08 Total Bilirubin 0.6 (0.2-1.3) mg/dL AST 37 H (14-36) U/L ALT 11 (6-35) U/L Alkaline Phosphatase 72 (38-126) U/L Albumin 3.8 3.5 (3.5-5.1) g/dL Quality VTE Prophylaxis VTE prophylaxis: pharmacologic ordered Hospitalist MIPS Advance Care Plan I have confirmed that the patient's Advanced Care Plan is present, code status is documented, or surrogate decision maker is listed in patient medical record.: Yes Medication Reconciliation I have utilized all available resources to obtain, update and review the patients current medications (includes all prescriptions, OTC, herbals, cannabis, and nutritional supplements).: Yes
--- NOTE | 2024-10-06 14:29 | ECG_ITS ---
Test Date: 2024-10-06 14:33:12 Measurements Intervals [place] Rate: 75 P: 0 VA: 0 QRS: 78 QRSD: 117 T: -79 QT: 367 QTc: 412 Interpretive Statements ATRIAL FIBRILLATION INCOMPLETE RIGHT BUNDLE BRANCH BLOCK [90+ ms QRS DURATION, TERMINAL R IN V1/V2, 40+ ms S IN I/aVL/V4/V5/V6] ST DEVIATION AND MODERATE T-WAVE ABNORMALITY, CONSIDER ANTEROLATERAL ISCHEMIA [-0.1+ mV T WAVE IN V3-V6] ST DEVIATION AND MODERATE T-WAVE ABNORMALITY, CONSIDER INFERIOR ISCHEMIA [-0.1+ mV T WAVE IN II/aVF] Compared to ECG 10/06/2024 11:43:52 Incomplete right bundle-branch block now present Electronically Signed On 10-07-2024 16:09:09 [employer] by Josiane Doan M.D.
[2024-10-06] MEDS: FENTANYL 2,500MCG/NS250ML(*CRX 2,500 MCG/250 ML BAG IV CONT (14:59)
[2024-10-06] MEDS: MIDAZOLAM 100MG/NS 100ML(*CRX) 100 MG/100 ML BAG IV CONT (15:00)
[2024-10-06] MEDS: ALBUMIN HUMAN 25% 25 GM/100 ML 100 ML IVPB ×2 (15:19→19:22)
[2024-10-06] MEDS: POTASSIUM CHLORIDE 20 MEQ PACKET (FOR LIQUID) 40 MEQ PO (15:29)
[2024-10-06 15:47] LABS: Lactic Acid Reflex 5.8 mmol/L (0.7-2.0)
[2024-10-06 16:14] LABS: Reflex Lactic Acid Yes or No Add Lactic
[2024-10-06] MEDS: PIPERACILLIN/TAZ 2.25G/NS 50ML 2.25 GM/50 ML BAG IVPB ×2 (17:10→21:04)
--- NOTE | 2024-10-06 17:15 | PM.CNCAR ---
Assessment and Plan Assessment and plan (1) Cardiac arrest: Code(s): I46.9 - Cardiac arrest, cause unspecified Status: Acute Plan 81-year-old woman with CKD stage 5 and hypertension initially presented with nausea, vomiting, and dizziness found to have worsening anemia and renal function for which GI had been consulted and hemodialysis was initiated who underwent her 1st dialysis session today that was complicated by cardiac arrest Cardiac arrest -given initial concerns of ischemic appearing EKG, would obtain a transthoracic echocardiogram and follow the troponin trend -initial code was for PEA arrest and without evidence of clear ST-elevation ID, would not proceed urgently to cardiac catheterization at this time Paroxysmal atrial fibrillation -she was unable to tolerate amiodarone as she would become significantly bradycardic with hypotension -rates are acceptable at this time -if he makes meaningful recovery, there should be a discussion oral anticoagulants to reduce risk of stroke Ventricular tachycardia/ventricular fibrillation -will follow-up with transthoracic echocardiogram -status post amiodarone boluses as well as lidocaine bolus -unfortunately unable to tolerate IV amiodarone at this time -continue to monitor in ICU -electrolyte correction History of Present Illness History of Present Illness Consult date/time: 10/06/24 17:15 Requesting physician: Rocio Champion MD Consult reason: atrial fibrillation Reason For Visit: nikky on ckd Narrative: 81-year-old woman with CKD stage 5 and hypertension initially presented with nausea, vomiting, and dizziness found to have worsening anemia and renal function for which GI had been consulted and hemodialysis was initiated who underwent her 1st dialysis session today. During her dialysis session, she had PEA arrest with ROSC. Her rhythm upon ROSC appears to be atrial fibrillation. Given her compromised respiratory status, she was transferred down to the ICU where once again she became unresponsive and had episodes of wide complex tachycardia that degenerated into ventricular fibrillation. Eventually ROSC was achieved and there were concerns for a possible STEMI on the ECG. She is currently intubated and sedated. However as per reports, she would be able to follow commands when her sedation was weaned off earlier today. Review of Systems Review of Systems: ROS unobtainable: Yes unobtainable due to endotracheal tube PMFSH Past Medical History Medical History Blood in stool Confusion Acute on chronic anemia Chronic kidney disease, stage 5 According to records from outside facility, patient states she knows nothing about this. Depression Hypertension Surgical History Surgical History History of tonsillectomy History of cataract extraction Social History Social History Social History: Surrogate medical decision maker: Marisol Negrete, sibling. Code status: Full code. Smoking status: Never smoker Alcohol intake: never Substance use: never Do You Feel Safe in your Home?: Yes Lack of Transportation: No Lack of Food: Never True Current Housing: I Have Housing Concerned About Future Housing: No Difficulty Paying Gas/Electric Bills: No Difficulty Paying for Meds: No Currently Unemployed: No Education: Associate Degree Difficulty w/ Childcare or Family Care: No Spiritual care concerns: No Meds Home Medications and Allergies Home Medications ?Medication ?Instructions ?Recorded ?Confirmed ?Type amlodipine 5 mg tablet 5 mg PO DAILY Blood pressure 09/29/24 10/03/24 History calcitriol 0.25 mcg capsule 0.25 mcg PO DAILY 09/29/24 10/03/24 History cefuroxime axetil 250 mg tablet 250 mg PO Q12H 09/29/24 09/29/24 History metoprolol succinate 100 mg 100 mg PO DAILY 09/29/24 10/03/24 History tablet,extended release 24 hr mirtazapine 7.5 mg tablet 7.5 mg PO HS 09/29/24 10/03/24 History ondansetron HCl 4 mg tablet 4 mg PO PRN 09/29/24 09/29/24 History sertraline 100 mg tablet 100 mg PO DAILY 09/29/24 10/03/24 History Allergies Allergy/AdvReac Type Severity Reaction Status Date / Time Rzlknda-SKQ-VcS Reductase Allergy Unknown CRAMPING Verified 10/03/24 09:59 Inhibitor (Banctoy-Vxq-Erv LEG Reductase Inhibitor) NSID AdvReac Mild unknown Uncoded 10/03/24 09:59 Vital Signs Vital Signs - 24 hr 10/05/24 17:30 10/05/24 20:00 10/05/24 22:00 Temperature 36.8 C 36.8 C Pulse Rate 80 79 Respiratory Rate 16 20 Blood Pressure 139/54 L 155/82 H Pulse Oximetry 96 96 Oxygen Delivery Room Air Fraction of Inspired Oxygen 10/05/24 23:49 10/06/24 03:49 10/06/24 07:55 Temperature 36.6 C 36.8 C 36.4 C Pulse Rate 80 65 103 H Respiratory Rate 20 20 16 Blood Pressure 153/82 H 102/54 L 205/108 H Pulse Oximetry 96 96 97 Oxygen Delivery Fraction of Inspired Oxygen 10/06/24 08:04 10/06/24 08:15 10/06/24 08:30 Temperature Pulse Rate 81 84 87 Respiratory Rate Blood Pressure 204/103 H 206/107 H 196/110 H Pulse Oximetry Oxygen Delivery Fraction of Inspired Oxygen 10/06/24 08:45 10/06/24 09:00 10/06/24 09:15 Temperature Pulse Rate 87 87 90 Respiratory Rate Blood Pressure 183/108 H 171/97 H 167/94 H Pulse Oximetry Oxygen Delivery Fraction of Inspired Oxygen 10/06/24 09:30 10/06/24 09:45 10/06/24 10:00 Temperature Pulse Rate 91 91 92 Respiratory Rate Blood Pressure 150/92 H 157/94 H 149/94 H Pulse Oximetry Oxygen Delivery Fraction of Inspired Oxygen 10/06/24 10:15 10/06/24 10:30 10/06/24 10:45 Temperature Pulse Rate 92 92 89 Respiratory Rate Blood Pressure 146/90 H 128/85 150/63 H Pulse Oximetry Oxygen Delivery Fraction of Inspired Oxygen 10/06/24 11:30 10/06/24 12:00 10/06/24 12:22 Temperature Pulse Rate 165 H 49 L Respiratory Rate 20 Blood Pressure 68/59 L 81/43 L Pulse Oximetry 100 100 Oxygen Delivery Mechanical Ventilation Fraction of Inspired Oxygen 60 10/06/24 13:09 10/06/24 14:59 10/06/24 15:00 Temperature Pulse Rate 49 L 92 92 Respiratory Rate 20 20 20 Blood Pressure 81/43 L Pulse Oximetry 100 Oxygen Delivery Fraction of Inspired Oxygen 10/06/24 15:42 10/06/24 16:00 Temperature 37.2 C Pulse Rate 62 66 Respiratory Rate 16 Blood Pressure 119/66 Pulse Oximetry 100 100 Oxygen Delivery Mechanical Ventilation Fraction of Inspired Oxygen 60 Exam Const: Other: Intubated and sedated Neck: Neck: no JVD Resp: Effort & Inspection: normal respiratory effort Auscultation: clear to auscultation bilaterally Cardio: Rate: regular rate Rhythm: abnormal rhythm Extrem: General: no pedal edema Results Labs and Meds 10/06/24 13:08 10/06/24 13:08 Lab results: Cardiac Enzymes 10/06/24 10/06/24 Range/Units 13:08 16:26 AST 37 H (14-36) U/L Troponin I 3.500 H* 4.710 H* D (0.000-0.034) ng/mL Coagulation 10/06/24 10/06/24 Range/Units 13:08 13:08 PT Cancelled 20.2 H D APTT 30.1 (22.3-36.8) Seconds CBC 10/06/24 10/06/24 Range/Units 05:15 13:08 WBC 6.6 11.0 H (4.5-10.0) K/mm3 RBC 2.60 L 2.47 L (4.2-5.4) M/mm3 Hgb 8.2 L 7.8 L (12.0-15.0) g/dL Hct 25.3 L 23.9 L (37.0-47.0) % Plt Count 160 220 (150-375) k/mm3 Lymph # (Auto) 0.96 1.53 (0.9-3.2) K/mm3 [place] # (Auto) 0.3 0.4 (0.1-0.6) K/mm3 Eos # (Auto) 0.2 0.2 (0-0.3) K/mm3 Baso # (Auto) 0.0 0.0 (0.0-0.1) K/mm3 Comprehensive Metabolic Panel 10/06/24 10/06/24 Range/Units 05:15 13:08 Sodium 144 142 (137-145) mmol/L Potassium 4.1 3.2 L (3.4-5.0) mmol/L Chloride 103 99 (98-107) mmol/L Carbon Dioxide 19 L 21 L (22-30) mmol/L BUN 71 H 28 H D (7-17) mg/dL Creatinine 9.87 H 4.23 H (0.7-1.0) mg/dL Glucose 88 167 H (65-110) mg/dL Calcium 9.2 10.2 (8.4-10.2) mg/dL AST 37 H (14-36) U/L ALT 11 (6-35) U/L Alkaline Phosphatase 72 (38-126) U/L Total Protein 6.0 L (6.3-8.2) g/dL Albumin 3.8 3.5 (3.5-5.1) g/dL Intake and Output 10/06/24 10/06/24 10/06/24 07:59 15:59 23:59 Intake Total 50 100 Output Total 91 Balance 50 -91 100 Intake: IV 100 Albumin Human 25% 25 gm/100 ml 100 100 ml @ 60 mls/hr IVPB Q6HR [facility] Rx#:[id number] Oral 50 Output: Net UF Removed 91 Patient Weight 10/06/24 23:59 Weight 87.6 kg
[2024-10-06] MEDS: LACTATED RINGERS 500 ML 999 ML (17:26)
[2024-10-06 17:53] LABS: MRSA (PCR) NOT DETECTED (NOT DETECTE)
--- NOTE | 2024-10-06 18:04 | PC.NURSE ---
Bladder scan completed. 13ml of urine present.
[2024-10-06] MEDS: HEPARIN SODIUM 5,000 UNITS/ML VIAL 4000 UNITS IV PUSH (19:03)
[2024-10-06] MEDS: HEPARIN SOD/D5W 100 UNITS/ML 25,000 UNITS/250 ML BAG 9 UNITS IV CONT (19:05)
[2024-10-06] MEDS: IPRATROPIUM 0.5 MG/ALBUTEROL SULFATE 2.5 MG AMPUL.NEB 3 ML INHALATION (20:30)
[2024-10-06] MEDS: MINERAL OIL/WHITE PETROLATUM OINTMENT 1 APPLIC EACH EYE (21:04)
[2024-10-06] MEDS: CENTRAL LINE FLUSH 10 ML IV PUSH (21:04)
[2024-10-06 23:05] LABS: Add Urine Microscopic? YES; Appearance Urine Turbid (Clear); Bacteria Urine 4+ /hpf; Bilirubin Urine Negative (Negative); Blood Urine 2+ (Negative); Color Urine Yellow (Yellow); Glucose Urine UA Negative (Negative); Ketones Urine Trace mg/dL (Negative); Leukocyte Esterase Ur 3+ LEU/UL (Negative); Need Manual Microscopic Reviewed; Nitrate Urine Negative (Negative); Non Pathogenic Casts >20; Protein Urine 2+ mg/dL (Negative); Specific Grav Ur 1.007 (1.001-1.035); Squamous Epithelial Cell Urine Occasional /hpf (Few); Urobilinogen Urine 0.2 mg/dL (<2.0); WBC Urine >100 /hpf (0-3); pH Urine 7.5 (5.0-9.0)
[2024-10-07] VITALS (32 sets, daily range): BP systolic 105–181; BP diastolic 50–62; PULSE 42–61; RESP 16; TEMP 36.8–38.1; O2SAT 97–100; BMI 29.5
--- NOTE | 2024-10-07 | ECHO_ITS ---
Patient Info Name: Patria Martin Age: 89 years : 1935 Gender: Female Ht: 67 in Wt: 193 lbs BSA: 2.06 m2 HR: 44 bpm BP: 126 / 53 mmHg Exam Date: 10/07/2024 8:45 AM Exam Location: Echo Lab Patient Status: Inpatient Admit Date: 09/29/2024 Staff Ordering Physician: Rocio Champion MD Post Acute Care Registered Nurse: Jaclyn Fletcher RDCS Attending Provider: Waldemar Pennington MD Exam Type: CA echo dop color flow w con Study Info Indications - Cardiac Arrest Complete two-dimensional, color flow and Doppler transthoracic echocardiogram is performed with contrast to opacify the left ventricle and to improve the deliniation of the left ventricle endocardial borders. Contrast/Agitated Saline Contrast/Ag. Saline: Definity Amount: 2.00 ml Summary 1. Left ventricular chamber dimension is normal. 2. Left ventricular systolic function is normal, estimated at >70%. 3. There is mildly increased left ventricular wall thickness. 4. The left ventricular diastolic function is grade I diastolic dysfunction. 5. Right ventricular systolic function is normal. 6. There is mild aortic valve regurgitation. 7. There is mild mitral valve regurgitation. 8. There is mild tricuspid valve regurgitation. 9. Estimated pulmonary arterial systolic pressure is 29 mmHg. 10. Left pleural effusion noted. Left Ventricle Left ventricular chamber dimension is normal. Left ventricular systolic function is normal, estimated at >70%. There is mildly increased left ventricular wall thickness. The left ventricular diastolic function is grade I diastolic dysfunction. Right Ventricle Right ventricular chamber dimension is normal. Right ventricular systolic function is normal. Left Atria Left atrial chamber dimension is normal. Right Atria Right atrial chamber dimension is normal. Atrial Septum Intact interatrial septum visualized by color flow imaging. Aortic Valve The aortic valve is trileaflet. There is no aortic valve stenosis. There is mild aortic valve regurgitation. Pulmonic Valve The pulmonic valve is not well visualized. There is trace pulmonic regurgitation. Mitral Valve There is mild mitral valve regurgitation. Tricuspid Valve There is mild tricuspid valve regurgitation. Estimated pulmonary arterial systolic pressure is 29 mmHg. Pericardium/Pleural Left pleural effusion noted. There is no pericardial effusion. Inferior Vena Cava Dilated inferior vena cava with <50% collapse upon inspiration consistent with elevated right atrial pressure, 15 mmHg. Aorta The aortic root size at the sinus of Valsalva is normal. Left Ventricular Outflow Tract Name Value Normal LVOT 2D LVOT Diameter 1.81 cm LVOT Doppler LVOT Peak Gradient 6 mmHg LVOT Mean Gradient 2 mmHg LVOT VTI 24.73 cm LVOT VTI/AV VTI Ratio 0.78 LVOT Stroke Volume 63.75 ml LVOT CO 11.07 l/min LVOT CI 5.38 L/min/m2 Pulmonic Valve Name Value Normal PV Doppler PV Peak Gradient 3 mmHg Mitral Valve Name Value Normal MV Doppler MV Decel Elliott 805.59 cm/s2 MV PHT 0 s MV Area (PHT) 5.39 cm2 4.00-5.00 MV Diastolic Function MV E Peak Velocity 113.49 cm/s MV A Peak Velocity 89.55 cm/s MV E/A 1.27 MV Decel Time 0 s MV Annular TDI MV E/e' (Septal) 7.46 <=8.00 MV E/e' (Lateral) 7.93 <=8.00 MV E/e' (Average) 7.69 Tricuspid Valve Name Value Normal TV Regurgitation Doppler TR Peak Velocity 188.48 cm/s TR Peak Gradient 14 mmHg Estimated PAP/RSVP RA Pressure 15 mmHg <=5 PA Systolic Pressure 29 mmHg <36 RV Systolic Pressure 29 mmHg <36 Aorta Name Value Normal Ascending Aorta Ao Root Diameter (MM) 3.25 cm Ao Root Diam Index (MM) 1.58 cm/m2 Aortic Valve Name Value Normal AV Doppler AV Peak Velocity 154.92 cm/s AV Peak Gradient 10 mmHg AV Mean Gradient 5 mmHg AV VTI 31.63 cm AV Area (Cont Eq VTI) 2.02 cm2 >=3.00 AV Area (Cont Eq Elmer) 2.05 cm2 AV Regurgitation 2D LVOT Area 2.58 cm2 Ventricles Name Value Normal LV Dimensions 2D/MM IVS Diastolic Thickness (2D) 0.93 cm 0.60-1.00 LVID Diastole (2D) 4.38 cm 3.80-5.20 LVIW Diastolic Thickness (2D) 1.04 cm 0.60-0.90 LVID Systole (2D) 2.34 cm 2.20-3.50 LVOT Diameter 1.81 cm LV Mass (2D Cubed) 143.69 g 67.00-162.00 LV Mass Index (2D Cubed) 0.01 g/cm2 0.00-0.01 Relative Wall Thickness (2D) 0.47 LV Fractional Shortening/Ejection Fraction 2D/MM LV Fractional Shortening (2D) 47 % 27-45 LV EF (2D Teicholz) 78 % 54-74 LV Diastolic Volume (4C MOD) 65.02 ml LV EF (4C MOD) 78 % LV Diastolic Volume (2C MOD) 72.26 ml LV EF (2C MOD) 85 % LV Diastolic Volume (BP MOD) 70.00 ml 46.00-106.00 LV Diastolic Volume Index (BP MOD) 0.03 l/m2 0.03-0.06 LV Systolic Volume (BP MOD) 12.63 ml 14.00-42.00 LV Systolic Volume Index (BP MOD) 0.01 l/m2 0.01-0.02 LV EF (BP MOD) 82 % 54-74 LV Diastolic Length (4C) 7.02 cm LV Systolic Length (4C) 5.58 cm LV Stroke Volume (4C MOD) 50.94 ml Atria Name Value Normal LA Dimensions LA Dimension (MM) 3.18 cm 2.70-3.80 LA Volume (4C A-L) 34.50 ml LA Volume (BP A-L) 50.86 ml RA Dimensions RA Area (4C) 13.08 cm2 <=18.00 Report Signatures
[2024-10-07] MEDS: ALBUMIN HUMAN 25% 25 GM/100 ML 100 ML IVPB ×2 (00:07→06:35)
[2024-10-07] MEDS: IPRATROPIUM 0.5 MG/ALBUTEROL SULFATE 2.5 MG AMPUL.NEB 3 ML INHALATION (01:55)
[2024-10-07 02:35] LABS: Partial Thromboplastin Time > 200.0 Seconds (22.3-36.8)
[2024-10-07] MEDS: PIPERACILLIN/TAZ 2.25G/NS 50ML 2.25 GM/50 ML BAG IVPB ×4 (03:10→20:23)
[2024-10-07 05:01] LABS: Alveolar/Arterial O2 Gradient 78.4 mmHg; Base Excess ABG 0.7 mEq/l (+/-2.0); Carboxyhemoglobin 1.3 % THb (0-2.0); Fractional Inspired Oxygen 30 %; HCO3 ABG 24.1 mEq/l (22.0-26.0); Methemoglobin ABG 0.6 %THb (0-1.5); Oxygen Content ABG 9.9 %vol (16.0-22.0); Oxygen Saturation ABG 97.8 % (95.0-100.0); Oxyhemoglobin 95.4 % THb (90.0-100.0); PCO2 ABG 33.2 mmHg (35.0-45.0); PO2 ABG 96.5 mmHg (80.0-100.0); PO2 FiO2 Ratio Arterial Blood 3.22 %; Reduced Hemoglobin 2.7 %THb (0-5.0); pH ABG 7.479 (7.350-7.450)
[2024-10-07 05:03] LABS: Arterial Blood Gas PEEP 5 cmH2O; Arterial Blood Gas Tidal Volume 400 ml; Arterial Blood Gas Vent Mode CMV; Arterial Blood Gas Ventilator rate 16 /MIN; Device VENTILATOR; Modified Allen's Test Pass; Site Drawn RIGHT RADIAL; Total Hemoglobin 7.2 g/dL (12.0-18.0)
[2024-10-07] MEDS: CENTRAL LINE FLUSH 10 ML IV PUSH ×2 (06:35→20:23)
[2024-10-07 06:40] LABS: Basophils Percent Auto 0.2 % (0.2-1.2); Eosinophils Absolute Auto 0.1 K/mm3 (0-0.3); Eosinophils Percent Auto 1.9 % (0-4.4); Immature Granulocyte Absolute 0.07 K/mm3 (0.00-0.031); Immature Granulocyte Percent A 1.3 % (0-0.5); Immature Platelet Fraction Pct 4.5 % (0.9-11.2); Lymphocytes Absolute Auto 0.92 K/mm3 (0.9-3.2); Lymphocytes Percent Auto 17.7 % (18.3-44.2); Mean Corpuscular HGB Conc 32.2 g/dl (32-36); Mean Corpuscular Hemoglobin 31.6 pg (26-34); Mean Corpuscular Volume 97.9 fl (80-100); Mean Platelet Volume 10.6 fl (7.4-10.4); Monocytes Absolute Auto 0.3 K/mm3 (0.1-0.6); Neutrophils Absolute Auto 3.9 K/mm3 (1.3-6.7); Neutrophils Percent Auto 73.9 % (45.5-73.1); Nucleated Red Blood Cells Perc 0.6 % (0.0-0.2); Platelet Count Result 104 k/mm3 (150-375); Red Blood Count 1.87 M/mm3 (4.2-5.4); Red Cell Distribution Width 13.5 % (11.5-14.5); White Blood Count 5.2 K/mm3 (4.5-10.0)
[2024-10-07 06:44] LABS: Hemoglobin 5.9 g/dL (12.0-15.0)
[2024-10-07 06:45] LABS: Hematocrit 18.3 % (37.0-47.0)
[2024-10-07 06:54] LABS: INR 3.1; Prothrombin Time 31.8 Seconds (11.1-14.7)
[2024-10-07 06:55] LABS: Lactic Acid Reflex 0.9 mmol/L (0.7-2.0)
[2024-10-07 06:59] LABS: Alanine Aminotransferase 15 U/L (6-35); Albumin Level 3.3 g/dL (3.5-5.1); Alkaline Phosphatase 51 U/L (38-126); Anion Gap 15 mmol/L (4-12); Aspartate Amino Transferase 89 U/L (14-36); Bilirubin,Total 0.8 mg/dL (0.2-1.3); Blood Urea Nitrogen 37 mg/dL (7-17); Calcium 9.2 mg/dL (8.4-10.2); Carbon Dioxide 25 mmol/L (22-30); Chloride 101 mmol/L (98-107); Estimated CRCL calculation 7 ml/min; Estimated Glomerular Filt Rate 7; Glucose 107 mg/dL (65-110); Magnesium 3.5 mg/dL (1.6-2.3); Sodium 141 mmol/L (137-145)
[2024-10-07 07:26] LABS: Partial Thromboplastin Time > 200.0 Seconds (22.3-36.8)
[2024-10-07] MEDS: PANTOPRAZOLE SODIUM IV 40 MG VIAL IV PUSH ×2 (08:09→20:23)
[2024-10-07] MEDS: MINERAL OIL/WHITE PETROLATUM OINTMENT 1 APPLIC EACH EYE ×2 (08:11→20:23)
[2024-10-07 08:15] LABS: Glucose Point of Care 96 mg/dl (65-105)
[2024-10-07] MEDS: PERFLUTREN LIPID MICROSPHERES 1.5 ML VIAL DILUTED TO 10 ML TOTAL VOLUME IV PUSH (08:50)
--- NOTE | 2024-10-07 09:40 | PM.PNNEP ---
Subjective Date/time seen: 10/07/24 09:40 Interval history: Follow-up for acute kidney injury/acute renal failure on chronic kidney disease. Events noted with dialysis yesterday and subsequent events -- Objective Data Vital Signs Vital Signs: Vital Signs Temp Pulse Resp BP Pulse Ox O2 Del Method FiO2 10/07/24 09:40 100.1 F H 45 L 16 137/56 L 100 10/07/24 08:12 43 L 100 Mechanical Ventilation 10/07/24 08:00 43 L 140/54 L 10/07/24 08:00 43 L 16 10/07/24 07:50 43 L 16 10/07/24 06:00 44 L 16 10/07/24 06:00 44 L 16 10/07/24 06:00 44 L 126/53 L 10/07/24 06:00 44 L 16 126/53 L 100 10/07/24 06:00 46 L 10/07/24 04:54 45 L 100 Mechanical Ventilation 10/07/24 04:00 30 10/07/24 04:00 48 L 16 98 Mechanical Ventilation 10/07/24 04:00 100.6 F H 45 L 16 105/50 L 99 10/07/24 04:00 45 L 10/07/24 04:00 45 L 16 10/07/24 04:00 45 L 16 10/07/24 04:00 45 L 105/50 L 10/07/24 02:09 49 L 16 10/07/24 02:00 100.5 F H 49 L 16 110/54 L 97 10/07/24 02:00 44 L 10/07/24 02:00 46 L 16 10/07/24 02:00 46 L 16 10/07/24 02:00 46 L 110/54 L 10/07/24 01:55 50 L 16 10/07/24 01:55 50 L 98 Mechanical Ventilation 10/07/24 00:00 49 L 10/07/24 00:00 48 L 16 98 Mechanical Ventilation 10/07/24 00:00 30 10/07/24 00:00 100.3 F H 48 L 16 115/60 98 10/07/24 00:00 48 L 115/60 10/07/24 00:00 48 L 16 10/07/24 00:00 49 L 16 10/06/24 23:46 50 L 115/59 L 03/03/25 23:32 51 L 124/54 L 10/06/24 23:16 50 L 112/63 10/06/24 23:10 99 Mechanical Ventilation 30 10/06/24 23:05 51 L 117/59 L 10/06/24 22:54 49 L 100 Mechanical Ventilation 40 10/06/24 22:30 48 L 120/57 L 10/06/24 22:00 45 L 16 10/06/24 22:00 45 L 16 10/06/24 22:00 45 L 10/06/24 22:00 99.8 F H 45 L 16 128/56 L 100 10/06/24 21:55 46 L 127/57 L 10/06/24 21:09 45 L 151/63 H 10/06/24 20:58 46 L 17 10/06/24 20:57 99 Mechanical Ventilation 40 10/06/24 20:30 48 L 16 10/06/24 20:30 48 L 100 Mechanical Ventilation 50 10/06/24 20:00 60 10/06/24 20:00 99.7 F H 56 L 16 123/66 100 10/06/24 20:00 50 10/06/24 20:00 56 L 16 100 Mechanical Ventilation 50 10/06/24 20:00 66 16 10/06/24 20:00 66 16 10/06/24 20:00 57 L 123/66 10/06/24 19:25 66 84/45 L 10/06/24 19:20 65 61/41 L 10/06/24 19:16 68 64/37 L 10/06/24 18:00 69 16 10/06/24 18:00 69 16 10/06/24 18:00 69 105/56 L 10/06/24 18:00 99.5 F 69 12 105/56 L 100 10/06/24 17:30 69 124/66 10/06/24 17:29 65 100 Mechanical Ventilation 60 10/06/24 17:00 67 128/61 10/06/24 16:30 69 147/69 H 10/06/24 16:00 66 16 10/06/24 16:00 66 16 10/06/24 16:00 66 119/66 10/06/24 16:00 62 18 99 Mechanical Ventilation 50 10/06/24 16:00 98.9 F 66 16 119/66 100 10/06/24 15:42 62 100 Mechanical Ventilation 60 10/06/24 15:00 66 136/69 10/06/24 15:00 92 20 10/06/24 14:59 92 20 10/06/24 14:00 62 17 142/68 H 99 10/06/24 14:00 64 118/51 L Intake/Output Intake/Output: Intake & Output 10/04/24 10/05/24 10/06/24 10/07/24 23:59 23:59 23:59 23:59 Intake Total 479 747 9098.3 785.8 Output Total 1000 900 70 Balance 120 -450 180.3 715.8 Meds/Results Medications: Active Medications Generic Name Dose Route Start Last Admin Trade Name Freq PRN Reason Stop Dose Admin Acetaminophen 650 mg 10/03/24 12:37 Acetaminophen 325 Mg Tablet PO Q4H PRN Mild Pain (1-3) or Fever Albuterol/Ipratropium 3 ml 10/07/24 07:46 Ipratropium 0.5 Mg/Albuterol Sulfate 2.5 Mg Ampul.Neb 3 Ml INHALATION Q6HRT PRN wheezing Amlodipine Besylate 5 mg 10/07/24 12:40 10/07/24 12:56 Amlodipine Besylate 5 Mg Tablet FEED TUBE 5 mg DAILY HUAN Administration Dextrose 12.5 gm 10/07/24 07:52 Dextrose 50% 25 Gm/50 Ml Syringe IV PUSH PRN PRN Hypoglycemia Protocol Glucagon 1 mg 10/07/24 07:52 Glucagon For Inj 1 Mg Vial IM PRN PRN Hypoglycemia Protocol Glucose 15 gm 10/07/24 07:52 Glucose Oral Gel 15 Gm Of Glucse In 37.5 Gm Tube PO PRN PRN Hypoglycemia Protocol Hydralazine HCl 20 mg 10/07/24 12:35 10/07/24 13:05 Hydralazine Hcl 20 Mg/Ml Vial IV PUSH 20 mg Q4H PRN Administration SBP more than 160 Albumin Human 50 mls @ 999 mls/hr 10/03/24 10:27 Albutein IVPB 11/02/24 10:26 Q10M PRN HYPOTENSION Fentanyl Citrate 2,500 mcg in 250 mls @ 7.5 mls/hr 10/06/24 11:45 10/07/24 08:00 Fentanyl 2,500 Mcg/Ns 250 Ml IV CONT 75 mcg/hr .[id number] HUAN 7.5 mls/hr Titration Protocol 75 MCG/HR Piperacillin Sod/Tazobactam Sod 2.25 gm in 50 mls @ 100 mls/hr 10/06/24 15:00 10/07/24 11:06 Zosyn 2.25 Gm/Ns 50 Ml IVPB 100 mls/hr Q6H HUAN Administration Sodium Chloride 250 mls @ 30 mls/hr 10/07/24 07:11 10/07/24 09:45 Normal Saline Iv IV CONT 10/07/24 15:30 30 mls/hr .[id number] STA Administration Dextrose 1,000 mls @ 100 mls/hr 10/07/24 07:52 Dextrose 5% 1,000 Ml IVPB PRN PRN Hypoglycemia Protocol Insulin Aspart 3 - 6 units 10/07/24 09:00 10/07/24 12:33 Insulin Aspart (*Bkc) 100 Units/Ml SUB-Q Not Given Q4HR HUAN Protocol Multi-Ingred Cream/Lotion/Oil/Oint 1 applic 10/06/24 21:00 10/07/24 08:11 Mineral Oil/White Petrolatum Ointment EACH EYE 1 applic Q12HR HUAN Administration Nitroglycerin 0.4 mg 10/05/24 00:16 Nitroglycerin Sl 0.4 Mg Tablet SUBLINGUAL Q5MIN PRN Chest Pain Pantoprazole Sodium 40 mg 10/07/24 21:00 Pantoprazole Sodium Iv 40 Mg Vial IV PUSH Q12HR HUAN Sodium Chloride 10 ml 10/06/24 22:00 10/07/24 06:35 Central Line Flush IV PUSH 10 ml Q8HR HUAN Administration Sodium Chloride 20 ml 10/06/24 14:56 Central Line Flush IV PUSH PRN PRN after blood draws Radiology Results: ITS Impressions Arterial/Peripheral Duplex 09/29/24 14:58 IMPRESSION: 1. Bilateral increased renal cortical atelectasis be consistent with medical renal disease. No hydronephrosis. 2. No Doppler evidence of renal artery stenosis. 3. Fusiform abdominal aortic aneurysm measuring up to 3.6 cm maximal diameter. Renal Ultrasound 09/29/24 14:58 IMPRESSION: 1. Bilateral increased renal cortical atelectasis be consistent with medical renal disease. No hydronephrosis. 2. No Doppler evidence of renal artery stenosis. 3. Fusiform abdominal aortic aneurysm measuring up to 3.6 cm maximal diameter. Central Venous Line 10/06/24 08:02 IMPRESSION: 1. Central line tip overlying the proximal right atrium. Chest X-Ray 10/07/24 06:17 Impression: [id number] left pleural effusion with probable left lower lobe atelectasis. Correlate clinically for pneumonia. Support tubes, as above. Labs Labs: Laboratory Tests 10/07/24 06:32 10/07/24 06:32 Lactic Acid 0.9 Calcium 9.2 Phosphorus 4.0 Magnesium 3.5 H Total Bilirubin 0.8 AST 89 H ALT 15 Alkaline Phosphatase 51 Total Protein 5.0 L Albumin 3.3 L TSH 3.520
[2024-10-07] MEDS: SODIUM CHLORIDE 0.9% IV 250 ML 30 ML IV CONT (09:45)
[2024-10-07 11:42] LABS: Glucose Point of Care 103 mg/dl (65-105)
--- NOTE | 2024-10-07 12:29 | P.PNINT_ITS ---
Progress Note: A&P Assessment and Plan (1) Cardiac arrest: Code(s): I46.9 - Cardiac arrest, cause unspecified Status: Acute Assessment and Plan: 10/06: Cardiac arrest during dialysis in the dialysis suite -ACLS protocol was instituted patient did get ROSC Patient was brought to the ICU, was in wide complex ventricular tachycardia, was intubated, defibrillated. CPR was continued, Patient went to VFib, was again defibrillated. Patient had episode of torsades and was again defibrillated. She was started on amiodarone bolus and given lidocaine. She was also given epinephrine, bicarb and calcium during the code. Please refer to code sheet for further details EKG showed atrial fibrillation, possible ST changes, Cardiology did not think it is ST-elevation Currently in sinus bradycardia. Amiodarone has been discontinued Echo is ordered and pending Shock has improved and patient is off vasopressors Heparin has been discontinued due to drop in hemoglobin (2) Acute respiratory failure: Code(s): J96.00 - Acute respiratory failure, unspecified whether with hypoxia or hypercapnia Status: Acute Assessment and Plan: Acute respiratory failure likely secondary to cardiac arrest -currently on CMV mode of ventilation, peep of 5 and 60% FiO2 -chest x-ray: Stable airspace opacities in left lower lung zone, consistent with atelectasis versus pneumonia. Continue Zosyn for possible aspiration Continue bronchodilators Currently sedated (3) Acute kidney injury superimposed on chronic kidney disease: Code(s): N17.9 - Acute kidney failure, unspecified; N18.9 - Chronic kidney disease, unspecified Status: Acute Assessment and Plan: Acute on chronic kidney disease, On 10/05/2024: Patient pulled out her right IJ tunneled hemodialysis catheter. A new tunneled dialysis catheter was placed in the left internal jugular vein on 10/05/2024. -nephrology following, -dialysis per Nephrology. Plan for next dialysis session on 10/08 (4) Shock: Code(s): R57.9 - Shock, unspecified Status: Acute Assessment and Plan: Shock state likely related to cardiac arrest, possible infection, possible fluid shifts due to dialysis -blood cultures have been ordered Off Levophed Continue Zosyn as above (10/06) Off IV fluid Lactic acid level has normalized (5) Hypertension: Code(s): I10 - Essential (primary) hypertension Status: Chronic Assessment and Plan: Hold all antihypertensives since patient was on (6) Anemia: Code(s): D64.9 - Anemia, unspecified Status: Acute Assessment and Plan: Patient dropped her hemoglobin to 5.9 this morning. She does have chronic anemia Hold anticoagulation Patient is being transfused 2 units of PRBC Monitor hemoglobin Obtain CT scan of abdomen pelvis Continue PPI and change to q.12 hours Plan DVT prophylaxis: SCD Stress ulcer prophylaxis: Protonix Nutrition: Start tube feeds Code Status: Modified code, no CPR, no defibrillation but okay with meds I spoke to patient's sister and updated her with patient's status. I answered all her questions. She told me the patient's son is on his way from [place] [facility] Time Spent: 30 minutes Due to a high probability of clinically significant, life threatening deterioration, the patient required my highest level of preparedness to intervene emergently and I personally spent this critical care time directly and personally managing the patient. This critical care time included obtaining a history; examining the patient; pulse oximetry; ordering and review of studies; arranging urgent treatment with development of a management plan; evaluation of patient's response to treatment; frequent reassessment; and discussions with other providers. It was exclusive of separately billable procedures and treating other patients and teaching time. Please see Assessment and Plan section and the rest of the note for further information on patient assessment and treatment This dictation may have been done utilizing a voice recognition system. Attempts have been made to correct errors. However, there may be uncorrected grammatical, spelling, and recognitions errors present. Subjective Date/time seen: 10/07/24 Overnight events reviewed. Fever Continues to be on mechanical ventilation 30% FiO2 Off vasopressors Continues to be sedated with Versed Minimal urine output Heparin drip discontinued due to drop in hemoglobin. Other Vitals acceptable Review of Systems Review of Systems: ROS unobtainable: Yes unobtainable due to endotracheal tube, unobtainable due to medical condition and unobtainable due to mental status Exam Narrative: General: Elderly female intubated and sedated in no acute distress HEENT:? Pupils equal reactive, sclerae is clear Neck:? Right IJ in place, left IJ tunneled dialysis catheter Respiratory:? Coarse breath sounds bilateral bases, adequate air entry, no wheezing Cardiac:? Irregularly irregular, rate control Abdomen:? Soft, nontender, nondistended, hyperactive bowel sounds Extremities:? Bilateral lower extremity edema, palpable pedal pulses, cool to touch Neuro:? Patient is intubated, sedated, withdraws to pain, grimaces on painful stimuli Skin:? Mottling noted on bilateral lower extremities Psych:? Unable to assess at this time Objective Data Vital Signs Vital Signs: Vital Signs - 24 hr 10/06/24 12:30 10/06/24 12:45 10/06/24 13:00 Temperature Pulse Rate 80 73 65 Respiratory Rate Blood Pressure 95/40 L 116/58 L 108/50 L Pulse Oximetry Oxygen Delivery Fraction of Inspired Oxygen 10/06/24 13:09 10/06/24 14:00 10/06/24 14:00 Temperature Pulse Rate 49 L 64 62 Respiratory Rate 20 17 Blood Pressure 81/43 L 118/51 L 142/68 H Pulse Oximetry 100 99 Oxygen Delivery Fraction of Inspired Oxygen 10/06/24 14:59 10/06/24 15:00 10/06/24 15:00 Temperature Pulse Rate 92 92 66 Respiratory Rate 20 20 Blood Pressure 136/69 Pulse Oximetry Oxygen Delivery Fraction of Inspired Oxygen 10/06/24 15:42 10/06/24 16:00 10/06/24 16:00 Temperature 37.2 C Pulse Rate 62 66 62 Respiratory Rate 16 18 Blood Pressure 119/66 Pulse Oximetry 100 100 99 Oxygen Delivery Mechanical Ventilation Mechanical Ventilation Fraction of Inspired Oxygen 60 50 10/06/24 16:00 10/06/24 16:00 10/06/24 16:00 Temperature Pulse Rate 66 66 66 Respiratory Rate 16 16 Blood Pressure 119/66 Pulse Oximetry Oxygen Delivery Fraction of Inspired Oxygen 10/06/24 16:30 10/06/24 17:00 10/06/24 17:29 Temperature Pulse Rate 69 67 65 Respiratory Rate Blood Pressure 147/69 H 128/61 Pulse Oximetry 100 Oxygen Delivery Mechanical Ventilation Fraction of Inspired Oxygen 60 10/06/24 17:30 10/06/24 18:00 10/06/24 18:00 Temperature 37.5 C Pulse Rate 69 69 69 Respiratory Rate 12 Blood Pressure 124/66 105/56 L 105/56 L Pulse Oximetry 100 Oxygen Delivery Fraction of Inspired Oxygen 10/06/24 18:00 10/06/24 18:00 10/06/24 19:16 Temperature Pulse Rate 69 69 68 Respiratory Rate 16 16 Blood Pressure 64/37 L Pulse Oximetry Oxygen Delivery Fraction of Inspired Oxygen 10/06/24 19:20 10/06/24 19:25 10/06/24 20:00 Temperature Pulse Rate 65 66 57 L Respiratory Rate Blood Pressure 61/41 L 84/45 L 123/66 Pulse Oximetry Oxygen Delivery Fraction of Inspired Oxygen 10/06/24 20:00 10/06/24 20:00 10/06/24 20:00 Temperature Pulse Rate 66 66 56 L Respiratory Rate 16 16 16 Blood Pressure Pulse Oximetry 100 Oxygen Delivery Mechanical Ventilation Fraction of Inspired Oxygen 50 10/06/24 20:00 10/06/24 20:00 10/06/24 20:00 Temperature 37.6 C H Pulse Rate 56 L 60 Respiratory Rate 16 Blood Pressure 123/66 Pulse Oximetry 100 Oxygen Delivery Fraction of Inspired Oxygen 50 10/06/24 20:30 10/06/24 20:30 10/06/24 20:57 Temperature Pulse Rate 48 L 48 L Respiratory Rate 16 Blood Pressure Pulse Oximetry 100 99 Oxygen Delivery Mechanical Ventilation Mechanical Ventilation Fraction of Inspired Oxygen 50 40 10/06/24 20:58 10/06/24 21:09 10/06/24 21:55 Temperature Pulse Rate 46 L 45 L 46 L Respiratory Rate 17 Blood Pressure 151/63 H 127/57 L Pulse Oximetry Oxygen Delivery Fraction of Inspired Oxygen 10/06/24 22:00 10/06/24 22:00 10/06/24 22:00 Temperature 37.7 C H Pulse Rate 45 L 45 L 45 L Respiratory Rate 16 16 Blood Pressure 128/56 L Pulse Oximetry 100 Oxygen Delivery Fraction of Inspired Oxygen 10/06/24 22:00 10/06/24 22:30 10/06/24 22:54 Temperature Pulse Rate 45 L 48 L 49 L Respiratory Rate 16 Blood Pressure 120/57 L Pulse Oximetry 100 Oxygen Delivery Mechanical Ventilation Fraction of Inspired Oxygen 40 10/06/24 23:05 10/06/24 23:10 10/06/24 23:16 Temperature Pulse Rate 51 L 50 L Respiratory Rate Blood Pressure 117/59 L 112/63 Pulse Oximetry 99 Oxygen Delivery Mechanical Ventilation Fraction of Inspired Oxygen 30 10/06/24 23:32 10/06/24 23:46 10/07/24 00:00 Temperature Pulse Rate 51 L 50 L 49 L Respiratory Rate 16 Blood Pressure 124/54 L 115/59 L Pulse Oximetry Oxygen Delivery Fraction of Inspired Oxygen 10/07/24 00:00 10/07/24 00:00 10/07/24 00:00 Temperature 37.9 C H Pulse Rate 48 L 48 L 48 L Respiratory Rate 16 16 Blood Pressure 115/60 115/60 Pulse Oximetry 98 Oxygen Delivery Fraction of Inspired Oxygen 10/07/24 00:00 10/07/24 00:00 10/07/24 00:00 Temperature Pulse Rate 48 L 49 L Respiratory Rate 16 Blood Pressure Pulse Oximetry 98 Oxygen Delivery Mechanical Ventilation Fraction of Inspired Oxygen 30 30 10/07/24 01:55 10/07/24 01:55 10/07/24 02:00 Temperature Pulse Rate 50 L 50 L 46 L Respiratory Rate 16 Blood Pressure 110/54 L Pulse Oximetry 98 Oxygen Delivery Mechanical Ventilation Fraction of Inspired Oxygen 30 10/07/24 02:00 10/07/24 02:00 10/07/24 02:00 Temperature Pulse Rate 46 L 46 L 44 L Respiratory Rate 16 16 Blood Pressure Pulse Oximetry Oxygen Delivery Fraction of Inspired Oxygen 10/07/24 02:00 10/07/24 02:09 10/07/24 04:00 Temperature 38.1 C H Pulse Rate 49 L 49 L 45 L Respiratory Rate 16 16 Blood Pressure 110/54 L 105/50 L Pulse Oximetry 97 Oxygen Delivery Fraction of Inspired Oxygen 10/07/24 04:00 10/07/24 04:00 10/07/24 04:00 Temperature Pulse Rate 45 L 45 L 45 L Respiratory Rate 16 16 Blood Pressure Pulse Oximetry Oxygen Delivery Fraction of Inspired Oxygen 10/07/24 04:00 10/07/24 04:00 10/07/24 04:00 Temperature 38.1 C H Pulse Rate 45 L 48 L Respiratory Rate 16 16 Blood Pressure 105/50 L Pulse Oximetry 99 98 Oxygen Delivery Mechanical Ventilation Fraction of Inspired Oxygen 30 30 10/07/24 04:54 10/07/24 06:00 10/07/24 06:00 Temperature Pulse Rate 45 L 46 L 44 L Respiratory Rate 16 Blood Pressure 126/53 L Pulse Oximetry 100 100 Oxygen Delivery Mechanical Ventilation Fraction of Inspired Oxygen 30 10/07/24 06:00 10/07/24 06:00 10/07/24 06:00 Temperature Pulse Rate 44 L 44 L 44 L Respiratory Rate 16 16 Blood Pressure 126/53 L Pulse Oximetry Oxygen Delivery Fraction of Inspired Oxygen 10/07/24 07:50 10/07/24 08:00 10/07/24 08:00 Temperature Pulse Rate 43 L 43 L 43 L Respiratory Rate 16 16 Blood Pressure 140/54 L Pulse Oximetry Oxygen Delivery Fraction of Inspired Oxygen 10/07/24 08:12 10/07/24 09:45 10/07/24 10:03 Temperature 37.8 C H 37.8 C H Pulse Rate 43 L 45 L 44 L Respiratory Rate 16 16 Blood Pressure 137/56 L 136/61 Pulse Oximetry 100 100 100 Oxygen Delivery Mechanical Ventilation Fraction of Inspired Oxygen 30 10/07/24 11:03 10/07/24 11:49 10/07/24 12:03 Temperature 37.8 C H 37.8 C H Pulse Rate 43 L 42 L 42 L Respiratory Rate 16 16 Blood Pressure 167/57 H 170/61 H Pulse Oximetry 100 100 100 Oxygen Delivery Mechanical Ventilation Fraction of Inspired Oxygen 30 10/07/24 12:27 Temperature 37.8 C H Pulse Rate 42 L Respiratory Rate 16 Blood Pressure 167/60 H Pulse Oximetry 100 Oxygen Delivery Fraction of Inspired Oxygen Intake/Output Intake/Output: Intake & Output 10/04/24 10/05/24 10/06/24 10/07/24 23:59 23:59 23:59 23:59 Intake Total 331 408 8961.3 785.8 Output Total 1000 91 70 Balance 120 -450 989.3 715.8 Meds/Results Medications: Active Medications Generic Name Dose Route Start Last Admin Trade Name Freq PRN Reason Stop Dose Admin Acetaminophen 650 mg 10/03/24 12:37 Acetaminophen 325 Mg Tablet PO Q4H PRN Mild Pain (1-3) or Fever Albuterol/Ipratropium 3 ml 10/07/24 07:46 Ipratropium 0.5 Mg/Albuterol Sulfate 2.5 Mg Ampul.Neb 3 Ml INHALATION Q6HRT PRN wheezing Dextrose 12.5 gm 10/07/24 07:52 Dextrose 50% 25 Gm/50 Ml Syringe IV PUSH PRN PRN Hypoglycemia Protocol Glucagon 1 mg 10/07/24 07:52 Glucagon For Inj 1 Mg Vial IM PRN PRN Hypoglycemia Protocol Glucose 15 gm 10/07/24 07:52 Glucose Oral Gel 15 Gm Of Glucse In 37.5 Gm Tube PO PRN PRN Hypoglycemia Protocol Albumin Human 50 mls @ 999 mls/hr 10/03/24 10:27 Albutein IVPB 11/02/24 10:26 Q10M PRN HYPOTENSION Fentanyl Citrate 2,500 mcg in 250 mls @ 7.5 mls/hr 10/06/24 11:45 10/07/24 08:00 Fentanyl 2,500 Mcg/Ns 250 Ml IV CONT 75 mcg/hr .[id number] HUAN 7.5 mls/hr Titration Protocol 75 MCG/HR Midazolam HCl 100 mg in 100 mls @ 0 mls/hr 10/06/24 11:45 10/07/24 07:50 Versed 100 Mg/Ns 100 Ml IV CONT 0 mg/hr .Q0M HUAN 0 mls/hr Titration Protocol Piperacillin Sod/Tazobactam Sod 2.25 gm in 50 mls @ 100 mls/hr 10/06/24 15:00 10/07/24 11:06 Zosyn 2.25 Gm/Ns 50 Ml IVPB 100 mls/hr Q6H HUAN Administration Norepinephrine Bitartrate 8 mg in 250 mls @ 0 mls/hr 10/06/24 15:38 10/07/24 08:00 Levophed 8 Mg/D5w 250 Ml IV CONT 0 mcg/min .Q0M HUAN 0 mls/hr Titration Protocol 0 MCG/MIN Sodium Chloride 250 mls @ 30 mls/hr 10/07/24 07:11 10/07/24 09:45 Normal Saline Iv IV CONT 10/07/24 15:30 30 mls/hr .Q8H20M STA Administration Dextrose 1,000 mls @ 100 mls/hr 10/07/24 07:52 Dextrose 5% 1,000 Ml IVPB PRN PRN Hypoglycemia Protocol Insulin Aspart 3 - 6 units 10/07/24 09:00 10/07/24 10:15 Insulin Aspart (*Bkc) 100 Units/Ml SUB-Q Not Given Q4HR HUAN Protocol Miscellaneous Information 1 each 10/07/24 00:01 Allergy Left Uncoded On Profile For Nsid . Please Clarify With Patient What This Drug Is XX 11/06/24 00:00 CLARIFY HUAN Multi-Ingred Cream/Lotion/Oil/Oint 1 applic 10/06/24 21:00 10/07/24 08:11 Mineral Oil/White Petrolatum Ointment EACH EYE 1 applic Q12HR HUNA Administration Nitroglycerin 0.4 mg 10/05/24 00:16 Nitroglycerin Sl 0.4 Mg Tablet SUBLINGUAL Q5MIN PRN Chest Pain Pantoprazole Sodium 40 mg 10/07/24 09:00 10/07/24 08:09 Pantoprazole Sodium Iv 40 Mg Vial IV PUSH 40 mg QAM HUAN Administration Sodium Chloride 10 ml 10/06/24 22:00 10/07/24 06:35 Central Line Flush IV PUSH 10 ml Q8HR HUAN Administration Sodium Chloride 20 ml 10/06/24 14:56 Central Line Flush IV PUSH PRN PRN after blood draws Radiology Results: ITS Impressions Arterial/Peripheral Duplex 09/29/24 14:58 IMPRESSION: 1. Bilateral increased renal cortical atelectasis be consistent with medical renal disease. No hydronephrosis. 2. No Doppler evidence of renal artery stenosis. 3. Fusiform abdominal aortic aneurysm measuring up to 3.6 cm maximal diameter. Renal Ultrasound 09/29/24 14:58 IMPRESSION: 1. Bilateral increased renal cortical atelectasis be consistent with medical renal disease. No hydronephrosis. 2. No Doppler evidence of renal artery stenosis. 3. Fusiform abdominal aortic aneurysm measuring up to 3.6 cm maximal diameter. Central Venous Line 10/06/24 08:02 IMPRESSION: 1. Central line tip overlying the proximal right atrium. Chest X-Ray 10/07/24 06:17 Impression: [id number] left pleural effusion with probable left lower lobe atelectasis. Correlate clinically for pneumonia. Support tubes, as above. Labs Labs: Laboratory Results - last 24 hr 10/04/24 10/06/24 10/06/24 05:03 12:38 13:08 WBC 11.0 H RBC 2.47 L Hgb 7.8 L Hct 23.9 L MCV 96.8 MCH 31.6 MCHC 32.6 RDW 13.4 Plt Count 220 MPV 9.9 Immature Gran % (Auto) 1.8 H Neut % (Auto) 78.9 H Lymph % (Auto) 13.9 L [place] % (Auto) 3.4 Eos % (Auto) 1.7 Baso % (Auto) 0.3 Lymph # (Auto) 1.53 [place] # (Auto) 0.4 Eos # (Auto) 0.2 Baso # (Auto) 0.0 Abs Immat Gran (auto) 0.20 H Absolute Neuts (auto) 8.7 H Absolute Nucleated RBC 0.060 H Nucleated RBC % 0.5 H % Immature Plt Fraction PT Cancelled INR APTT Puncture Site Right radial ABG pH 7.500 H ABG pCO2 26.8 L ABG pO2 173.2 H ABG PO2/FiO2 Ratio 1.73 ABG HCO3 20.4 L ABG O2 Saturation 99.3 ABG O2 Content 11.8 L ABG Base Excess -2.1 A-a Gradient 513.0 Oxyhemoglobin 98.4 Carboxyhemoglobin 0.3 Methemoglobin 0.3 Reduced Hemoglobin 1.0 Total Hemoglobin 8.2 L O2 Delivery Device Ventilator O2 Liters/Min Not Reportable Minute Volume Not Reportable Vent Rate 20 Vent Mode Cmv FiO2 100 Tidal Volume 400 PEEP 5 Peak Inspir Pressure Not Reportable Pressure Support Not Reportable Sodium Potassium Chloride Carbon Dioxide Anion Gap BUN Creatinine Estim Creat Clear Calc Estimated GFR Glucose POC Capillary Glucose Lactic Acid Calcium Phosphorus Magnesium Total Bilirubin AST ALT Alkaline Phosphatase Troponin I Total Protein Albumin TSH Urine Color Urine Appearance Urine pH Ur Specific [place] Urine Protein Urine Glucose (UA) Urine Ketones Ur Blood (Man) Urine Nitrate Urine Bilirubin Urine Urobilinogen Ur Leukocyte Esterase Add Ur Microanalysis Urine RBC Urine WBC Ur Squamous Epith Cells Urine Bacteria Urine Casts Nasal MRSA (PCR) Urine Immunofixation Blood Type Antibody Screen Crossmatch 10/06/24 10/06/24 10/06/24 13:08 13:08 15:08 WBC RBC Hgb Hct MCV MCH MCHC RDW Plt Count MPV Immature Gran % (Auto) Neut % (Auto) Lymph % (Auto) [place] % (Auto) Eos % (Auto) Baso % (Auto) Lymph # (Auto) [place] # (Auto) Eos # (Auto) Baso # (Auto) Abs Immat Gran (auto) Absolute Neuts (auto) Absolute Nucleated RBC Nucleated RBC % % Immature Plt Fraction PT 20.2 H D INR Cancelled 1.7 APTT 30.1 Puncture Site ABG pH ABG pCO2 ABG pO2 ABG PO2/FiO2 Ratio ABG HCO3 ABG O2 Saturation ABG O2 Content ABG Base Excess A-a Gradient Oxyhemoglobin Carboxyhemoglobin Methemoglobin Reduced Hemoglobin Total Hemoglobin O2 Delivery Device O2 Liters/Min Minute Volume Vent Rate Vent Mode FiO2 Tidal Volume PEEP Peak Inspir Pressure Pressure Support Sodium 142 Potassium 3.2 L Chloride 99 Carbon Dioxide 21 L Anion Gap 22 H BUN 28 H D Creatinine 4.23 H Estim Creat Clear Calc 10 Estimated GFR 10 L Glucose 167 H POC Capillary Glucose Lactic Acid 4.7 H* 5.8 H* Calcium 10.2 Phosphorus 4.9 H Magnesium 4.3 H Total Bilirubin 0.6 AST 37 H ALT 11 Alkaline Phosphatase 72 Troponin I 3.500 H* Total Protein 6.0 L Albumin 3.5 TSH Urine Color Urine Appearance Urine pH Ur Specific [place] Urine Protein Urine Glucose (UA) Urine Ketones Ur Blood (Man) Urine Nitrate Urine Bilirubin Urine Urobilinogen Ur Leukocyte Esterase Add Ur Microanalysis Urine RBC Urine WBC Ur Squamous Epith Cells Urine Bacteria Urine Casts Nasal MRSA (PCR) Urine Immunofixation Blood Type Antibody Screen Crossmatch 10/06/24 10/06/24 10/06/24 16:26 20:44 22:33 WBC RBC Hgb Hct MCV MCH MCHC RDW Plt Count MPV Immature Gran % (Auto) Neut % (Auto) Lymph % (Auto) [place] % (Auto) Eos % (Auto) Baso % (Auto) Lymph # (Auto) [place] # (Auto) Eos # (Auto) Baso # (Auto) Abs Immat Gran (auto) Absolute Neuts (auto) Absolute Nucleated RBC Nucleated RBC % % Immature Plt Fraction PT INR APTT Puncture Site ABG pH ABG pCO2 ABG pO2 ABG PO2/FiO2 Ratio ABG HCO3 ABG O2 Saturation ABG O2 Content ABG Base Excess A-a Gradient Oxyhemoglobin Carboxyhemoglobin Methemoglobin Reduced Hemoglobin Total Hemoglobin O2 Delivery Device O2 Liters/Min Minute Volume Vent Rate Vent Mode FiO2 Tidal Volume PEEP Peak Inspir Pressure Pressure Support Sodium Potassium Chloride Carbon Dioxide Anion Gap BUN Creatinine Estim Creat Clear Calc Estimated GFR Glucose POC Capillary Glucose Lactic Acid 2.0 Calcium Phosphorus Magnesium Total Bilirubin AST ALT Alkaline Phosphatase Troponin I 4.710 H* D Total Protein Albumin TSH Urine Color Yellow Urine Appearance Turbid H Urine pH 7.5 Ur Specific [place] 1.007 Urine Protein 2+ H Urine Glucose (UA) Negative Urine Ketones Trace H Ur Blood (Man) 2+ H Urine Nitrate Negative Urine Bilirubin Negative Urine Urobilinogen 0.2 Ur Leukocyte Esterase 3+ H Add Ur Microanalysis Reviewed Urine RBC 6-10 H Urine WBC >100 H Ur Squamous Epith Cells Occasional Urine Bacteria 4+ H Urine Casts >20 Nasal MRSA (PCR) Not detected Urine Immunofixation Blood Type Antibody Screen Crossmatch 10/07/24 10/07/24 10/07/24 02:09 04:45 06:32 WBC 5.2 RBC 1.87 L Hgb 5.9 L* Hct 18.3 L* MCV 97.9 MCH 31.6 MCHC 32.2 RDW 13.5 Plt Count 104 L D MPV 10.6 H Immature Gran % (Auto) 1.3 H Neut % (Auto) 73.9 H Lymph % (Auto) 17.7 L [place] % (Auto) 5.0 Eos % (Auto) 1.9 Baso % (Auto) 0.2 Lymph # (Auto) 0.92 [place] # (Auto) 0.3 Eos # (Auto) 0.1 Baso # (Auto) 0.0 Abs Immat Gran (auto) 0.07 H Absolute Neuts (auto) 3.9 Absolute Nucleated RBC 0.030 H Nucleated RBC % 0.6 H % Immature Plt Fraction 4.5 PT 31.8 H D INR 3.1 APTT > 200.0 H* > 200.0 H* Puncture Site Right radial ABG pH 7.479 H ABG pCO2 33.2 L ABG pO2 96.5 ABG PO2/FiO2 Ratio 3.22 ABG HCO3 24.1 ABG O2 Saturation 97.8 ABG O2 Content 9.9 L ABG Base Excess 0.7 A-a Gradient 78.4 Oxyhemoglobin 95.4 Carboxyhemoglobin 1.3 Methemoglobin 0.6 Reduced Hemoglobin 2.7 Total Hemoglobin 7.2 L* O2 Delivery Device Ventilator O2 Liters/Min Not Reportable Minute Volume Not Reportable Vent Rate 16 Vent Mode Cmv FiO2 30 Tidal Volume 400 PEEP 5 Peak Inspir Pressure Not Reportable Pressure Support Not Reportable Sodium 141 Potassium 4.0 Chloride 101 Carbon Dioxide 25 Anion Gap 15 H BUN 37 H Creatinine 5.59 H Estim Creat Clear Calc 7 Estimated GFR 7 L Glucose 107 POC Capillary Glucose Lactic Acid 0.9 Calcium 9.2 Phosphorus 4.0 Magnesium 3.5 H Total Bilirubin 0.8 AST 89 H ALT 15 Alkaline Phosphatase 51 Troponin I Total Protein 5.0 L Albumin 3.3 L TSH 3.520 Urine Color Urine Appearance Urine pH Ur Specific [place] Urine Protein Urine Glucose (UA) Urine Ketones Ur Blood (Man) Urine Nitrate Urine Bilirubin Urine Urobilinogen Ur Leukocyte Esterase Add Ur Microanalysis Urine RBC Urine WBC Ur Squamous Epith Cells Urine Bacteria Urine Casts Nasal MRSA (PCR) Urine Immunofixation Blood Type Antibody Screen Crossmatch 10/07/24 10/07/24 10/07/24 07:29 08:13 11:39 WBC RBC Hgb Hct MCV MCH MCHC RDW Plt Count MPV Immature Gran % (Auto) Neut % (Auto) Lymph % (Auto) [place] % (Auto) Eos % (Auto) Baso % (Auto) Lymph # (Auto) [place] # (Auto) Eos # (Auto) Baso # (Auto) Abs Immat Gran (auto) Absolute Neuts (auto) Absolute Nucleated RBC Nucleated RBC % % Immature Plt Fraction PT INR APTT Puncture Site ABG pH ABG pCO2 ABG pO2 ABG PO2/FiO2 Ratio ABG HCO3 ABG O2 Saturation ABG O2 Content ABG Base Excess A-a Gradient Oxyhemoglobin Carboxyhemoglobin Methemoglobin Reduced Hemoglobin Total Hemoglobin O2 Delivery Device O2 Liters/Min Minute Volume Vent Rate Vent Mode FiO2 Tidal Volume PEEP Peak Inspir Pressure Pressure Support Sodium Potassium Chloride Carbon Dioxide Anion Gap BUN Creatinine Estim Creat Clear Calc Estimated GFR Glucose POC Capillary Glucose 96 103 Lactic Acid Calcium Phosphorus Magnesium Total Bilirubin AST ALT Alkaline Phosphatase Troponin I Total Protein Albumin TSH Urine Color Urine Appearance Urine pH Ur Specific [place] Urine Protein Urine Glucose (UA) Urine Ketones Ur Blood (Man) Urine Nitrate Urine Bilirubin Urine Urobilinogen Ur Leukocyte Esterase Add Ur Microanalysis Urine RBC Urine WBC Ur Squamous Epith Cells Urine Bacteria Urine Casts Nasal MRSA (PCR) Urine Immunofixation Blood Type O Positive Antibody Screen Negative Crossmatch See Detail
[2024-10-07] MEDS: amLODIPine BESYLATE 5 MG TABLET FEED TUBE (12:56)
[2024-10-07] MEDS: hydrALAZINE HCL 20 MG/ML VIAL IV PUSH (13:05)
[2024-10-07 14:28] LABS: Cryoglobulin, QL Negative (Negative)
[2024-10-07 16:16] LABS: Hematocrit 29.6 % (37.0-47.0); Hemoglobin 9.9 g/dL (12.0-15.0); Mean Corpuscular HGB Conc 33.4 g/dl (32-36); Mean Corpuscular Hemoglobin 31.4 pg (26-34); Mean Platelet Volume 10.3 fl (7.4-10.4); Platelet Count Result 105 k/mm3 (150-375); Red Blood Count 3.15 M/mm3 (4.2-5.4); White Blood Count 7.4 K/mm3 (4.5-10.0)
[2024-10-07 17:09] LABS: Glucose Point of Care 95 mg/dl (65-105)
--- NOTE | 2024-10-07 17:46 | P.PNIM_ITS ---
Progress Note: A&P Assessment and Plan (1) Cardiac arrest: Code(s): I46.9 - Cardiac arrest, cause unspecified Status: Acute Assessment and Plan: Patient intubated after cardiac arrest due to hypoxia not able to maintain airway Transferred to ICU ICU consulted (2) Uncontrolled hypertension: Code(s): I10 - Essential (primary) hypertension Status: Acute Assessment and Plan: Blood pressure 229/94 on admission, given her morning antihypertensives of amlodipine 5 mg and metoprolol succinate 100 mg as she had not taken it - Continue metoprolol 100 mg daily and amlodipine increased to 10 mg daily - Avoid a precipitous drop in blood pressure due to the fact that they most likely run in the 180s to 190 systolic if not higher. - Nephrology consulted, hypertension likely secondary to poorly controlled CKD 10/02- will increase amlodipine to 10 mg and increase hydralazine frequency to tid instead of bid for better BP control 10/03 somewhat better-monitor 10/04- reviewed -still elevated. Procardia was added per nephrology 10/06 blood pressure low this morning likely due to dialysis yesterday and change of blood pressure medications, AMLODIPINE DECREASED BACK TO 5 MG vitals and placed on hold Patient hypotensive after rest hold all blood pressure medications (3) Acute kidney injury superimposed on chronic kidney disease: Code(s): N17.9 - Acute kidney failure, unspecified; N18.9 - Chronic kidney disease, unspecified Status: Acute Assessment and Plan: Per chart review, patient was recently hospitalized at [facility] earlier this month with dehydration due to nausea, vomiting, and diarrhea. Creatinine at the time of admission was 5.53 and did improve right around her baseline with a discharge creatinine of 4.37. She was instructed to follow-up with her kidney specialist, Dr. Vidales. - Etiology unknown - BUN/Cr 102/11.13 on admission, now BUN/Cr 98/11.17 on am labs - Renal US and duplex: Bilateral increased renal cortical atelectasis be consistent with medical renal disease. No hydronephrosis. No renal artery stenosis.Fusiform abdominal aortic aneurysm measuring up to 3.6 cm maximal diameter. - Avoid nephrotoxic agents and renally dose all medications - Monitor I/O - Notes requested from recent stay at [facility] as well as the most recent office notes from Dr. Mcclure or Dr. Vidales - Nephrology consulted for further recommendations. daily labs 10/04- had dialysis last night nephrology on board- continue 10/05 left tunnel catheter placed 10/06 patient code blue during dialysis, had 15 left on treatment (4) Hyperkalemia: Code(s): E87.5 - Hyperkalemia Status: Acute Assessment and Plan: Improved K 5.5 on admission, likely due to patients STEVE and dehydration. Given lokelma 10 mg x1 and started on IV fluids - Tele - Monitor Daily labs (5) Depression: Code(s): F32.A - Depression, unspecified Status: Acute Assessment and Plan: chronic, continue home medications - sertraline 100 mg daily Plan patient is on vent and her son and daughter in law are present in the room, gave them updates and discuss possible hospice, son will discuss further with family and advertising assistant manager in the morning before deciding. will monitor. Subjective Date/time seen: 10/07/24 17:46 Interval history: 89-year-old female with hypertension, chronic kidney disease, and depression who presented to the emergency department via EMS from home with complaints of nausea, vomiting, dizziness. Patient had a left tunnel catheter placed yesterday for dialysis During HD patient complained of severe back pain then went unresponsive, with loss of pulse, code aileen called. CPR started 1 amp of epi and 1 amp of bicarb given with ROCS at 2 minute pulse check, Patient responsive and talking however her breathing is shallow, see code documentation for details, code status confirmed with family, taking patient to ICU for intubation. ICU attending at bedside for code blue Patient intubated in ICU 1125 Patient shocked for VTach, amino drip and lido 1130 patient shocked again for VTach, now in V Fib with no pulse, cpr started, see code documentation for details prolonged discussion with son and sister 1150 Code status updated to no cpr, no shocking, ok for medications and to keep patient intubated patient is on vent and her son and daughter in law are present in the room, gave them updates and discuss possible hospice, son will discuss further with family and advertising assistant manager in the morning before deciding. will monitor. Review of Systems Review of Systems: ROS unobtainable: Yes unobtainable due to endotracheal tube Exam Narrative: Patient is comfortable, NAD HEENT: ET tube in place LUNGS:CTA HEART: RR S1S2 ABD: BS+, Soft and nontender Lower extremities: no edema SKIN: nonjaundiced Neuro: On vent and sedated Objective Data Vital Signs Vital Signs: Vital Signs - 24 hr 10/06/24 18:00 10/06/24 18:00 10/06/24 18:00 Temperature 37.5 C Pulse Rate 69 69 69 Respiratory Rate 12 16 Blood Pressure 105/56 L 105/56 L Pulse Oximetry 100 Oxygen Delivery Fraction of Inspired Oxygen 10/06/24 18:00 10/06/24 19:16 10/06/24 19:20 Temperature Pulse Rate 69 68 65 Respiratory Rate 16 Blood Pressure 64/37 L 61/41 L Pulse Oximetry Oxygen Delivery Fraction of Inspired Oxygen 10/06/24 19:25 10/06/24 20:00 10/06/24 20:00 Temperature Pulse Rate 66 57 L 66 Respiratory Rate 16 Blood Pressure 84/45 L 123/66 Pulse Oximetry Oxygen Delivery Fraction of Inspired Oxygen 10/06/24 20:00 10/06/24 20:00 10/06/24 20:00 Temperature Pulse Rate 66 56 L Respiratory Rate 16 16 Blood Pressure Pulse Oximetry 100 Oxygen Delivery Mechanical Ventilation Fraction of Inspired Oxygen 50 50 10/06/24 20:00 10/06/24 20:00 10/06/24 20:30 Temperature 37.6 C H Pulse Rate 56 L 60 48 L Respiratory Rate 16 Blood Pressure 123/66 Pulse Oximetry 100 100 Oxygen Delivery Mechanical Ventilation Fraction of Inspired Oxygen 50 10/06/24 20:30 10/06/24 20:57 10/06/24 20:58 Temperature Pulse Rate 48 L 46 L Respiratory Rate 16 17 Blood Pressure Pulse Oximetry 99 Oxygen Delivery Mechanical Ventilation Fraction of Inspired Oxygen 40 10/06/24 21:09 10/06/24 21:55 10/06/24 22:00 Temperature 37.7 C H Pulse Rate 45 L 46 L 45 L Respiratory Rate 16 Blood Pressure 151/63 H 127/57 L 128/56 L Pulse Oximetry 100 Oxygen Delivery Fraction of Inspired Oxygen 10/06/24 22:00 10/06/24 22:00 10/06/24 22:00 Temperature Pulse Rate 45 L 45 L 45 L Respiratory Rate 16 16 Blood Pressure Pulse Oximetry Oxygen Delivery Fraction of Inspired Oxygen 10/06/24 22:30 10/06/24 22:54 10/06/24 23:05 Temperature Pulse Rate 48 L 49 L 51 L Respiratory Rate Blood Pressure 120/57 L 117/59 L Pulse Oximetry 100 Oxygen Delivery Mechanical Ventilation Fraction of Inspired Oxygen 40 10/06/24 23:10 10/06/24 23:16 10/06/24 23:32 Temperature Pulse Rate 50 L 51 L Respiratory Rate Blood Pressure 112/63 124/54 L Pulse Oximetry 99 Oxygen Delivery Mechanical Ventilation Fraction of Inspired Oxygen 30 10/06/24 23:46 10/07/24 00:00 10/07/24 00:00 Temperature Pulse Rate 50 L 49 L 48 L Respiratory Rate 16 16 Blood Pressure 115/59 L Pulse Oximetry Oxygen Delivery Fraction of Inspired Oxygen 10/07/24 00:00 10/07/24 00:00 10/07/24 00:00 Temperature 37.9 C H Pulse Rate 48 L 48 L Respiratory Rate 16 Blood Pressure 115/60 115/60 Pulse Oximetry 98 Oxygen Delivery Fraction of Inspired Oxygen 30 10/07/24 00:00 10/07/24 00:00 10/07/24 01:55 Temperature Pulse Rate 48 L 49 L 50 L Respiratory Rate 16 Blood Pressure Pulse Oximetry 98 98 Oxygen Delivery Mechanical Ventilation Mechanical Ventilation Fraction of Inspired Oxygen 30 30 10/07/24 01:55 10/07/24 02:00 10/07/24 02:00 Temperature Pulse Rate 50 L 46 L 46 L Respiratory Rate 16 16 Blood Pressure 110/54 L Pulse Oximetry Oxygen Delivery Fraction of Inspired Oxygen 10/07/24 02:00 10/07/24 02:00 10/07/24 02:00 Temperature 38.1 C H Pulse Rate 46 L 44 L 49 L Respiratory Rate 16 16 Blood Pressure 110/54 L Pulse Oximetry 97 Oxygen Delivery Fraction of Inspired Oxygen 10/07/24 02:09 10/07/24 04:00 10/07/24 04:00 Temperature Pulse Rate 49 L 45 L 45 L Respiratory Rate 16 16 Blood Pressure 105/50 L Pulse Oximetry Oxygen Delivery Fraction of Inspired Oxygen 10/07/24 04:00 10/07/24 04:00 10/07/24 04:00 Temperature 38.1 C H Pulse Rate 45 L 45 L 45 L Respiratory Rate 16 16 Blood Pressure 105/50 L Pulse Oximetry 99 Oxygen Delivery Fraction of Inspired Oxygen 10/07/24 04:00 10/07/24 04:00 10/07/24 04:54 Temperature Pulse Rate 48 L 45 L Respiratory Rate 16 Blood Pressure Pulse Oximetry 98 100 Oxygen Delivery Mechanical Ventilation Mechanical Ventilation Fraction of Inspired Oxygen 30 30 30 10/07/24 06:00 10/07/24 06:00 10/07/24 06:00 Temperature Pulse Rate 46 L 44 L 44 L Respiratory Rate 16 Blood Pressure 126/53 L 126/53 L Pulse Oximetry 100 Oxygen Delivery Fraction of Inspired Oxygen 10/07/24 06:00 10/07/24 06:00 10/07/24 07:50 Temperature Pulse Rate 44 L 44 L 43 L Respiratory Rate 16 16 16 Blood Pressure Pulse Oximetry Oxygen Delivery Fraction of Inspired Oxygen 10/07/24 08:00 10/07/24 08:00 10/07/24 08:00 Temperature Pulse Rate 43 L 43 L 42 L Respiratory Rate 16 Blood Pressure 140/54 L Pulse Oximetry Oxygen Delivery Fraction of Inspired Oxygen 10/07/24 08:00 10/07/24 08:00 10/07/24 08:00 Temperature 37.7 C H Pulse Rate 43 L Respiratory Rate 16 Blood Pressure 140/54 L Pulse Oximetry 100 Oxygen Delivery Mechanical Ventilation Fraction of Inspired Oxygen 30 30 10/07/24 08:12 10/07/24 09:45 10/07/24 10:00 Temperature 37.8 C H Pulse Rate 43 L 45 L 44 L Respiratory Rate 16 Blood Pressure 137/56 L 136/61 Pulse Oximetry 100 100 Oxygen Delivery Mechanical Ventilation Fraction of Inspired Oxygen 30 10/07/24 10:00 10/07/24 10:00 10/07/24 10:03 Temperature 37.8 C H 37.8 C H Pulse Rate 44 L 44 L 44 L Respiratory Rate 16 16 Blood Pressure 136/61 136/61 Pulse Oximetry 100 100 Oxygen Delivery Fraction of Inspired Oxygen 10/07/24 11:03 10/07/24 11:49 10/07/24 12:00 Temperature 37.8 C H Pulse Rate 43 L 42 L 42 L Respiratory Rate 16 Blood Pressure 167/57 H 170/61 H Pulse Oximetry 100 100 Oxygen Delivery Mechanical Ventilation Fraction of Inspired Oxygen 30 10/07/24 12:00 10/07/24 12:00 10/07/24 12:00 Temperature Pulse Rate 42 L Respiratory Rate Blood Pressure Pulse Oximetry Oxygen Delivery Mechanical Ventilation Fraction of Inspired Oxygen 30 30 10/07/24 12:00 10/07/24 12:03 10/07/24 12:27 Temperature 37.8 C H 37.8 C H 37.8 C H Pulse Rate 42 L 42 L 42 L Respiratory Rate 16 16 16 Blood Pressure 170/61 H 170/61 H 167/60 H Pulse Oximetry 100 100 100 Oxygen Delivery Fraction of Inspired Oxygen 10/07/24 12:42 10/07/24 13:32 10/07/24 13:42 Temperature 37.8 C H 37.6 C H Pulse Rate 42 L 46 L 46 L Respiratory Rate 16 16 Blood Pressure 181/62 H 142/53 H Pulse Oximetry 100 99 100 Oxygen Delivery Mechanical Ventilation Fraction of Inspired Oxygen 30 10/07/24 14:00 10/07/24 14:00 10/07/24 14:42 Temperature 37.6 C H 37.6 C H Pulse Rate 47 L 47 L 46 L Respiratory Rate 16 16 Blood Pressure 142/53 H 144/55 H Pulse Oximetry 100 99 Oxygen Delivery Fraction of Inspired Oxygen 10/07/24 16:00 Temperature 37.4 C Pulse Rate 47 L Respiratory Rate 16 Blood Pressure 147/51 H Pulse Oximetry 100 Oxygen Delivery Fraction of Inspired Oxygen Intake/Output Intake/Output: Intake & Output 10/04/24 10/05/24 10/06/24 10/07/24 23:59 23:59 23:59 23:59 Intake Total 738 731 6033.3 1161.8 Output Total 1000 900 70 Balance 120 -450 180.3 1091.8 Meds/Results Medications: Active Medications Generic Name Dose Route Start Last Admin Trade Name Freq PRN Reason Stop Dose Admin Acetaminophen 650 mg 10/03/24 12:37 Acetaminophen 325 Mg Tablet PO Q4H PRN Mild Pain (1-3) or Fever Albuterol/Ipratropium 3 ml 10/07/24 07:46 Ipratropium 0.5 Mg/Albuterol Sulfate 2.5 Mg Ampul.Neb 3 Ml INHALATION Q6HRT PRN wheezing Amlodipine Besylate 5 mg 10/07/24 12:40 10/07/24 12:56 Amlodipine Besylate 5 Mg Tablet FEED TUBE 5 mg DAILY HUAN Administration Dextrose 12.5 gm 10/07/24 07:52 Dextrose 50% 25 Gm/50 Ml Syringe IV PUSH PRN PRN Hypoglycemia Protocol Glucagon 1 mg 10/07/24 07:52 Glucagon For Inj 1 Mg Vial IM PRN PRN Hypoglycemia Protocol Glucose 15 gm 10/07/24 07:52 Glucose Oral Gel 15 Gm Of Glucse In 37.5 Gm Tube PO PRN PRN Hypoglycemia Protocol Hydralazine HCl 20 mg 10/07/24 12:35 10/07/24 13:05 Hydralazine Hcl 20 Mg/Ml Vial IV PUSH 20 mg Q4H PRN Administration SBP more than 160 Albumin Human 50 mls @ 999 mls/hr 10/03/24 10:27 Albutein IVPB 11/02/24 10:26 Q10M PRN HYPOTENSION Fentanyl Citrate 2,500 mcg in 250 mls @ 7.5 mls/hr 10/06/24 11:45 10/07/24 08:00 Fentanyl 2,500 Mcg/Ns 250 Ml IV CONT 75 mcg/hr .[id number] HUAN 7.5 mls/hr Titration Protocol 75 MCG/HR Piperacillin Sod/Tazobactam Sod 2.25 gm in 50 mls @ 100 mls/hr 10/06/24 15:00 10/07/24 16:35 Zosyn 2.25 Gm/Ns 50 Ml IVPB 100 mls/hr Q6H HUAN Administration Dextrose 1,000 mls @ 100 mls/hr 10/07/24 07:52 Dextrose 5% 1,000 Ml IVPB PRN PRN Hypoglycemia Protocol Insulin Aspart 3 - 6 units 10/07/24 09:00 10/07/24 17:09 Insulin Aspart (*Bkc) 100 Units/Ml SUB-Q Not Given Q4HR HUAN Protocol Multi-Ingred Cream/Lotion/Oil/Oint 1 applic 10/06/24 21:00 10/07/24 08:11 Mineral Oil/White Petrolatum Ointment EACH EYE 1 applic Q12HR HUAN Administration Nitroglycerin 0.4 mg 10/05/24 00:16 Nitroglycerin Sl 0.4 Mg Tablet SUBLINGUAL Q5MIN PRN Chest Pain Pantoprazole Sodium 40 mg 10/07/24 21:00 Pantoprazole Sodium Iv 40 Mg Vial IV PUSH Q12HR HUAN Sodium Chloride 10 ml 10/06/24 22:00 10/07/24 13:15 Central Line Flush IV PUSH Not Given Q8HR HUAN Sodium Chloride 20 ml 10/06/24 14:56 Central Line Flush IV PUSH PRN PRN after blood draws Radiology Results: ITS Impressions Arterial/Peripheral Duplex 09/29/24 14:58 IMPRESSION: 1. Bilateral increased renal cortical atelectasis be consistent with medical renal disease. No hydronephrosis. 2. No Doppler evidence of renal artery stenosis. 3. Fusiform abdominal aortic aneurysm measuring up to 3.6 cm maximal diameter. Renal Ultrasound 09/29/24 14:58 IMPRESSION: 1. Bilateral increased renal cortical atelectasis be consistent with medical renal disease. No hydronephrosis. 2. No Doppler evidence of renal artery stenosis. 3. Fusiform abdominal aortic aneurysm measuring up to 3.6 cm maximal diameter. Central Venous Line 10/06/24 08:02 IMPRESSION: 1. Central line tip overlying the proximal right atrium. Chest X-Ray 10/07/24 06:17 Impression: [id number] left pleural effusion with probable left lower lobe atelectasis. Correlate clinically for pneumonia. Support tubes, as above. Head CT 10/07/24 16:01 Impression: No acute intracranial hemorrhage or suspicious mass effect. Chest/Abdomen/Pelvis CT 10/07/24 16:03 IMPRESSION: Large bilateral pleural effusions with adjacent compressive atelectasis. The gallbladder is distended with multiple calcified stones with surrounding inflammatory change. Interval development of multiple left-sided rib fractures, as detailed above. Findings suggesting hypovolemia. Labs Labs: Laboratory Results - last 24 hr 09/29/24 10/04/24 10/06/24 13:57 05:03 16:26 WBC RBC Hgb Hct MCV MCH MCHC RDW Plt Count MPV Immature Gran % (Auto) Neut % (Auto) Lymph % (Auto) [place] % (Auto) Eos % (Auto) Baso % (Auto) Lymph # (Auto) [place] # (Auto) Eos # (Auto) Baso # (Auto) Abs Immat Gran (auto) Absolute Neuts (auto) Absolute Nucleated RBC Nucleated RBC % % Immature Plt Fraction PT INR APTT Puncture Site ABG pH ABG pCO2 ABG pO2 ABG PO2/FiO2 Ratio ABG HCO3 ABG O2 Saturation ABG O2 Content ABG Base Excess A-a Gradient Oxyhemoglobin Carboxyhemoglobin Methemoglobin Reduced Hemoglobin Total Hemoglobin O2 Delivery Device O2 Liters/Min Minute Volume Vent Rate Vent Mode FiO2 Tidal Volume PEEP Peak Inspir Pressure Pressure Support Sodium Potassium Chloride Carbon Dioxide Anion Gap BUN Creatinine Estim Creat Clear Calc Estimated GFR Glucose POC Capillary Glucose Lactic Acid Calcium Phosphorus Magnesium Total Bilirubin AST ALT Alkaline Phosphatase Total Protein Albumin TSH Urine Color Urine Appearance Urine pH Ur Specific [place] Urine Protein Urine Glucose (UA) Urine Ketones Ur Blood (Man) Urine Nitrate Urine Bilirubin Urine Urobilinogen Ur Leukocyte Esterase Add Ur Microanalysis Urine RBC Urine WBC Ur Squamous Epith Cells Urine Bacteria Urine Casts Nasal MRSA (PCR) Not detected Urine Immunofixation Cryoglobulin Qualit Negative Blood Type Antibody Screen Crossmatch 10/06/24 10/06/24 10/07/24 20:44 22:33 02:09 WBC RBC Hgb Hct MCV MCH MCHC RDW Plt Count MPV Immature Gran % (Auto) Neut % (Auto) Lymph % (Auto) [place] % (Auto) Eos % (Auto) Baso % (Auto) Lymph # (Auto) [place] # (Auto) Eos # (Auto) Baso # (Auto) Abs Immat Gran (auto) Absolute Neuts (auto) Absolute Nucleated RBC Nucleated RBC % % Immature Plt Fraction PT INR APTT > 200.0 H* Puncture Site ABG pH ABG pCO2 ABG pO2 ABG PO2/FiO2 Ratio ABG HCO3 ABG O2 Saturation ABG O2 Content ABG Base Excess A-a Gradient Oxyhemoglobin Carboxyhemoglobin Methemoglobin Reduced Hemoglobin Total Hemoglobin O2 Delivery Device O2 Liters/Min Minute Volume Vent Rate Vent Mode FiO2 Tidal Volume PEEP Peak Inspir Pressure Pressure Support Sodium Potassium Chloride Carbon Dioxide Anion Gap BUN Creatinine Estim Creat Clear Calc Estimated GFR Glucose POC Capillary Glucose Lactic Acid 2.0 Calcium Phosphorus Magnesium Total Bilirubin AST ALT Alkaline Phosphatase Total Protein Albumin TSH Urine Color Yellow Urine Appearance Turbid H Urine pH 7.5 Ur Specific [place] 1.007 Urine Protein 2+ H Urine Glucose (UA) Negative Urine Ketones Trace H Ur Blood (Man) 2+ H Urine Nitrate Negative Urine Bilirubin Negative Urine Urobilinogen 0.2 Ur Leukocyte Esterase 3+ H Add Ur Microanalysis Reviewed Urine RBC 6-10 H Urine WBC >100 H Ur Squamous Epith Cells Occasional Urine Bacteria 4+ H Urine Casts >20 Nasal MRSA (PCR) Urine Immunofixation Cryoglobulin Qualit Blood Type Antibody Screen Crossmatch 10/07/24 10/07/24 10/07/24 04:45 06:32 07:29 WBC 5.2 RBC 1.87 L Hgb 5.9 L* Hct 18.3 L* MCV 97.9 MCH 31.6 MCHC 32.2 RDW 13.5 Plt Count 104 L D MPV 10.6 H Immature Gran % (Auto) 1.3 H Neut % (Auto) 73.9 H Lymph % (Auto) 17.7 L [place] % (Auto) 5.0 Eos % (Auto) 1.9 Baso % (Auto) 0.2 Lymph # (Auto) 0.92 [place] # (Auto) 0.3 Eos # (Auto) 0.1 Baso # (Auto) 0.0 Abs Immat Gran (auto) 0.07 H Absolute Neuts (auto) 3.9 Absolute Nucleated RBC 0.030 H Nucleated RBC % 0.6 H % Immature Plt Fraction 4.5 PT 31.8 H D INR 3.1 APTT > 200.0 H* Puncture Site Right radial ABG pH 7.479 H ABG pCO2 33.2 L ABG pO2 96.5 ABG PO2/FiO2 Ratio 3.22 ABG HCO3 24.1 ABG O2 Saturation 97.8 ABG O2 Content 9.9 L ABG Base Excess 0.7 A-a Gradient 78.4 Oxyhemoglobin 95.4 Carboxyhemoglobin 1.3 Methemoglobin 0.6 Reduced Hemoglobin 2.7 Total Hemoglobin 7.2 L* O2 Delivery Device Ventilator O2 Liters/Min Not Reportable Minute Volume Not Reportable Vent Rate 16 Vent Mode Cmv FiO2 30 Tidal Volume 400 PEEP 5 Peak Inspir Pressure Not Reportable Pressure Support Not Reportable Sodium 141 Potassium 4.0 Chloride 101 Carbon Dioxide 25 Anion Gap 15 H BUN 37 H Creatinine 5.59 H Estim Creat Clear Calc 7 Estimated GFR 7 L Glucose 107 POC Capillary Glucose Lactic Acid 0.9 Calcium 9.2 Phosphorus 4.0 Magnesium 3.5 H Total Bilirubin 0.8 AST 89 H ALT 15 Alkaline Phosphatase 51 Total Protein 5.0 L Albumin 3.3 L TSH 3.520 Urine Color Urine Appearance Urine pH Ur Specific [place] Urine Protein Urine Glucose (UA) Urine Ketones Ur Blood (Man) Urine Nitrate Urine Bilirubin Urine Urobilinogen Ur Leukocyte Esterase Add Ur Microanalysis Urine RBC Urine WBC Ur Squamous Epith Cells Urine Bacteria Urine Casts Nasal MRSA (PCR) Urine Immunofixation Cryoglobulin Qualit Blood Type O Positive Antibody Screen Negative Crossmatch See Detail 10/07/24 10/07/24 10/07/24 08:13 11:39 16:12 WBC 7.4 RBC 3.15 L Hgb 9.9 L D Hct 29.6 L MCV 94.0 MCH 31.4 MCHC 33.4 RDW 15.0 H Plt Count 105 L MPV 10.3 Immature Gran % (Auto) Neut % (Auto) Lymph % (Auto) [place] % (Auto) Eos % (Auto) Baso % (Auto) Lymph # (Auto) [place] # (Auto) Eos # (Auto) Baso # (Auto) Abs Immat Gran (auto) Absolute Neuts (auto) Absolute Nucleated RBC Nucleated RBC % % Immature Plt Fraction PT INR APTT Puncture Site ABG pH ABG pCO2 ABG pO2 ABG PO2/FiO2 Ratio ABG HCO3 ABG O2 Saturation ABG O2 Content ABG Base Excess A-a Gradient Oxyhemoglobin Carboxyhemoglobin Methemoglobin Reduced Hemoglobin Total Hemoglobin O2 Delivery Device O2 Liters/Min Minute Volume Vent Rate Vent Mode FiO2 Tidal Volume PEEP Peak Inspir Pressure Pressure Support Sodium Potassium Chloride Carbon Dioxide Anion Gap BUN Creatinine Estim Creat Clear Calc Estimated GFR Glucose POC Capillary Glucose 96 103 Lactic Acid Calcium Phosphorus Magnesium Total Bilirubin AST ALT Alkaline Phosphatase Total Protein Albumin TSH Urine Color Urine Appearance Urine pH Ur Specific [place] Urine Protein Urine Glucose (UA) Urine Ketones Ur Blood (Man) Urine Nitrate Urine Bilirubin Urine Urobilinogen Ur Leukocyte Esterase Add Ur Microanalysis Urine RBC Urine WBC Ur Squamous Epith Cells Urine Bacteria Urine Casts Nasal MRSA (PCR) Urine Immunofixation Cryoglobulin Qualit Blood Type Antibody Screen Crossmatch 10/07/24 17:02 WBC RBC Hgb Hct MCV MCH MCHC RDW Plt Count MPV Immature Gran % (Auto) Neut % (Auto) Lymph % (Auto) [place] % (Auto) Eos % (Auto) Baso % (Auto) Lymph # (Auto) [place] # (Auto) Eos # (Auto) Baso # (Auto) Abs Immat Gran (auto) Absolute Neuts (auto) Absolute Nucleated RBC Nucleated RBC % % Immature Plt Fraction PT INR APTT Puncture Site ABG pH ABG pCO2 ABG pO2 ABG PO2/FiO2 Ratio ABG HCO3 ABG O2 Saturation ABG O2 Content ABG Base Excess A-a Gradient Oxyhemoglobin Carboxyhemoglobin Methemoglobin Reduced Hemoglobin Total Hemoglobin O2 Delivery Device O2 Liters/Min Minute Volume Vent Rate Vent Mode FiO2 Tidal Volume PEEP Peak Inspir Pressure Pressure Support Sodium Potassium Chloride Carbon Dioxide Anion Gap BUN Creatinine Estim Creat Clear Calc Estimated GFR Glucose POC Capillary Glucose 95 Lactic Acid Calcium Phosphorus Magnesium Total Bilirubin AST ALT Alkaline Phosphatase Total Protein Albumin TSH Urine Color Urine Appearance Urine pH Ur Specific [place] Urine Protein Urine Glucose (UA) Urine Ketones Ur Blood (Man) Urine Nitrate Urine Bilirubin Urine Urobilinogen Ur Leukocyte Esterase Add Ur Microanalysis Urine RBC Urine WBC Ur Squamous Epith Cells Urine Bacteria Urine Casts Nasal MRSA (PCR) Urine Immunofixation Cryoglobulin Qualit Blood Type Antibody Screen Crossmatch
[2024-10-07 20:14] LABS: Glucose Point of Care 116 mg/dl (65-105)
[2024-10-07 20:49] LABS: Hematocrit 29.7 % (37.0-47.0); Immature Platelet Fraction Pct 5.6 % (0.9-11.2); Mean Corpuscular HGB Conc 33.7 g/dl (32-36); Mean Corpuscular Hemoglobin 31.6 pg (26-34); Platelet Count Result 109 k/mm3 (150-375); Red Blood Count 3.16 M/mm3 (4.2-5.4); Red Cell Distribution Width 15.7 % (11.5-14.5); White Blood Count 7.3 K/mm3 (4.5-10.0)
[2024-10-08] VITALS (14 sets, daily range): BP systolic 81–146; BP diastolic 48–69; PULSE 22–55; RESP 14–20; TEMP 36.1–37.4; O2SAT 76–100
[2024-10-08 01:12] LABS: Glucose Point of Care 106 mg/dl (65-105)
[2024-10-08] MEDS: FENTANYL 2,500MCG/NS250ML(*CRX 2,500 MCG/250 ML BAG IV CONT (01:18)
[2024-10-08] MEDS: PIPERACILLIN/TAZ 2.25G/NS 50ML 2.25 GM/50 ML BAG IVPB (02:53)
[2024-10-08 05:17] LABS: Alveolar/Arterial O2 Gradient 57.8 mmHg; Base Excess ABG -0.8 mEq/l (+/-2.0); Basophils Percent Auto 0.3 % (0.2-1.2); Carboxyhemoglobin 0.5 % THb (0-2.0); Device VENTILATOR; Eosinophils Absolute Auto 0.2 K/mm3 (0-0.3); Eosinophils Percent Auto 3.2 % (0-4.4); Fractional Inspired Oxygen 30 %; HCO3 ABG 23.8 mEq/l (22.0-26.0); Hematocrit 30.2 % (37.0-47.0); Hemoglobin 10.1 g/dL (12.0-15.0); Immature Granulocyte Percent A 1.4 % (0-0.5); Lymphocytes Absolute Auto 0.69 K/mm3 (0.9-3.2); Lymphocytes Percent Auto 9.6 % (18.3-44.2); Mean Corpuscular HGB Conc 33.4 g/dl (32-36); Mean Corpuscular Hemoglobin 31.8 pg (26-34); Mean Platelet Volume 10.7 fl (7.4-10.4); Methemoglobin ABG 0.1 %THb (0-1.5); Modified Allen's Test Pass; Monocytes Absolute Auto 0.3 K/mm3 (0.1-0.6); Monocytes Percent Auto 4.3 % (2.6-8.5); Neutrophils Absolute Auto 5.9 K/mm3 (1.3-6.7); Neutrophils Percent Auto 81.2 % (45.5-73.1); Nucleated Red Blood Cells Perc 0.6 % (0.0-0.2); Oxygen Content ABG 19.2 %vol (16.0-22.0); Oxyhemoglobin 97.1 % THb (90.0-100.0); PCO2 ABG 39.4 mmHg (35.0-45.0); PO2 ABG 109.8 mmHg (80.0-100.0); PO2 FiO2 Ratio Arterial Blood 3.66 %; Platelet Count Result 105 k/mm3 (150-375); Red Blood Count 3.18 M/mm3 (4.2-5.4); Reduced Hemoglobin 2.3 %THb (0-5.0); Site Drawn RIGHT RADIAL; White Blood Count 7.2 K/mm3 (4.5-10.0); pH ABG 7.399 (7.350-7.450)
[2024-10-08 05:18] LABS: Arterial Blood Gas PEEP 5 cmH2O; Arterial Blood Gas Tidal Volume 400 ml; Arterial Blood Gas Vent Mode CMV; Arterial Blood Gas Ventilator rate 16 /MIN
[2024-10-08 05:19] LABS: Alanine Aminotransferase 15 U/L (6-35); Albumin Level 3.7 g/dL (3.5-5.1); Alkaline Phosphatase 93 U/L (38-126); Anion Gap 17 mmol/L (4-12); Aspartate Amino Transferase 84 U/L (14-36); Bilirubin,Total 0.9 mg/dL (0.2-1.3); Blood Urea Nitrogen 46 mg/dL (7-17); Carbon Dioxide 25 mmol/L (22-30); Chloride 101 mmol/L (98-107); Estimated CRCL calculation 6 ml/min; Estimated Glomerular Filt Rate 6; Glucose 109 mg/dL (65-110); Magnesium 3.6 mg/dL (1.6-2.3); Phosphorus 4.4 mg/dL (2.5-4.5); Potassium 3.8 mmol/L (3.4-5.0); Sodium 143 mmol/L (137-145)
[2024-10-08] MEDS: CENTRAL LINE FLUSH 10 ML IV PUSH ×2 (06:24→20:10)
--- NOTE | 2024-10-08 07:37 | ECG_ITS ---
Test Date: 2024-10-08 08:30:41 Measurements Intervals [place] Rate: 44 P: -28 OK: 205 QRS: 41 QRSD: 119 T: -40 QT: 498 QTc: 431 Interpretive Statements SINUS BRADYCARDIA INCOMPLETE RIGHT BUNDLE BRANCH BLOCK [90+ ms QRS DURATION, TERMINAL R IN V1/V2, 40+ ms S IN I/aVL/V4/V5/V6] ANTEROSEPTAL MYOCARDIAL INFARCTION [40+ ms Q WAVE IN V1-V4], OF INDETERMINATE AGE MODERATE T-WAVE ABNORMALITY, CONSIDER LATERAL ISCHEMIA [-0.1+ mV T WAVE IN I/aVL/V5/V6] MODERATE T-WAVE ABNORMALITY, CONSIDER INFERIOR ISCHEMIA [-0.1+ mV T WAVE IN II/aVF] Compared to ECG 10/06/2024 14:33:12 Atrial fibrillation no longer present Electronically Signed On 10-08-2024 15:47:12 [employer] by Josiane Doan M.D.
[2024-10-08 07:47] LABS: Glucose Point of Care 116 mg/dl (65-105)
--- NOTE | 2024-10-08 09:04 | WPDINTPN ---
Progress Note: A&P Assessment and Plan (1) Cardiac arrest: Code(s): I46.9 - Cardiac arrest, cause unspecified Status: Acute Assessment and Plan: 10/06: Cardiac arrest during dialysis in the dialysis suite -ACLS protocol was instituted patient did get ROSC Patient was brought to the ICU, was in wide complex ventricular tachycardia, was intubated, defibrillated. CPR was continued, Patient went to VFib, was again defibrillated. Patient had episode of torsades and was again defibrillated. She was started on amiodarone bolus and given lidocaine. She was also given epinephrine, bicarb and calcium during the code. Please refer to code sheet for further details EKG showed atrial fibrillation, possible ST changes, Cardiology did not think it is ST-elevation Currently in sinus bradycardia. Amiodarone has been discontinued Echo reviewed. Cardiology recommended cardiac catheterization eventually but none at this time due to anemia and respiratory failure Shock has improved and patient is off vasopressors Heparin has been discontinued due to drop in hemoglobin (2) Acute respiratory failure: Code(s): J96.00 - Acute respiratory failure, unspecified whether with hypoxia or hypercapnia Status: Acute Assessment and Plan: Acute respiratory failure likely secondary to cardiac arrest -currently on CMV mode of ventilation, peep of 5 and 0% FiO2 -chest x-ray: Stable airspace opacities in left lower lung zone, consistent with atelectasis versus pneumonia. Continue Zosyn for possible aspiration Continue bronchodilators Currently sedated (3) Acute kidney injury superimposed on chronic kidney disease: Code(s): N17.9 - Acute kidney failure, unspecified; N18.9 - Chronic kidney disease, unspecified Status: Acute Assessment and Plan: Acute on chronic kidney disease, On 10/05/2024: Patient pulled out her right IJ tunneled hemodialysis catheter. A new tunneled dialysis catheter was placed in the left internal jugular vein on 10/05/2024. -nephrology following, -dialysis per Nephrology. Plan for next dialysis session on 10/08 (4) Shock: Code(s): R57.9 - Shock, unspecified Status: Acute Assessment and Plan: Shock state likely related to cardiac arrest, possible infection, possible fluid shifts due to dialysis -blood cultures have been ordered Off Levophed Continue Zosyn as above (10/06) Off IV fluid Lactic acid level has normalized (5) Hypertension: Code(s): I10 - Essential (primary) hypertension Status: Chronic Assessment and Plan: Nw (6) Anemia: Code(s): D64.9 - Anemia, unspecified Status: Acute Assessment and Plan: Patient dropped her hemoglobin to 5.9 this morning. She does have chronic anemia Hold anticoagulation Patient is being transfused 2 units of PRBC Monitor hemoglobin Obtain CT scan of abdomen pelvis Continue PPI and change to q.12 hours (7) Cholecystitis: Code(s): K81.9 - Cholecystitis, unspecified Status: Acute Assessment and Plan: CT scan suggest cholecystitis. Patient also has tenderness in right upper quadrant. Plan was to check right upper quadrant ultrasound today Plan DVT prophylaxis: SCD Stress ulcer prophylaxis: Protonix Nutrition: Start tube feeds Code Status: Patient was currently DNR. I spoke to patient's son who arrived from [place] along with his at bedside and updated them with patient's status including respiratory failure, cardiac arrest, acute on chronic renal failure requiring dialysis. We also discussed issues like drop in hemoglobin plan to check right upper quadrant ultrasound. He told me that he is aware of patient's wishes and she had explicitly told him that she does not want any surgeries or heroic measures. He states that she would not want to continue living on mechanical ventilation. She states that they agreed to intubation due to emergent situation but patient had clearly to them that she would not want mechanical ventilation and intubation.. Considering her age, current medical problems and prognosis he believes the patient would choose palliative care and would not want invasive procedures surgeries, invasive ventilation or resuscitation attempts. The son and his has decided, in accordance with pt's wishes, to discontinue all medical therapy and institute comfort measures only. I have explained them that I will use opioids, anxiolytics and other agents on as needed basis to promote comfort and discontinue all medical therapy, lab testing and invasive monitoring. Patient will be palliatively extubated and kept comfortable. Patient will eventually . They verbalized understanding and agreed to proceed Critical Care Time Spent: 30 minutes Due to a high probability of clinically significant, life threatening deterioration, the patient required my highest level of preparedness to intervene emergently and I personally spent this critical care time directly and personally managing the patient. This critical care time included obtaining a history; examining the patient; pulse oximetry; ordering and review of studies; arranging urgent treatment with development of a management plan; evaluation of patient's response to treatment; frequent reassessment; and discussions with other providers. It was exclusive of separately billable procedures and treating other patients and teaching time. Please see Assessment and Plan section and the rest of the note for further information on patient assessment and treatment This dictation may have been done utilizing a voice recognition system. Attempts have been made to correct errors. However, there may be uncorrected grammatical, spelling, and recognitions errors present. Subjective Date/time seen: 10/08/24 Overnight events reviewed. Afebrile Sinus bradycardia on the monitor Continues to be on mechanical ventilation 30% FiO2 Continues to be sedated with fentanyl Only minimal urine output Interval history: 89-year-old female with hypertension, chronic kidney disease, and depression who presented to the emergency department via EMS from home with complaints of nausea, vomiting, dizziness and was found to be having STEVE on CKD. Initiated on dialysis. Then had cardiac arrest during dialysis. Review of Systems Review of Systems: ROS unobtainable: Yes unobtainable due to endotracheal tube, unobtainable due to medical condition and unobtainable due to mental status Exam Narrative: General: Elderly female intubated and sedated in no acute distress HEENT:? Pupils equal reactive, sclerae is clear Neck:? Right IJ in place, left IJ tunneled dialysis catheter Respiratory:? Coarse breath sounds bilateral bases, adequate air entry, no wheezing tender own rib and sternum palpation Cardiac:? Irregularly irregular, rate control Abdomen:? Soft, nontender, nondistended, hyperactive bowel sounds tender in right upper quadrant Extremities:? Bilateral lower extremity edema, palpable pedal pulses, cool to touch Neuro:? Patient is intubated, sedated, withdraws to pain, grimaces on painful stimuli follows commands with all 4 extremities Skin:? Mottling noted on bilateral lower extremities Psych:? Unable to assess at this time Objective Data Vital Signs Vital Signs: Vital Signs - 24 hr 10/07/24 09:45 10/07/24 10:10/07/24 10:00 Temperature 37.8 C H Pulse Rate 45 L 44 L 44 L Respiratory Rate 16 Blood Pressure 137/56 L 136/61 Pulse Oximetry 100 Oxygen Delivery Fraction of Inspired Oxygen 10/07/24 10:00 10/07/24 10:00 10/07/24 10:03 Temperature 37.8 C H 37.8 C H Pulse Rate 44 L 43 L 44 L Respiratory Rate 16 16 16 Blood Pressure 136/61 136/61 Pulse Oximetry 100 100 Oxygen Delivery Fraction of Inspired Oxygen 10/07/24 11:03 10/07/24 11:49 10/07/24 12:00 Temperature 37.8 C H Pulse Rate 43 L 42 L 42 L Respiratory Rate 16 Blood Pressure 167/57 H 170/61 H Pulse Oximetry 100 100 Oxygen Delivery Mechanical Ventilation Fraction of Inspired Oxygen 30 10/07/24 12:00 10/07/24 12:00 10/07/24 12:00 Temperature Pulse Rate 42 L Respiratory Rate Blood Pressure Pulse Oximetry Oxygen Delivery Mechanical Ventilation Fraction of Inspired Oxygen 30 30 10/07/24 12:00 10/07/24 12:00 10/07/24 12:03 Temperature 37.8 C H 37.8 C H Pulse Rate 42 L 42 L 42 L Respiratory Rate 16 16 16 Blood Pressure 170/61 H 170/61 H Pulse Oximetry 100 100 Oxygen Delivery Fraction of Inspired Oxygen 10/07/24 12:27 10/07/24 12:42 10/07/24 13:32 Temperature 37.8 C H 37.8 C H Pulse Rate 42 L 42 L 46 L Respiratory Rate 16 16 Blood Pressure 167/60 H 181/62 H Pulse Oximetry 100 100 99 Oxygen Delivery Mechanical Ventilation Fraction of Inspired Oxygen 30 10/07/24 13:42 10/07/24 14:00 10/07/24 14:00 Temperature 37.6 C H 37.6 C H Pulse Rate 46 L 47 L 47 L Respiratory Rate 16 16 Blood Pressure 142/53 H 142/53 H Pulse Oximetry 100 100 Oxygen Delivery Fraction of Inspired Oxygen 10/07/24 14:00 10/07/24 14:42 10/07/24 16:00 Temperature 37.6 C H 37.4 C Pulse Rate 47 L 46 L 47 L Respiratory Rate 16 16 16 Blood Pressure 144/55 H 147/51 H Pulse Oximetry 99 100 Oxygen Delivery Fraction of Inspired Oxygen 10/07/24 16:00 10/07/24 16:00 10/07/24 16:00 Temperature Pulse Rate 55 L Respiratory Rate Blood Pressure Pulse Oximetry Oxygen Delivery Mechanical Ventilation Fraction of Inspired Oxygen 30 30 10/07/24 16:00 10/07/24 17:52 10/07/24 18:00 Temperature Pulse Rate 47 L 61 55 L Respiratory Rate 16 Blood Pressure Pulse Oximetry 99 Oxygen Delivery Mechanical Ventilation Fraction of Inspired Oxygen 30 10/07/24 18:00 10/07/24 18:00 10/07/24 20:00 Temperature 37.2 C Pulse Rate 55 L 55 L 55 L Respiratory Rate 16 16 16 Blood Pressure 136/62 Pulse Oximetry 99 99 Oxygen Delivery Mechanical Ventilation Fraction of Inspired Oxygen 30 10/07/24 20:00 10/07/24 20:00 10/07/24 20:00 Temperature 37.1 C Pulse Rate 49 L 51 L Respiratory Rate 16 16 Blood Pressure 147/56 H Pulse Oximetry 99 Oxygen Delivery Fraction of Inspired Oxygen 30 10/07/24 20:00 10/07/24 21:20 10/07/24 22:00 Temperature 37.1 C Pulse Rate 52 L 50 L 50 L Respiratory Rate 16 Blood Pressure 114/59 L Pulse Oximetry 99 99 Oxygen Delivery Mechanical Ventilation Fraction of Inspired Oxygen 30 10/07/24 22:00 10/07/24 22:00 10/07/24 23:12 Temperature Pulse Rate 50 L 50 L 47 L Respiratory Rate 16 Blood Pressure Pulse Oximetry 99 Oxygen Delivery Mechanical Ventilation Fraction of Inspired Oxygen 30 10/07/24 23:51 10/07/24 23:52 10/08/24 00:00 Temperature Pulse Rate 47 L 51 L Respiratory Rate 16 Blood Pressure Pulse Oximetry 99 Oxygen Delivery Mechanical Ventilation Fraction of Inspired Oxygen 30 30 10/08/24 00:00 10/08/24 01:18 10/08/24 01:18 Temperature 37.2 C Pulse Rate 51 L 55 L 55 L Respiratory Rate 16 16 16 Blood Pressure 122/54 L Pulse Oximetry 99 Oxygen Delivery Fraction of Inspired Oxygen 10/08/24 02:00 10/08/24 02:00 10/08/24 02:00 Temperature 37.2 C Pulse Rate 50 L 50 L 50 L Respiratory Rate 16 16 Blood Pressure 127/66 Pulse Oximetry 97 Oxygen Delivery Fraction of Inspired Oxygen 10/08/24 02:42 10/08/24 03:25 10/08/24 03:26 Temperature Pulse Rate 50 L 50 L Respiratory Rate 16 Blood Pressure Pulse Oximetry 98 98 Oxygen Delivery Mechanical Ventilation Mechanical Ventilation Fraction of Inspired Oxygen 30 30 30 10/08/24 04:00 10/08/24 04:00 10/08/24 04:00 Temperature 37.3 C Pulse Rate 50 L 51 L 50 L Respiratory Rate 16 16 Blood Pressure 141/60 H Pulse Oximetry 100 Oxygen Delivery Fraction of Inspired Oxygen 10/08/24 05:00 10/08/24 05:05 10/08/24 06:00 Temperature Pulse Rate 50 L 46 L 46 L Respiratory Rate 16 Blood Pressure Pulse Oximetry 100 Oxygen Delivery Mechanical Ventilation Fraction of Inspired Oxygen 30 10/08/24 06:00 10/08/24 06:00 10/08/24 07:20 Temperature 37.3 C Pulse Rate 50 L 51 L 45 L Respiratory Rate 16 16 16 Blood Pressure 118/69 Pulse Oximetry 100 Oxygen Delivery Fraction of Inspired Oxygen 10/08/24 08:00 10/08/24 08:12 Temperature 37.4 C Pulse Rate 43 L 45 L Respiratory Rate 14 Blood Pressure 146/55 H Pulse Oximetry 100 100 Oxygen Delivery Mechanical Ventilation Fraction of Inspired Oxygen 30 Intake/Output Intake/Output: Intake & Output 10/05/24 10/06/24 10/07/24 10/08/24 23:59 23:59 23:59 23:59 Intake Total 550 1080.3 1540.8 416.8 Output Total 1000 900 70 5 Balance -450 180.3 1470.8 411.8 Meds/Results Medications: Active Medications Generic Name Dose Route Start Last Admin Trade Name Freq PRN Reason Stop Dose Admin Acetaminophen 650 mg 10/03/24 12:37 Acetaminophen 325 Mg Tablet PO Q4H PRN Mild Pain (1-3) or Fever Albuterol/Ipratropium 3 ml 10/07/24 07:46 Ipratropium 0.5 Mg/Albuterol Sulfate 2.5 Mg Ampul.Neb 3 Ml INHALATION Q6HRT PRN wheezing Amlodipine Besylate 5 mg 10/07/24 12:40 10/07/24 12:56 Amlodipine Besylate 5 Mg Tablet FEED TUBE 5 mg DAILY HUAN Administration Dextrose 12.5 gm 10/07/24 07:52 Dextrose 50% 25 Gm/50 Ml Syringe IV PUSH PRN PRN Hypoglycemia Protocol Epoetin Brice-epbx 10,000 units 10/08/24 18:40 Epoetin Brice-Epbx 10,000 Units/Ml Vial IV PUSH 10/08/24 18:41 ONCE ONE Glucagon 1 mg 10/07/24 07:52 Glucagon For Inj 1 Mg Vial IM PRN PRN Hypoglycemia Protocol Glucose 15 gm 10/07/24 07:52 Glucose Oral Gel 15 Gm Of Glucse In 37.5 Gm Tube PO PRN PRN Hypoglycemia Protocol Hydralazine HCl 20 mg 10/07/24 12:35 10/07/24 13:05 Hydralazine Hcl 20 Mg/Ml Vial IV PUSH 20 mg Q4H PRN Administration SBP more than 160 Albumin Human 50 mls @ 999 mls/hr 10/03/24 10:27 Albutein IVPB 11/02/24 10:26 Q10M PRN HYPOTENSION Fentanyl Citrate 2,500 mcg in 250 mls @ 0 mls/hr 10/06/24 11:45 10/08/24 07:20 Fentanyl 2,500 Mcg/Ns 250 Ml IV CONT 0 mcg/hr .Q0M HUAN 0 mls/hr Titration Protocol Piperacillin Sod/Tazobactam Sod 2.25 gm in 50 mls @ 100 mls/hr 10/06/24 15:00 10/08/24 03:23 Zosyn 2.25 Gm/Ns 50 Ml IVPB Infused Q6H HUAN Infusion Dextrose 1,000 mls @ 100 mls/hr 10/07/24 07:52 Dextrose 5% 1,000 Ml IVPB PRN PRN Hypoglycemia Protocol Insulin Aspart 3 - 6 units 10/07/24 09:00 10/08/24 06:24 Insulin Aspart (*Bkc) 100 Units/Ml SUB-Q Not Given Q4HR [facility] Protocol Multi-Ingred Cream/Lotion/Oil/Oint 1 applic 10/06/24 21:00 10/07/24 20:23 Mineral Oil/White Petrolatum Ointment EACH EYE 1 applic Q12HR HUAN Administration Nitroglycerin 0.4 mg 10/05/24 00:16 Nitroglycerin Sl 0.4 Mg Tablet SUBLINGUAL Q5MIN PRN Chest Pain Pantoprazole Sodium 40 mg 10/07/24 21:00 10/07/24 20:23 Pantoprazole Sodium Iv 40 Mg Vial IV PUSH 40 mg Q12HR HUAN Administration Sodium Chloride 10 ml 10/06/24 22:00 10/08/24 06:24 Central Line Flush IV PUSH 10 ml Q8HR HUAN Administration Sodium Chloride 20 ml 10/06/24 14:56 Central Line Flush IV PUSH PRN PRN after blood draws Radiology Results: ITS Impressions Arterial/Peripheral Duplex 09/29/24 14:58 IMPRESSION: 1. Bilateral increased renal cortical atelectasis be consistent with medical renal disease. No hydronephrosis. 2. No Doppler evidence of renal artery stenosis. 3. Fusiform abdominal aortic aneurysm measuring up to 3.6 cm maximal diameter. Renal Ultrasound 09/29/24 14:58 IMPRESSION: 1. Bilateral increased renal cortical atelectasis be consistent with medical renal disease. No hydronephrosis. 2. No Doppler evidence of renal artery stenosis. 3. Fusiform abdominal aortic aneurysm measuring up to 3.6 cm maximal diameter. Central Venous Line 10/06/24 08:02 IMPRESSION: 1. Central line tip overlying the proximal right atrium. Head CT 10/07/24 16:01 Impression: No acute intracranial hemorrhage or suspicious mass effect. Chest/Abdomen/Pelvis CT 10/07/24 16:03 IMPRESSION: Large bilateral pleural effusions with adjacent compressive atelectasis. The gallbladder is distended with multiple calcified stones with surrounding inflammatory change. Interval development of multiple left-sided rib fractures, as detailed above. Findings suggesting hypovolemia. Chest X-Ray 10/08/24 06:43 Impression: [id number] left pleural effusion with probable left basilar atelectasis. Mild central congestive changes. Support tubes, as above. Labs Labs: Laboratory Results - last 24 hr 09/29/24 10/07/24 10/07/24 13:57 07:29 11:39 WBC RBC Hgb Hct MCV MCH MCHC RDW Plt Count MPV Immature Gran % (Auto) Neut % (Auto) Lymph % (Auto) [place] % (Auto) Eos % (Auto) Baso % (Auto) Lymph # (Auto) [place] # (Auto) Eos # (Auto) Baso # (Auto) Abs Immat Gran (auto) Absolute Neuts (auto) Absolute Nucleated RBC Nucleated RBC % % Immature Plt Fraction Puncture Site ABG pH ABG pCO2 ABG pO2 ABG PO2/FiO2 Ratio ABG HCO3 ABG O2 Saturation ABG O2 Content ABG Base Excess A-a Gradient Oxyhemoglobin Carboxyhemoglobin Methemoglobin Reduced Hemoglobin Total Hemoglobin O2 Delivery Device O2 Liters/Min Minute Volume Vent Rate Vent Mode FiO2 Tidal Volume PEEP Peak Inspir Pressure Pressure Support Sodium Potassium Chloride Carbon Dioxide Anion Gap BUN Creatinine Estim Creat Clear Calc Estimated GFR Glucose POC Capillary Glucose 103 Calcium Phosphorus Magnesium Total Bilirubin AST ALT Alkaline Phosphatase Total Protein Albumin Cryoglobulin Qualit Negative Blood Type O Positive Antibody Screen Negative Crossmatch See Detail 10/07/24 10/07/24 10/07/24 16:12 17:02 20:05 WBC 7.4 RBC 3.15 L Hgb 9.9 L D Hct 29.6 L MCV 94.0 MCH 31.4 MCHC 33.4 RDW 15.0 H Plt Count 105 L MPV 10.3 Immature Gran % (Auto) Neut % (Auto) Lymph % (Auto) [place] % (Auto) Eos % (Auto) Baso % (Auto) Lymph # (Auto) [place] # (Auto) Eos # (Auto) Baso # (Auto) Abs Immat Gran (auto) Absolute Neuts (auto) Absolute Nucleated RBC Nucleated RBC % % Immature Plt Fraction Puncture Site ABG pH ABG pCO2 ABG pO2 ABG PO2/FiO2 Ratio ABG HCO3 ABG O2 Saturation ABG O2 Content ABG Base Excess A-a Gradient Oxyhemoglobin Carboxyhemoglobin Methemoglobin Reduced Hemoglobin Total Hemoglobin O2 Delivery Device O2 Liters/Min Minute Volume Vent Rate Vent Mode FiO2 Tidal Volume PEEP Peak Inspir Pressure Pressure Support Sodium Potassium Chloride Carbon Dioxide Anion Gap BUN Creatinine Estim Creat Clear Calc Estimated GFR Glucose POC Capillary Glucose 95 116 H Calcium Phosphorus Magnesium Total Bilirubin AST ALT Alkaline Phosphatase Total Protein Albumin Cryoglobulin Qualit Blood Type Antibody Screen Crossmatch 10/07/24 10/08/24 10/08/24 20:09 01:06 04:54 WBC 7.3 7.2 RBC 3.16 L 3.18 L Hgb 10.0 L 10.1 L Hct 29.7 L 30.2 L MCV 94.0 95.0 MCH 31.6 31.8 MCHC 33.7 33.4 RDW 15.7 H 16.0 H Plt Count 109 L 105 L MPV 11.0 H 10.7 H Immature Gran % (Auto) 1.4 H Neut % (Auto) 81.2 H Lymph % (Auto) 9.6 L [place] % (Auto) 4.3 Eos % (Auto) 3.2 Baso % (Auto) 0.3 Lymph # (Auto) 0.69 L [place] # (Auto) 0.3 Eos # (Auto) 0.2 Baso # (Auto) 0.0 Abs Immat Gran (auto) 0.10 H Absolute Neuts (auto) 5.9 Absolute Nucleated RBC 0.040 H Nucleated RBC % 0.6 H % Immature Plt Fraction 5.6 Puncture Site Right radial ABG pH 7.399 ABG pCO2 39.4 ABG pO2 109.8 H ABG PO2/FiO2 Ratio 3.66 ABG HCO3 23.8 ABG O2 Saturation 98.0 ABG O2 Content 19.2 ABG Base Excess -0.8 A-a Gradient 57.8 Oxyhemoglobin 97.1 Carboxyhemoglobin 0.5 Methemoglobin 0.1 Reduced Hemoglobin 2.3 Total Hemoglobin 14.0 O2 Delivery Device Ventilator O2 Liters/Min Not Reportable Minute Volume Not Reportable Vent Rate 16 Vent Mode Cmv FiO2 30 Tidal Volume 400 PEEP 5 Peak Inspir Pressure Not Reportable Pressure Support Not Reportable Sodium 143 Potassium 3.8 Chloride 101 Carbon Dioxide 25 Anion Gap 17 H BUN 46 H Creatinine 6.74 H Estim Creat Clear Calc 6 Estimated GFR 6 L Glucose 109 POC Capillary Glucose 106 H Calcium 9.0 Phosphorus 4.4 Magnesium 3.6 H Total Bilirubin 0.9 AST 84 H ALT 15 Alkaline Phosphatase 93 Total Protein 6.0 L Albumin 3.7 Cryoglobulin Qualit Blood Type Antibody Screen Crossmatch 10/08/24 07:44 WBC RBC Hgb Hct MCV MCH MCHC RDW Plt Count MPV Immature Gran % (Auto) Neut % (Auto) Lymph % (Auto) [place] % (Auto) Eos % (Auto) Baso % (Auto) Lymph # (Auto) [place] # (Auto) Eos # (Auto) Baso # (Auto) Abs Immat Gran (auto) Absolute Neuts (auto) Absolute Nucleated RBC Nucleated RBC % % Immature Plt Fraction Puncture Site ABG pH ABG pCO2 ABG pO2 ABG PO2/FiO2 Ratio ABG HCO3 ABG O2 Saturation ABG O2 Content ABG Base Excess A-a Gradient Oxyhemoglobin Carboxyhemoglobin Methemoglobin Reduced Hemoglobin Total Hemoglobin O2 Delivery Device O2 Liters/Min Minute Volume Vent Rate Vent Mode FiO2 Tidal Volume PEEP Peak Inspir Pressure Pressure Support Sodium Potassium Chloride Carbon Dioxide Anion Gap BUN Creatinine Estim Creat Clear Calc Estimated GFR Glucose POC Capillary Glucose 116 H Calcium Phosphorus Magnesium Total Bilirubin AST ALT Alkaline Phosphatase Total Protein Albumin Cryoglobulin Qualit Blood Type Antibody Screen Crossmatch Quality VTE Prophylaxis VTE prophylaxis: mechanical ordered
[2024-10-08] MEDS: MORPHINE SULFATE INJ (*CRX) 10 MG/ML AMP 5 MG IV PUSH (09:23)
[2024-10-08] MEDS: LORazepam INJ (*CRX) 2 MG/ML VIAL IV PUSH ×3 (09:23→20:10)
--- NOTE | 2024-10-08 10:38 | PCFNICU ---
ICU Rounding Note: Pt current nutrition is Nepro @ 20 ml/h ON HOLD . Nutrition recommendation: Resume tube feeding when medically appropriate. Continue Nepro at 20 ml/h without advancing rate until MD okayed. Last recorded weight is 89.5 kg. Bowel Motility: No BMs. Last BM 10/04/24 Labs Reviewed: Hgb 10.1, Hct 30.2, BUN 46, Cre 6.74 Meds Noted: sedation with Fentanyl only. Skin: No wounds noted Additional Notes: Eventual goal rate Nepro @ 40 ml/h to provide 1584 kcal, 71 g protein, 639 ml free water. Advance per MD order only. Not meeting estimated needs at 20 ml/h. Following daily in ICU rounds. Monitor labs, vitals, orders, weights, tube feeding tolerance, output Follow up Sunday/Sunday. Daily in rounds.
[2024-10-08] MEDS: MORPHINE SULFATE (*CRX) 2 MG/ML INJ 4 MG IV PUSH ×5 (10:39→17:21)
--- NOTE | 2024-10-08 10:46 | PCFNICU ---
ICU Rounding Note: Pt current nutrition is NPO. Nutrition recommendation: No recommendations. Comfort measures Last recorded weight is 89.5 kg. Bowel Motility: No BMs. Last BM 10/04/24 Labs Reviewed: Hgb 10.1, Hct 30.2, BUN 46, Cre 6.74 Meds Noted: Skin: NO pressure Additional Notes: Comfort measures are initiated. Pt will be extubated for terminal wean. Following by consult.
[2024-10-08] MEDS: ATROPINE SULFATE 1% OPHTH SOLN 5 ML BOTTLE SUBLINGUAL ×2 (12:04→16:15)
[2024-10-08 13:34] LABS: Anti Glomerular Basement Memb <1.0 AI (<1.0)
--- NOTE | 2024-10-08 18:17 | P.PNIM_ITS ---
Subjective Date/time seen: 10/08/24 18:17 Objective Data Vital Signs Vital Signs: Vital Signs - 24 hr 10/07/24 20:00 10/07/24 20:00 10/07/24 20:00 Temperature Pulse Rate 55 L 49 L Respiratory Rate 16 16 Blood Pressure Pulse Oximetry 99 Oxygen Delivery Mechanical Ventilation Fraction of Inspired Oxygen 30 30 10/07/24 20:00 10/07/24 20:00 10/07/24 21:20 Temperature 37.1 C Pulse Rate 51 L 52 L 50 L Respiratory Rate 16 Blood Pressure 147/56 H Pulse Oximetry 99 99 Oxygen Delivery Mechanical Ventilation Fraction of Inspired Oxygen 30 10/07/24 22:00 10/07/24 22:00 10/07/24 22:00 Temperature 37.1 C Pulse Rate 50 L 50 L 50 L Respiratory Rate 16 16 Blood Pressure 114/59 L Pulse Oximetry 99 Oxygen Delivery Fraction of Inspired Oxygen 10/07/24 23:12 10/07/24 23:51 10/07/24 23:52 Temperature Pulse Rate 47 L 47 L Respiratory Rate 16 Blood Pressure Pulse Oximetry 99 99 Oxygen Delivery Mechanical Ventilation Mechanical Ventilation Fraction of Inspired Oxygen 30 30 30 10/08/24 00:00 10/08/24 00:00 10/08/24 01:18 Temperature 37.2 C Pulse Rate 51 L 51 L 55 L Respiratory Rate 16 16 Blood Pressure 122/54 L Pulse Oximetry 99 Oxygen Delivery Fraction of Inspired Oxygen 10/08/24 01:18 10/08/24 02:00 10/08/24 02:00 Temperature 37.2 C Pulse Rate 55 L 50 L 50 L Respiratory Rate 16 16 Blood Pressure 127/66 Pulse Oximetry 97 Oxygen Delivery Fraction of Inspired Oxygen 10/08/24 02:00 10/08/24 02:42 10/08/24 03:25 Temperature Pulse Rate 50 L 50 L Respiratory Rate 16 Blood Pressure Pulse Oximetry 98 Oxygen Delivery Mechanical Ventilation Fraction of Inspired Oxygen 30 30 10/08/24 03:26 10/08/24 04:00 10/08/24 04:00 Temperature 37.3 C Pulse Rate 50 L 50 L 51 L Respiratory Rate 16 16 Blood Pressure 141/60 H Pulse Oximetry 98 100 Oxygen Delivery Mechanical Ventilation Fraction of Inspired Oxygen 30 10/08/24 04:00 10/08/24 05:00 10/08/24 05:05 Temperature Pulse Rate 50 L 50 L 46 L Respiratory Rate 16 16 Blood Pressure Pulse Oximetry 100 Oxygen Delivery Mechanical Ventilation Fraction of Inspired Oxygen 30 10/08/24 06:00 10/08/24 06:00 10/08/24 06:00 Temperature 37.3 C Pulse Rate 46 L 50 L 51 L Respiratory Rate 16 16 Blood Pressure 118/69 Pulse Oximetry 100 Oxygen Delivery Fraction of Inspired Oxygen 10/08/24 07:20 10/08/24 08:00 10/08/24 08:00 Temperature 37.4 C Pulse Rate 45 L 43 L 43 L Respiratory Rate 16 14 Blood Pressure 146/55 H Pulse Oximetry 100 Oxygen Delivery Fraction of Inspired Oxygen 10/08/24 08:00 10/08/24 08:00 10/08/24 08:12 Temperature Pulse Rate 45 L Respiratory Rate Blood Pressure Pulse Oximetry 100 Oxygen Delivery Mechanical Ventilation Mechanical Ventilation Fraction of Inspired Oxygen 30 30 30 10/08/24 11:58 10/08/24 16:00 Temperature Pulse Rate Respiratory Rate Blood Pressure 81/48 L Pulse Oximetry Oxygen Delivery Room Air Fraction of Inspired Oxygen Intake/Output Intake/Output: Intake & Output 10/05/24 10/06/24 10/07/24 10/08/24 23:59 23:59 23:59 23:59 Intake Total 550 1080.3 1540.8 416.8 Output Total 1000 900 70 5 Balance -450 180.3 1470.8 411.8 Meds/Results Medications: Active Medications Generic Name Dose Route Start Last Admin Trade Name Freq PRN Reason Stop Dose Admin Atropine Sulfate 1 - 2 drop 10/08/24 09:12 10/08/24 16:15 Atropine Sulfate 1% Ophth Soln 5 Ml Bottle SUBLINGUAL 1 drop Q4H PRN Administration Secretions Lorazepam 2 mg 10/08/24 09:12 10/08/24 12:36 Lorazepam Inj (*Crx) 2 Mg/Ml Vial IV PUSH 2 mg Q1H PRN Administration Anxiety/Comfort Morphine Sulfate 4 mg 10/08/24 09:12 10/08/24 17:21 Morphine Sulfate (*Crx) 2 Mg/Ml Inj IV PUSH 4 mg Q30M PRN Administration COMFORT Sodium Chloride 10 ml 10/06/24 22:00 10/08/24 13:44 Central Line Flush IV PUSH Not Given Q8HR HUAN Sodium Chloride 20 ml 10/06/24 14:56 Central Line Flush IV PUSH PRN PRN after blood draws Radiology Results: ITS Impressions Arterial/Peripheral Duplex 09/29/24 14:58 IMPRESSION: 1. Bilateral increased renal cortical atelectasis be consistent with medical renal disease. No hydronephrosis. 2. No Doppler evidence of renal artery stenosis. 3. Fusiform abdominal aortic aneurysm measuring up to 3.6 cm maximal diameter. Renal Ultrasound 09/29/24 14:58 IMPRESSION: 1. Bilateral increased renal cortical atelectasis be consistent with medical renal disease. No hydronephrosis. 2. No Doppler evidence of renal artery stenosis. 3. Fusiform abdominal aortic aneurysm measuring up to 3.6 cm maximal diameter. Central Venous Line 10/06/24 08:02 IMPRESSION: 1. Central line tip overlying the proximal right atrium. Head CT 10/07/24 16:01 Impression: No acute intracranial hemorrhage or suspicious mass effect. Chest/Abdomen/Pelvis CT 10/07/24 16:03 IMPRESSION: Large bilateral pleural effusions with adjacent compressive atelectasis. The gallbladder is distended with multiple calcified stones with surrounding inflammatory change. Interval development of multiple left-sided rib fractures, as detailed above. Findings suggesting hypovolemia. Chest X-Ray 10/08/24 06:43 Impression: [id number] left pleural effusion with probable left basilar atelectasis. Mild central congestive changes. Support tubes, as above. Labs Labs: Laboratory Results - last 24 hr 09/29/24 10/07/24 10/07/24 13:57 20:05 20:09 WBC 7.3 RBC 3.16 L Hgb 10.0 L Hct 29.7 L MCV 94.0 MCH 31.6 MCHC 33.7 RDW 15.7 H Plt Count 109 L MPV 11.0 H Immature Gran % (Auto) Neut % (Auto) Lymph % (Auto) [place] % (Auto) Eos % (Auto) Baso % (Auto) Lymph # (Auto) [place] # (Auto) Eos # (Auto) Baso # (Auto) Abs Immat Gran (auto) Absolute Neuts (auto) Absolute Nucleated RBC Nucleated RBC % % Immature Plt Fraction 5.6 Puncture Site ABG pH ABG pCO2 ABG pO2 ABG PO2/FiO2 Ratio ABG HCO3 ABG O2 Saturation ABG O2 Content ABG Base Excess A-a Gradient Oxyhemoglobin Carboxyhemoglobin Methemoglobin Reduced Hemoglobin Total Hemoglobin O2 Delivery Device O2 Liters/Min Minute Volume Vent Rate Vent Mode FiO2 Tidal Volume PEEP Peak Inspir Pressure Pressure Support Sodium Potassium Chloride Carbon Dioxide Anion Gap BUN Creatinine Estim Creat Clear Calc Estimated GFR Glucose POC Capillary Glucose 116 H Calcium Phosphorus Magnesium Total Bilirubin AST ALT Alkaline Phosphatase Total Protein Albumin Glomerular Base Memb Ab <1.0 10/08/24 10/08/24 10/08/24 01:06 04:54 07:44 WBC 7.2 RBC 3.18 L Hgb 10.1 L Hct 30.2 L MCV 95.0 MCH 31.8 MCHC 33.4 RDW 16.0 H Plt Count 105 L MPV 10.7 H Immature Gran % (Auto) 1.4 H Neut % (Auto) 81.2 H Lymph % (Auto) 9.6 L [place] % (Auto) 4.3 Eos % (Auto) 3.2 Baso % (Auto) 0.3 Lymph # (Auto) 0.69 L [place] # (Auto) 0.3 Eos # (Auto) 0.2 Baso # (Auto) 0.0 Abs Immat Gran (auto) 0.10 H Absolute Neuts (auto) 5.9 Absolute Nucleated RBC 0.040 H Nucleated RBC % 0.6 H % Immature Plt Fraction Puncture Site Right radial ABG pH 7.399 ABG pCO2 39.4 ABG pO2 109.8 H ABG PO2/FiO2 Ratio 3.66 ABG HCO3 23.8 ABG O2 Saturation 98.0 ABG O2 Content 19.2 ABG Base Excess -0.8 A-a Gradient 57.8 Oxyhemoglobin 97.1 Carboxyhemoglobin 0.5 Methemoglobin 0.1 Reduced Hemoglobin 2.3 Total Hemoglobin 14.0 O2 Delivery Device Ventilator O2 Liters/Min Not Reportable Minute Volume Not Reportable Vent Rate 16 Vent Mode Cmv FiO2 30 Tidal Volume 400 PEEP 5 Peak Inspir Pressure Not Reportable Pressure Support Not Reportable Sodium 143 Potassium 3.8 Chloride 101 Carbon Dioxide 25 Anion Gap 17 H BUN 46 H Creatinine 6.74 H Estim Creat Clear Calc 6 Estimated GFR 6 L Glucose 109 POC Capillary Glucose 106 H 116 H Calcium 9.0 Phosphorus 4.4 Magnesium 3.6 H Total Bilirubin 0.9 AST 84 H ALT 15 Alkaline Phosphatase 93 Total Protein 6.0 L Albumin 3.7 Glomerular Base Memb Ab
--- NOTE | 2024-10-09 07:23 | PM.DDS ---
Discharge Summary Date and Time Date of : 10/08/24 Time of : 21:20 Provider Pronounced By: 2 RNs Name of First RN That Pronounced: Shima Levi RN Name of Second RN That Pronounced: DEBBIE Cortes Additional Data Confirmation of as documented by pronouncing clinician: Pupillary Reflex, Palpable Pulses, Response to Stimuli, Heart Tones and Breath Sounds Name of Provider Notified: Jana Mccray NP Time Provider Notified: 21:54 Provider Requests Autopsy: No Family Requests Autopsy: No Records And Tape Recordings Engineer Notified: Yes Date [facility] Notified of : 10/08/24 Time [facility] Notified of : 21:56
[2024-10-09 12:55] LABS: Abnormal Protein Band 1 127 mg/dL (NONE DETECTED)
== END 2024-10-08 22:50 | disposition expired | DRG 673 ==
LOC: ANHED 11:32 → ANH3MEDSUR 12:41 → ANH2MED 14:13 → ANH3MEDSUR 10-09 09:49 → ANHICU 10-09 09:49
PROVIDERS: Internal Medicine; Internal Medicine Nephrology; Physician Assistant; Student in an Organized Health Care Education/Training Program; Surgery; Admitting Provider Internal Medicine; Emergency Provider Physician Assistant; PCP Internal Medicine; Visit Provider Family Medicine
PROC: 0JH63XZ Insertion of Tunneled Vascular Access Device into Chest Subcutaneous Tissue and Fascia, Percutaneous Approach (ICD-10-PCS; CPT 36908; principal; 2024-10-03 10:30)
DX: N17.9 Acute kidney failure, unspecified (principal); J96.01 Acute respiratory failure with hypoxia; I12.0 Hypertensive chronic kidney disease with stage 5 chronic kidney disease or end stage renal disease; K92.1 Melena; I47.20 Ventricular tachycardia, unspecified; R57.8 Other shock; N18.5 Chronic kidney disease, stage 5; E87.5 Hyperkalemia; F32.A Depression, unspecified; Z99.2 Dependence on renal dialysis; D63.1 Anemia in chronic kidney disease; I46.9 Cardiac arrest, cause unspecified; I49.01 Ventricular fibrillation; E87.6 Hypokalemia; I48.0 Paroxysmal atrial fibrillation; K81.9 Cholecystitis, unspecified
CPT/HCPCS: 31500; 36415; 36430; 36600; 70450; 71045; 71250; 74176; 76775; 77001; 80048; 80053; 80069; 81001; 81050; 82375; 82550; 82570; 82595; 82607; 82728; 82746; 82805; 82948; 83050; 83520; 83540; 83550; 83605; 83690; 83735; 84100; 84155; 84156; 84165; 84166; 84300; 84439; 84443; 84480; 84484; 84540; 85018; 85025; 85027; 85055; 85610; 85652; 85730; 85999; 86036; 86038; 86039; 86060; 86140; 86160; 86162; 86215; 86225; 86235; 86334; 86335; 86703; 86704; 86705; 86706; 86803; 86850; 86900; 86901; 86923; 87040; 87340; 87637; 87641; 92950; 93005; 93306; 93976; 94002; 94003; 94640; 96361; 96374; 96376; 97110; 97116; 97161; 97165; 99285; A9270; C1750; C1751; C8929; G0257; G0378; G0432; J0171; J0282; J0360; J0461; J0690; J0780; J1171; J1644; J2003; J2004; J2060; J2250; J2270; J2405; J2470; J2543; J2704; J3010; J3475; J7030; J7040; J7050; J7070; J7120; P9016; P9047; Q5105; Q9957